=== PATIENT | male | born 1935 | race Caucasian/White ===

== ENCOUNTER → 2016-12-13 | Outpatient (CLI) | payer OTHER ==
[~2016-12-13] MED LIST: ALLO100T57 PO; ASCO500T3 PO; ASPI-435 PO; CHOL100040 PO; CILO100T PO; CILO100T15 PO; CLON0.1T12 PO; CLOP1TAB15 PO; CLR10 PO; CTP1 PO; CYAN100020 PO; DARB40IN3 INJ; FERR1TAB23 PO; FLV400 PO; FLVHFA44 INH; GARL10007 PO; IMDSR30 PO; IRON 65 MG PO; ISOS60TA25 PO; LEVO100T7 PO; LEVO137T3 PO; METO1TAB69 PO; MTR500 PO; MULT-506 PO; NITR0.4S UT; OMEG500C2 PO; PYRI100T4 PO; RANI150C4 PO; TIOT1AER INH; TRIATAB3 PO
[2016-12-14 05:47] LABS: ESTIMATED AVERAGE GLUCOSE 137 mg/dl; HA1C FLAG Normal (Normal)
== END | disposition home or self-care (01) ==
LOC: C.LABBFT 13:55
PROVIDERS: ATTEND Internal Medicine
DX: E03.9 Hypothyroidism, unspecified (principal); R89.9 Unspecified abnormal finding in specimens from other organs, systems and tissues; E11.9 Type 2 diabetes mellitus without complications

== ENCOUNTER → 2016-12-29 | Outpatient (CLI) | payer OTHER ==
[2016-12-29 12:29] LABS: MEAN CELL VOLUME 103.1 fL (80-100); MEAN CORPUSCULAR HEMOGLOBIN 34.4 pg (25-34); MEAN CORPUSCULAR HGB CONC 33.3 g/dl (32-36); MEAN PLATELET VOLUME 10.9 fL (7.4-10.4); PLATELET COUNT 174 K/uL (130-400); WHITE BLOOD COUNT 5.16 K/uL (4.8-10.8)
[2016-12-29 12:34] LABS: URINE APPEARANCE CLEAR (CLEAR); URINE BILIRUBIN NEG (NEG); URINE COLOR YELLOW; URINE NITRITE NEG (NEG); URINE PH 6.5 (4.5-7.5); URINE SPECIFIC GRAVITY 1.015 (1.000-1.030); UROBILINOGEN NEG (NEG)
[2016-12-29 12:39] LABS: MANUAL MICROSCOPIC REQUIRED? NO; REVIEW REQ? NO
[2016-12-29 12:46] LABS: BLOOD UREA NITROGEN 33 mg/dl (7-18); BUN/CREATININE RATIO 19.4 (10-20); CALCIUM 9.2 mg/dl (8.5-10.1); CARBON DIOXIDE 26 mmol/L (21-32); CHLORIDE 102 mmol/L (98-107); GLUCOSE 157 mg/dl (70-99); POTASSIUM 3.9 mmol/L (3.5-5.1); SODIUM 136 mmol/L (136-145)
[2016-12-29 12:47] LABS: PHOSPHORUS 2.4 mg/dl (2.5-4.9)
[2016-12-29 13:08] LABS: URINE PROTIEN/CREAT RATIO 0.1 (0-0.2); URINE TOTAL PROTEIN 10.4 mg/dl (0-11.9)
== END | disposition home or self-care (01) ==
LOC: C.LABBFT 08:53
PROVIDERS: ATTEND Internal Medicine Nephrology
DX: I12.9 Hypertensive chronic kidney disease with stage 1 through stage 4 chronic kidney disease, or unspecified chronic kidney disease (principal); D64.9 Anemia, unspecified; N18.3 Chronic kidney disease, stage 3 (moderate); N25.81 Secondary hyperparathyroidism of renal origin

== ENCOUNTER → 2017-01-30 | Outpatient (CLI) | payer OTHER | END | disposition home or self-care (01) | LOC: C.LABBFT 08:26 | PROVIDERS: ATTEND Internal Medicine | DX: E03.9 Hypothyroidism, unspecified (principal) ==

== ENCOUNTER → 2017-02-05 | Outpatient (CLI) | payer OTHER ==
[~2017-02-05] MED LIST changes: +METO100T44 PO; -METO1TAB69 PO
[2017-02-06 06:12] LABS: ESTIMATED AVERAGE GLUCOSE 137 mg/dl; HA1C FLAG Normal (Normal)
== END | disposition home or self-care (01) ==
LOC: C.LABBFT 13:31
PROVIDERS: ATTEND Internal Medicine
DX: E11.9 Type 2 diabetes mellitus without complications (principal)

== ENCOUNTER → 2017-05-04 | Outpatient (CLI) | payer OTHER ==
[~2017-05-04] MED LIST changes: -METO100T44 PO; +METO1TAB69 PO
[2017-05-04 12:34] LABS: HEMATOCRIT 34.7 % (42-52); MEAN CELL VOLUME 105.8 fL (80-100); MEAN CORPUSCULAR HEMOGLOBIN 34.5 pg (25-34); MEAN CORPUSCULAR HGB CONC 32.6 g/dl (32-36); MEAN PLATELET VOLUME 10.9 fL (7.4-10.4); PLATELET COUNT 167 K/uL (130-400); RED BLOOD COUNT 3.28 M/uL (4.7-6.1)
[2017-05-04 12:43] LABS: URINE APPEARANCE CLEAR (CLEAR); URINE BILIRUBIN NEG (NEG); URINE COLOR YELLOW; URINE EPITHELIAL CELL AUTO 0-5 /lpf (0-5); URINE NITRITE NEG (NEG); URINE PH 6.5 (4.5-7.5); URINE SPECIFIC GRAVITY 1.019 (1.000-1.030); UROBILINOGEN NEG (NEG)
[2017-05-04 12:47] LABS: MANUAL MICROSCOPIC REQUIRED? NO; REVIEW REQ? NO
[2017-05-04 12:54] LABS: ALT/SGPT 26 U/L (12-78); AST/SGOT 23 U/L (15-37); BLOOD UREA NITROGEN 32 mg/dl (7-18); BUN/CREATININE RATIO 17.9 (10-20); CALCIUM 9.2 mg/dl (8.5-10.1); CARBON DIOXIDE 27 mmol/L (21-32); CHLORIDE 105 mmol/L (98-107); GLUCOSE 178 mg/dl (70-99); POTASSIUM 4.1 mmol/L (3.5-5.1); SODIUM 140 mmol/L (136-145)
[2017-05-04 12:57] LABS: ALB/GLOB RATIO 0.9 (0.9-2); ALKALINE PHOSPHATASE 73 U/L (45-117); FERRITIN 284.3 ng/ml (8.0-388.0); TOTAL IRON BINDING CAPACITY 234 mcg/dl (250-450)
[2017-05-04 13:10] LABS: URINE PROTIEN/CREAT RATIO 0.1 (0-0.2); URINE TOTAL PROTEIN 12.7 mg/dl (0-11.9)
--- NOTE | 2017-05-11 08:09 | CODING QUERY MEDICAL NECESSITY ---
CQSUPPORTING DIAGNOSIS NEEDED A supporting diagnosis is required for the test/procedure performed on this patient in order for us to be reimbursed by the patient's insurance. Please provide a supporting diagnosis for the following test/procedure listed below next to the test name along with your signature. *If there is no additional diagnosis for this patient that would support the following test/procedure please document that below next to the test/procedure. Test(s)/Procedure(s) that require a supporting diagnosis: DOS 05/04/17 VITAMIN D TEST FOLIC ACID TEST Provider Signature: Date: Thank you Carol Betts Health Information Management Once completed, please kindly fax back to [phone] For questions please call [phone]
== END | disposition home or self-care (01) ==
LOC: C.LABBFT 08:31
PROVIDERS: ATTEND Internal Medicine Nephrology
DX: I12.9 Hypertensive chronic kidney disease with stage 1 through stage 4 chronic kidney disease, or unspecified chronic kidney disease (principal); D64.9 Anemia, unspecified; N18.3 Chronic kidney disease, stage 3 (moderate); N25.81 Secondary hyperparathyroidism of renal origin; E55.9 Vitamin D deficiency, unspecified; D52.9 Folate deficiency anemia, unspecified

== ENCOUNTER 2017-05-30 15:33 | Inpatient (IN) | payer OTHER ==
[~2017-05-30] VITALS: Ht 177.8 cm; Wt 78.2 kg
[~2017-05-30 15:33] MED LIST changes: -CILO100T PO; -CLON0.1T12 PO; -FERR1TAB23 PO; -ISOS60TA25 PO; -LEVO100T7 PO; -MTR500 PO
[2017-05-30] MEDS ORDERED: SODIUM CHLORIDE 0.9% 1000ML 1,000 ML IV STA (15:51)
[2017-05-30] MEDS ORDERED: SODIUM CHLORIDE 0.9% 250ML 250 ML IV STA (15:51)
[2017-05-30] MEDS ORDERED: OPTIRAY 320 IV PRN (16:00)
--- NOTE | 2017-05-30 16:01 | EMERGENCY ROOM VISIT NOTE ---
History Report prepared by Citlalli: Mayra Laird Under the Supervision of: Dr. Ирина Estrada M.D. First contact with patient: 15:48 Chief Complaint: ABDOMINAL PAIN Stated Complaint: STOMACH PROBLEMS FOR 5 DAYS History of Present Illness The patient is a 81 year old male who presents to the Emergency Room with complaints of intermittent, lower abdominal pain occurring today. About a week ago, the patient started having diffuse abdominal pain. Since then, the area of pain has been regressing and the location has been receding towards the lower abdomen. He is now only having pain in lower abdomen which occurs with certain positions such as sitting up. He describes it as a mild, stabbing pain. The pain lasts for about 20-30 seconds. He also had diarrhea about a week ago which has now resolved. He reports a loss of appetite. He has intermittent nausea but denies vomiting. He currently denies any pain. As per daughter, the patient looks pale. He denies fevers, urinary symptoms, or any other complaints. The patient has a history of colitis but is unsure if his symptoms are similar today. He denies any history of abdominal surgeries. The patient is also unsure about any blood in stool because he is on iron pills. As per daughter, the patient has a history of triple bypass, multiple stent placement, and angioplasty. Source of History: patient Onset: today Position: abdomen (lower) Symptom Intensity: mild Quality: stabbing Timing: intermittent Associated Symptoms: + nausea, + diarrhea (resolved), No fevers, No vomiting , No urinary symptoms Review of Systems See HPI for pertinent positives & negatives. A total of 10 systems reviewed and were otherwise negative. Past Medical & Surgical Medical Problems: (1) Aortocoronary Bypass (2) Chronic Kidney Disease, Stage Iii (Moderate) (3) Colitis (4) Diab Vanessa Wo Compl, Type Ii Or Unspec Type, Not Uncntrld (5) Diverticulosis Colon (W/O Ment Of Hemorrhage) (6) Hypertension Nos Surgical Problems: (1) Stented coronary artery Family History Cancer Heart disease Hypertension Lung disease Stroke Social History Smoking Status: Former Smoker Drug Use: none Marital Status: Housing Status: lives with family Occupation Status: retired Current/Historical Medications Scheduled Allopurinol (Zyloprim), 200 MG PO QAM Ascorbic Acid (Vitamin C), 500 MG PO QPM Aspirin (Aspirin 81), 81 MG PO QAM Cholecalciferol (Vitamin D-1000), 1,000 UNIT PO QAM Cilostazol (Pletal), 100 MG PO BID Clonidine Hcl (Catapres), 2 TAB PO HS Clopidogrel (Plavix), 75 MG PO QAM Cyanocobalamin (Vitamin B12), 1,000 MCG PO QAM Darbepoetin Keenan-Polysorbate 8 (Aranesp Albumin Free), 1 DOSE INJ UD Ferrous Sulfate (Iron), 1 TAB PO QAM Fluticasone Propionate (Flovent Hfa), 2 PUFFS INH BID Folic Acid (Folic Acid), 400 MCG PO QAM Garlic (Garlic), 1,000 MG PO QAM Isosorbide Mononitrate Ext Rel (Imdur Ext Rel), 60 MG PO BID Levothyroxine Sodium (Levothyroxine Sodium), 1 TAB PO DAILYBB Loratadine (Claritin), 10 MG PO QAM Metoprolol Succ (Toprol Xl) (Toprol-Xl ), 100 MG PO QPM Metronidazole (Metronidazole), 500 MG PO TID Multivitamin (Multivitamin), 1 TAB PO QAM Nitroglycerin (Nitrostat), 0.4 MG UT PRN [place]urel-3 Fatty Acids (Fish Oil), 1,000 MG PO BID Pyridoxine (Vitamin B6), 100 MG PO QAM Ranitidine Hcl (Ranitidine Hcl), 150 MG PO BID Tiotropium [place]-Olodaterol (Stiolto Respimat 2.5-2.5 Mcg/Act), 2 PUFFS INH QAM Triamterene/Hctz (Triamterene/Hctz 37.5-25MG), 1 TAB PO QPM Allergies Coded Allergies: No Known Allergies (Unverified , 05/30/17) Physical Exam Vital Signs Date Time Temp Pulse Resp B/P (MAP) Pulse Ox O2 Delivery O2 Flow Rate FiO2 05/30/17 18:25 87 16 122/70 96 Room Air 05/30/17 17:02 87 16 126/70 96 Room Air 05/30/17 16:11 86 05/30/17 15:39 36.8 60 20 122/74 98 Room Air Physical Exam Vital signs reviewed. General: Well-appearing, in no significant distress. HEENT: No scleral icterus, PERRLA, neck supple. Atraumatic. Cardiovascular: Regular rate and rhythm, no extra sounds. Pulmonary: Coarse breath sounds at the bases bilaterally, normal work of breathing. Abdomen: Soft, no reproducible abdominal tenderness, nondistended, positive bowel sounds. Rectal: Guaiac negative, dark stool. Musculoskeletal: Atraumatic, no peripheral edema. No CVA tenderness. Neurologic: Patient awake alert and oriented x 3, full strength in all 4 extremities. Cranial nerves 2 through 12 grossly intact. Skin: Warm, dry, no rash. Appears to be pale. Medical Decision & Procedures ER Provider Diagnostic Interpretation: CT results as stated below per my review and radiologist interpretation: ABD/PELVIS NO IV OR ORAL CONT CLINICAL HISTORY: 81 years-old Male presenting with lower abd pain, diarrhea, dec appetite. TECHNIQUE: Multidetector CT of the abdomen and pelvis was performed without the use of intravenous contrast. IV contrast: None. A dose lowering technique was used consistent with the principles of ALARA (as low as reasonably achievable). COMPARISON: 06/20/2016. CT DOSE (mGy.cm): The estimated cumulative dose is 397.58 mGy.cm. 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 Lung bases: Dependent reticulation likely atelectasis. Normal heart size. Coronary artery, mitral annular, and aortic valve calcification. No pericardial or pleural effusion. Liver: Normal liver morphology. Borderline hepatic steatosis. Well-defined 8 mm lesion at the hepatic dome, indeterminate but unchanged from prior and likely hepatic cyst or hamartoma. Biliary: No gross biliary ductal dilatation allowing for noncontrast technique. Mildly distended gallbladder without gallbladder wall thickening. Pancreas: Mild parenchymal atrophy. Spleen: Normal. Adrenal glands: Normal. Kidneys and ureters: Cortical thinning posteriorly likely indicates prior infarct, infection, or trauma. Multiple hypodensities indeterminate but possibly cysts. No hydronephrosis. Vascular calcification noted. Ureters grossly normal. Gastrointestinal tract: Interval development of diffuse colonic wall thickening with pericolonic inflammatory change. This extends from the cecum to the proximal sigmoid colon. Sigmoid diverticulosis. Peritoneal cavity: Small amount of pelvic ascites. No free gas. Bladder: Normal. Pelvic organs: The prostate is likely diminutive. Vasculature: Severe atherosclerosis of the abdominal aorta evidence of left femoral bypass graft. A density of vessels cannot be assessed. Lymph nodes: No enlarged lymph nodes in the abdomen or pelvis. Abdominal wall: Normal. Musculoskeletal: Degenerative changes of the spine. IMPRESSION: 1. Interval development of diffuse colonic wall thickening with pericolonic inflammatory change. This is consistent with colitis most likely infectious etiology. No abnormal colonic distention or evidence of perforation. 2. Sigmoid diverticulosis. 3. Small amount of ascites. 4. Severe atherosclerosis. Left femoral bypass graft. Patency of vessels cannot be assessed. Given noncontrast technique. The report will be called/faxed according to standard departmental protocol. Electronically signed by: Cuong Cota M.D. 05/30/2017 5:45 PM Dictated Date/Time: 05/30/2017 5:36 PM Laboratory Results 05/30/17 15:50 Red Blood Count 3.51, Mean Corpuscular Volume 99.7, Mean Corpuscular Hemoglobin 34.5, Mean Corpuscular Hemoglobin Concent 34.6, Mean Platelet Volume 10.0, Neutrophils (%) (Auto) 81.8, Lymphocytes (%) (Auto) 3.8, Monocytes (%) (Auto) 13.4, Eosinophils (%) (Auto) 0.5, Basophils (%) (Auto) 0.1, Neutrophils # (Auto ) 14.25, Lymphocytes # (Auto) 0.66, Monocytes # (Auto) 2.33, Eosinophils # (Auto ) 0.08, Basophils # (Auto) 0.01 05/30/17 15:50 Test 05/30/17 15:50 White Blood Count 17.40 K/uL (4.8-10.8) Red Blood Count 3.51 M/uL (4.7-6.1) Hemoglobin 12.1 g/dL (14.0-18.0) Hematocrit 35.0 % (42-52) Mean Corpuscular Volume 99.7 fL (80-100) Mean Corpuscular Hemoglobin 34.5 pg (25-34) Mean Corpuscular Hemoglobin Concent 34.6 g/dl (32-36) Platelet Count 247 K/uL (130-400) Mean Platelet Volume 10.0 fL (7.4-10.4) Neutrophils (%) (Auto) 81.8 % Lymphocytes (%) (Auto) 3.8 % Monocytes (%) (Auto) 13.4 % Eosinophils (%) (Auto) 0.5 % Basophils (%) (Auto) 0.1 % Neutrophils # (Auto) 14.25 K/uL (1.4-6.5) Lymphocytes # (Auto) 0.66 K/uL (1.2-3.4) Monocytes # (Auto) 2.33 K/uL (0.11-0.59) Eosinophils # (Auto) 0.08 K/uL (0-0.5) Basophils # (Auto) 0.01 K/uL (0-0.2) RDW Standard Deviation 45.4 fL (36.4-46.3) RDW Coefficient of Variation 12.5 % (11.5-14.5) Immature Granulocyte % (Auto) 0.4 % Immature Granulocyte # (Auto) 0.07 K/uL (0.00-0.02) Anion Gap 11.0 mmol/L (3-11) Estimated GFR () 23.6 Estimated GFR (Non- 20.4 BUN/Creatinine Ratio 20.4 (10-20) Calcium Level 9.3 mg/dl (8.5-10.1) Total Bilirubin 0.6 mg/dl (0.2-1) Direct Bilirubin 0.3 mg/dl (0-0.2) Aspartate Amino Transf (AST/SGOT) 25 U/L (15-37) Alanine Aminotransferase (ALT/SGPT) 34 U/L (12-78) Alkaline Phosphatase 83 U/L (45-117) Total Protein 6.8 gm/dl (6.4-8.2) Albumin 2.6 gm/dl (3.4-5.0) Lipase 70 U/L (73-393) Laboratory results per my review. Medications Administered Medications (Trade) Dose Ordered Sig/Dain Route Start Time Stop Time Status Last Admin Dose Admin Sodium Chloride 250 ml @ 999 mls/hr Q16M STAT IV 05/30/17 15:51 05/30/17 16:06 DC 05/30/17 15:51 999 MLS/HR Sodium Chloride 1,000 ml @ 125 mls/hr Q8H STAT IV 05/30/17 15:51 05/30/17 23:50 05/30/17 15:51 125 MLS/HR Piperacillin Sod/ Tazobactam Sod (Zosyn Iv) 4.5 gm NOW STAT IV 05/30/17 18:01 05/30/17 18:02 DC 05/30/17 18:25 4.5 GM ECG Indication: abdominal pain Rate (beats per minute): 86 Rhythm: sinus rhythm Findings: 1st degree AV block, other (Premature supraventricular complex; 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 The patient was evaluated in room C08. A complete history and physical examination was performed. 1551: Sodium Chloride 1000 ml @ 125 mls/hr IV, Sodium Chloride 250 ml @ 999 mls/ hr IV 180: Zosyn IV 4.5 gm IV 181: Upon reevaluation, the patient is resting comfortably. I discussed laboratory and radiographic results with the patient and his family. They verbalized agreement of the treatment plan. I [facility] The patient will be evaluated for further management and care. Medical Decision Differential diagnosis: Etiologies such as diverticulitis, urinary tract infection, intraabdominal mass , kidney stone, AVM, coagulopathy, colitis, inflammatory bowel disease, malignancy, Farrah-Hooker tear, esophagitis, peptic ulcer disease, variceal bleed, gastritis, epistaxis, fissure, hemorrhoids, as well as others were entertained. This patient was evaluated and appeared to be in no significant distress. IV access was obtained and laboratory work was drawn. Patient does have some tenderness to abdominal exam. IV access was obtained and laboratory work was drawn. The patient was placed on the manager reimbursement. Laboratory work reveals a leukocytosis. He is afebrile. Patient does have a worsened renal function. Creatinine is 2.8 from baseline of 1.7. Patient was given IV Zosyn 4.5 g. Case was discussed with the hospitalist service will evaluate the patient for further management. Medication Reconcilliation Current Medication List: was personally reviewed by me Blood Pressure Screening Patient's blood pressure: Normal blood pressure Consults Time Called: 1809 Consulting Physician: Dr. Salty [facility] Returned Call: [address] [facility] Impression Primary Impression: Acute colitis Scribe Attestation The scribe's documentation has been prepared under my direction and personally reviewed by me in its entirety. I confirm that the note above accurately reflects all work, treatment, procedures, and medical decision making performed by me. Departure Information Dispostion Being Evaluated By Hospitalist Prescriptions Metronidazole (Metronidazole) 500 Mg Tab 500 MG PO TID for 8 Days, #24 TAB Prov: Taran Ross D.Ernesto. 06/02/17 Referrals Sanjeev Coronado M.D. (PCP) Patient Instructions My [facility]
[2017-05-30 16:07] LABS: BASO % 0.1 %; BASO ABS # 0.01 K/uL (0-0.2); COMPLETE YES; EOS % 0.5 %; IG% 0.4 %; LYMPH % 3.8 %; LYMPH ABS # 0.66 K/uL (1.2-3.4); MEAN CELL VOLUME 99.7 fL (80-100); MEAN CORPUSCULAR HEMOGLOBIN 34.5 pg (25-34); MEAN CORPUSCULAR HGB CONC 34.6 g/dl (32-36); MONO % 13.4 %; NEUT % 81.8 %; PLATELET COUNT 247 K/uL (130-400); RED BLOOD COUNT 3.51 M/uL (4.7-6.1)
[2017-05-30 16:22] LABS: ALT/SGPT 34 U/L (12-78); AST/SGOT 25 U/L (15-37); BLOOD UREA NITROGEN 57 mg/dl (7-18); BUN/CREATININE RATIO 20.4 (10-20); CALCIUM 9.3 mg/dl (8.5-10.1); CARBON DIOXIDE 25 mmol/L (21-32); CHLORIDE 96 mmol/L (98-107); GLUCOSE 118 mg/dl (70-99); POTASSIUM 3.7 mmol/L (3.5-5.1); SODIUM 132 mmol/L (136-145)
[2017-05-30 16:25] LABS: ALKALINE PHOSPHATASE 83 U/L (45-117)
[2017-05-30] MEDS ORDERED: CILO100T PO (16:31)
[2017-05-30] MEDS ORDERED: CLON0.1T12 PO (16:37)
[2017-05-30] MEDS ORDERED: ISOS60TA25 PO (16:37)
[2017-05-30] MEDS ORDERED: LEVO100T7 PO (16:37)
[2017-05-30] MEDS ORDERED: FERR1TAB23 PO (16:37)
--- NOTE | 2017-05-30 17:46 | DIAGNOSTIC IMAGING REPORT ---
ABD/PELVIS NO IV OR ORAL CONT CLINICAL HISTORY: 81 years-old Male presenting with lower abd pain, diarrhea, dec appetite. TECHNIQUE: Multidetector CT of the abdomen and pelvis was performed without the use of intravenous contrast. IV contrast: None. A dose lowering technique was used consistent with the principles of ALARA (as low as reasonably achievable). COMPARISON: 06/20/2016. CT DOSE (mGy.cm): The estimated cumulative dose is 397.58 mGy.cm. 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 Lung bases: Dependent reticulation likely atelectasis. Normal heart size. Coronary artery, mitral annular, and aortic valve calcification. No pericardial or pleural effusion. Liver: Normal liver morphology. Borderline hepatic steatosis. Well-defined 8 mm lesion at the hepatic dome, indeterminate but unchanged from prior and likely hepatic cyst or hamartoma. Biliary: No gross biliary ductal dilatation allowing for noncontrast technique. Mildly distended gallbladder without gallbladder wall thickening. Pancreas: Mild parenchymal atrophy. Spleen: Normal. Adrenal glands: Normal. Kidneys and ureters: Cortical thinning posteriorly likely indicates prior infarct, infection, or trauma. Multiple hypodensities indeterminate but possibly cysts. No hydronephrosis. Vascular calcification noted. Ureters grossly normal. Gastrointestinal tract: Interval development of diffuse colonic wall thickening with pericolonic inflammatory change. This extends from the cecum to the proximal sigmoid colon. Sigmoid diverticulosis. Peritoneal cavity: Small amount of pelvic ascites. No free gas. Bladder: Normal. Pelvic organs: The prostate is likely diminutive. Vasculature: Severe atherosclerosis of the abdominal aorta evidence of left femoral bypass graft. A density of vessels cannot be assessed. Lymph nodes: No enlarged lymph nodes in the abdomen or pelvis. Abdominal wall: Normal. Musculoskeletal: Degenerative changes of the spine. IMPRESSION: 1. Interval development of diffuse colonic wall thickening with pericolonic inflammatory change. This is consistent with colitis most likely infectious etiology. No abnormal colonic distention or evidence of perforation. 2. Sigmoid diverticulosis. 3. Small amount of ascites. 4. Severe atherosclerosis. Left femoral bypass graft. Patency of vessels cannot be assessed. Given noncontrast technique. The report will be called/faxed according to standard departmental protocol. Electronically signed by: Cuong Cota M.D. 05/30/2017 5:45 PM Dictated Date/Time: 05/30/2017 5:36 PM
[2017-05-30] MEDS ORDERED: PIPERACILLIN/TAZOBACTAM 4.5 GM/100ML D5W IV STA (18:01)
[2017-05-30] MEDS ORDERED: ONDANSETRON INJ 2 MG/ML 2 ML VIAL IV PRN (18:45)
[2017-05-30] MEDS ORDERED: MAGNESIUM HYDROXIDE SUSP 30 ML UDC PO PRN (18:45)
[2017-05-30] MEDS ORDERED: ALUMINUM/MAGNESIUM/SIMETH (MAALOX MAX) 30 ML UDC PO PRN (18:45)
[2017-05-30] MEDS ORDERED: POLYETHYLENE (MIRALAX) 17 GM PACK PO PRN (18:45)
[2017-05-30] MEDS ORDERED: ACETAMINOPHEN 325 MG TAB PO PRN (18:45)
[2017-05-30] MEDS ORDERED: NITROGLYCERIN 0.4 MG SL PER TAB CHARGE UT PRN (18:45)
--- NOTE | 2017-05-30 19:04 | History and Physical ---
History & Physical Date & Time of Service: May 30, 2017 at 18:43 Chief Complaint: Stomach Problems For 5 Days Primary Care Physician: Sanjeev Coronado M.D. History of Present Illness Source: patient, family, clinic records, hospital records Patient is a pleasant 81 y/o male, with PMHx of CAD s/p 3-vessel CABG and multiple stent placements, CKD stage III, HTN, diet-controlled DM, diverticulosis, lymphocytic colitis, hypothyroidism, chronic anemia, COPD, BPH, and GERD, who presented to the ED because of abdominal discomfort and diarrhea x5 days. Abdominal discomfort started as a generalized pain, but progressively localized to LLQ. Now pain only occurs with movement. Diarrhea has subsided 1 day ago. He had decreased appetite and fluid intake due to nausea. Patient had a colonoscopy in 06/2016 due to persistent diarrhea. Colonoscopy reported internal hemorrhoids and diverticulosis. Pathology was consistent with lymphocytic colitis. He follows with Dr. Sher/Criselda Ayers. Patient denies any fever, chills, sweats, lightheadedness, dizziness, vision changes, CP, palpitations, edema, SOB, wheezing, cough, vomiting, urinary symptoms, melena, numbness/tingling, weakness, muscle/joint pain, anxiety/depression, active bleeding, or new skin discoloration/changes. Past Medical/Surgical History Medical Problems: CAD s/p 3-vessel CABG and multiple stent placements CKD stage III HTN diet-controlled DM diverticulosis lymphocytic colitis hypothyroidism chronic anemia COPD BPH GERD Surgical Problems: (1) Stented coronary artery Status: Resolved Family History Cancer Heart disease Hypertension Lung disease Stroke Social History Smoking Status: Former Smoker Drug Use: none Marital Status: Housing status: lives with significant other Occupational Status: retired Immunizations History of Tetanus Vaccine?: Unknown History of Pneumococcal: Yes History of Hepatitis B Vaccine: Unknown Multi-Drug Resistant Organisms History of MDRO: No Allergies Coded Allergies: No Known Allergies (Unverified , 05/30/17) Home Medications Scheduled Allopurinol (Zyloprim), 200 MG PO QAM Ascorbic Acid (Vitamin C), 500 MG PO QPM Aspirin (Aspirin 81), 81 MG PO QAM Cholecalciferol (Vitamin D-1000), 1,000 UNIT PO QAM Cilostazol (Pletal), 100 MG PO BID Clonidine Hcl (Catapres), 2 TAB PO HS Clopidogrel (Plavix), 75 MG PO QAM Cyanocobalamin (Vitamin B12), 1,000 MCG PO QAM Darbepoetin Keenan-Polysorbate 8 (Aranesp Albumin Free), 1 DOSE INJ UD Ferrous Sulfate (Iron), 1 TAB PO QAM Fluticasone Propionate (Flovent Hfa), 2 PUFFS INH BID Folic Acid (Folic Acid), 400 MCG PO QAM Garlic (Garlic), 1,000 MG PO QAM Isosorbide Mononitrate Ext Rel (Imdur Ext Rel), 60 MG PO BID Levothyroxine Sodium (Levothyroxine Sodium), 1 TAB PO DAILYBB Loratadine (Claritin), 10 MG PO QAM Metoprolol Succ (Toprol Xl) (Toprol-Xl ), 100 MG PO QPM Multivitamin (Multivitamin), 1 TAB PO QAM Nitroglycerin (Nitrostat), 0.4 MG UT PRN [place]-3 Fatty Acids (Fish Oil), 1,000 MG PO BID Pyridoxine (Vitamin B6), 100 MG PO QAM Ranitidine Hcl (Ranitidine Hcl), 150 MG PO BID Tiotropium [place]-Olodaterol (Stiolto Respimat 2.5-2.5 Mcg/Act), 2 PUFFS INH QAM Triamterene/Hctz (Triamterene/Hctz 37.5-25MG), 1 TAB PO QPM Physical Exam Vital Signs Date Time Temp Pulse Resp B/P (MAP) Pulse Ox O2 Delivery O2 Flow Rate FiO2 05/30/17 18:25 87 16 122/70 96 Room Air 05/30/17 17:02 87 16 126/70 96 Room Air 05/30/17 16:11 86 05/30/17 15:39 36.8 60 20 122/74 98 Room Air General Appearance: no apparent distress Head: normocephalic, atraumatic Eyes: normal inspection, PERRL ENT: hearing grossly normal Neck: supple Respiratory/Chest: lungs clear, no respiratory distress, no accessory muscle use Cardiovascular: regular rate, rhythm Abdomen/GI: normal bowel sounds, soft, + tenderness (mild ttp LLQ ), + guarding Back: normal inspection Extremities/Musculoskelatal: no calf tenderness, no pedal edema Neurologic/Psych: alert, normal mood/affect, oriented x 3 Skin: normal color, warm/dry, no rash Diagnostics Laboratory Results Results Past 24 Hours Test 05/30/17 15:50 Range/Units White Blood Count 17.40 4.8-10.8 K/uL Red Blood Count 3.51 4.7-6.1 M/uL Hemoglobin 12.1 14.0-18.0 g/dL Hematocrit 35.0 42-52 % Mean Corpuscular Volume 99.7 80-100 fL Mean Corpuscular Hemoglobin 34.5 25-34 pg Mean Corpuscular Hemoglobin Concent 34.6 32-36 g/dl Platelet Count 247 130-400 K/uL Mean Platelet Volume 10.0 7.4-10.4 fL Neutrophils (%) (Auto) 81.8 % Lymphocytes (%) (Auto) 3.8 % Monocytes (%) (Auto) 13.4 % Eosinophils (%) (Auto) 0.5 % Basophils (%) (Auto) 0.1 % Neutrophils # (Auto) 14.25 1.4-6.5 K/uL Lymphocytes # (Auto) 0.66 1.2-3.4 K/uL Monocytes # (Auto) 2.33 0.11-0.59 K/uL Eosinophils # (Auto) 0.08 0-0.5 K/uL Basophils # (Auto) 0.01 0-0.2 K/uL RDW Standard Deviation 45.4 36.4-46.3 fL RDW Coefficient of Variation 12.5 11.5-14.5 % Immature Granulocyte % (Auto) 0.4 % Immature Granulocyte # (Auto) 0.07 0.00-0.02 K/uL Sodium Level 132 136-145 mmol/L Potassium Level 3.7 3.5-5.1 mmol/L Chloride Level 96 98-107 mmol/L Carbon Dioxide Level 25 21-32 mmol/L Anion Gap 11.0 3-11 mmol/L Blood Urea Nitrogen 57 7-18 mg/dl Creatinine 2.80 0.60-1.40 mg/dl Estimated GFR () 23.6 Estimated GFR (Non- 20.4 BUN/Creatinine Ratio 20.4 10-20 Random Glucose 118 70-99 mg/dl Calcium Level 9.3 8.5-10.1 mg/dl Total Bilirubin 0.6 0.2-1 mg/dl Direct Bilirubin 0.3 0-0.2 mg/dl Aspartate Amino Transf (AST/SGOT) 25 15-37 U/L Alanine Aminotransferase (ALT/SGPT) 34 12-78 U/L Alkaline Phosphatase 83 45-117 U/L Total Protein 6.8 6.4-8.2 gm/dl Albumin 2.6 3.4-5.0 gm/dl Lipase 70 73-393 U/L Diagnostic Radiology ABD/PELVIS NO IV OR ORAL CONT CLINICAL HISTORY: 81 years-old Male presenting with lower abd pain, diarrhea, dec appetite. TECHNIQUE: Multidetector CT of the abdomen and pelvis was performed without the use of intravenous contrast. IV contrast: None. A dose lowering technique was used consistent with the principles of ALARA (as low as reasonably achievable). COMPARISON: 06/20/2016. CT DOSE (mGy.cm): The estimated cumulative dose is 397.58 mGy.cm. FINDINGS: Arborist topogram: Median sternotomy wires and mediastinal surgical clips noted. Lung bases: Dependent reticulation likely atelectasis. Normal heart size. Coronary artery, mitral annular, and aortic valve calcification. No pericardial or pleural effusion. Liver: Normal liver morphology. Borderline hepatic steatosis. Well-defined 8 mm lesion at the hepatic dome, indeterminate but unchanged from prior and likely hepatic cyst or hamartoma. Biliary: No gross biliary ductal dilatation allowing for noncontrast technique. Mildly distended gallbladder without gallbladder wall thickening. Pancreas: Mild parenchymal atrophy. Spleen: Normal. Adrenal glands: Normal. Kidneys and ureters: Cortical thinning posteriorly likely indicates prior infarct, infection, or trauma. Multiple hypodensities indeterminate but possibly cysts. No hydronephrosis. Vascular calcification noted. Ureters grossly normal. Gastrointestinal tract: Interval development of diffuse colonic wall thickening with pericolonic inflammatory change. This extends from the cecum to the proximal sigmoid colon. Sigmoid diverticulosis. Peritoneal cavity: Small amount of pelvic ascites. No free gas. Bladder: Normal. Pelvic organs: The prostate is likely diminutive. Vasculature: Severe atherosclerosis of the abdominal aorta evidence of left femoral bypass graft. A density of vessels cannot be assessed. Lymph nodes: No enlarged lymph nodes in the abdomen or pelvis. Abdominal wall: Normal. Musculoskeletal: Degenerative changes of the spine. IMPRESSION: 1. Interval development of diffuse colonic wall thickening with pericolonic inflammatory change. This is consistent with colitis most likely infectious etiology. No abnormal colonic distention or evidence of perforation. 2. Sigmoid diverticulosis. 3. Small amount of ascites. 4. Severe atherosclerosis. Left femoral bypass graft. Patency of vessels cannot be assessed. Given noncontrast technique. The report will be called/faxed according to standard departmental protocol. Electronically signed by: Cuong Cota M.D. 05/30/2017 5:45 PM Dictated Date/Time: 05/30/2017 5:36 PM The status of this report is Signed. Draft = Not yet reviewed or approved by Radiologist. Signed = Reviewed and approved by Radiologist. EKG BRNET RUSSELL ID:[id number] 30-MAY-2017 16:12:29 [facility] Sinus rhythm with 1st degree A-V block with Premature supraventricular complexes Cannot rule out Anterior infarct , age undetermined Abnormal ECG When compared with ECG of 12-OCT-2016 06:15, ST now depressed in Anterior leads 25mm/s 10mm/mV 150Hz 8.0 SP2 12SL 241 HD SCOT: 12 Referred by: ED Unconfirmed Vent. rate 86 BPM IA interval 254 ms QRS duration 96 ms QT/QTc 420/502 ms P-R-T axes 62 1935 (81 yr) Male 84in 0lb Room: Loc:15 Filament Cutter:Melany Sommer ind: Impression Assessment and Plan Patient is a pleasant 81 y/o male, with PMHx of CAD s/p 3-vessel CABG and multiple stent placements, CKD stage III, HTN, diet-controlled DM, diverticulosis, lymphocytic colitis, hypothyroidism, chronic anemia, COPD, BPH, and GERD, who presented to the ED because of abdominal discomfort and diarrhea x5 days. Abdominal discomfort and diarrhea, secondary to infectious colitis w/ leukocytosis: - Admit to med/surg - IV Zosyn x1 dose in ED; admit on IV Flagyl + Cipro - NPO for bowel rest/ongoing nausea- advance as tolerated - IV NSS @ 100 ml/hr - Diarrhea- check c.diff and stool cultures, check mag level tomorrow AM - Follow CBC IDANIA on CKD stage III, baseline Cr. 1.70: IVF and follow PRP Mild hyponatremia, likely secondary to hypovolemia: IVF CAD s/p 3-vessel CABG and multiple stent placements, HTN- follows w/ Dr. Mp : - Continue ASA 81 mg daily, Pletal 100 mg BID, Clonidine 2 tab HS, Plavix 75 mg daily, Imdur 60 mg BID, Toprol XL 100 mg HS, Dyazide 1 tab HS Chronic anemia, baseline hgb 10- STABLE: Continue iron supplement 325 mg daily Hypothyroidism: Continue Synthroid 100 mcg daily Diet-controlled DM- ha1c=6.4% in 02/19 COPD- STABLE: Continue home inhalers Gout: Continue Allopurinol 200 mg daily GERD: Continue Zantac 150 mg BID DVT Prophylaxis: Heparin Code Status: LEVEL I, FULL Dispo: From home- social work msw consulted I personally interviewed and examined the patient I discussed the above plan with Miss Nancy Paul I agree with her Hx and PE 81 y/o/m, with PMHx of CAD s/p 3-vessel CABG and multiple stent placements, PVD S/P graft, CKD stage III, lymphocytic colitis, hypothyroidism, COPD, and GERD, P/W abdominal discomfort and diarrhea x5 days. CT abdomen was suggestive of colitis. . ROS/PMHx: as HPI FHx/SHx/labs/meds reviewed as needed PE: average built, not in acute distress LUNGs: normal exam, no wheezing/R Heart: s1/s2 normal, no G/R/ , positive soft systolic M ABD: soft, tender in RLQ Ext: B/L LE no edema or swelling Neuro: pleasant,AAOX3, EOMI, moves all ext, CN 2-12 intact Assessment: Acute Diverticulitis diarrhea secondary to above Hx of lymphocytic colitis , which should be considered if no improvement on Abx IDANIA on CKD CAD s/p CABG PVD S/P graft CKD stage III, Plan: admit to telemetry IVF hydration consult GI CIpro / flagyl stool studies , including C diff Level of Care Med/Surg Resuscitation Status FULL RESUSCITATION VTE Prophylaxis VTE Risk Assessment Done? Y/N: Yes Risk Level: Moderate Given or contraindicated: Unfractionated heparin SQ, T.E.D. Stockings, SCD's
[2017-05-30 19:45] VITALS: BP 123/62; PULSE 87; TEMP 37; O2SAT 96
[2017-05-30] MEDS: SODIUM CHLORIDE 0.9% 1000ML 1,000 ML IV SCH ×2 (20:10→23:36)
[2017-05-30 20:48] LABS: INR 1.1 (0.9-1.1); PROTHROMBIN TIME (PATIENT) 11.3 SECONDS (9.0-12.0)
[2017-05-30] MEDS: CLONIDINE HCL 0.1 MG TAB PO SCH (20:53)
[2017-05-30] MEDS: FLUTICASONE PROP HFA INH 44 MCG INHALER INH SCH (20:53)
[2017-05-30] MEDS: CILOSTAZOL 100 MG TAB PO SCH (20:54)
[2017-05-30] MEDS: ASCORBIC ACID 500 MG TAB PO SCH (20:54)
[2017-05-30] MEDS: METOPROLOL SUCC 50MG EXT REL TAB PO SCH (20:54)
[2017-05-30] MEDS: RANITIDINE HCL 150 MG TAB PO SCH (20:55)
[2017-05-30] MEDS: TRIAMTERENE/HCTZ 37.5/25MG TAB PO SCH (20:55)
[2017-05-30] MEDS: ISOSORBIDE MONONITRATE 60 MG TABCR PO SCH (21:00)
[2017-05-30] MEDS ORDERED: CIPROFLOXACIN / D5W 400 MG in PREMIXED IN D5W 200 ML IV SCH (21:00)
[2017-05-30 21:10] VITALS: BP 123/62; PULSE 87; TEMP 37; O2SAT 96; Ht 177.8 cm; Wt 78.2 kg
[2017-05-30] MEDS ORDERED: SODIUM CHLORIDE 0.9% 1000ML 1,000 ML IV ONE (21:15)
[2017-05-30 22:14] LABS: URINE APPEARANCE CLEAR (CLEAR); URINE BILIRUBIN NEG (NEG); URINE COLOR YELLOW; URINE NITRITE NEG (NEG); URINE SPECIFIC GRAVITY 1.024 (1.000-1.030); UROBILINOGEN NEG (NEG); ZZUR CULT IF INDIC CLEAN CATCH NO
[2017-05-30 22:15] LABS: MANUAL MICROSCOPIC REQUIRED? NO; REVIEW REQ? NO
[2017-05-30] MEDS: HEPARIN SOD 5000 UNIT/0.5 ML CARP SQ SCH (22:24)
[2017-05-30 23:20] VITALS: BP 123/71; PULSE 88; TEMP 36.3; O2SAT 97
[2017-05-30] MEDS: METRONIDAZOLE / NSS 500 MG in PREMIXED NSS 100 ML IV SCH (23:35)
[2017-05-31] MEDS ORDERED: VANCOMYCIN HCL 125 MG/2.5ML SOLN PO ONE (04:00)
[2017-05-31] MEDS ORDERED: RASPBERRY SYRUP 5 ML UDP PO ONE (04:00)
[2017-05-31 04:21] VITALS: BP 113/69; PULSE 85; TEMP 36.7; O2SAT 95
[2017-05-31] MEDS: LEVOTHYROXINE 100 MCG TAB PO SCH (06:15)
[2017-05-31 06:48] LABS: HEMATOCRIT 30.5 % (42-52); MEAN CORPUSCULAR HEMOGLOBIN 33.4 pg (25-34); MEAN CORPUSCULAR HGB CONC 33.4 g/dl (32-36); MEAN PLATELET VOLUME 9.4 fL (7.4-10.4); PLATELET COUNT 210 K/uL (130-400); RED BLOOD COUNT 3.05 M/uL (4.7-6.1); WHITE BLOOD COUNT 14.75 K/uL (4.8-10.8)
[2017-05-31 07:21] LABS: BUN/CREATININE RATIO 23.1 (10-20); CALCIUM 7.8 mg/dl (8.5-10.1); CREATININE 2.2 mg/dl (0.60-1.40); MAGNESIUM 1.9 mg/dl (1.8-2.4); POTASSIUM 3.2 mmol/L (3.5-5.1)
[2017-05-31 07:29] VITALS: BP 100/65; PULSE 86; TEMP 37.1; O2SAT 94
[2017-05-31] MEDS: FLUTICASONE PROP HFA INH 44 MCG INHALER INH SCH ×2 (07:51→20:01)
[2017-05-31] MEDS: ISOSORBIDE MONONITRATE 60 MG TABCR PO SCH ×2 (07:52→20:02)
[2017-05-31] MEDS: CHOLECALCIFEROL 1000 INTER.UNIT TAB PO SCH (07:52)
[2017-05-31] MEDS: RANITIDINE HCL 150 MG TAB PO SCH (07:52)
[2017-05-31] MEDS: ALLOPURINOL 100 MG TAB PO SCH (07:52)
[2017-05-31] MEDS: MULTIVITAMIN TAB PO SCH (07:53)
[2017-05-31] MEDS: PYRIDOXINE HCL 50 MG TAB PO SCH (07:53)
[2017-05-31] MEDS: CLOPIDOGREL BISULFATE 75 MG TAB PO SCH (07:54)
[2017-05-31] MEDS: FERROUS SULFATE 325 MG TAB PO SCH (07:54)
[2017-05-31] MEDS: ASPIRIN 81 MG ECTAB PO SCH (07:55)
[2017-05-31] MEDS: CILOSTAZOL 100 MG TAB PO SCH ×2 (07:55→20:02)
[2017-05-31] MEDS: FoLIC ACID TAB 400 MCG TAB PO SCH (07:55)
[2017-05-31] MEDS: LORATADINE 10 MG TAB PO SCH (07:55)
[2017-05-31] MEDS: HEPARIN SOD 5000 UNIT/0.5 ML CARP SQ SCH ×2 (08:00→20:04)
[2017-05-31] MEDS: METRONIDAZOLE / NSS 500 MG in PREMIXED NSS 100 ML IV SCH ×2 (08:06→13:49)
[2017-05-31] MEDS ORDERED: RASPBERRY SYRUP 5 ML UDP PO SCH (09:00)
[2017-05-31] MEDS ORDERED: VANCOMYCIN HCL 125 MG/2.5ML SOLN PO SCH (09:00)
[2017-05-31] MEDS ORDERED: POTASSIUM CHLORIDE 20 MEQ TABCR PO ONE (10:00)
--- NOTE | 2017-05-31 10:11 | Clinical Documentation Query ---
BEBA Tellez : CLINICAL DOCUMENTATION QUERIES QUERY 1 OF 2 Patient is an 81 year old male admitted for infectious colitis. Microbiological stool culture demonstrated presence of Clostridium difficile toxin B. He is being treated with oral Vancomycin. As clinically appropriate, consider documentation as suggested below as this directly impacts DRG assignment. Thank you. In your clinical opinion is this patient being managed for: ( ) Enterocolitis due to Clostridium difficile ( ) Other explanation of clinical findings (Please Explain) ( ) Unable to determine (Please Define) ( ) Need to Discuss ( ) Not Agree The medical record reflects the following clinical findings, treatment, and risk factors. Clinical Indicators: As above Treatment: Vancomycin Risk Factors: Age, idiopathic QUERY 2 OF 2 On admission, admitting provider documented in an addendum, that "sepsis (was) present on admission. For accuracy of record and to possibly defend monetary denial incurred through chart audit by external agency, consider documentation of clinical indicators suggestive of this diagnosis. If you do not agree with this diagnosis, simply discontinue documentation thereof or state that it has been ruled out. Thank you. Please clarify and document your clinical opinion in the progress notes and discharge summary. Terms such as "probable", "suspected", "likely", "questionable", "possible", or "still to be ruled out" are acceptable. IF IN AGREEMENT, YOU MUST DOCUMENT ABOVE DIAGNOSTIC STATEMENT IN DAILY PROGRESS NOTES AND DISCHARGE SUMMARY. This document is not part of the patient's record. Thank You, Maikel Balderas, RN [phone]
[2017-05-31 11:05] VITALS: BP 111/67; PULSE 88; TEMP 36.6; O2SAT 96
--- NOTE | 2017-05-31 11:45 | Hospitalist Progress Note ---
Hospitalist Progress Note Date of Service May 31, 2017. (Shilpi Kline ., MYKELC) Subjective Pt evaluation today including: conversation w/ patient, physical exam, chart review, lab review, review of inpatient medication list Pain: None PO Intake: NPO Voiding: no voiding problems Patient reports feeling better. He reports some general weakness and fatigue. He denies any abdominal pain currently. He states that he did have two episodes of diarrhea this morning. He denies seeing any blood, although he states it is hard to tell as his stools are always dark due to the iron he takes. He states he does not feel hungry but is willing to try a clear liquid diet. The patient denies fevers, chills, sweats, chest pain, palpitations, claudication, cough, wheezing, shortness of breath, nausea, vomiting, abdominal pain, dysuria, hematuria, urinary retention, paralysis, motor weakness, numbness and tingling. Additional Comments: See HPI for pertinent positives and negatives. All other systems reviewed and negative. (Shilpi Kline ., MYKELC) Objective Vital Signs Date Time Temp Pulse Resp B/P (MAP) Pulse Ox O2 Delivery O2 Flow Rate FiO2 05/31/17 08:00 Room Air 05/31/17 07:29 37.1 86 20 100/65 (77) 94 Room Air 05/31/17 04:21 36.7 85 20 113/69 (84) 95 Room Air 05/31/17 04:00 Room Air 05/30/17 23:59 Room Air 05/30/17 23:20 36.3 88 16 123/71 (88) 97 Room Air 05/30/17 21:10 Room Air 05/30/17 19:45 37.0 87 18 123/62 (82) 96 Room Air 05/30/17 19:21 88 16 95/58 95 05/30/17 18:25 87 16 122/70 96 Room Air 05/30/17 17:02 87 16 126/70 96 Room Air 05/30/17 16:11 86 05/30/17 15:39 36.8 60 20 122/74 98 Room Air (Shilpi Kline PA-C) Physical Exam Notes: General appearance: Well-developed, well-nourished, no apparent distress Head: Normocephalic, atraumatic Eyes: Normal inspection, PERRL, EOMI ENT: Normal ENT inspection, hearing grossly normal, pharynx normal Neck: Supple, no JVD, trachea midline Respiratory/Chest: Lungs clear to auscultation, normal breath sounds, no respiratory distress Cardiovascular: +Systolic murmur. Regular rate & rhythm, no gallop Abdomen/GI: +RUQ and RLQ mildly TTP. Normal bowel sounds, soft Extremities/Musculoskeletal: Normal inspection, no calf tenderness, no pedal edema Neurological/Psych: Alert, normal mood/affect, oriented x 3 Skin: Normal color, warm/dry, no rash (Shilpi Kline, RACHEL) Laboratory Results Last 24 Hours Test 05/30/17 15:50 05/30/17 21:45 05/31/17 06:30 White Blood Count 17.40 K/uL 14.75 K/uL Red Blood Count 3.51 M/uL 3.05 M/uL Hemoglobin 12.1 g/dL 10.2 g/dL Hematocrit 35.0 % 30.5 % Mean Corpuscular Volume 99.7 fL 100.0 fL Mean Corpuscular Hemoglobin 34.5 pg 33.4 pg Mean Corpuscular Hemoglobin Concent 34.6 g/dl 33.4 g/dl Platelet Count 247 K/uL 210 K/uL Mean Platelet Volume 10.0 fL 9.4 fL Neutrophils (%) (Auto) 81.8 % Lymphocytes (%) (Auto) 3.8 % Monocytes (%) (Auto) 13.4 % Eosinophils (%) (Auto) 0.5 % Basophils (%) (Auto) 0.1 % Neutrophils # (Auto) 14.25 K/uL Lymphocytes # (Auto) 0.66 K/uL Monocytes # (Auto) 2.33 K/uL Eosinophils # (Auto) 0.08 K/uL Basophils # (Auto) 0.01 K/uL RDW Standard Deviation 45.4 fL 45.5 fL RDW Coefficient of Variation 12.5 % 12.5 % Immature Granulocyte % (Auto) 0.4 % Immature Granulocyte # (Auto) 0.07 K/uL Prothrombin Time 11.3 SECONDS Prothromb Time International Ratio 1.1 Sodium Level 132 mmol/L 135 mmol/L Potassium Level 3.7 mmol/L 3.2 mmol/L Chloride Level 96 mmol/L 102 mmol/L Carbon Dioxide Level 25 mmol/L 24 mmol/L Anion Gap 11.0 mmol/L 9.0 mmol/L Blood Urea Nitrogen 57 mg/dl 51 mg/dl Creatinine 2.80 mg/dl 2.20 mg/dl Estimated GFR () 23.6 31.6 Estimated GFR (Non- 20.4 27.3 BUN/Creatinine Ratio 20.4 23.1 Random Glucose 118 mg/dl 111 mg/dl Calcium Level 9.3 mg/dl 7.8 mg/dl Total Bilirubin 0.6 mg/dl Direct Bilirubin 0.3 mg/dl Aspartate Amino Transf (AST/SGOT) 25 U/L Alanine Aminotransferase (ALT/SGPT) 34 U/L Alkaline Phosphatase 83 U/L Total Protein 6.8 gm/dl Albumin 2.6 gm/dl Lipase 70 U/L Urine Color YELLOW Urine Appearance CLEAR Urine pH 5.0 Urine Specific [place] 1.024 Urine Protein 1+ Urine Glucose (UA) NEG Urine Ketones NEG Urine Occult Blood NEG Urine Nitrite NEG Urine Bilirubin NEG Urine Urobilinogen NEG Urine Leukocyte Esterase NEG Urine WBC (Auto) 1-5 /hpf Urine RBC (Auto) 0-4 /hpf Urine Hyaline Casts (Auto) 1-5 /lpf Urine Epithelial Cells (Auto) 5-10 /lpf Urine Bacteria (Auto) NEG Est Creatinine Clear Calc Drug Dose 27.7 ml/min Magnesium Level 1.9 mg/dl (Shilpi Kline, MYKELC) Assessment and Plan 81 y/o male with a history of CAD s/p 3-vessel CABG and multiple stent placements, CKD stage III, HTN, diet-controlled DM, diverticulosis, lymphocytic colitis, hypothyroidism, chronic anemia, COPD, BPH, and GERD who presented to the ED because of abdominal discomfort and diarrhea x 5 days. C. diff colitis--improving -Admit to med/surg. Pt was transferred to [facility] overnight due to 1 hypotensive reading, but is now stable. No acute events overnight. Pt in sinus rhythm with 1st degree AV block, HR in 80s. Transfer back to med/surg 05/31 -CT abdomen and pelvis shows colitis, likely infectious -C. diff positive, this is his first episode -Continue Flagyl 500 mg IV q8h -Discontinue vancomycin and cipro as this is first occurrence -Advance to clear liquid diet -Continue NSS @ 100 ml/hr -Stool cultures pending Hypokalemia--likely secondary to diarrhea x 5 days -Potassium 3.2 on 05/31 -KCl 40 mEq PO x 1 -Magnesium WNL -Continue to monitor IDANIA on CKD stage III--improving -Baseline Cr. 1.70 -Creatinine 2.8 on admission -Continue IVF as above -Creatinine 2.2 on 05/31 Mild hyponatremia--resolved -Continue IVF CAD s/p 3-vessel CABG and multiple stent placements, HTN--stable -1 episode of hypotension last night but has been normotensive since - Continue ASA 81 mg daily, Pletal 100 mg BID, Clonidine 2 tab HS, Plavix 75 mg daily, Imdur 60 mg BID, Toprol XL 100 mg HS, Dyazide 1 tab HS Chronic anemia, baseline hgb 10--stable -Continue iron supplement 325 mg daily -Hgb at baseline Hypothyroidism -Continue Synthroid 100 mcg daily Diet-controlled DM--last HgbA1c on 02/05/17 was 6.4 -Due to recheck HgbA1c as an outpatient COPD--stable -Continue Flovent 2 puffs inh BID and Stiolto 2 puffs inh qam Gout -Continue Allopurinol 200 mg daily GERD -Continue Zantac 150 mg BID DVT Prophylaxis -Heparin 5000 units SC q12h Code Status -Level I, FULL RESUSCITATION STATUS Dispo -From home, renal social worker consulted (Shilpi Kline ., PA-C) I agree with PA assessment and plan and have seen and examined pt myself Resting comfortably in bed VSS Labs reviewed Admitted with abd pain, diarrhea and noted to be cdiff pos FIrst episode Ok to continue just flagyl 500 mg PO TID at this time Cont PT and IVF Advance diet as tolerated (Taran Ross D.O.)
[2017-05-31] MEDS: SODIUM CHLORIDE 0.9% 1000ML 1,000 ML IV SCH (13:25)
[2017-05-31 13:29] VITALS: BP 111/67; PULSE 88; TEMP 36.6; O2SAT 96
[2017-05-31 15:58] VITALS: BP 127/73; PULSE 87; TEMP 37.2; O2SAT 94
[2017-05-31 19:54] VITALS: BP 120/66; PULSE 93
[2017-05-31] MEDS: ASCORBIC ACID 500 MG TAB PO SCH (20:00)
[2017-05-31] MEDS: METOPROLOL SUCC 50MG EXT REL TAB PO SCH (20:00)
[2017-05-31] MEDS: CLONIDINE HCL 0.1 MG TAB PO SCH (20:01)
[2017-05-31] MEDS: METRONIDAZOLE 500 MG TAB PO SCH (20:02)
[2017-05-31] MEDS: TRIAMTERENE/HCTZ 37.5/25MG TAB PO SCH (20:03)
[2017-06-01 00:13] VITALS: BP 125/72; PULSE 85; TEMP 36.5; O2SAT 93
[2017-06-01] MEDS: SODIUM CHLORIDE 0.9% 1000ML 1,000 ML IV SCH ×3 (00:25→20:41)
[2017-06-01] MEDS: LEVOTHYROXINE 100 MCG TAB PO SCH (06:12)
[2017-06-01 07:41] VITALS: BP 153/74; PULSE 69; TEMP 36.9; O2SAT 94
[2017-06-01 07:43] VITALS: BP 106/70; PULSE 73; TEMP 36.9; O2SAT 94
[2017-06-01 08:08] LABS: HEMATOCRIT 30.5 % (42-52); MEAN CELL VOLUME 101.3 fL (80-100); MEAN CORPUSCULAR HEMOGLOBIN 34.6 pg (25-34); MEAN CORPUSCULAR HGB CONC 34.1 g/dl (32-36); MEAN PLATELET VOLUME 9.6 fL (7.4-10.4); PLATELET COUNT 245 K/uL (130-400); RED BLOOD COUNT 3.01 M/uL (4.7-6.1); WHITE BLOOD COUNT 18.53 K/uL (4.8-10.8)
[2017-06-01] MEDS: FLUTICASONE PROP HFA INH 44 MCG INHALER INH SCH ×2 (08:32→20:41)
[2017-06-01] MEDS: ISOSORBIDE MONONITRATE 60 MG TABCR PO SCH ×2 (08:33→20:38)
[2017-06-01] MEDS: CLOPIDOGREL BISULFATE 75 MG TAB PO SCH (08:33)
[2017-06-01] MEDS: LORATADINE 10 MG TAB PO SCH (08:33)
[2017-06-01] MEDS: ALLOPURINOL 100 MG TAB PO SCH (08:33)
[2017-06-01] MEDS: FERROUS SULFATE 325 MG TAB PO SCH (08:34)
[2017-06-01] MEDS: PYRIDOXINE HCL 50 MG TAB PO SCH (08:35)
[2017-06-01] MEDS: CHOLECALCIFEROL 1000 INTER.UNIT TAB PO SCH (08:36)
[2017-06-01] MEDS: RANITIDINE HCL 150 MG TAB PO SCH (08:36)
[2017-06-01] MEDS: ASPIRIN 81 MG ECTAB PO SCH (08:36)
[2017-06-01] MEDS: METRONIDAZOLE 500 MG TAB PO SCH ×3 (08:37→20:40)
[2017-06-01] MEDS: CILOSTAZOL 100 MG TAB PO SCH ×2 (08:37→20:41)
[2017-06-01 08:38] LABS: BUN/CREATININE RATIO 22.1 (10-20); CREATININE 1.9 mg/dl (0.60-1.40); POTASSIUM 3.5 mmol/L (3.5-5.1)
[2017-06-01] MEDS: MULTIVITAMIN TAB PO SCH (08:38)
[2017-06-01] MEDS: FoLIC ACID TAB 400 MCG TAB PO SCH (08:39)
[2017-06-01] MEDS: HEPARIN SOD 5000 UNIT/0.5 ML CARP SQ SCH ×2 (08:53→21:00)
--- NOTE | 2017-06-01 14:31 | Hospitalist Progress Note ---
Hospitalist Progress Note Date of Service Jun 01, 2017. (Shilpi Kline ., MYKELC) Subjective Pt evaluation today including: conversation w/ patient, physical exam, chart review, lab review, review of inpatient medication list Pain: None PO Intake: Tolerating clear liquid diet Voiding: no voiding problems Patient reports feeling nauseous. He states that he had been feeling well this morning and tolerated breakfast well, but afterwards he developed nausea. He received a dose of Zofran which did help, although the nausea persists. He declines further anti-emetics at this time. He denies any vomiting or abdominal pain. He was able to eat lunch as well, but had a decreased appetite. He still complains of general weakness and fatigue. He states he has had 2 episodes of diarrhea today. The patient denies fevers, chills, sweats , chest pain, palpitations, claudication, cough, wheezing, shortness of breath, vomiting, abdominal pain, dysuria, hematuria, urinary retention, paralysis, weakness, numbness and tingling. Additional Comments: See HPI for pertinent positives and negatives. All other systems reviewed and negative. (Shilpi Kline ., MOHSEN-C) Objective Vital Signs Date Time Temp Pulse Resp B/P (MAP) Pulse Ox O2 Delivery O2 Flow Rate FiO2 06/01/17 08:50 Room Air 06/01/17 07:43 36.9 73 20 106/70 (82) 94 Room Air 06/01/17 00:13 36.5 85 20 125/72 (89) 93 Room Air 06/01/17 00:10 Room Air 05/31/17 19:54 93 120/66 (84) 05/31/17 16:00 Room Air 05/31/17 15:58 37.2 87 20 127/73 (91) 94 Room Air (Shilpi Kline ., MOHSEN-C) Physical Exam Notes: General appearance: Well-developed, well-nourished, no apparent distress Head: Normocephalic, atraumatic Eyes: Normal inspection, PERRL, EOMI ENT: Normal ENT inspection, hearing grossly normal, pharynx normal Neck: Supple, no JVD, trachea midline Respiratory/Chest: Lungs clear to auscultation, normal breath sounds, no respiratory distress Cardiovascular: +Systolic murmur. Regular rate & rhythm, no gallop Abdomen/GI: Normal bowel sounds, non-tender, soft Extremities/Musculoskeletal: Normal inspection, no calf tenderness, no pedal edema Neurological/Psych: Alert, normal mood/affect, oriented x 3 Skin: Normal color, warm/dry, no rash (Shilpi Kline ., MOHSEN-C) Laboratory Results Last 24 Hours Test 06/01/17 07:47 White Blood Count 18.53 K/uL Red Blood Count 3.01 M/uL Hemoglobin 10.4 g/dL Hematocrit 30.5 % Mean Corpuscular Volume 101.3 fL Mean Corpuscular Hemoglobin 34.6 pg Mean Corpuscular Hemoglobin Concent 34.1 g/dl RDW Standard Deviation 46.7 fL RDW Coefficient of Variation 12.7 % Platelet Count 245 K/uL Mean Platelet Volume 9.6 fL Sodium Level 138 mmol/L Potassium Level 3.5 mmol/L Chloride Level 106 mmol/L Carbon Dioxide Level 24 mmol/L Anion Gap 8.0 mmol/L Blood Urea Nitrogen 42 mg/dl Creatinine 1.90 mg/dl Est Creatinine Clear Calc Drug Dose 32.0 ml/min Estimated GFR () 37.7 Estimated GFR (Non- 32.6 BUN/Creatinine Ratio 22.1 Random Glucose 118 mg/dl Calcium Level 8.0 mg/dl Magnesium Level 2.0 mg/dl (Shilpi Kline ., PA-C) Assessment and Plan 81 y/o male with a history of CAD s/p 3-vessel CABG and multiple stent placements, CKD stage III, HTN, diet-controlled DM, diverticulosis, lymphocytic colitis, hypothyroidism, chronic anemia, COPD, BPH, and GERD who presented to the ED because of abdominal discomfort and diarrhea x 5 days. C. diff colitis--ongoing -Admit to med/surg. Pt was transferred to [facility] overnight due to 1 hypotensive reading, but is now stable. No acute events overnight. Pt in sinus rhythm with 1st degree AV block, HR in 80s. Transfer back to med/surg 05/31 -CT abdomen and pelvis shows colitis, likely infectious -C. diff positive, this is his first episode -Convert IV to PO Flagyl 500 mg q8h -Discontinue vancomycin and cipro as this is first occurrence -Clear liquid diet. Will hold off on advancing diet due to worsening nausea -Continue NSS @ 100 ml/hr for now due to poor oral intake and IDANIA -Stool cultures negative -Leukocytosis worsening. WBC 18.53 on 06/01, up from 14.75. Will continue to monitor. If does not improve, consider switching to vancomycin tomorrow -PT/OT evaluate and treat due to weakness Hypokalemia, likely secondary to diarrhea--resolved -Potassium 3.5 on 06/01 -Magnesium WNL -Continue to monitor IDANIA on CKD stage III--improving -Baseline Cr. 1.70 -Creatinine 2.8 on admission -Continue IVF as above -Creatinine 1.9 on 06/01 Mild hyponatremia--resolved -Continue IVF CAD s/p 3-vessel CABG and multiple stent placements, HTN--stable - Continue ASA 81 mg daily, Pletal 100 mg BID, Clonidine 2 tab HS, Plavix 75 mg daily, Imdur 60 mg BID, Toprol XL 100 mg HS, Dyazide 1 tab HS Chronic anemia, baseline hgb 10--stable -Continue iron supplement 325 mg daily -Hgb at baseline Hypothyroidism -Continue Synthroid 100 mcg daily Diet-controlled DM--last HgbA1c on 02/05/17 was 6.4 -Due to recheck HgbA1c as an outpatient COPD--stable -Continue Flovent 2 puffs inh BID and Stiolto 2 puffs inh qam Gout -Continue Allopurinol 200 mg daily GERD -Continue Zantac 150 mg BID DVT Prophylaxis -Heparin 5000 units SC q12h Code Status -Level I, FULL RESUSCITATION STATUS Dispo -From home, social media manager consulted (Shilpi Kline ., PA-C) I agree with PA assessment and plan and have seen and examined the pt myself Resting comfortably in bed Labs and vitals reviewed Inc in leukocytosis noted Cont flagyl at this time for c diff infxn Pt reports some nausea and persistent weakness PT consulted Cont to monitor (Taran Ross D.O.)
[2017-06-01 15:11] VITALS: BP 121/67; PULSE 96; TEMP 36.7; O2SAT 96
[2017-06-01] MEDS: METOPROLOL SUCC 50MG EXT REL TAB PO SCH (20:39)
[2017-06-01] MEDS: CLONIDINE HCL 0.1 MG TAB PO SCH (20:39)
[2017-06-01] MEDS: TRIAMTERENE/HCTZ 37.5/25MG TAB PO SCH (20:40)
[2017-06-01] MEDS: ASCORBIC ACID 500 MG TAB PO SCH (20:42)
[2017-06-01 20:53] VITALS: BP 120/73
[2017-06-01 23:47] VITALS: BP 129/84; PULSE 89; TEMP 37; O2SAT 96
[2017-06-02 06:09] LABS: HEMATOCRIT 28.7 % (42-52); MEAN CELL VOLUME 101.1 fL (80-100); MEAN CORPUSCULAR HEMOGLOBIN 35.2 pg (25-34); MEAN CORPUSCULAR HGB CONC 34.8 g/dl (32-36); MEAN PLATELET VOLUME 9.2 fL (7.4-10.4); PLATELET COUNT 237 K/uL (130-400); RED BLOOD COUNT 2.84 M/uL (4.7-6.1)
[2017-06-02] MEDS: LEVOTHYROXINE 100 MCG TAB PO SCH (06:17)
[2017-06-02] MEDS: SODIUM CHLORIDE 0.9% 1000ML 1,000 ML IV SCH (06:17)
[2017-06-02 06:37] LABS: BUN/CREATININE RATIO 20.3 (10-20); CALCIUM 7.7 mg/dl (8.5-10.1); CREATININE 1.9 mg/dl (0.60-1.40); POTASSIUM 3.3 mmol/L (3.5-5.1)
[2017-06-02 07:15] VITALS: BP 108/70; PULSE 77; TEMP 36.8; O2SAT 97
[2017-06-02] MEDS: ASPIRIN 81 MG ECTAB PO SCH (08:10)
[2017-06-02] MEDS: LORATADINE 10 MG TAB PO SCH (08:10)
[2017-06-02] MEDS: RANITIDINE HCL 150 MG TAB PO SCH (08:10)
[2017-06-02] MEDS: CHOLECALCIFEROL 1000 INTER.UNIT TAB PO SCH (08:10)
[2017-06-02] MEDS: FERROUS SULFATE 325 MG TAB PO SCH (08:10)
[2017-06-02] MEDS: ALLOPURINOL 100 MG TAB PO SCH (08:10)
[2017-06-02] MEDS: CLOPIDOGREL BISULFATE 75 MG TAB PO SCH (08:10)
[2017-06-02] MEDS: MULTIVITAMIN TAB PO SCH (08:11)
[2017-06-02] MEDS: ISOSORBIDE MONONITRATE 60 MG TABCR PO SCH (08:11)
[2017-06-02] MEDS: METRONIDAZOLE 500 MG TAB PO SCH ×2 (08:11→14:08)
[2017-06-02] MEDS: FoLIC ACID TAB 400 MCG TAB PO SCH (08:12)
[2017-06-02] MEDS: PYRIDOXINE HCL 50 MG TAB PO SCH (08:12)
[2017-06-02] MEDS: CILOSTAZOL 100 MG TAB PO SCH (08:12)
[2017-06-02] MEDS: HEPARIN SOD 5000 UNIT/0.5 ML CARP SQ SCH (08:16)
[2017-06-02] MEDS: FLUTICASONE PROP HFA INH 44 MCG INHALER INH SCH (08:17)
[2017-06-02 08:30] VITALS: O2SAT 97
[2017-06-02] MEDS ORDERED: MTR500 PO (12:59)
--- NOTE | 2017-06-02 13:03 | Discharge Instructions ---
Discharge Instructions Date of Service Jun 02, 2017. Admission Reason for Admission: Colitis Discharge Discharge Diagnosis / Problem: C diff infection Discharge Goals Goal(s): Decrease discomfort, Improve function, Increase independence, Improve disease control, Learn about illness, Diagnostic testing Activity Recommendations Activity Limitations: resume your previous activity Exercise/Sports Limitations: none . Instructions / Follow-Up Instructions / Follow-Up Patient to be discharged home Patient admitted with C diff infection Likely to still have diarrhea and abdominal cramps for next few days Please note addition of antibiotic flagyl 500 mg three times a day for 8 more days, prescription sent to pharmacy Please take precautions at home to help eliminate risk of spreading of c diff ( nurse to provide handout) Follow up with Dr Coronado in 1-2 weeks Current Hospital Diet Patient's current hospital diet: AHA Diet (Heart Healthy) Discharge Diet Recommended Diet: AHA Diet (Heart Healthy) Pending Studies Studies pending at discharge: no Medical Emergencies . Who to Call and When: Medical Emergencies: If at any time you feel your situation is an emergency, please call 911 immediately. . Non-Emergent Contact Non-Emergency issues call your: Primary Care Provider Call Non-Emergent contact if: you have a fever, you have any medication questions . . "Provider Documentation" section prepared by Taran Ross. . VTE Core Measure Inpt VTE Proph given/why not?: Unfractionated heparin BETTY, TKuldip Orozco, SCD 's
[2017-06-02 13:49] VITALS: BP 108/70; PULSE 77; TEMP 36.8; O2SAT 97
--- NOTE | 2017-06-02 14:22 | Discharge Summary ---
Discharge Summary Date of Service Jun 02, 2017. Discharge Summary Admission Date: May 30, 2017 at 18:42 Discharge Date: Jun 02, 2017 Discharge Disposition: Home Principal Diagnosis: C diff infection Immunizations: History of Tetanus Vaccine?: Unknown History of Pneumococcal: Yes History of Hepatitis B Vaccine: Unknown Medication Reconciliation New Medications: Metronidazole (Metronidazole) 500 Mg Tab 500 MG PO TID for 8 Days, #24 TAB Continued Medications: Allopurinol (Zyloprim) 100 Mg Tab 200 MG PO QAM Ascorbic Acid (Vitamin C) 500 Mg Tab 500 MG PO QPM Aspirin (Aspirin 81) 81 Mg Tab 81 MG PO QAM Cholecalciferol (Vitamin D-1000) 1,000 Unit Tab 1000 UNIT PO QAM Cilostazol (Pletal) 100 Mg Tab 100 MG PO BID Clonidine Hcl (Catapres) 0.1 Mg Tab 2 TAB PO HS Clopidogrel (Plavix) 75 Mg Tab 75 MG PO QAM Cyanocobalamin (Vitamin B12) 1,000 Mcg Tab 1000 MCG PO QAM Darbepoetin [place]-Polysorbate 8 (Aranesp Albumin Free) 40 Mcg/0.4 Ml Inj 1 DOSE INJ UD Ferrous Sulfate (Iron) 325 Mg Tab 1 TAB PO QAM Fluticasone Propionate (Flovent Hfa) 120 Puffs/5280 Mcg Aero 2 PUFFS INH BID, GM Folic Acid (Folic Acid) 400 Mcg Tab 400 MCG PO QAM Garlic (Garlic) 1,000 Mg Cap 1000 MG PO QAM Isosorbide Mononitrate Ext Rel (Imdur Ext Rel) 60 Mg Ertab 60 MG PO BID, TAB Levothyroxine Sodium (Levothyroxine Sodium) 100 Mcg Tab 1 TAB PO DAILYBB Loratadine (Claritin) 10 Mg Tab 10 MG PO QAM Metoprolol Succ (Toprol Xl) (Toprol-Xl ) 100 Mg Tabcr 100 MG PO QPM Multivitamin (Multivitamin) Tab 1 TAB PO QAM, TAB Nitroglycerin (Nitrostat) 0.4 Mg Sub 0.4 MG UT PRN, BTL Anna-3 Fatty Acids (Fish Oil) 500 Mg Cap 1000 MG PO BID Pyridoxine (Vitamin B6) 100 Mg Tab 100 MG PO QAM, TAB Ranitidine Hcl (Ranitidine Hcl) 150 Mg Cap 150 MG PO BID, CAP Tiotropium [place]-Olodaterol (Stiolto Respimat 2.5-2.5 Mcg/Act) 1 Aer Aer 2 PUFFS INH QAM Triamterene/Hctz (Triamterene/Hctz 37.5-25MG) 1 Tab Tab 1 TAB PO QPM Discharge Exam Review of Systems: Constitutional: + weakness, + fatigue, No fever, No chills, No sweats ENT: No hearing loss, No unusual epistaxis, No nasal symptoms, No sore throat Respiratory: No cough, No sputum, No wheezing Cardiovascular: No chest pain, No orthopnea, No PND, No edema Abdomen: No pain, No nausea, No vomiting, No diarrhea, No constipation, No GI bleeding Musculoskeletal: No joint pain, No muscle pain, No swelling, No calf pain Genitourinary - Male: No hematuria, No dysuria, No urinary frequency, No urinary urgency Neurologic: No memory loss, No paralysis, No weakness, No numbness/tingling Psychiatric: No depression symptoms, No anhedonism, No anxiety, No insomnia Endocrine: No excessive thirst, No excessive urination Integumentary: No rash, No itch Physical Exam: General Appearance: WD/WN, no apparent distress Eyes: normal inspection, PERRL, EOMI, sclerae normal Neck: supple, no adenopathy, thyroid normal, no JVD Respiratory/Chest: chest non-tender, lungs clear, normal breath sounds, no respiratory distress Cardiovascular: regular rate, rhythm, no edema, no gallop, no JVD Abdomen / GI: normal bowel sounds, non tender, soft, no organomegaly Extremities: normal inspection, no calf tenderness, normal capillary refill , no pedal edema Neurologic/Psychiatric: alert, normal mood/affect, normal reflexes, oriented x 3 Skin: normal color, warm/dry, no rash Lymphatic: no adenopathy Hospital Course 81 y/o male with a history of CAD s/p 3-vessel CABG and multiple stent placements, CKD stage III, HTN, diet-controlled DM, diverticulosis, lymphocytic colitis, hypothyroidism, chronic anemia, COPD, BPH, and GERD who presented to the ED because of abdominal discomfort and diarrhea x 5 days. C. diff colitis--resolving -Admitted to med/surg. -CT abdomen and pelvis shows colitis, likely infectious -C. diff positive, this is his first episode -Convert IV to PO Flagyl 500 mg q8h, discharge with 8 days worth to fulfill 10 day course -Pt able to tolerate AHA diet and states diarrhea resolved on discharge -Stool cultures negative -Leukocytosis WBC 14.75-->18.53-->15.70, no fevers noted Hypokalemia, likely secondary to diarrhea--resolved -Continue to monitor IDANIA on CKD stage III--improving, Cr 1.9 on DC -Baseline Cr. 1.70 -Creatinine 2.8 on admission Mild hyponatremia--resolved -Continue IVF CAD s/p 3-vessel CABG and multiple stent placements, HTN--stable - Continue ASA 81 mg daily, Pletal 100 mg BID, Clonidine 2 tab HS, Plavix 75 mg daily, Imdur 60 mg BID, Toprol XL 100 mg HS, Dyazide 1 tab HS Chronic anemia, baseline hgb 10--stable -Continue iron supplement 325 mg daily -Hgb at baseline Hypothyroidism -Continue Synthroid 100 mcg daily Diet-controlled DM--last HgbA1c on 02/05/17 was 6.4 -Due to recheck HgbA1c as an outpatient COPD--stable -Continue Flovent 2 puffs inh BID and Stiolto 2 puffs inh qam Gout -Continue Allopurinol 200 mg daily GERD -Continue Zantac 150 mg BID DVT Prophylaxis -Heparin 5000 units SC q12h Code Status -Level I, FULL RESUSCITATION STATUS Dispo -From home, social and human services assistant consulted Total Time Spent: Greater than 30 minutes This includes examination of the patient, discharge planning, medication reconciliation, and communication with other providers. Discharge Instructions Please refer to the electronic Patient Visit Report (Discharge Instructions) for additional information. Additional Copies To Sanjeev Coronado M.D.
== END 2017-06-02 15:07 | disposition home or self-care (01) | DRG 372 ==
LOC: C.EDB 15:34 → C.4E 18:42 → UNDOADMIN 18:42 → ENRESERV 18:48 → C.2T 23:11 → C.4E 23:11 → C.2T 23:25 → ENRESERV 05-31 12:41 → C.2T 05-31 13:14 → C.4E 05-31 13:14
PROVIDERS: ADMIT Internal Medicine; ATTEND Hospitalist
DX: A04.7 Enterocolitis due to Clostridium difficile (principal); K57.92 Diverticulitis of intestine, part unspecified, without perforation or abscess without bleeding; N17.9 Acute kidney failure, unspecified; E87.1 Hypo-osmolality and hyponatremia; N18.3 Chronic kidney disease, stage 3 (moderate); E11.22 Type 2 diabetes mellitus with diabetic chronic kidney disease; I12.9 Hypertensive chronic kidney disease with stage 1 through stage 4 chronic kidney disease, or unspecified chronic kidney disease; I25.10 Atherosclerotic heart disease of native coronary artery without angina pectoris; E03.9 Hypothyroidism, unspecified; D64.9 Anemia, unspecified; J44.9 Chronic obstructive pulmonary disease, unspecified; N40.0 Benign prostatic hyperplasia without lower urinary tract symptoms; K21.9 Gastro-esophageal reflux disease without esophagitis; M10.9 Gout, unspecified; E87.6 Hypokalemia; D72.829 Elevated white blood cell count, unspecified; Z79.02 Long term (current) use of antithrombotics/antiplatelets; Z79.82 Long term (current) use of aspirin; Z79.899 Other long term (current) drug therapy; Z95.1 Presence of aortocoronary bypass graft; Z95.5 Presence of coronary angioplasty implant and graft; Z87.891 Personal history of nicotine dependence

== ENCOUNTER → 2017-09-14 | Outpatient (CLI) | payer OTHER ==
[~2017-09-14] MED LIST changes: +CILO100T PO; -CILO100T15 PO; +CLON0.1T12 PO; -CTP1 PO; +FERR1TAB23 PO; -IMDSR30 PO; -IRON 65 MG PO; +ISOS60TA25 PO; +LEVO100T7 PO; -LEVO137T3 PO; +METO100T44 PO; -METO1TAB69 PO; +MTR500 PO
[2017-09-14 12:40] LABS: URINE APPEARANCE CLEAR (CLEAR); URINE BILIRUBIN NEG (NEG); URINE COLOR YELLOW; URINE EPITHELIAL CELL AUTO 0-5 /lpf (0-5); URINE NITRITE NEG (NEG); URINE SPECIFIC GRAVITY 1.016 (1.000-1.030); UROBILINOGEN NEG (NEG)
[2017-09-14 12:42] LABS: MANUAL MICROSCOPIC REQUIRED? NO; REVIEW REQ? NO
[2017-09-14 12:44] LABS: BLOOD UREA NITROGEN 35 mg/dl (7-18); BUN/CREATININE RATIO 20.7 (10-20); CALCIUM 9.5 mg/dl (8.5-10.1); CARBON DIOXIDE 28 mmol/L (21-32); CHLORIDE 104 mmol/L (98-107); CREATININE 1.68 mg/dl (0.60-1.40); GLUCOSE 113 mg/dl (70-99); POTASSIUM 4.2 mmol/L (3.5-5.1); SODIUM 137 mmol/L (136-145)
[2017-09-14 12:46] LABS: HEMATOCRIT 33.7 % (42-52); MEAN CELL VOLUME 105.3 fL (80-100); MEAN CORPUSCULAR HEMOGLOBIN 35.3 pg (25-34); MEAN CORPUSCULAR HGB CONC 33.5 g/dl (32-36); MEAN PLATELET VOLUME 10.5 fL (7.4-10.4); PLATELET COUNT 198 K/uL (130-400); WHITE BLOOD COUNT 6.19 K/uL (4.8-10.8)
[2017-09-14 12:58] LABS: CREATININE, URINE 64.5 mg/dl; URINE PROTIEN/CREAT RATIO 0.1 (0-0.2); URINE TOTAL PROTEIN 7.8 mg/dl (0-11.9)
[2017-09-14 12:59] LABS: CHOLESTEROL 107 mg/dl (0-200); CHOLESTEROL/HDL RATIO 2.6; FERRITIN 346.9 ng/ml (8.0-388.0); HDL CHOLESTEROL 41 mg/dl; LDL CHOLESTEROL CALCULATED 41 mg/dl; PHOSPHORUS 3.1 mg/dl (2.5-4.9); TOTAL IRON BINDING CAPACITY 201 mcg/dl (250-450); TRIGLYCERIDES 126 mg/dl (0-150); VERY LOW DENSITY LIPOPROT CALC 25 mg/dl
[2017-09-14 13:19] LABS: ESTIMATED AVERAGE GLUCOSE 140 mg/dl; HA1C FLAG Normal (Normal)
== END | disposition home or self-care (01) ==
LOC: C.LABBFT 07:57
PROVIDERS: ATTEND Internal Medicine
DX: I12.9 Hypertensive chronic kidney disease with stage 1 through stage 4 chronic kidney disease, or unspecified chronic kidney disease (principal); D64.9 Anemia, unspecified; N18.3 Chronic kidney disease, stage 3 (moderate); N25.81 Secondary hyperparathyroidism of renal origin; E11.22 Type 2 diabetes mellitus with diabetic chronic kidney disease; E03.9 Hypothyroidism, unspecified; E78.00 Pure hypercholesterolemia, unspecified

== ENCOUNTER → 2017-10-16 | Outpatient (CLI) | payer OTHER | END | disposition home or self-care (01) | LOC: C.LABBFT 11:25 | PROVIDERS: ATTEND Internal Medicine | DX: E03.9 Hypothyroidism, unspecified (principal) ==

== ENCOUNTER → 2017-11-07 | Outpatient (CLI) | payer OTHER ==
[~2017-11-07] MED LIST changes: +ATOR-26 PO; +DIPH-437 PO; +LEVO125T72 PO; +MISCCAP80 PEG; +TAMS0.4C38 PO; +UMEC1AER INH; +[UNRECOGNIZED DRUG - OTHER] PO
[2017-11-07 17:36] LABS: BASO % 0.3 %; BASO ABS # 0.02 K/uL (0-0.2); EOS % 4.8 %; HEMATOCRIT 24.9 % (42-52); IG# 0.02 K/uL (0.00-0.02); LYMPH % 11.9 %; LYMPH ABS # 0.75 K/uL (1.2-3.4); MEAN CELL VOLUME 109.2 fL (80-100); MEAN CORPUSCULAR HEMOGLOBIN 35.1 pg (25-34); MEAN CORPUSCULAR HGB CONC 32.1 g/dl (32-36); MEAN PLATELET VOLUME 9.8 fL (7.4-10.4); MONO % 12.1 %; MONO ABS # 0.76 K/uL (0.11-0.59); NEUT % 70.6 %; NEUT ABS # 4.43 K/uL (1.4-6.5); PLATELET COUNT 218 K/uL (130-400); RED CELL DISTRIBUTION WIDTH CV 14.7 % (11.5-14.5); RED CELL DISTRIBUTION WIDTH SD 57.3 fL (36.4-46.3); RETIC COUNT % 5.3 % (0.5-2.0); WHITE BLOOD COUNT 6.28 K/uL (4.8-10.8)
[2017-11-07 18:41] LABS: ALBUMIN 2.9 gm/dl (3.4-5.0); BLOOD UREA NITROGEN 24 mg/dl (7-18); CALCIUM 8.9 mg/dl (8.5-10.1); CARBON DIOXIDE 26 mmol/L (21-32); CREATININE 1.59 mg/dl (0.60-1.40); GLUCOSE 116 mg/dl (70-99); PHOSPHORUS 2.9 mg/dl (2.5-4.9); POTASSIUM 4.1 mmol/L (3.5-5.1); SODIUM 139 mmol/L (136-145); TRANSFERRIN 156 mg/dl (200-360)
--- NOTE | 2017-11-12 14:27 | CODING QUERY MEDICAL NECESSITY ---
CQSUPPORTING DIAGNOSIS NEEDED A supporting diagnosis is required for the test/procedure performed on this patient in order for us to be reimbursed by the patient's insurance. Please provide a supporting diagnosis for the following test/procedure listed below next to the test name along with your signature. *If there is no additional diagnosis for this patient that would support the following test/procedure please document that below next to the test/procedure. Test(s)/Procedure(s) that require a supporting diagnosis: DOS 11/07/17 VITAMIN B12 TEST FOLIC ACID TEST Provider Signature: Date: Thank you Carol Betts Health Information Management Once completed, please kindly fax back to [phone] For questions please call [phone]
== END | disposition home or self-care (01) ==
LOC: C.LABBFT 14:06
PROVIDERS: ATTEND Internal Medicine
DX: D64.9 Anemia, unspecified (principal); N18.9 Chronic kidney disease, unspecified

== ENCOUNTER → 2017-11-12 | Outpatient (CLI) | payer OTHER ==
[~2017-11-12] MED LIST changes: -DARB40IN3 INJ; -LEVO100T7 PO; -MTR500 PO; -TIOT1AER INH; -TRIATAB3 PO
[2017-11-12 12:33] LABS: HEMATOCRIT 28.6 % (42-52); HEMOGLOBIN 8.9 g/dL (14.0-18.0); MEAN CELL VOLUME 107.9 fL (80-100); MEAN CORPUSCULAR HEMOGLOBIN 33.6 pg (25-34); MEAN CORPUSCULAR HGB CONC 31.1 g/dl (32-36); MEAN PLATELET VOLUME 9.8 fL (7.4-10.4); PLATELET COUNT 200 K/uL (130-400); RED CELL DISTRIBUTION WIDTH CV 15.4 % (11.5-14.5); RED CELL DISTRIBUTION WIDTH SD 60.9 fL (36.4-46.3); WHITE BLOOD COUNT 5.07 K/uL (4.8-10.8)
== END | disposition home or self-care (01) ==
LOC: C.LABBFT 10:21
PROVIDERS: ATTEND Physician Assistant Medical
DX: D64.9 Anemia, unspecified (principal)

== ENCOUNTER → 2017-11-19 | Outpatient (CLI) | payer OTHER ==
[2017-11-19 12:43] LABS: HEMATOCRIT 31.9 % (42-52); HEMOGLOBIN 10.4 g/dL (14.0-18.0); MEAN CORPUSCULAR HEMOGLOBIN 34.6 pg (25-34); MEAN CORPUSCULAR HGB CONC 32.6 g/dl (32-36); PLATELET COUNT 188 K/uL (130-400); RED CELL DISTRIBUTION WIDTH CV 16.1 % (11.5-14.5); RED CELL DISTRIBUTION WIDTH SD 62.4 fL (36.4-46.3); WHITE BLOOD COUNT 5.55 K/uL (4.8-10.8)
[2017-11-19 13:13] LABS: TRANSFERRIN 160 mg/dl (200-360)
== END | disposition home or self-care (01) ==
LOC: C.LABBFT 10:36
PROVIDERS: ATTEND Physician Assistant Medical
DX: D64.9 Anemia, unspecified (principal)

== ENCOUNTER → 2017-11-30 | Outpatient (CLI) | payer OTHER ==
[2017-11-30 16:26] LABS: HEMATOCRIT 32.5 % (42-52); HEMOGLOBIN 10.4 g/dL (14.0-18.0); MEAN CELL VOLUME 105.5 fL (80-100); MEAN CORPUSCULAR HEMOGLOBIN 33.8 pg (25-34); MEAN PLATELET VOLUME 10.7 fL (7.4-10.4); PLATELET COUNT 179 K/uL (130-400); RED CELL DISTRIBUTION WIDTH CV 15.5 % (11.5-14.5); RED CELL DISTRIBUTION WIDTH SD 59.9 fL (36.4-46.3)
== END | disposition home or self-care (01) ==
LOC: C.LABBFT 13:58
PROVIDERS: ATTEND Internal Medicine
DX: D64.9 Anemia, unspecified (principal); E03.9 Hypothyroidism, unspecified

== ENCOUNTER → 2018-01-15 | Outpatient (CLI) | payer OTHER | END | disposition home or self-care (01) | LOC: C.LABBFT 10:37 | PROVIDERS: ATTEND Internal Medicine | DX: E03.9 Hypothyroidism, unspecified (principal) ==

== ENCOUNTER → 2018-03-06 | Outpatient (CLI) | payer OTHER ==
[2018-03-06 12:22] LABS: HEMATOCRIT 32.5 % (42-52); HEMOGLOBIN 10.5 g/dL (14.0-18.0); MEAN CELL VOLUME 101.9 fL (80-100); MEAN CORPUSCULAR HEMOGLOBIN 32.9 pg (25-34); MEAN CORPUSCULAR HGB CONC 32.3 g/dl (32-36); MEAN PLATELET VOLUME 10.5 fL (7.4-10.4); PLATELET COUNT 175 K/uL (130-400); RED CELL DISTRIBUTION WIDTH CV 14.5 % (11.5-14.5); RED CELL DISTRIBUTION WIDTH SD 54.2 fL (36.4-46.3); WHITE BLOOD COUNT 5.51 K/uL (4.8-10.8)
[2018-03-06 12:28] LABS: ALBUMIN 3.3 gm/dl (3.4-5.0); BLOOD UREA NITROGEN 27 mg/dl (7-18); CALCIUM 9.3 mg/dl (8.5-10.1); CARBON DIOXIDE 29 mmol/L (21-32); CREATININE 1.43 mg/dl (0.60-1.40); GLUCOSE 122 mg/dl (70-99); PHOSPHORUS 3.2 mg/dl (2.5-4.9); POTASSIUM 4.6 mmol/L (3.5-5.1); SODIUM 140 mmol/L (136-145)
== END | disposition home or self-care (01) ==
LOC: C.LABBFT 08:03
PROVIDERS: ATTEND Physician Assistant Medical
DX: I12.9 Hypertensive chronic kidney disease with stage 1 through stage 4 chronic kidney disease, or unspecified chronic kidney disease (principal); D64.9 Anemia, unspecified; N18.3 Chronic kidney disease, stage 3 (moderate); N25.81 Secondary hyperparathyroidism of renal origin

== ENCOUNTER → 2018-03-11 | Outpatient (CLI) | payer OTHER ==
[2018-03-11 16:42] LABS: HEMATOCRIT 30.6 % (42-52); HEMOGLOBIN 10.1 g/dL (14.0-18.0); MEAN CELL VOLUME 101.3 fL (80-100); MEAN CORPUSCULAR HEMOGLOBIN 33.4 pg (25-34); MEAN PLATELET VOLUME 10.3 fL (7.4-10.4); PLATELET COUNT 176 K/uL (130-400); RED CELL DISTRIBUTION WIDTH CV 14.4 % (11.5-14.5); RED CELL DISTRIBUTION WIDTH SD 52.9 fL (36.4-46.3); WHITE BLOOD COUNT 7.37 K/uL (4.8-10.8)
[2018-03-12 06:15] LABS: HEMOGLOBIN A1C 6.4 % (4.5-5.6)
== END | disposition home or self-care (01) ==
LOC: C.LABBFT 15:05
PROVIDERS: ATTEND Internal Medicine
DX: I10 Essential (primary) hypertension (principal); D64.9 Anemia, unspecified; N18.3 Chronic kidney disease, stage 3 (moderate); N25.81 Secondary hyperparathyroidism of renal origin; E11.9 Type 2 diabetes mellitus without complications

== ENCOUNTER 2018-05-31 11:32 | Emergency (ER) | payer OTHER ==
[~2018-05-31] VITALS: Ht 177.8 cm; Wt 75.7 kg
[2018-05-31 11:35] VITALS: TEMP 36.5; O2SAT 98; Ht 177.8 cm; Wt 75.7 kg
[2018-05-31 12:53] LABS: HEMATOCRIT 37.6 % (42-52); HEMOGLOBIN 12.2 g/dL (14.0-18.0); MEAN CELL VOLUME 100.8 fL (80-100); MEAN CORPUSCULAR HEMOGLOBIN 32.7 pg (25-34); MEAN CORPUSCULAR HGB CONC 32.4 g/dl (32-36); MEAN PLATELET VOLUME 10.5 fL (7.4-10.4); PLATELET COUNT 188 K/uL (130-400); RED CELL DISTRIBUTION WIDTH CV 13.7 % (11.5-14.5); RED CELL DISTRIBUTION WIDTH SD 49.9 fL (36.4-46.3); WHITE BLOOD COUNT 7.12 K/uL (4.8-10.8)
[2018-05-31 13:02] LABS: PTT PATIENT 25.5 SECONDS (21.0-31.0)
--- NOTE | 2018-05-31 13:07 | DIAGNOSTIC IMAGING REPORT ---
CHEST ONE VIEW PORTABLE HISTORY: Hypertension. COMPARISON: Chest 10/11/2016. FINDINGS: The heart is top normal in size. There are postoperative changes. No pleural effusions. No pneumothorax. Questionable hazy opacity within the right upper lobe. However, this could be due to the overlapping bony structures. IMPRESSION: Questionable small hazy opacity within the right upper lobe. This could be due to a developing pneumonia or overlapping bony structures. Consider follow-up PA and lateral chest for further evaluation. Electronically signed by: Tylor Irby M.D. 05/31/2018 1:05 PM Dictated Date/Time: 05/31/2018 1:02 PM
[2018-05-31 13:40] VITALS: BP 197/93; PULSE 65; O2SAT 98
[2018-05-31 13:48] LABS: ALBUMIN 4.1 gm/dl (3.4-5.0); CALCIUM 10.1 mg/dl (8.5-10.1); CKMB 2.5 ng/ml (0.5-3.6); CREATININE 1.46 mg/dl (0.60-1.40); POTASSIUM 4.6 mmol/L (3.5-5.1); TOTAL PROTEIN 8.3 gm/dl (6.4-8.2)
--- NOTE | 2018-05-31 14:02 | EMERGENCY ROOM VISIT NOTE ---
History Report prepared by Citlalli: Chidi Victor Under the Supervision of: Dr. Eugene Her M.D. First contact with patient: 12:31 Chief Complaint: HYPERTENSION Stated Complaint: HYPERTENSION History of Present Illness The patient is an 82 year old white male with a past medical history of CABGx3, CKD stage III, colitis, diabetes, and diverticulosis, who presents to the Emergency Room after referral from the outpatient radiology department. The patient states that he had an outpatient ultra sound of his carotic arteries shortly prior to arrival. The ultra sound was not concerning, but the patient's post procedure blood pressure was 208 systolically. The patient does have a history of CABGx3 25 years ago. He denies any chest pain, shortness of breath, or dizziness. Source of History: patient Onset: Shortly MOLD PRESSER Position: other (HTN) Symptom Intensity: 208 systolic Quality: other (HTN) Associated Symptoms: No chest pain, No SOB Review of Systems See HPI for pertinent positives and negatives. A total of ten systems were reviewed and were otherwise negative. Past Medical & Surgical Medical Problems: (1) Aortocoronary Bypass (2) Chronic Kidney Disease, Stage Iii (Moderate) (3) Colitis (4) Diab Vanessa Wo Compl, Type Ii Or Unspec Type, Not Uncntrld (5) Diverticulosis Colon (W/O Ment Of Hemorrhage) (6) Hypertension Nos Surgical Problems: (1) Stented coronary artery Family History Cancer Heart disease Hypertension Lung disease Stroke Social History Smoking Status: Former Smoker Drug Use: none Marital Status: Housing Status: lives with family Occupation Status: retired Current/Historical Medications Scheduled Acetaminophen/Diphenhydramine (Tylenol Pm), 1 TAB PO HS Allopurinol (Zyloprim), 200 MG PO QAM Ascorbic Acid (Vitamin C), 500 MG PO QPM Aspirin (Aspirin 81), 81 MG PO QAM Atorvastatin (Lipitor), 1 TAB PO DAILY Cholecalciferol (Vitamin D-1000), 1,000 UNIT PO QAM Cilostazol (Pletal), 100 MG PO BID Clonidine Hcl (Catapres), 2 TAB PO HS Clopidogrel (Plavix), 75 MG PO QAM Cyanocobalamin (Vitamin B12), 1,000 MCG PO QAM Ferrous Sulfate (Iron), 1 TAB PO QAM Fluticasone Propionate (Flovent Hfa), 2 PUFFS INH BID Folic Acid (Folic Acid), 400 MCG PO QAM Garlic (Garlic), 1,000 MG PO QAM Isosorbide Mononitrate Ext Rel (Imdur Ext Rel), 60 MG PO BID Levothyroxine Sodium (Synthroid), 1 TAB PO DAILY Loratadine (Claritin), 10 MG PO QAM Metoprolol Succ (Toprol Xl) (Toprol-Xl ), 100 MG PO QPM Multivitamin (Multivitamin), 1 TAB PO QAM Nitroglycerin (Nitrostat), 0.4 MG UT PRN [place]-3 Fatty Acids (Fish Oil), 1,000 MG PO BID Probiotic Product (Probiotic), 1 CAP PEG DAILY Pyridoxine (Vitamin B6), 100 MG PO QAM Ranitidine Hcl (Ranitidine Hcl), 150 MG PO BID Tamsulosin Hcl (Flomax), 0.4 MG PO DAILY Umeclidinium-Vilanterol (Anoro Ellipta 62.5-25 Mcg/INH), 1 PUFF INH DAILY [Fibrolaxative], 1 TAB PO TID Allergies Coded Allergies: No Known Allergies (Unverified , 11/16/17) Physical Exam Vital Signs Date Time Temp Pulse Resp B/P (MAP) Pulse Ox O2 Delivery O2 Flow Rate FiO2 05/31/18 13:40 65 16 197/93 98 Room Air 05/31/18 12:56 63 18 182/96 98 Room Air 05/31/18 12:14 63 05/31/18 12:05 60 16 208/96 97 Room Air 05/31/18 11:35 98 Room Air 05/31/18 11:35 36.5 64 14 197/106 98 Room Air Physical Exam GENERAL: Awake, alert, well-appearing, NAD HENT: Normocephalic, atraumatic. EYES: Normal conjunctiva. Sclera non-icteric. PERRL. No anisocoria. NECK: Supple. No nuchal rigidity. FROM. RESPIRATORY: CTAB, no rhonchi, wheezing, crackles CARDIAC: RRR, no MRG ABDOMEN: Soft, NTND, BS+ MSK: No chest wall TTP, no LE edema NEURO: GCS 15, CN 2-12 intact, moves all 4s on command SKIN: No rash or jaundice noted. Medical Decision & Procedures ER Provider Diagnostic Interpretation: Radiology results as stated below per my review and radiologist interpretation: CHEST ONE VIEW PORTABLE HISTORY: Hypertension. COMPARISON: Chest 10/11/2016. FINDINGS: The heart is top normal in size. There are postoperative changes. No pleural effusions. No pneumothorax. Questionable hazy opacity within the right upper lobe. However, this could be due to the overlapping bony structures. IMPRESSION: Questionable small hazy opacity within the right upper lobe. This could be due to a developing pneumonia or overlapping bony structures. Consider follow-up PA and lateral chest for further evaluation. Electronically signed by: Tylor Irby M.D. 05/31/2018 1:05 PM Dictated Date/Time: 05/31/2018 1:02 PM Laboratory Results 05/31/18 11:40 05/31/18 11:40 Test 05/31/18 11:40 05/31/18 12:33 Red Blood Count 3.73 M/uL (4.7-6.1) Mean Corpuscular Volume 100.8 fL (80-100) Mean Corpuscular Hemoglobin 32.7 pg (25-34) Mean Corpuscular Hemoglobin Concent 32.4 g/dl (32-36) RDW Standard Deviation 49.9 fL (36.4-46.3) RDW Coefficient of Variation 13.7 % (11.5-14.5) Mean Platelet Volume 10.5 fL (7.4-10.4) Prothrombin Time 10.1 SECONDS (9.0-12.0) Prothromb Time International Ratio 1.0 (0.9-1.1) Activated Partial Thromboplast Time 25.5 SECONDS (21.0-31.0) Partial Thromboplastin Ratio 1.0 Anion Gap 6.0 mmol/L (3-11) Est Creatinine Clear Calc Drug Dose 41.0 ml/min Estimated GFR () 51.5 Estimated GFR (Non- 44.5 BUN/Creatinine Ratio 19.7 (10-20) Calcium Level 10.1 mg/dl (8.5-10.1) Total Bilirubin 0.6 mg/dl (0.2-1) Aspartate Amino Transf (AST/SGOT) 25 U/L (15-37) Alanine Aminotransferase (ALT/SGPT) 32 U/L (12-78) Alkaline Phosphatase 97 U/L (45-117) Total Creatine Kinase 85 U/L (39-308) Creatine Kinase MB 2.5 ng/ml (0.5-3.6) Creatine Kinase MB Ratio 2.9 (0-3.0) Total Protein 8.3 gm/dl (6.4-8.2) Albumin 4.1 gm/dl (3.4-5.0) Globulin 4.2 gm/dl (2.5-4.0) Albumin/Globulin Ratio 1.0 (0.9-2) Bedside Troponin I < 0.030 ng/ml (0-0.045) Laboratory results reviewed by me ECG Per My Interpretation Indication: other (HTN) Rate (beats per minute): 67 Rhythm: sinus rhythm Findings: 1st degree AV block, other (Normal axis ,no STS changes or TWI) ED Course 1311: The patient was evaluated in room C8. A complete history and physical exam was performed. 1414: I reevaluated the patient. Discussed results and discharge instructions: he verbalized understanding and agreement. The patient is ready for discharge. Medical Decision The patient is an 82 year old white male with a past medical history of CABGx3, CKD stage III, colitis, diabetes, and diverticulosis, who presents to the Emergency Room after referral from the outpatient radiology department. Nursing notes reviewed. Ancillary studies and prior records reviewed. Differential diagnosis: Etiologies such as benign hypertension, hypertensive emergency, cardiovascular pathology, pheochromocytoma, electrolyte abnormality, renal disease, endorgan damage, as well as others were entertained. Patient was seen and evaluated the bedside. Patient had been referred here for evaluation of hypertension. The patient has been asymptomatic. Patient denies any headache, chest pain, dysarthria, numbness, tingling, or weakness. The patient is well-appearing and the patient has been taking his medications. Given that the patient is asymptomatic we did do some blood work and other testing. The patient's testing was unremarkable. Patient does have some baseline CKD and anemia which are chronic. I did discuss how to take blood pressure with the patient. He was told to continue to this once daily until he had a follow-up appointment with his primary care physician. At this point he was still running high the could discuss whether or not you need to be uptitrated on a medication or to add a new medication to his regimen. Patient was given warning signs for which to return. Patient was given strict follow-up , discharge, and return precautions. All questions were answered. Patient was deemed suitable for outpatient follow-up at this time. Patient agreed with the plan of care and was safely discharged home. Medication Reconcilliation Current Medication List: was personally reviewed by me Blood Pressure Screening Patient's blood pressure: Elevated blood pressure Blood pressure disposition: Referred to PCP Impression Primary Impression: Hypertension Additional Impressions: Anemia Chronic Kidney Disease, Stage Iii (Moderate) Scribe Attestation The scribe's documentation has been prepared under my direction and personally reviewed by me in its entirety. I confirm that the note above accurately reflects all work, treatment, procedures, and medical decision making performed by me. Departure Information Dispostion Home / Self-Care Referrals Sanjeev Coronado M.D. (PCP) Patient Instructions Hypertension Ia, [facility] Additional Instructions Please return to the emergency department if you have worsening or recurrent symptoms not amenable to at-home treatment. Please call for a follow-up appointment with her primary care physician. Please take your medications as prescribed. If you have other concerns and/or complaints please feel free to also call your primary care physician's office or return the ED for further evaluation, management, and treatment. Take your medications as prescribed. You have been examined and treated today on an emergency basis only. This is not a substitute for, or an effort to provide, complete comprehensive medical care. It is impossible to recognize and treat all injuries or illnesses in a single emergency department visit. It is therefore important that you follow up closely with [facility], your PCP, and/or your specialist(s). Call as soon as possible for an appointment. Thank you for your time and consideration. I look forward to speaking with you again soon. Please don't hesitate to call us if you have any questions. Problem Qualifiers Primary Impression: Hypertension Hypertension type: unspecified Qualified Codes: I10 - Essential (primary) hypertension Additional Impressions: Anemia Anemia type: unspecified type Qualified Codes: D64.9 - Anemia, unspecified
== END 2018-05-31 14:04 | disposition home or self-care (01) ==
LOC: EDBD 11:32 → C.EDC 11:34
DX: I12.9 Hypertensive chronic kidney disease with stage 1 through stage 4 chronic kidney disease, or unspecified chronic kidney disease (principal); D64.9 Anemia, unspecified; N18.3 Chronic kidney disease, stage 3 (moderate); I44.0 Atrioventricular block, first degree; E11.9 Type 2 diabetes mellitus without complications; Z95.1 Presence of aortocoronary bypass graft; Z79.02 Long term (current) use of antithrombotics/antiplatelets; Z79.82 Long term (current) use of aspirin; Z79.899 Other long term (current) drug therapy

== ENCOUNTER 2024-07-01 10:26 | Inpatient (IN) ==
--- NOTE | 2024-07-01 10:30 | Emergency Department Note ---
Impression & Plan Syncope, PAD (peripheral artery disease), Anemia, Weakness, Left leg swelling, Pneumonia, Chronic ulcer of left heel ED Provider Note NAME: BRENT RUSSELL AGE: 88 SEX: M : 1935 ARRIVES VIA: Ambulance INFORMANT: Patient ED PROVIDER(S): Roman Hunt MD CHIEF COMPLAINT: Syncope PLAN: Disposition: Admit MEDICAL DECISION MAKING: The patient is a pleasant 88-year-old gentleman with a past medical history of PAD, on Plavix, CKD, secondary hyperparathyroidism, history of CABG, vascular dementia, hypertension who presents to emergency department via EMS and then accompanied by his daughter for evaluation of episode of syncope that occurred today the patient reports he was in the bathroom about to exit in his motorized chair when he was trying to maneuver through the doorway but then woke up outside in his living room in the motorized chair bumping into the wall. Patient reports he is not entirely sure what had happened. He reports feeling weak. Patient did have a fall last . Where he reports he was transferring in the bathroom and fell backwards hitting the back of his head. He denies loss of consciousness and is able to get up on his own and felt okay subsequently. His daughter had seen him in the interval and recommended he go be evaluated but the patient felt he had no symptoms and had declined her recommendation. She has seen him or spoken to him regularly since then and he has been at his baseline. He denies any chest pain, shortness of breath, cough, congestion, GI or symptoms. The patient and daughter describes that he has a history of a left lower extremity bypass graft which has failed and understands there is no surgical options available. Further he has severe PAD to his right lower extremity and it was recently determined that the patient is not a surgical candidate. Patient follows with [facility]. On evaluation the patient is in no acute distress, afebrile stable vital signs. He appears clinically dry. He exhibits generalized weakness of all extremities with 4/5 strength without focal weakness. He has mild swelling of the left ankle and mild chronic left heel and plantar foot ulcer. EKG demonstrates suspected atrial ectopic rhythm, incomplete left bundle branch block without overt acute ischemia, no sgarbossa criteria. Chest x-ray with left basilar opacity suspicious for pneumonia. WBC and platelets within normal limits. H/H similar to prior with macrocytic MCV of 106. Chemistry without metabolic acidosis. BUN is elevated at 36, with BUN/creatinine 29 consistent patient's clinical dry appearance. Electrolytes unremarkable. LFTs unremarkable. Initial #2 troponin is 29, nonspecific with delta 2-hour hide to troponin 31, nonspecific and essentially unchanged. Lipase is not elevated. Free T4 within normal limits. UA without evidence of infection. X-ray of the left ankle demonstrates lucency to the lateral malleolus where nondisplaced fracture is not excluded. CT of the head CT of the head and neck were performed negative for ICH or ischemia. 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 The patient and his daughter at bedside agree with plan for admission for further evaluation and management. Case was discussed with Bernabe Lui, admitting resident with [facility] hospitalist who will evaluate the patient for admission. Further management per admitting team. Triage Nursing notes reviewed and agree them. Prior/external medical records reviewed Vital Signs: reviewed Differential diagnosis: Vasovagal event, dehydration, infection, hypoglycemia, electrolyte abnormalities, cardiac sources, intracerebral event, pulmonary embolism, seizure, toxicologic, neurologic, as well as other pathologies. ER treatment provided: See below. Diagnostics interpreted by me: ECG: Suspect atrial ectopic rhythm, 89 bpm, incomplete left bundle branch block, LVH, no overt ST elevation or depression, no sgarbossa criteria. QTc 49, QRS 108. Cardiac Monitoring: An order for continuous cardiac monitoring was placed and demonstrated Suspect atrial ectopic rhythm, 89 bpm Laboratory studies: See below Imaging studies: See below Consultation(s): Case was discussed with Bernabe Lui, admitting resident with [facility] hospitalist who will evaluate the patient for admission. HPI: The patient is a pleasant 88-year-old gentleman with a past medical history of PAD, on Plavix, CKD, secondary hyperparathyroidism, history of CABG, vascular dementia, hypertension who presents to emergency department via EMS and then accompanied by his daughter for evaluation of episode of syncope that occurred today the patient reports he was in the bathroom about to exit in his motorized chair when he was trying to maneuver through the doorway but then woke up outside in his living room in the motorized chair bumping into the wall. Patient reports he is not entirely sure what had happened. He reports feeling weak. Patient did have a fall last . Where he reports he was transferring in the bathroom and fell backwards hitting the back of his head. He denies loss of consciousness and is able to get up on his own and felt okay subsequently. His daughter had seen him in the interval and recommended he go be evaluated but the patient felt he had no symptoms and had declined her recommendation. She has seen him or spoken to him regularly since then and he has been at his baseline. He denies any chest pain, shortness of breath, cough, congestion, GI or symptoms. The patient and daughter describes that he has a history of a left lower extremity bypass graft which has failed and understands there is no surgical options available. Further he has severe PAD to his right lower extremity and it was recently determined that the patient is not a surgical candidate. Patient follows with [facility]. ROS: See above HPI for pertinent positives & negatives. A total of 10 systems reviewed and were otherwise negative. VITALS:See Below PHYSICAL EXAMINATION: GENERAL: Awake, alert, fatigued-appearing, in no distress HENT: Normocephalic, 3cm contusion with right posterior parietal scalp. Oropharynx with dry mucous membranes and otherwise unremarkable. EYES: Normal conjunctiva. Sclera non-icteric. EOMI. No nystamgus. PEARRL NECK: Supple. No nuchal rigidity. FROM. No JVD. RESPIRATORY: Clear to auscultation. CARDIAC: Regular rate, normal rhythm. Extremities warm and well perfused. Pulses equal. ABDOMEN: Soft, non-distended. No tenderness to palpation. No rebound or guarding. No masses. MUSCULOSKELETAL: Chest examination reveals no tenderness. The back is symmetrical on inspection without obvious abnormality. There is no CVA tenderness to palpation. No joint edema. LOWER EXTREMITIES: Calves are equal size bilaterally and non-tender. Mild swelling and light erythema of the left ankle and chronic left heel and plantar foot ulcer. NEURO: No focal sensory or motor deficits noted. Exhibits generalized weakness of all extremities with 4/5 strength. SKIN: No rash or jaundice noted. Roman Hunt MD Past Med/Surg History Problem List (Updated 07/01/24 @ 21:09 by Roman Hunt MD) Chronic ulcer of left heel (Acute) Pneumonia (Acute) Left leg swelling (Acute) Weakness (Acute) Syncope (Acute) Vitamin D deficiency Raynauds phenomenon Chronic low back pain Claudication in peripheral vascular disease Irregular heart beat Cough Abnormal PFT Diabetes Squamous cell carcinoma of skin Secondary hyperparathyroidism Inhibited sexual excitement Gout, joint Benign prostate hyperplasia Anemia (Acute) CAD in [place] artery COPD with emphysema (Chronic) GERD (gastroesophageal reflux disease) Hypercholesterolemia Hypothyroidism PAD (peripheral artery disease) (Acute) S/P CABG (coronary artery bypass graft) (1991) Vascular dementia Stented coronary artery (2013) HTN (hypertension) Medical History Cardiomyopathy Orthostatic hypotension 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 History of orthostatic hypotension Unstable angina Family History Brother Myocardial infarction Coronary heart disease Mother Pancreatic cancer Father Coronary heart disease Denies family history of Ovarian cancer Prostate cancer Breast cancer Colorectal cancer Social History Smoking Status: Former smoker Tobacco Type: Cigarettes Age Started Using Tobacco: 14; Age Quit Using Tobacco: 57; packs per day: 4; Cigarettes Per Day: 80; Second Hand Exposure: No; Do You Dip or Chew Tobacco: No; Hx Alcohol Use: No Hx Substance Use: No Communication Ability: Effective Visual Impairment: No Limitations Hearing Ability: Hard of Hearing Beliefs That Will Affect Care: None marital status: Current Living Situation: Spouse current occupational status: retired 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 Feels Safe at Home: Yes Childhood Exposure to Second-Hand Smoke: Yes Diet: regular caffeine: Yes during the past year weight has: remained stable Dental Care, Regularly: Yes Physical Activity Frequency: Does not Exercise Seatbelt Use: always Sunscreen Use: No Assistive Devices: Glasses and Walker Allergies Allergies Allergy/AdvReac Type Severity Reaction Status Date / Time No Known Allergies Allergy Verified 05/30/24 12:12 Home Meds Home Medications Medication Instructions Recorded Confirmed ascorbic acid (vitamin C) 500 mg 500 mg PO DAILY 07/25/19 07/01/24 tablet calcium polycarbophil 625 mg tablet 1,875 mg PO DAILY 07/25/19 07/01/24 cholecalciferol (vitamin D3) 25 1,000 units PO DAILY 07/25/19 07/01/24 mcg (1,000 unit) capsule cyanocobalamin (vitamin B-12) 1,000 mcg PO DAILY 07/25/19 07/01/24 1,000 mcg tablet,extended release garlic 1,000 mg capsule 1,000 mg PO DAILY 07/25/19 07/01/24 pyridoxine (vitamin B6) 100 mg 100 mg PO DAILY 07/25/19 07/01/24 tablet acetaminophen 500 mg tablet 500 mg PO Q6H PRN Pain 06/14/21 07/01/24 (Tylenol Extra Strength) omega-3 acid ethyl esters 1 gram 1 cap PO DAILY 06/14/21 07/01/24 capsule multivitamin with minerals 1 cap PO DAILY 10/31/21 07/01/24 no.7-folic acid 1 mg capsule ferrous sulfate 325 mg (65 mg 325 mg PO Q OTHER DAY 10/04/22 07/01/24 iron) tablet memantine 5 mg tablet 5 mg PO BID 07/01/24 07/01/24 metoprolol succinate 50 mg 25 mg PO DAILY 07/01/24 07/01/24 tablet,extended release 24 hr Previous Rx's Medication Instructions Recorded aspirin 81 mg tablet,delayed 81 mg PO DAILY #30 tabs 06/23/19 release folic acid 400 mcg tablet 400 mcg PO DAILY #30 tabs 06/23/19 famotidine 20 mg tablet 20 mg PO BID 3 months #180 tabs 11/20/19 cilostazol 100 mg tablet 100 mg PO BID #180 tabs 08/27/23 donepezil 10 mg tablet 10 mg PO DAILY #90 tabs 08/27/23 tamsulosin 0.4 mg capsule 0.4 mg PO DAILY #90 caps 08/27/23 isosorbide mononitrate 30 mg 30 mg PO DAILY #180 tabs 10/23/23 tablet,extended release 24 hr allopurinol 100 mg tablet 200 mg (2 x 100 mg) PO DAILY #180 12/24/23 tabs nitroglycerin 0.4 mg sublingual See Rx Instructions .Route 01/07/24 tablet .COMPLEX #25 tabs atorvastatin 80 mg tablet 80 mg PO DAILY #100 tabs 02/01/24 clopidogrel 75 mg tablet 75 mg PO DAILY #90 tabs 04/28/24 levothyroxine 150 mcg tablet 150 mcg PO DAILY #90 tabs 05/05/24 tramadol 50 mg tablet 100 mg (2 x 50 mg) PO TID PRN pain 06/23/24 #180 tabs Results & Data (ED) Vital Signs Vital Signs - 24 hr 07/01/24 10:33 07/01/24 10:33 07/01/24 10:33 Temperature 36.6 C Temperature Source Oral Pulse Rate 96 H Pulse Rate from SpO2 Sensor Respiratory Rate 20 19 Respiratory Effort / Characteristics Non-Labored Spontaneous Non-Labored Spontaneous Respiratory Depth Normal Normal Respiratory Pattern Regular Blood Pressure 123/79 Blood Pressure Mean 93 Blood Pressure Position Lying Pulse Oximetry 95 96 Oxygen Delivery Method Room Air Room Air Room Air Sepsis Recent Fever Within 48 Hours No Sepsis New/Unexplained Change in Mental Status N/A Sepsis Action Taken by Nursing No Action Required 07/01/24 10:51 07/01/24 12:24 07/01/24 12:32 Temperature Temperature Source Pulse Rate 87 Pulse Rate from SpO2 Sensor Respiratory Rate Respiratory Effort / Characteristics Respiratory Depth Respiratory Pattern Blood Pressure 124/80 Blood Pressure Mean 81 Blood Pressure Position Pulse Oximetry 96 Oxygen Delivery Method Room Air Sepsis Recent Fever Within 48 Hours Sepsis New/Unexplained Change in Mental Status Sepsis Action Taken by Nursing 07/01/24 12:33 07/01/24 13:00 07/01/24 13:00 Temperature Temperature Source Pulse Rate 87 92 H Pulse Rate from SpO2 Sensor 88 91 H Respiratory Rate 19 21 Respiratory Effort / Characteristics Respiratory Depth Respiratory Pattern Blood Pressure 132/74 Blood Pressure Mean 83 Blood Pressure Position Pulse Oximetry 94 95 Oxygen Delivery Method Sepsis Recent Fever Within 48 Hours Sepsis New/Unexplained Change in Mental Status Sepsis Action Taken by Nursing 07/01/24 13:12 07/01/24 13:30 07/01/24 13:36 Temperature Temperature Source Pulse Rate 90 88 Pulse Rate from SpO2 Sensor Respiratory Rate 24 22 Respiratory Effort / Characteristics Respiratory Depth Respiratory Pattern Blood Pressure 131/73 Blood Pressure Mean 88 Blood Pressure Position Pulse Oximetry Oxygen Delivery Method Sepsis Recent Fever Within 48 Hours Sepsis New/Unexplained Change in Mental Status Sepsis Action Taken by Nursing 07/01/24 13:42 07/01/24 14:00 07/01/24 14:00 Temperature Temperature Source Pulse Rate 89 91 H Pulse Rate from SpO2 Sensor 89 Respiratory Rate 23 18 Respiratory Effort / Characteristics Respiratory Depth Respiratory Pattern Blood Pressure 132/73 Blood Pressure Mean 95 Blood Pressure Position Pulse Oximetry 96 98 Oxygen Delivery Method Sepsis Recent Fever Within 48 Hours Sepsis New/Unexplained Change in Mental Status Sepsis Action Taken by Nursing 07/01/24 14:12 Temperature Temperature Source Pulse Rate 90 Pulse Rate from SpO2 Sensor 90 Respiratory Rate 18 Respiratory Effort / Characteristics Respiratory Depth Respiratory Pattern Blood Pressure Blood Pressure Mean Blood Pressure Position Pulse Oximetry 95 Oxygen Delivery Method Sepsis Recent Fever Within 48 Hours Sepsis New/Unexplained Change in Mental Status Sepsis Action Taken by Nursing Laboratory Data Attestation: I reviewed the patient's lab results. 07/01/24 10:39 07/01/24 10:39 Lab Results 07/01/24 07/01/24 07/01/24 Range/Units 10:39 12:35 13:15 WBC 9.10 (4.8-10.8) K/ul RBC 2.38 L (4.70-6.10) M/uL Hgb 8.0 L (14.0-18.0) g/dl Hct 25.3 L (42.0-52.0) % MCV 106.3 H (80.0-100.0) fL MCH 33.6 (25.0-34.0) pg MCHC 31.6 L (32.0-36.0) g/dL RDW Std Deviation 60.6 H (36.4-46.3) fL RDW Coeff of Brianda 15.8 H (11.5-14.5) % Plt Count 219 (130-400) K/uL MPV 10.1 (9.4-12.4) fL Immature Gran % (Auto) 0.8 % Neut % (Auto) 80.6 % Lymph % (Auto) 6.5 % Tift % (Auto) 10.7 % Eos % (Auto) 1.2 % Baso % (Auto) 0.2 % Neut # (Auto) 7.34 H (1.40-6.50) K/uL Lymph # (Auto) 0.59 L (1.20-3.40) K/uL Tift # (Auto) 0.97 H (0.11-0.59) K/uL Eos # (Auto) 0.11 (0.00-0.50) K/uL Baso # (Auto) 0.02 (0.00-0.20) K/uL Immature Gran # (Auto) 0.07 (0.01-0.20) K/uL Absolute Nucleated RBC 0.02 (0.00-0.12) K/uL Nucleated RBC % (auto) 0.2 % PT 11.9 (9.0-12.0) Seconds INR 1.1 (0.9-1.1) Sodium 139 (136-145) mmol/L Potassium 4.4 (3.5-5.1) mmol/L Chloride 108 H (98-107) mmol/L Carbon Dioxide 23 (21-32) mmol/L Anion Gap 8 (3-11) BUN 36 H (6-23) mg/dl Creatinine 1.21 (0.6-1.4) mg/dl Est Cr Clr Drug Dosing 37.8 ml/min Est GFR ( Amer) 62.0 ml/min Est GFR (Non-Af Amer) 53.5 ml/min BUN/Creatinine Ratio 29.8 H (10-20) Glucose 102 H (70-99(Fasting)) mg/dl Calcium 8.8 (8.6-10.3) mg/dl Phosphorus 3.0 (2.5-4.9) mg/dl Magnesium 2.0 (1.7-2.4) mg/dl Total Bilirubin 0.4 (0.2-1.0) mg/dl AST 18 (13-39) U/L ALT 10 (7-52) U/L Alkaline Phosphatase 105 H (34-104) U/L Troponin I High Sens 26.4 H 31.3 H (0-20) pg/ml Total Protein 7.6 (6.0-8.3) gm/dl Albumin 3.4 (3.4-5.0) gm/dl Globulin 4.2 H (2.5-4.0) gm/dl Albumin/Globulin Ratio 0.8 L (0.9-2) Lipase 10 L (11-82) U/L TSH 6.581 H (0.300-4.500) uIu/ml Free T4 1.01 (0.61-1.60) ng/dl Urine Color Yellow Urine Appearance Clear (Clear) Urine pH 5.0 (4.5-7.5) Ur Specific Clifford 1.031 H (1.000-1.030) Urine Protein Trace H (Negative) Urine Glucose (UA) Negative (Negative) Urine Ketones Negative (Negative) Urine Blood Negative (Negative) Urine Nitrite Negative (Negative) Urine Bilirubin Negative (Negative) Urine Urobilinogen Negative (Negative) Ur Leukocyte Esterase Trace H (Negative) Urine WBC (Auto) 0-5 (0-5) /hpf Urine RBC (Auto) 0-2 (0-2) /hpf U Hyaline Cast (Auto) 3-5 H (0-2) /lpf U Epithel Cells (Auto) 0-2 (0-2) /hpf Urine Bacteria (Auto) None Seen (None Seen) Administered Medications Acetaminophen (Acetaminophen 500 Mg Tab) 1,000 mg PO TID JIM Stop: 07/31/24 20:59 Last Admin: 07/01/24 20:16 Dose: 1,000 mg Documented By: MYLES Lactated Ringer's (Lr) 1,000 mls @ 80 mls/hr IV .[id number] JIM Stop: 07/02/24 18:31 Last Admin: 07/01/24 20:19 Dose: 80 mls/hr Documented By: MLYES Insulin Aspart (Insulin Aspart Per Unit Charge) 0 units SC ACHS JIM Stop: 07/31/24 17:31 Last Admin: 07/01/24 20:23 Dose: Not Given Documented By: Admin: 07/01/24 19:45 Dose: Not Given Documented By: DM Discontinued Medications Acetaminophen (Acetaminophen 500 Mg Tab) 1,000 mg PO NOW STA Stop: 07/01/24 17:16 Last Admin: 07/01/24 19:27 Dose: Not Given Documented By: MYLES Sodium Chloride (Nss) 1,000 mls @ 125 mls/hr IV .Q8H JIM Stop: 07/31/24 10:44 Last Infusion: 07/01/24 19:27 Dose: Infused Documented By: Admin: 07/01/24 11:07 Dose: 125 mls/hr Documented By: YAQUELIN Azithromycin 500 mg/ Dextrose 255 mls @ 125 mls/hr IV NOW ONE; Protocol Stop: 07/01/24 19:32 Last Admin: 07/01/24 20:22 Dose: 125 mls/hr Documented By: MYLES Ceftriaxone Sodium 2,000 mg/ (Dextrose) 70 mls @ 100 mls/hr IV ONE ONE; Protocol Stop: 07/01/24 18:26 Last Infusion: 07/01/24 20:16 Dose: Infused Documented By: Admin: 07/01/24 19:45 Dose: 100 mls/hr Documented By: MYLES Ioversol (Optiray 320 125ml) 119 ml IV ONCE ONE Stop: 07/01/24 12:12 Last Admin: 07/01/24 12:12 Dose: 119 ml Documented By: RICHARD Tramadol HCl (Tramadol Hcl 50 Mg Tablet) 100 mg PO NOW STA Stop: 07/01/24 17:16 Last Admin: 07/01/24 19:34 Dose: 100 mg Documented By: MYLES Tramadol HCl (Tramadol Hcl 50 Mg Tablet) Confirm Administered Dose 100 mg .ROUTE .STK-MED ONE Stop: 07/01/24 19:34 Last Admin: 07/01/24 19:35 Dose: Not Given Documented By: MYLES Imaging Data Radiologist's Impression: Ankle X-Ray 07/01/24 10:45 LEFT ANKLE 3 VIEWS CLINICAL HISTORY: Fall with left ankle injury. FINDINGS: 3 views of the left ankle are obtained. No prior studies are available for comparison at the time of dictation. The skeletal structures are osteopenic. There is a band of lucency through the lateral malleolus without clear cortical disruption. A nondisplaced fracture is not excluded. No additional findings are suspicious for acute fracture. The ankle mortise is intact. Soft tissue swelling is seen throughout the left leg. There is advanced atherosclerotic calcification of the regional arteries. IMPRESSION: 1. There is an indeterminate band of lucency through the lateral malleolus without clear cortical disruption. A nondisplaced fracture is not excluded. 2. No additional findings are suspicious for acute fracture. 3. Diffuse soft tissue edema. Electronically signed by: Bernabe Willis M.D. 07/01/2024 1:13 PM Chest X-Ray 07/01/24 10:45 XR chest 1V portable CLINICAL HISTORY: Chest pain, nonspecific COMPARISON STUDY: Chest radiograph September 20, 2020. FINDINGS: Median sternotomy wires and mediastinal surgical clips are present. There is no pneumothorax or pleural effusion. Moderate left basilar opacity is present. Right lung is clear. Subtle interstitial thickening is unchanged. This is likely chronic. Cardiomediastinal silhouette is stable. IMPRESSION: Moderate left basilar airspace opacity. This favors pneumonia. Radiographic follow-up to ensure resolution is recommended. ACT 112: Negative or not required by law. Electronically signed by: Jordan Davidson M.D. 07/01/2024 11:[address] 07/01/24 10:[address] OF THE BRAIN; CT ANGIOGRAM OF THE BRAIN; CT ANGIOGRAM OF THE NECK CLINICAL HISTORY: Syncope. Change in mental status. COMPARISON STUDY: No priors. TECHNIQUE: Unenhanced axial CT scan of the brain is performed. Subsequently, following the IV administration of 119 of Optiray 320, CT angiogram of the head and neck was performed from the aortic arch to the vertex. Images are reviewed in the axial, sagittal, and coronal planes. 3-D MIPS images are created and assessed. IV contrast was administered without complication. All measurements were calculated based on NASCET criteria. A dose lowering technique was utilized adhering to the principles of ALARA. CT DOSE: 1070.67 mGy.cm FINDINGS: Brain parenchyma: There is age-related involutional change noting moderate subcortical and periventricular microangiopathic disease. There is no hemorrhage, mass effect, or evidence of acute territorial ischemia by CT criteria. There is no evidence of enhancing mass lesion on the angiogram phase images. The ventricles, sulci, and cisterns are prominent secondary to involutional change. Godinez-white matter differentiation is preserved. No extra- axial fluid collection is seen. Thoracic aorta: There is atherosclerotic calcification of the thoracic aorta. Visualized portions of the thoracic aorta are normal in caliber. The aortic arch demonstrates standard 3-vessel anatomy. Right carotid arterial system: The right common carotid artery is widely patent, as are the right internal and external carotid arteries. Atherosclerotic plaque and irregularity is seen throughout. Left carotid arterial system: The left common carotid artery is widely patent, as are the left internal and external carotid arteries. Atherosclerotic plaque and irregularity is seen throughout. Vertebral arteries: The vertebral arteries are patent bilaterally noting right- sided dominance. The left vertebral artery is diminutive. Subclavian arteries: Widely patent bilaterally. Intracranial vasculature: There is atherosclerotic calcification of the cavernous carotid and vertebral arteries. The internal carotid arteries are patent at the skull base, as are the anterior and middle cerebral arteries bilaterally. The vertebrobasilar system and posterior cerebral arteries are widely patent. The right vertebral artery is dominant. 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 No additional aneurysm is seen. No foci of high-grade stenosis or focal vessel occlusion are seen throughout the intracranial circulation. Jugular veins: Patent bilaterally. Dural sinuses: Patent. Lung apices: Partially visualized upper lobe lung parenchyma appears clear. Soft tissues: The visualized pharyngeal soft tissues are normal in appearance noting angiographic phase technique. The oropharyngeal airway appears widely patent. The thyroid gland is atrophic versus surgically absent. The salivary glands are normal in appearance. No cervical lymphadenopathy is seen. There is a right posterior scalp contusion Skeletal structures: The skeletal structures are osteopenic. The calvarium appears intact. The cervical spine is maintained noting multilevel spondylosis. The patient is status post midline sternotomy. Orbits: The bony orbits are intact. Orbital contents are normal as visualized noting bilateral ocular lens implants. Sinuses and mastoids: There is moderately marked mucosal thickening within the ethmoid sinuses. Trace mucosal thickening is seen within the maxillary antra, the sphenoid sinuses, and the left frontal sinus. The mastoid air cells are well pneumatized. IMPRESSION: 1. There is no hemorrhage, mass effect, or evidence of acute territorial ischemia by CT criteria. 2. 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 3. Otherwise unremarkable CT angiogram examinations of the head and neck noting advanced atherosclerotic plaque. 4. Right posterior scalp contusion. ACT 112: Negative or not required by law. Electronically signed by: Bernabe Willis M.D. 07/01/2024 12:44 PM Head CTA 07/01/24 10:[address] OF THE BRAIN; CT ANGIOGRAM OF THE BRAIN; CT ANGIOGRAM OF THE NECK CLINICAL HISTORY: Syncope. Change in mental status. COMPARISON STUDY: No priors. TECHNIQUE: Unenhanced axial CT scan of the brain is performed. Subsequently, following the IV administration of 119 of Optiray 320, CT angiogram of the head and neck was performed from the aortic arch to the vertex. Images are reviewed in the axial, sagittal, and coronal planes. 3-D MIPS images are created and assessed. IV contrast was administered without complication. All measurements were calculated based on NASCET criteria. A dose lowering technique was utilized adhering to the principles of ALARA. CT DOSE: 1070.67 mGy.cm FINDINGS: Brain parenchyma: There is age-related involutional change noting moderate subcortical and periventricular microangiopathic disease. There is no hemorrhage, mass effect, or evidence of acute territorial ischemia by CT criteria. There is no evidence of enhancing mass lesion on the angiogram phase images. The ventricles, sulci, and cisterns are prominent secondary to involutional change. Godinez-white matter differentiation is preserved. No extra- axial fluid collection is seen. Thoracic aorta: There is atherosclerotic calcification of the thoracic aorta. Visualized portions of the thoracic aorta are normal in caliber. The aortic arch demonstrates standard 3-vessel anatomy. Right carotid arterial system: The right common carotid artery is widely patent, as are the right internal and external carotid arteries. Atherosclerotic plaque and irregularity is seen throughout. Left carotid arterial system: The left common carotid artery is widely patent, as are the left internal and external carotid arteries. Atherosclerotic plaque and irregularity is seen throughout. Vertebral arteries: The vertebral arteries are patent bilaterally noting right- sided dominance. The left vertebral artery is diminutive. Subclavian arteries: Widely patent bilaterally. Intracranial vasculature: There is atherosclerotic calcification of the cavernous carotid and vertebral arteries. The internal carotid arteries are patent at the skull base, as are the anterior and middle cerebral arteries bilaterally. The vertebrobasilar system and posterior cerebral arteries are widely patent. The right vertebral artery is dominant. 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 No additional aneurysm is seen. No foci of high-grade stenosis or focal vessel occlusion are seen throughout the intracranial circulation. Jugular veins: Patent bilaterally. Dural sinuses: Patent. Lung apices: Partially visualized upper lobe lung parenchyma appears clear. Soft tissues: The visualized pharyngeal soft tissues are normal in appearance noting angiographic phase technique. The oropharyngeal airway appears widely patent. The thyroid gland is atrophic versus surgically absent. The salivary glands are normal in appearance. No cervical lymphadenopathy is seen. There is a right posterior scalp contusion Skeletal structures: The skeletal structures are osteopenic. The calvarium appears intact. The cervical spine is maintained noting multilevel spondylosis. The patient is status post midline sternotomy. Orbits: The bony orbits are intact. Orbital contents are normal as visualized noting bilateral ocular lens implants. Sinuses and mastoids: There is moderately marked mucosal thickening within the ethmoid sinuses. Trace mucosal thickening is seen within the maxillary antra, the sphenoid sinuses, and the left frontal sinus. The mastoid air cells are well pneumatized. IMPRESSION: 1. There is no hemorrhage, mass effect, or evidence of acute territorial ischemia by CT criteria. 2. 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 3. Otherwise unremarkable CT angiogram examinations of the head and neck noting advanced atherosclerotic plaque. 4. Right posterior scalp contusion. ACT 112: Negative or not required by law. Electronically signed by: Bernabe Willis M.D. 07/01/2024 12:44 PM Neck CTA 07/01/24 10:[address] OF THE BRAIN; CT ANGIOGRAM OF THE BRAIN; CT ANGIOGRAM OF THE NECK CLINICAL HISTORY: Syncope. Change in mental status. COMPARISON STUDY: No priors. TECHNIQUE: Unenhanced axial CT scan of the brain is performed. Subsequently, following the IV administration of 119 of Optiray 320, CT angiogram of the head and neck was performed from the aortic arch to the vertex. Images are reviewed in the axial, sagittal, and coronal planes. 3-D MIPS images are created and assessed. IV contrast was administered without complication. All measurements were calculated based on NASCET criteria. A dose lowering technique was utilized adhering to the principles of ALARA. CT DOSE: 1070.67 mGy.cm FINDINGS: Brain parenchyma: There is age-related involutional change noting moderate subcortical and periventricular microangiopathic disease. There is no hemorrhage, mass effect, or evidence of acute territorial ischemia by CT criteria. There is no evidence of enhancing mass lesion on the angiogram phase images. The ventricles, sulci, and cisterns are prominent secondary to involutional change. Godinez-white matter differentiation is preserved. No extra- axial fluid collection is seen. Thoracic aorta: There is atherosclerotic calcification of the thoracic aorta. Visualized portions of the thoracic aorta are normal in caliber. The aortic arch demonstrates standard 3-vessel anatomy. Right carotid arterial system: The right common carotid artery is widely patent, as are the right internal and external carotid arteries. Atherosclerotic plaque and irregularity is seen throughout. Left carotid arterial system: The left common carotid artery is widely patent, as are the left internal and external carotid arteries. Atherosclerotic plaque and irregularity is seen throughout. Vertebral arteries: The vertebral arteries are patent bilaterally noting right- sided dominance. The left vertebral artery is diminutive. Subclavian arteries: Widely patent bilaterally. Intracranial vasculature: There is atherosclerotic calcification of the cavernous carotid and vertebral arteries. The internal carotid arteries are patent at the skull base, as are the anterior and middle cerebral arteries bilaterally. The vertebrobasilar system and posterior cerebral arteries are widely patent. The right vertebral artery is dominant. 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 No additional aneurysm is seen. No foci of high-grade stenosis or focal vessel occlusion are seen throughout the intracranial circulation. Jugular veins: Patent bilaterally. Dural sinuses: Patent. Lung apices: Partially visualized upper lobe lung parenchyma appears clear. Soft tissues: The visualized pharyngeal soft tissues are normal in appearance noting angiographic phase technique. The oropharyngeal airway appears widely patent. The thyroid gland is atrophic versus surgically absent. The salivary glands are normal in appearance. No cervical lymphadenopathy is seen. There is a right posterior scalp contusion Skeletal structures: The skeletal structures are osteopenic. The calvarium appears intact. The cervical spine is maintained noting multilevel spondylosis. The patient is status post midline sternotomy. Orbits: The bony orbits are intact. Orbital contents are normal as visualized noting bilateral ocular lens implants. Sinuses and mastoids: There is moderately marked mucosal thickening within the ethmoid sinuses. Trace mucosal thickening is seen within the maxillary antra, the sphenoid sinuses, and the left frontal sinus. The mastoid air cells are well pneumatized. IMPRESSION: 1. There is no hemorrhage, mass effect, or evidence of acute territorial ischemia by CT criteria. 2. 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 3. Otherwise unremarkable CT angiogram examinations of the head and neck noting advanced atherosclerotic plaque. 4. Right posterior scalp contusion. ACT 112: Negative or not required by law. Electronically signed by: Bernabe Willis M.D. 07/01/2024 12:44 PM Discharge Plan Visit Data Chief Complaint: Weakness Stated Complaint: CHEST PRESSURE, ED Provider: Roman Hunt Discharge Problem: Syncope, PAD (peripheral artery disease), Anemia, Weakness, Left leg swelling, Pneumonia, Chronic ulcer of left heel Patient Disposition: Admitted As Inpatient Discharge Instructions Interventions: ED Discharge Assessment Last Done: 07/01/24 18:12 Discharge Problem: Syncope Qualifiers: Syncope type: unspecified Qualified Code(s): R55 - Syncope and collapse Anemia Qualifiers: Anemia type: unspecified type Qualified Code(s): D64.9 - Anemia, unspecified Pneumonia Qualifiers: Pneumonia type: due to unspecified organism Laterality: left Lung location: u nspecified part of lung Qualified Code(s): J18.9 - Pneumonia, unspecified organism Chronic ulcer of left heel Qualifiers: Non-pressure ulcer stage: unspecified non-pressure ulcer stage Qualified Code(s): L97.429 - Non-pressure chronic ulcer of left heel and midfoot with unspecified severity
[2024-07-01] MEDS: SODIUM CHLORIDE 0.9% 1,000 ML IV SCH (11:07)
[2024-07-01 11:14] LABS: Basophils # (auto) 0.02 K/uL (0.00-0.20); Basophils % (auto) 0.2 %; Eosinophils # (auto) 0.11 K/uL (0.00-0.50); Eosinophils % (auto) 1.2 %; Hematocrit (blood only) 25.3 % (42.0-52.0); Immature Granulocytes # (auto) 0.07 K/uL (0.01-0.20); Immature Granulocytes % (auto) 0.8 %; Lymphocytes # (auto) 0.59 K/uL (1.20-3.40); Lymphocytes % (auto) 6.5 %; Mean Corpuscular Hemoglobin 33.6 pg (25.0-34.0); Mean Corpuscular Hgb Conc 31.6 g/dL (32.0-36.0); Mean Corpuscular Volume 106.3 fL (80.0-100.0); Mean Platelet Volume 10.1 fL (9.4-12.4); Monocytes # (auto) 0.97 K/uL (0.11-0.59); Monocytes % (auto) 10.7 %; Neutrophils # (auto) 7.34 K/uL (1.40-6.50); Neutrophils % (auto) 80.6 %; Nucleated RBC # (auto) 0.02 K/uL (0.00-0.12); Nucleated RBC % (auto) 0.2 %; Platelet Count 219 K/uL (130-400); RDW Coefficient of Variation 15.8 % (11.5-14.5); RDW Standard Deviation 60.6 fL (36.4-46.3); Red Blood Count 2.38 M/uL (4.70-6.10)
[2024-07-01 11:17] LABS: INR 1.1 (0.9-1.1); Prothrombin Time 11.9 Seconds (9.0-12.0)
--- NOTE | 2024-07-01 11:32 | XRay Report ---
XR chest 1V portable CLINICAL HISTORY: Chest pain, nonspecific COMPARISON STUDY: Chest radiograph September 20, 2020. FINDINGS: Median sternotomy wires and mediastinal surgical clips are present. There is no pneumothora x or pleural effusion. Moderate left basilar opacity is present. Right lung is clear. Subtle intersti tial thickening is unchanged. This is likely chronic. Cardiomediastinal silhouette is stable. IMPRESSION: Moderate left basilar airspace opacity. This favors pneumonia. Radiographic follow-up to ensure resolution is recommended. ACT 112: Negative or not required by law. Electronically signed by: Jordan Davidson M.D. 07/01/2024 11:30 AM
[2024-07-01 11:40] LABS: Albumin Globulin Ratio 0.8 (0.9-2); Albumin Level 3.4 gm/dl (3.4-5.0); BUN Creatinine Ratio 29.8 (10-20); Bilirubin,Total 0.4 mg/dl (0.2-1.0); Calcium 8.8 mg/dl (8.6-10.3); Creatinine Clr Calc Pharmacy 37.8 ml/min; Est GFR (Non-African American) 53.5 ml/min; Globulin 4.2 gm/dl (2.5-4.0); Potassium 4.4 mmol/L (3.5-5.1); Total Protein 7.6 gm/dl (6.0-8.3)
[2024-07-01 11:46] LABS: Troponin I High Sensitivity 26.4 pg/ml (0-20)
[2024-07-01 11:55] LABS: Thyroid Stimulating Hormone 6.581 uIu/ml (0.300-4.500)
[2024-07-01] MEDS: OPTIRAY 320 125ml IV ONE (12:12)
--- NOTE | 2024-07-01 12:47 | CT Scan Report ---
UNENHANCED CT OF THE BRAIN; CT ANGIOGRAM OF THE BRAIN; CT ANGIOGRAM OF THE NECK CLINICAL HISTORY: Syncope. Change in mental status. COMPARISON STUDY: No priors. TECHNIQUE: Unenhanced axial CT scan of the brain is performed. Subsequently, following the IV adminis tration of 119 of Optiray 320, CT angiogram of the head and neck was performed from the aortic arch t o the vertex. Images are reviewed in the axial, sagittal, and coronal planes. 3-D MIPS images are cre ated and assessed. IV contrast was administered without complication. All measurements were calculate d based on NASCET criteria. A dose lowering technique was utilized adhering to the principles of ALA RA. CT DOSE: 1070.67 mGy.cm FINDINGS: Brain parenchyma: There is age-related involutional change noting moderate subcortical and periventri cular microangiopathic disease. There is no hemorrhage, mass effect, or evidence of acute territorial ischemia by CT criteria. There is no evidence of enhancing mass lesion on the angiogram phase images . The ventricles, sulci, and cisterns are prominent secondary to involutional change. Godinez-white denny er differentiation is preserved. No extra-axial fluid collection is seen. Thoracic aorta: There is atherosclerotic calcification of the thoracic aorta. Visualized portions of the thoracic aorta are normal in caliber. The aortic arch demonstrates standard 3-vessel anatomy. Right carotid arterial system: The right common carotid artery is widely patent, as are the right int ernal and external carotid arteries. Atherosclerotic plaque and irregularity is seen throughout. Left carotid arterial system: The left common carotid artery is widely patent, as are the left administration internship al and external carotid arteries. Atherosclerotic plaque and irregularity is seen throughout. Vertebral arteries: The vertebral arteries are patent bilaterally noting right-sided dominance. The l eft vertebral artery is diminutive. Subclavian arteries: Widely patent bilaterally. Intracranial vasculature: There is atherosclerotic calcification of the cavernous carotid and vertebr al arteries. The internal carotid arteries are patent at the skull base, as are the anterior and midd le cerebral arteries bilaterally. The vertebrobasilar system and posterior cerebral arteries are wide ly patent. The right vertebral artery is dominant. There is a 9 mm aneurysm of the left vertebral art breana seen on axial image #52. No additional aneurysm is seen. No foci of high-grade stenosis or focal vessel occlusion are seen throughout the intracranial circulation. Jugular veins: Patent bilaterally. Dural sinuses: Patent. Lung apices: Partially visualized upper lobe lung parenchyma appears clear. Soft tissues: The visualized pharyngeal soft tissues are normal in appearance noting angiographic pha se technique. The oropharyngeal airway appears widely patent. The thyroid gland is atrophic versus rioz rgically absent. The salivary glands are normal in appearance. No cervical lymphadenopathy is seen. T here is a right posterior scalp contusion Skeletal structures: The skeletal structures are osteopenic. The calvarium appears intact. The cervic al spine is maintained noting multilevel spondylosis. The patient is status post midline sternotomy. Orbits: The bony orbits are intact. Orbital contents are normal as visualized noting bilateral ocular lens implants. Sinuses and mastoids: There is moderately marked mucosal thickening within the ethmoid sinuses. Trace mucosal thickening is seen within the maxillary antra, the sphenoid sinuses, and the left frontal si nus. The mastoid air cells are well pneumatized. IMPRESSION: 1. There is no hemorrhage, mass effect, or evidence of acute territorial ischemia by CT criteria. 2. 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 3. Otherwise unremarkable CT angiogram examinations of the head and neck noting advanced atherosclero tic plaque. 4. Right posterior scalp contusion. ACT 112: Negative or not required by law. Electronically signed by: Bernabe Willis M.D. 07/01/2024 12:44 PM
[2024-07-01 12:51] LABS: T4 Free Thyroxine 1.01 ng/dl (0.61-1.60)
--- NOTE | 2024-07-01 13:15 | XRay Report ---
LEFT ANKLE 3 VIEWS CLINICAL HISTORY: Fall with left ankle injury. FINDINGS: 3 views of the left ankle are obtained. No prior studies are available for comparison at th e time of dictation. The skeletal structures are osteopenic. There is a band of lucency through the l ateral malleolus without clear cortical disruption. A nondisplaced fracture is not excluded. No addit ional findings are suspicious for acute fracture. The ankle mortise is intact. Soft tissue swelling i s seen throughout the left leg. There is advanced atherosclerotic calcification of the regional arter ies. IMPRESSION: 1. There is an indeterminate band of lucency through the lateral malleolus without clear cortical dis ruption. A nondisplaced fracture is not excluded. 2. No additional findings are suspicious for acute fracture. 3. Diffuse soft tissue edema. Electronically signed by: Bernabe Willis M.D. 07/01/2024 1:13 PM
[2024-07-01 13:42] LABS: Appearance Urine Clear (Clear); Bacteria Urine Automated None Seen (None Seen); Bilirubin Urine Negative (Negative); Blood Urine Negative (Negative); Color Urine Yellow; Epithelial Cell Urine Auto 0-2 /hpf (0-2); Glucose Urine UA Negative (Negative); Ketones Urine Negative (Negative); Leukocyte Esterase Urine Trace (Negative); Nitrite Urine Negative (Negative); Protein Urine Trace (Negative); RBC Urine Automated 0-2 /hpf (0-2); Specific Gravity Urine 1.031 (1.000-1.030); Urobilinogen Urine Negative (Negative); WBC Urine Automated 0-5 /hpf (0-5)
--- NOTE | 2024-07-01 14:40 | History & Physical Report ---
Date of Service July 01, 2024 Assessment & Plan (1) Syncope: Plan: -EKG demonstrates incomplete left bundle branch block without overt acute ischemia. Suspect atrial ectopic rhythm. -Head CT without any acute changes. 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 Otherwise unremarkable. -Chest x-ray suggestive of pneumonia. -CBC showed a hemoglobin of 9.0 which is below his normal baseline. Elevated MCV. -UA showed trace protein and leukocyte esterase. -Blood cultures pending. -Will admit to PCU/telemetry. -Recently had an echo done at [facility] which showed an EF of 43% severe aortic stenosis, severe mitral regurgitation, mild tricuspid regurgitation. -Alert and secondary to dehydration, patient received 1 L NSS in the ED. Will continue on gentle IV fluids. Stop after 2 L (2) Weakness: Plan: - as above. - PT/OT ordered. (3) Pneumonia: Plan: - Moderate left basilar airspace opacity - Currently on room air. - blood cultures pending. - Patient with history of COPD. Will start on ceftriaxone and azithromycin (4) Claudication in peripheral vascular disease: Plan: -Patient has significant peripheral vascular disease and follows with [facility]. -suppose to have vascular surgery done, however cardiology recommended conservative medical management due to previous stress echo. (5) Left leg swelling: Plan: -Duplex ultrasound the left lower extremity. -If negative, started on antibiotics for cellulitic infection. (6) Anemia: Plan: -Hemoglobin of 8.0 this time in the ED -Chronically in the 9-10 range. Elevated MCV. -Will monitor, CBC in a.m. (7) Irregular heart beat: Plan: -Patient with an elevated troponin of 26.4 in the ED. A repeat of 31.3. Will trend every 6 hours to peak. -Most likely secondary to demand ischemia. Patient not endorsing chest pain at this time (8) Diabetes: Plan: - Patient's home regimen held on admission - Continue BSG checks, sliding-scale insulin, hypoglycemic protocol (9) Chronic kidney disease, stage III (moderate): Plan: -CKD stage G3 B/A2 with a baseline creatinine of 1.41.6. Follows with neph rology. -Stable at this time (10) Benign prostate hyperplasia: Plan: -Continue home medication (11) GERD (gastroesophageal reflux disease): Plan: -Continue home medication (12) Hypothyroidism: Plan: -TSH of 6.5 in ED. Not significantly elevated though will need follow-up outpatient. -Continue on levothyroxine 150mcg. (13) S/P CABG (coronary artery bypass graft): Plan: -noted. (14) HTN (hypertension): Plan: -Continue home medications History of Present Illness Chief Complaint: Syncope, weakness Primary Care Provider: Sanjeev Coronado MD Patient is a 88-year-old male with past medical history of PAD on Plavix, CKD, secondary hypothyroidism, history of CABG, vascular dementia, hypertension who presents to the hospital via EMS for episode of syncope. Syncope occurred earlier this morning at approximately 5:30 AM. Patient was getting out of his bathroom and using his electric chair to ambulate. He was sitting down trying to move the chair when he had loss of consciousness. He did have some chest pressure at that time which resolved. Denies any chest pains at this time. Patient does state though that he has been feeling weak for some time. He also had a fall last where he was trying to get back into his chair from the bathroom and fell and hit the back of his head. Denies any loss of consciousness at that time. Patient's daughter was bedside who states that he is currently at baseline. He denies any chest pain at this time, shortness of breath, cough, congestion, or abdominal pain. Does have left lower extremity, vascular issues. He follows with [facility]. Though recently his left lower extremity has become erythematous and edematous. He has been having a chronic ulcer on the heel for about 2 to 3 months. Approximately 10 days ago he started to have swelling and erythema in the left lower extremity that has been getting worse and causing pain. Allergies Allergy/AdvReac Type Severity Reaction Status Date / Time No Known Allergies Allergy Verified 05/30/24 12:12 Home Medications Medication Instructions Recorded Confirmed Type aspirin 81 mg tablet,delayed 81 mg PO DAILY #30 tabs 06/23/19 07/01/24 Rx release folic acid 400 mcg tablet 400 mcg PO DAILY #30 tabs 06/23/19 07/01/24 Rx ascorbic acid (vitamin C) 500 mg 500 mg PO DAILY 07/25/19 07/01/24 History tablet calcium polycarbophil 625 mg tablet 1,875 mg PO DAILY 07/25/19 07/01/24 History cholecalciferol (vitamin D3) 25 1,000 units PO DAILY 07/25/19 07/01/24 History mcg (1,000 unit) capsule cyanocobalamin (vitamin B-12) 1,000 mcg PO DAILY 07/25/19 07/01/24 History 1,000 mcg tablet,extended release garlic 1,000 mg capsule 1,000 mg PO DAILY 07/25/19 07/01/24 History pyridoxine (vitamin B6) 100 mg 100 mg PO DAILY 07/25/19 07/01/24 History tablet famotidine 20 mg tablet 20 mg PO BID 3 months #180 tabs 11/20/19 07/01/24 Rx acetaminophen 500 mg tablet 500 mg PO Q6H PRN Pain 06/14/21 07/01/24 History (Tylenol Extra Strength) omega-3 acid ethyl esters 1 gram 1 cap PO DAILY 06/14/21 07/01/24 History capsule multivitamin with minerals 1 cap PO DAILY 10/31/21 07/01/24 History no.7-folic acid 1 mg capsule ferrous sulfate 325 mg (65 mg 325 mg PO Q OTHER DAY 10/04/22 07/01/24 History iron) tablet cilostazol 100 mg tablet 100 mg PO BID #180 tabs 08/27/23 07/01/24 Rx donepezil 10 mg tablet 10 mg PO DAILY #90 tabs 08/27/23 07/01/24 Rx tamsulosin 0.4 mg capsule 0.4 mg PO DAILY #90 caps 08/27/23 07/01/24 Rx isosorbide mononitrate 30 mg 30 mg PO DAILY #180 tabs 10/23/23 07/01/24 Rx tablet,extended release 24 hr allopurinol 100 mg tablet 200 mg (2 x 100 mg) PO DAILY #180 12/24/23 07/01/24 Rx tabs nitroglycerin 0.4 mg sublingual See Rx Instructions .Route 01/07/24 07/01/24 Rx tablet .COMPLEX #25 tabs atorvastatin 80 mg tablet 80 mg PO DAILY #100 tabs 02/01/24 07/01/24 Rx clopidogrel 75 mg tablet 75 mg PO DAILY #90 tabs 04/28/24 07/01/24 Rx levothyroxine 150 mcg tablet 150 mcg PO DAILY #90 tabs 05/05/24 07/01/24 Rx tramadol 50 mg tablet 100 mg (2 x 50 mg) PO TID PRN pain 06/23/24 07/01/24 Rx #180 tabs memantine 5 mg tablet 5 mg PO BID 07/01/24 07/01/24 History metoprolol succinate 50 mg 25 mg PO DAILY 07/01/24 07/01/24 History tablet,extended release 24 hr Past Med/Surg History Problem List (Updated 07/01/24 @ 21:09 by Roman Hunt MD) Chronic ulcer of left heel (Acute) Pneumonia (Acute) Left leg swelling (Acute) Weakness (Acute) Syncope (Acute) Vitamin D deficiency Raynauds phenomenon Chronic low back pain Claudication in peripheral vascular disease Irregular heart beat Cough Abnormal PFT Diabetes Squamous cell carcinoma of skin Secondary hyperparathyroidism Inhibited sexual excitement Gout, joint Benign prostate hyperplasia Anemia (Acute) CAD in [place] artery COPD with emphysema (Chronic) GERD (gastroesophageal reflux disease) Hypercholesterolemia Hypothyroidism PAD (peripheral artery disease) (Acute) S/P CABG (coronary artery bypass graft) (1991) Vascular dementia Stented coronary artery (2013) HTN (hypertension) Medical History Cardiomyopathy Orthostatic hypotension 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 History of orthostatic hypotension Unstable angina Family History Brother Myocardial infarction Coronary heart disease Mother Pancreatic cancer Father Coronary heart disease Denies family history of Ovarian cancer Prostate cancer Breast cancer Colorectal cancer Social History Smoking Status: Former smoker Tobacco Type: Cigarettes Age Started Using Tobacco: 14; Age Quit Using Tobacco: 57; packs per day: 4; Cigarettes Per Day: Formerly 4 packs/day; Second Hand Exposure: No; Do You Dip or Chew Tobacco: No; Hx Alcohol Use: No Hx Substance Use: No Preferred Language: Nigerien Communication Ability: Effective Visual Impairment: No Limitations Hearing Ability: Hard of Hearing 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 Feels Safe at Home: Yes Safety Concerns: Feels Safe At This Time Childhood Exposure to Second-Hand Smoke: Yes Diet: regular caffeine: Yes during the past year weight has: remained stable Dental Care, Regularly: Yes Physical Activity Frequency: Does not Exercise Seatbelt Use: always Sunscreen Use: No Assistive Devices: Scooter/Electric Scooter Review of Systems Review of Systems: All systems reviewed & are unremarkable except as noted in Subjective Physical Exam Physical Exam: Constitutional: well-appearing, no acute distress HEENT: NCAT, no conjunctival injection, dry mucous membranes CV: regular rhythm, systolic murmur heard at the second left intercostal space, murmur heard at the apex, extremities well-perfused Resp: CTABL, no wheezes/rales/rhonchi appreciated, no increased work of breathing GI: soft, nondistended, nontender, BS normoactive MSK: no gross deformities appreciated Skin: Left lower extremity swelling and erythema that from the left ankle up the anterior kow[place]ki Neuro: alert, oriented, no focal neurologic deficit appreciated Results & Data Results & Data Vital Signs (Past 12 Hours) Vital Signs Temp Pulse Resp BP Pulse Ox O2 Del Method 07/01/24 13:42 89 23 96 07/01/24 13:36 88 22 07/01/24 13:30 131/73 07/01/24 13:12 90 24 07/01/24 13:00 92 H 21 95 07/01/24 13:00 132/74 07/01/24 12:33 87 19 94 07/01/24 12:32 87 07/01/24 12:24 124/80 07/01/24 10:51 96 Room Air 07/01/24 10:33 19 96 Room Air 07/01/24 10:33 Room Air 07/01/24 10:33 36.6 C 96 H 20 123/79 95 Room Air Supervising Physician Co-Signing Physician Notes I personally saw and examined the patient. I independently reviewed the labs, EKG, imaging, problem list, medication list, past medical history and family history. I verified all valverde points and agree with resident physician Dr Bernabe Lui, with the following exceptions and/or additions: 88 year old male presents to the ER with episode of syncope (woke up in wheelchair). No symptoms prior to this. No fever, chills, chest pain, shortness of breath or cough. Chronic intermittent left sided chest pains ongoing for years (none currently). O/E HS increased rate, irregular rhythm, no murmurs, Chest CTAB, Abdo SNT, left leg swelling and erythema with pain to palpation (patient reports chronic and no different to usual) A/P Syncope - monitor on telemetry, TTE Pneumonia - no specific symptoms but in setting of new onset a. fib and syncopal episode would elect to treat although may have just aspirated during the syncopal event. Ceftriaxone + azithromycin. New onset atrial fibrillation - noted an episode due to iatrogenic stress test previously terminated by metoprolol but otherwise no prior episode. 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 Will increase metoprolol succinate to BID to help with rate control. Suspect mild troponin increase due to this in the absence of ongoing chest pain. Peripheral artery disease with occlusions - appears chronic and noted previously by vascular surgery, he notes erythema of leg is chronic and not new and does not appear cellulitic. Continue ASA, clopidogrel, cilostazol. (6) Anemia Anemia type: unspecified type Qualified Code(s): D64.9 - Anemia, unspecified (9) Chronic kidney disease, stage III (moderate) Chronic kidney disease stage 3 subtype: stage 3b (GFR 30-44) Qualified Code(s): N18.32 - Chronic kidney disease, stage 3b (11) GERD (gastroesophageal reflux disease) Esophagitis presence: without esophagitis Qualified Code(s): K21.9 - Gastro-esophageal reflux disease without esophagitis (12) Hypothyroidism Hypothyroidism type: acquired Qualified Code(s): E03.9 - Hypothyroidism, unspecified (14) HTN (hypertension) Hypertension type: renovascular hypertension Qualified Code(s): I15.0 - Renovascular hypertension
--- NOTE | 2024-07-01 15:55 | Ultrasound Report ---
LEFT LOWER EXTREMITY VENOUS DOPPLER CLINICAL HISTORY: Erythematous and edematous COMPARISON STUDY: No previous studies for comparison. TECHNIQUE: Sonography of the deep venous system of the left lower extremity was performed. Compressi on and augmentation were evaluated. FINDINGS: The left common femoral, superficial femoral and popliteal veins were compressible. Augmen tation was normal. Flow was shown within the deep calf vessels. Incidental note is made of occlusion of left common femoral and superficial femoral arteries as well as an occluded left thigh bypass jalen t. IMPRESSION: 1. No evidence of deep venous thrombus within the left lower extremity. 2. 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 ACT 112: Negative or not required by law. Electronically signed by: Jordan Davidson M.D. 07/01/2024 3:53 PM
[2024-07-01] MEDS ORDERED: DEXTROSE 50% 50 ML SYRINGE IV PRN (17:32)
[2024-07-01] MEDS ORDERED: ACETAMINOPHEN 325 MG TAB PO PRN (17:32)
[2024-07-01] MEDS ORDERED: CARBOHYDRATES FOR HYPOGLYCEMIA PO PRN (17:32)
[2024-07-01] MEDS ORDERED: GLUCOSE 10 TAB/TUBE PO PRN (17:32)
[2024-07-01] MEDS ORDERED: GLUCOSE 40% GEL 15 GM TUBE PO PRN (17:32)
[2024-07-01] MEDS ORDERED: GLUCAGON FOR INJ 1 MG VIAL SQ PRN (17:32)
[2024-07-01] MEDS ORDERED: ONDANSETRON INJ 2 MG/ML 2 ML VIAL IV PRN (17:32)
[2024-07-01] MEDS: ACETAMINOPHEN 500 MG TAB PO STA (19:27)
[2024-07-01] MEDS: traMADol HCL 50 MG TABLET PO STA (19:34)
[2024-07-01] MEDS: traMADol HCL 50 MG TABLET ONE (19:35)
[2024-07-01] MEDS: cefTRIAXone SODIUM 2,000 MG in DEXTROSE 5% 50 ML IV ONE (19:45)
[2024-07-01] MEDS: INSULIN ASPART PER UNIT CHARGE SC SCH (19:45)
[2024-07-01] MEDS ORDERED: Nursing to Pharmacy Communication SCH ×2 (20:15→23:45)
[2024-07-01] MEDS: ACETAMINOPHEN 500 MG TAB PO SCH (20:16)
[2024-07-01] MEDS: LACTATED RINGER'S 1,000 ML IV SCH (20:19)
[2024-07-01] MEDS: AZITHROMYCIN 500 MG in DEXTROSE 5% 250 ML IV ONE (20:22)
[2024-07-01] MEDS: cilostazoL 100 MG TAB PO SCH (21:16)
[2024-07-01] MEDS: MEMANTINE HCL 5 MG TAB PO SCH (21:16)
[2024-07-01] MEDS: FAMOTIDINE 20 MG TAB PO SCH (21:17)
[2024-07-01] MEDS: traMADol HCL 50 MG TABLET PO SCH (21:18)
[2024-07-01] MEDS: METOPROLOL SUCC 25MG EXT REL TAB PO SCH (22:43)
[2024-07-02] MEDS: MoRPHine SULFATE 2 MG/ML CARP IV STA (02:36)
[2024-07-02] MEDS: MoRPHine SULFATE 2 MG/ML CARP ONE (02:40)
[2024-07-02] MEDS: HEPARIN SODIUM/DEXTROSE 25,000 UNITS/500 ML BAG IV SCH (03:12)
[2024-07-02] MEDS: Heparin IV Adult Wt-Based Standard *NO* INITIAL Bolus Protocol IV STA (03:15)
[2024-07-02] MEDS: HEPARIN 25000 UNIT/500 ML D5W IV ONE (03:15)
[2024-07-02 03:30] LABS: Basophils # (auto) 0.01 K/uL (0.00-0.20); Basophils % (auto) 0.1 %; Eosinophils # (auto) 0.16 K/uL (0.00-0.50); Eosinophils % (auto) 1.9 %; Hematocrit (blood only) 24.2 % (42.0-52.0); Hemoglobin 7.6 g/dl (14.0-18.0); Immature Granulocytes # (auto) 0.04 K/uL (0.01-0.20); Immature Granulocytes % (auto) 0.5 %; Lymphocytes # (auto) 0.47 K/uL (1.20-3.40); Lymphocytes % (auto) 5.6 %; Mean Corpuscular Hemoglobin 33.2 pg (25.0-34.0); Mean Corpuscular Hgb Conc 31.4 g/dL (32.0-36.0); Mean Corpuscular Volume 105.7 fL (80.0-100.0); Mean Platelet Volume 10.1 fL (9.4-12.4); Monocytes # (auto) 0.98 K/uL (0.11-0.59); Monocytes % (auto) 11.6 %; Neutrophils % (auto) 80.3 %; Platelet Count 197 K/uL (130-400); RDW Coefficient of Variation 15.7 % (11.5-14.5); RDW Standard Deviation 59.7 fL (36.4-46.3); Red Blood Count 2.29 M/uL (4.70-6.10); White Blood Count 8.46 K/ul (4.8-10.8)
[2024-07-02 03:49] LABS: Polychromasia 1+
[2024-07-02 04:16] LABS: INR 1.1 (0.9-1.1); Partial Thromboplastin Ratio 1.1; Partial Thromboplastin Time 29 Seconds (21-31); Prothrombin Time 11.9 Seconds (9.0-12.0)
[2024-07-02] MEDS: traMADol HCL 50 MG TABLET PO PRN (04:35)
[2024-07-02] MEDS: INSULIN ASPART PER UNIT CHARGE SC SCH ×2 (05:15→17:37)
[2024-07-02] MEDS: LEVOTHYROXINE SODIUM 150 MCG TABLET PO SCH (06:02)
[2024-07-02 06:45] LABS: ANTI-Xa, UFH(UnfractionatedHep 0.16 IU/ml (0.3-0.7)
[2024-07-02 06:47] LABS: Basophils # (auto) 0.02 K/uL (0.00-0.20); Basophils % (auto) 0.2 %; Eosinophils # (auto) 0.12 K/uL (0.00-0.50); Eosinophils % (auto) 1.4 %; Hematocrit (blood only) 22.8 % (42.0-52.0); Hemoglobin 7.4 g/dl (14.0-18.0); Immature Granulocytes # (auto) 0.05 K/uL (0.01-0.20); Immature Granulocytes % (auto) 0.6 %; Lymphocytes # (auto) 0.47 K/uL (1.20-3.40); Lymphocytes % (auto) 5.4 %; Mean Corpuscular Hemoglobin 33.5 pg (25.0-34.0); Mean Corpuscular Hgb Conc 32.5 g/dL (32.0-36.0); Mean Corpuscular Volume 103.2 fL (80.0-100.0); Mean Platelet Volume 10.5 fL (9.4-12.4); Monocytes # (auto) 1.01 K/uL (0.11-0.59); Monocytes % (auto) 11.7 %; Neutrophils # (auto) 6.99 K/uL (1.40-6.50); Neutrophils % (auto) 80.7 %; Platelet Count 214 K/uL (130-400); RDW Coefficient of Variation 15.8 % (11.5-14.5); RDW Standard Deviation 59.3 fL (36.4-46.3); Red Blood Count 2.21 M/uL (4.70-6.10); White Blood Count 8.66 K/ul (4.8-10.8)
[2024-07-02 07:07] LABS: Estimated Average Glucose 126 mg/dl
[2024-07-02] MEDS: HEPARIN SOD (PORCINE) 1000 UNIT/ML IV ONE (07:18)
[2024-07-02 07:23] LABS: Albumin Globulin Ratio 0.8 (0.9-2); BUN Creatinine Ratio 25.6 (10-20); Bilirubin,Total 0.4 mg/dl (0.2-1.0); Calcium 8.8 mg/dl (8.6-10.3); Creatinine Clr Calc Pharmacy 35.3 ml/min; Est GFR (African American) 57.4 ml/min; Est GFR (Non-African American) 49.5 ml/min; Globulin 3.7 gm/dl (2.5-4.0); Magnesium 1.9 mg/dl (1.7-2.4); Potassium 4.6 mmol/L (3.5-5.1); Total Protein 6.7 gm/dl (6.0-8.3)
[2024-07-02 07:24] LABS: Polychromasia 1+
[2024-07-02] MEDS: allopurinoL 100 MG TAB PO SCH (08:01)
[2024-07-02] MEDS: ASPIRIN 81 MG ECTAB PO SCH (08:01)
[2024-07-02] MEDS: ATORVASTATIN 40 MG TAB PO SCH (08:02)
[2024-07-02] MEDS: CLOPIDOGREL BISULFATE 75 MG TAB PO SCH (08:03)
[2024-07-02] MEDS: DONEPEZIL HCL 10 MG TAB PO SCH (08:03)
[2024-07-02] MEDS: ISOSORBIDE MONO EXTENDED REL 30 MG TABCR PO SCH (08:03)
[2024-07-02] MEDS: TAMSULOSIN HCL 0.4 MG CAP PO SCH (08:04)
[2024-07-02] MEDS ORDERED: METOPROLOL SUCC 25MG EXT REL TAB PO SCH (09:00)
[2024-07-02 09:29] LABS: ANTI-Xa, UFH(UnfractionatedHep 0.22 IU/ml (0.3-0.7)
--- NOTE | 2024-07-02 10:18 | Electrocardiogram Report ---
Test Reason : Blood Pressure : */* mmHG Vent. Rate : 89 BPM Atrial Rate : 89 BPM P-R Int : 296 ms QRS Dur : 108 ms QT Int : 402 ms P-R-T Axes : * -10 253 degrees QTcB Int : 489 ms Sinus rhythm with 1st degree A-V block Incomplete left bundle block Left ventricular hypertrophy with repolarization abnormality ( Vignesh product ) Prolonged QT Abnormal ECG When compared with ECG of 31-May-2018 11:30, Incomplete left bundle block is now Present Confirmed by Stuart Alvarez ([id number]) on 07/02/2024 10:18:15 AM Referred By: Confirmed By: Stuart Alvarez
--- NOTE | 2024-07-02 10:19 | Electrocardiogram Report ---
Test Reason : Blood Pressure : */* mmHG Vent. Rate : 95 BPM Atrial Rate : 86 BPM P-R Int : 304 ms QRS Dur : 146 ms QT Int : 416 ms P-R-T Axes : * -49 100 degrees QTcB Int : 522 ms Sinus rhythm with 1st degree A-V block Premature atrial complexes Left axis deviation Left bundle branch block Abnormal ECG When compared with ECG of 01-Jul-2024 10:33, Left bundle branch block has replaced Incomplete left bundle block Confirmed by Stuart Alvarez ([id number]) on 07/02/2024 10:19:38 AM Referred By: REFERRED SELF Confirmed By: Stuart Alvarez
--- NOTE | 2024-07-02 10:21 | Electrocardiogram Report ---
Test Reason : Blood Pressure : */* mmHG Vent. Rate : 96 BPM Atrial Rate : 90 BPM P-R Int : 272 ms QRS Dur : 146 ms QT Int : 404 ms P-R-T Axes : * -54 104 degrees QTcB Int : 510 ms Sinus rhythm with 1st degree A-V block Premature atrial complexes Left axis deviation Left bundle branch block Abnormal ECG When compared with ECG of 02-Jul-2024 00:56, No significant change Confirmed by Stuart Alvarez ([id number]) on 07/02/2024 10:21:01 AM Referred By: REFERRED SELF Confirmed By: Stuart Alvarez
--- NOTE | 2024-07-02 11:00 | Billing Data ---
Date of Service July 01, 2024 Coding Level of Care Code 45001 INT INP/OBS CARE
[2024-07-02] MEDS ORDERED: Nursing to Pharmacy Communication SCH (12:15)
[2024-07-02] MEDS ORDERED: SODIUM CHLORIDE 0.9% 250 ML IV PRN (15:10)
[2024-07-02] MEDS: AZITHROMYCIN 500 MG in DEXTROSE 5% 250 ML IV SCH (15:46)
[2024-07-02] MEDS: cefTRIAXone SODIUM 2,000 MG in DEXTROSE 5% 50 ML IV SCH (16:21)
[2024-07-02 16:52] LABS: ANTI-Xa, UFH(UnfractionatedHep 0.26 IU/ml (0.3-0.7)
--- NOTE | 2024-07-02 18:06 | CT Scan Report ---
LEFT ANKLE CT CT DOSE: 563.14 mGy.cm HISTORY: Abnormal ankle radiograph. ?lat malleolar Fx?; ulcer over achilles TECHNIQUE: Multiaxial CT images of the left ankle were performed and reformatted in the sagittal and coronal plane without the use of contrast. A dose lowering technique was utilized adhering to the pr inciples of HARSHAL. COMPARISON: Left ankle radiograph 07/01/2024. FINDINGS: The bones are osteopenic. No acute fracture or dislocation within the left ankle. Specifica lly, the distal fibula appears intact. Mild degenerative changes and chondrocalcinosis within the tib iotalar joint. Thickening of the distal Achilles tendon suggestive of a tendinosis. There is peripher al calcification within the peroneus tendons. Vascular calcifications are also noted. There is skin t hickening and mild subcutaneous edema within the ankle most pronounced posteriorly. No loculated flui d collections on this noncontrast study to suggest an abscess. No bony destructive changes to suggest an osteomyelitis. There appears to be a skin ulceration within the posterior ankle overlying the Ach illes tendon measuring 2.7 cm in length. IMPRESSION: 1. No fracture or dislocation within the left ankle. 2. Skin thickening and diffuse subcutaneous edema. This could be chronic or represent a cellulitis. 3. No loculated fluid collections to suggest an abscess. 4. Skin ulceration overlying the Achilles tendon measuring 2.7 cm. 5. Thickening of the distal Achilles tendon consistent with a tendinosis. 6. No bony destructive changes to suggest an osteomyelitis. ACT 112: Negative or not required by law. Electronically signed by: Tylor Irby M.D. 07/02/2024 6:04 PM
--- NOTE | 2024-07-02 18:17 | Cardiology Consultation ---
Date of Consultation July 02, 2024 Assessment & Plan (1) Non-ST elevation (NSTEMI) myocardial infarction: (2) CAD in [place] artery: (3) S/P CABG (coronary artery bypass graft): (4) Stented coronary artery: (5) PAD (peripheral artery disease): (6) Hypercholesterolemia: (7) HTN (hypertension): (8) Orthostatic hypotension: (9) Cardiomyopathy: (10) Syncope: (11) Aortic stenosis: (12) Mitral regurgitation: Plan ASSESSMENT/PLAN: 1. NSTEMI: Seems to have atypical chest pain which is chronic and stable. This could be related to underlying ischemic heart disease given his complicated CAD history. He is not interested in undergoing any further invasive measures in this regard and states that he was deemed too high risk without revascularization options when last undergoing coronary angiography in 2013. He wishes for conservative management. If confirmed no bleeding, would recommend heparin drip. Continue Plavix if no contraindication. Continue beta-mary. Continue nitrate therapy. Was chest pain free during our visit when visited late this morning. 2. Severe aortic stenosis: Discussed evaluation for possible TAVR but he is not interested in aggressive measures and rather prefers conservative plan of care. Could be contributing to syncope. Recommend palliative care consultation, for which he was agreeable. 3. Syncope: Etiology not certain but could be due to arrhythmia given severely reduced LV systolic function, CAD, and severe aortic stenosis. Also has orthostatic hypotension although he was not changing positions at that time. Continue telemetry. Cannot exclude heart block in the setting of severe aortic stenosis. 4. CAD s/p CABG and subsequent PCI: Chronic chest discomfort without significant worsening, may or may not represent angina. Elevated troponins which could be due to demand ischemia in the setting of profound anemia, severe aortic stenosis, and multivessel CAD. Did not present with acute coronary syndrome. Continue antiplatelet therapy if no contraindication. Monitor for bleeding. Continue beta-mary. Continue statin therapy. Conservative management. 5. Rhythm: ECGs personally reviewed and suggestive of sinus rhythm with first- degree AV block. P waves are difficult to discern when heart rate faster than baseline or with PACs. No definite atrial fibrillation noted. 6. PAD: Failed left femoropopliteal bypass in the past. Bilateral lower extremity stents. Deemed too high risk for further procedures. Bilateral lower extremity claudication on exertion and sometimes at rest in regards to the left lower extremity. Continue conservative management. 7. Orthostatic hypotension: Change positions slowly. Remain well-hydrated but cautious with too much fluid given cardiomyopathy. 8. Cardiomyopathy: Ordered echo which has since been completed. Likely ischemic but also could be multifactorial with severe aortic stenosis. He is not interested in invasive measures at this time. He otherwise would qualify for ICD for primary prevention. Continue metoprolol succinate. Consider Entresto but monitor blood pressures closely as he has been intermittently hypotensive and with his cerebrovascular disease, would not want to precipitate hypoperfusion of the brain. Will consider mineralocorticoid antagonist and SGLT2 inhibitor but initiated at this time for concern of precipitating hypotension while intermittently hypotensive today. 9. Mitral regurgitation: Nonsevere. Conservative measures. 10. Dyslipidemia: LDL well-controlled. Continue high intensity statin therapy. 11. Anemia: Given NSTEMI and other cardiac comorbidities as above, consider PRBC transfusion. Discussed with primary hospitalist, Dr. Oliver, earlier today. Monitor for bleeding. 12. Disposition: Significant comorbidities for which he wants conservative measures as he has been told in the past that he is not a candidate for further revascularization. He was very clear with this wish. Poor prognosis. Offered palliative care consultation as he lives alone and does not have much help. He was agreeable. Palliative care consultation placed. Offered to call family/children but he asked that I do not call them. Patient care communicated with primary hospitalist, Dr. Oliver. Follow-up with Dr. Gresham upon discharge. If not hospice, would also recommend heart failure program follow-up to help adjust medications to improve quality of life as able. Highly complex medical issues. Thank you for allowing me to participate in the care of your patient. Please call for any other questions or concerns. Sincerely, Vini Alvarez M.D. History of Present Illness Reason for Consultation: "Syncope, cardiomyopathy, question new onset A-fib" Requesting Physician: Dr. Mclean Attending Physician: Juan Luis Oliver MD History of Present Illness Mr. Baldwin is a very pleasant 88-year-old gentleman with a history significant for multivessel CAD s/p CABG (1991), PCI 2010 and 2013), left renal artery angioplasty, extensive lower extremity peripheral arterial disease with multiple bilateral stents and left femoropopliteal bypass which has since failed, CKD, COPD/emphysema, dyslipidemia, and hypertension. His primary car barn laborer is Dr. Gresham. His cardiac history is notable for CABG in 1991. He underwent PCI in 2010 and again in 2013. In 2014 PCI was performed to an SVG to D2 at [facility]. He also has a PCI to his SVG to OM. Bypass graft also includes MEDRANO to LAD. It has been documented that he is not a candidate for further revascularization. He also reported such. He was recently evaluated at [facility] for possible right lower extremity revascularization. He states that the left leg is not a candidate for revascularization and that he is awaiting for gangrene and amputation in regards to the left leg. The right leg did not undergo revascularization as it was also noted that he had reduced LV systolic function and severe aortic stenosis. He was felt to be too high risk. He was admitted on 07/01/2024 with syncope. He was in his motorized wheelchair, going through a doorway and then apparently lost consciousness. When he awakened, he found himself running into things in the next room. He then had a recurrent near syncope x 3 while trying to take his medications later that day. He called his daughter and was told that he was being incoherent and then had EMS bring him to the hospital. He has not had any further syncope or near syncope but states that he is very weak. He has been experiencing dark liquid stool but attributes the dark stool to iron supplementation. He underwent intravenous iron 2 or 3 weeks ago and has had PRBC transfusion years ago. He had substernal chest discomfort described as a burning and jabbing sensation which he attributes to hiatal hernia. It was 4 out of 10 overnight and states that he has been experiencing this for many years. He believes the chest pain to be chronic and stable without recent frequency change or severity. Chest discomfort typically resolves within 5 to 10 minutes spontaneously. There is no accompanying shortness of breath, radiation of the pain, or diaphoresis. He has bilateral lower extremity claudication, worse in the left, sometimes even at rest in the left lower extremity. He denies palpitations, worsening shortness of breath, hematuria, hematochezia. Nursing staff reports that while physical therapy was working with him, he had normal supine blood pressure that quickly dropped to a systolic in the 70s while sitting upright but he was reportedly asymptomatic. Review of systems: As above. Review of systems otherwise negative/unremarkable. Family history: Noncontributory. Social history: Quit smoking approximately 25 years ago. Denies alcohol or drug abuse. 3 children (a daughter in [place], daughter in [place], son in [place]). He was unaccompanied. Allergies Allergy/AdvReac Type Severity Reaction Status Date / Time No Known Allergies Allergy Verified 05/30/24 12:12 Home Medications Medication Instructions Recorded Confirmed Type aspirin 81 mg tablet,delayed 81 mg PO DAILY #30 tabs 06/23/19 07/01/24 Rx release folic acid 400 mcg tablet 400 mcg PO DAILY #30 tabs 06/23/19 07/01/24 Rx ascorbic acid (vitamin C) 500 mg 500 mg PO DAILY 07/25/19 07/01/24 History tablet calcium polycarbophil 625 mg tablet 1,875 mg PO DAILY 07/25/19 07/01/24 History cholecalciferol (vitamin D3) 25 1,000 units PO DAILY 07/25/19 07/01/24 History mcg (1,000 unit) capsule cyanocobalamin (vitamin B-12) 1,000 mcg PO DAILY 07/25/19 07/01/24 History 1,000 mcg tablet,extended release garlic 1,000 mg capsule 1,000 mg PO DAILY 07/25/19 07/01/24 History pyridoxine (vitamin B6) 100 mg 100 mg PO DAILY 07/25/19 07/01/24 History tablet famotidine 20 mg tablet 20 mg PO BID 3 months #180 tabs 11/20/19 07/01/24 Rx acetaminophen 500 mg tablet 500 mg PO Q6H PRN Pain 06/14/21 07/01/24 History (Tylenol Extra Strength) omega-3 acid ethyl esters 1 gram 1 cap PO DAILY 06/14/21 07/01/24 History capsule multivitamin with minerals 1 cap PO DAILY 10/31/21 07/01/24 History no.7-folic acid 1 mg capsule ferrous sulfate 325 mg (65 mg 325 mg PO Q OTHER DAY 10/04/22 07/01/24 History iron) tablet cilostazol 100 mg tablet 100 mg PO BID #180 tabs 08/27/23 07/01/24 Rx donepezil 10 mg tablet 10 mg PO DAILY #90 tabs 08/27/23 07/01/24 Rx tamsulosin 0.4 mg capsule 0.4 mg PO DAILY #90 caps 08/27/23 07/01/24 Rx isosorbide mononitrate 30 mg 30 mg PO DAILY #180 tabs 10/23/23 07/01/24 Rx tablet,extended release 24 hr allopurinol 100 mg tablet 200 mg (2 x 100 mg) PO DAILY #180 12/24/23 07/01/24 Rx tabs nitroglycerin 0.4 mg sublingual See Rx Instructions .Route 01/07/24 07/01/24 Rx tablet .COMPLEX #25 tabs atorvastatin 80 mg tablet 80 mg PO DAILY #100 tabs 02/01/24 07/01/24 Rx clopidogrel 75 mg tablet 75 mg PO DAILY #90 tabs 04/28/24 07/01/24 Rx levothyroxine 150 mcg tablet 150 mcg PO DAILY #90 tabs 05/05/24 07/01/24 Rx tramadol 50 mg tablet 100 mg (2 x 50 mg) PO TID PRN pain 06/23/24 07/01/24 Rx #180 tabs memantine 5 mg tablet 5 mg PO BID 07/01/24 07/01/24 History metoprolol succinate 50 mg 25 mg PO DAILY 07/01/24 07/01/24 History tablet,extended release 24 hr Problem List (Updated 07/02/24 @ 22:55 by Stuart Alvarez MD) Mitral regurgitation Aortic stenosis Non-ST elevation (NSTEMI) myocardial infarction Chronic ulcer of left heel (Acute) Pneumonia (Acute) Left leg swelling (Acute) Weakness (Acute) Syncope (Acute) Vitamin D deficiency Raynauds phenomenon Chronic low back pain Claudication in peripheral vascular disease Irregular heart beat Cough Abnormal PFT Diabetes Squamous cell carcinoma of skin Secondary hyperparathyroidism Inhibited sexual excitement Gout, joint Benign prostate hyperplasia Anemia (Acute) 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) GERD (gastroesophageal reflux disease) Hypercholesterolemia Hypothyroidism PAD (peripheral artery disease) (Acute) S/P CABG (coronary artery bypass graft) (1991) Vascular dementia Stented coronary artery (2013) HTN (hypertension) Patient History Medical History Cardiomyopathy Orthostatic hypotension 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 History of orthostatic hypotension Unstable angina Family History Brother Myocardial infarction Coronary heart disease Mother Pancreatic cancer Father Coronary heart disease Denies family history of Ovarian cancer Prostate cancer Breast cancer Colorectal cancer Social History Smoking Status: Former smoker Tobacco Type: Cigarettes Age Started Using Tobacco: 14; Age Quit Using Tobacco: 57; packs per day: 4; Cigarettes Per Day: Formerly 4 packs/day; Second Hand Exposure: No; Do You Dip or Chew Tobacco: No; Hx Alcohol Use: No Hx Substance Use: No Preferred Language: Nepali Communication Ability: Effective Visual Impairment: No Limitations Hearing Ability: Hard of Hearing Ice Guard Tester Required: No Beliefs That Will Affect Care: None marital status: Current Living Situation: Alone Current Living Situation Comment: Pt. 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 Alert. HEENT: Anicteric sclera. Neck: No JVD. Bilateral bruits vs radiation of cardiac murmur. Normal carotid upstrokes bilaterally. Cardiac: Regular with normal heart rate. Normal S1-S2. 2/6 late peaking systolic ejection murmur heard best at right upper sternal border. No rubs or gallops. Pulmonary: Clear to auscultation bilaterally without wheezes, rales, or rhonchi. Abdomen: Soft, nontender, nondistended, with normoactive bowel sounds. No bruits noted. Extremities: 2+ radial pulses bilaterally. 1+ right posterior tibialis pulse. Distal left lower extremity pulses were nonpalpable. Foot was warm. No significant pitting edema. Psychiatric: Affect appears appropriate. Results & Data Vital Signs (Past 12 Hours) Vital Signs Temp Pulse Resp BP Pulse Ox O2 Del Method 07/02/24 15:51 36.7 C 80 17 90/41 L 90 Room Air 07/02/24 10:33 36.5 C 64 16 103/60 93 Room Air 07/02/24 08:00 Nasal Cannula 07/02/24 07:57 36.7 C 99 H 17 110/68 91 Room Air Laboratory Results Laboratory Results - last 24 hr 07/01/24 07/01/24 07/02/24 18:03 20:22 00:48 WBC RBC Hgb Hct MCV MCH MCHC RDW Std Deviation RDW Coeff of Brianda Plt Count MPV Immature Gran % (Auto) Neut % (Auto) Lymph % (Auto) [place] % (Auto) Eos % (Auto) Baso % (Auto) Neut # (Auto) Lymph # (Auto) [place] # (Auto) Eos # (Auto) Baso # (Auto) Immature Gran # (Auto) Polychromasia PT INR APTT PTT Ratio Heparin Anti-Xa, Unfract Sodium Potassium Chloride Carbon Dioxide Anion Gap BUN Creatinine Est Cr Clr Drug Dosing Est GFR ( Amer) Est GFR (Non-Af Amer) BUN/Creatinine Ratio Glucose POC Glucose 152 H Estimat Average Glucose Hemoglobin A1c Calcium Magnesium Total Bilirubin AST ALT Alkaline Phosphatase Troponin I High Sens 51.8 H* D 628.7 H* D Total Protein Albumin Globulin Albumin/Globulin Ratio Procalcitonin 0.07 Blood Type Blood Type Recheck Antibody Screen Crossmatch 07/02/24 07/02/24 07/02/24 03:02 03:03 05:07 WBC 8.46 RBC 2.29 L Hgb 7.6 L Hct 24.2 L MCV 105.7 H MCH 33.2 MCHC 31.4 L RDW Std Deviation 59.7 H RDW Coeff of Brianda 15.7 H Plt Count 197 MPV 10.1 Immature Gran % (Auto) 0.5 Neut % (Auto) 80.3 Lymph % (Auto) 5.6 [place] % (Auto) 11.6 Eos % (Auto) 1.9 Baso % (Auto) 0.1 Neut # (Auto) 6.80 H Lymph # (Auto) 0.47 L [place] # (Auto) 0.98 H Eos # (Auto) 0.16 Baso # (Auto) 0.01 Immature Gran # (Auto) 0.04 Polychromasia 1+ PT 11.9 INR 1.1 APTT 29 PTT Ratio 1.1 Heparin Anti-Xa, Unfract Sodium Potassium Chloride Carbon Dioxide Anion Gap BUN Creatinine Est Cr Clr Drug Dosing Est GFR ( Amer) Est GFR (Non-Af Amer) BUN/Creatinine Ratio Glucose POC Glucose 122 H Estimat Average Glucose Hemoglobin A1c Calcium Magnesium Total Bilirubin AST ALT Alkaline Phosphatase Troponin I High Sens Total Protein Albumin Globulin Albumin/Globulin Ratio Procalcitonin Blood Type Blood Type Recheck Antibody Screen Crossmatch 07/02/24 07/02/24 07/02/24 05:59 09:08 11:58 WBC 8.66 RBC 2.21 L Hgb 7.4 L Hct 22.8 L MCV 103.2 H MCH 33.5 MCHC 32.5 RDW Std Deviation 59.3 H RDW Coeff of Brianda 15.8 H Plt Count 214 MPV 10.5 Immature Gran % (Auto) 0.6 Neut % (Auto) 80.7 Lymph % (Auto) 5.4 [place] % (Auto) 11.7 Eos % (Auto) 1.4 Baso % (Auto) 0.2 Neut # (Auto) 6.99 H Lymph # (Auto) 0.47 L [place] # (Auto) 1.01 H Eos # (Auto) 0.12 Baso # (Auto) 0.02 Immature Gran # (Auto) 0.05 Polychromasia 1+ PT INR APTT PTT Ratio Heparin Anti-Xa, Unfract 0.16 L 0.22 L Sodium 138 Potassium 4.6 Chloride 107 Carbon Dioxide 25 Anion Gap 6 BUN 33 H Creatinine 1.29 Est Cr Clr Drug Dosing 35.3 Est GFR ( Amer) 57.4 Est GFR (Non-Af Amer) 49.5 BUN/Creatinine Ratio 25.6 H Glucose 124 H POC Glucose 148 H Estimat Average Glucose 126 Hemoglobin A1c 6.0 H Calcium 8.8 Magnesium 1.9 Total Bilirubin 0.4 AST 25 ALT 12 Alkaline Phosphatase 106 H Troponin I High Sens 941.4 H* D Total Protein 6.7 Albumin 3.0 L Globulin 3.7 Albumin/Globulin Ratio 0.8 L Procalcitonin Blood Type Blood Type Recheck O Positive Antibody Screen Crossmatch 07/02/24 07/02/24 16:20 16:28 WBC RBC Hgb Hct MCV MCH MCHC RDW Std Deviation RDW Coeff of Brianda Plt Count MPV Immature Gran % (Auto) Neut % (Auto) Lymph % (Auto) [place] % (Auto) Eos % (Auto) Baso % (Auto) Neut # (Auto) Lymph # (Auto) [place] # (Auto) Eos # (Auto) Baso # (Auto) Immature Gran # (Auto) Polychromasia PT INR APTT PTT Ratio Heparin Anti-Xa, Unfract 0.26 L Sodium Potassium Chloride Carbon Dioxide Anion Gap BUN Creatinine Est Cr Clr Drug Dosing Est GFR ( Amer) Est GFR (Non-Af Amer) BUN/Creatinine Ratio Glucose POC Glucose 152 H Estimat Average Glucose Hemoglobin A1c Calcium Magnesium Total Bilirubin AST ALT Alkaline Phosphatase Troponin I High Sens 1470.0 H* D Total Protein Albumin Globulin Albumin/Globulin Ratio Procalcitonin Blood Type O Positive Blood Type Recheck Antibody Screen NEGATIVE Crossmatch See Detail Diagnostic Findings ECHO 07/02/24: 1. Mildly dilated left ventricle with severely reduced systolic function. EF 20-25%. Akinesis of the inferolateral and basal to mid inferior wall segments. Dyskinesis of the basal to mid inferoseptum and basal anteroseptum. Otherwise, global hypokinesis. No left ventricular hypertrophy. 2. Normal right ventricular size with mildly reduced systolic function. 3. Severe left and mild right atrial dilation. 4. Severe aortic stenosis with trace regurgitation. 5. Moderate mitral regurgitation. 6. Normal estimated right ventricular systolic pressure; RVSP 30 mmHg. Labs reviewed and notable for elevated high-sensitivity troponin, initially 26 and still climbing with most recent 1470. Mildly abnormal renal function, normal magnesium, normal transaminase levels, mildly elevated TSH, excellent LDL, significant anemia with a hemoglobin as low as 7.4 (baseline more recently mostly 8.6-10). History and physical report reviewed. Outpatient cardiology notes reviewed. Telemetry personally reviewed: Likely sinus rhythm with first-degree AV block and PACs. Lower extremity CT 07/02/2024: Skin thickening and diffuse subcutaneous edema per radiology. No evidence of abscess. No fracture or dislocation within the left ankle. Venous Doppler study 07/01/2024: No left lower extremity DVT. Occlusion of the left common femoral and superficial femoral arteries as well as occluded left thigh bypass graft. Neck CTA 07/01/2024: No hemorrhage or acute stroke findings. 9 mm aneurysm right vertebral artery. Chest x-ray 07/01/2024: Moderate left basilar airspace opacity, favoring pneumonia per radiology. ECGs personally reviewed: ECG 07/02/2024 at 5:02 AM: Sinus rhythm with first-degree AV block. PACs. LBBB. Medications Administered Current Inpatient Medications Hydrocodone Bitart/Acetaminophen (Hydrocodone/Acetaminophen 7.5/325mg Tab) 1 tab PO Q6H PRN PRN Reason: Pain Stop: 07/16/24 17:49 Allopurinol (Allopurinol 100 Mg Tab) 200 mg PO DAILY JIM Stop: 08/01/24 08:59 Last Admin: 07/02/24 08:01 Dose: 200 mg Aspirin (Aspirin 81 Mg Ectab) 81 mg PO DAILY JIM Stop: 08/01/24 08:59 Last Admin: 07/02/24 08:01 Dose: 81 mg Atorvastatin Calcium (Atorvastatin 40 Mg Tab) 80 mg PO DAILY JIM Stop: 08/01/24 08:59 Last Admin: 07/02/24 08:02 Dose: 80 mg Cilostazol (Cilostazol 100 Mg Tab) 100 mg PO BID JIM Stop: 07/31/24 20:59 Last Admin: 07/02/24 08:02 Dose: 100 mg Clopidogrel Bisulfate (Clopidogrel Bisulfate 75 Mg Tab) 75 mg PO DAILY JIM Stop: 08/01/24 08:59 Last Admin: 07/02/24 08:03 Dose: 75 mg Dextrose (Dextrose 50% 50 Ml Syringe) 25 - 50 ml IV UD PRN; Protocol PRN Reason: Hypoglycemia Protocol Stop: 07/31/24 17:31 Donepezil HCl (Donepezil Hcl 10 Mg Tab) 10 mg PO DAILY JIM Stop: 08/01/24 08:59 Last Admin: 07/02/24 08:03 Dose: 10 mg Famotidine (Famotidine 20 Mg Tab) 20 mg PO BID JIM Stop: 07/31/24 20:59 Last Admin: 07/02/24 08:03 Dose: 20 mg Fentanyl (Fentanyl 12 Mcg/Hr Tdsy) 1 patch TD Q3D JIM Stop: 07/16/24 17:59 Glucagon (Glucagon For Inj 1 Mg Vial) 1 mg SQ UD PRN; Protocol PRN Reason: Hypoglycemia Protocol Stop: 07/31/24 17:31 Glucose (Glucose 40% Gel 15 Gm Tube) 15 - 30 gm PO UD PRN; Protocol PRN Reason: Hypoglycemia Protocol Stop: 07/31/24 17:31 Glucose (Glucose 10 Tab/Tube) 4 - 8 tab PO UD PRN; Protocol PRN Reason: Hypoglycemia Treatment Stop: 07/31/24 17:31 Ceftriaxone Sodium 2,000 mg/ (Dextrose) 70 mls @ 100 mls/hr IV Q24H [facility]; Protocol Stop: 07/08/24 16:11 Last Infusion: 07/02/24 17:10 Dose: Infused Azithromycin 500 mg/ Dextrose 255 mls @ 125 mls/hr IV Q24H [facility]; Protocol Stop: 07/09/24 15:29 Last Infusion: 07/02/24 17:52 Dose: Infused Lactated Ringer's (Lr) 1,000 mls @ 80 mls/hr IV .[id number] [facility] Stop: 07/02/24 20:59 Last Admin: 07/02/24 08:12 Dose: 80 mls/hr Heparin Sodium/Dextrose (Heparin Sodium/Dextrose) 25,000 units in 500 mls @ 24 mls/hr IV .[id number] [facility]; Protocol Stop: 08/01/24 02:44 Last Titration: 07/02/24 17:08 Dose: 1,200 units/hr, 24 mls/hr Sodium Chloride (Nss) 250 mls @ 15 mls/hr IV .[id number] PRN PRN Reason: For Transfusion Duration Stop: 07/03/24 01:10 Insulin Aspart (Insulin Aspart Per Unit Charge) 0 units SC ACHS [facility] Stop: 08/01/24 05:59 Last Admin: 07/02/24 17:37 Dose: Not Given Isosorbide Mononitrate (Isosorbide [place] Extended Rel 30 Mg Tabcr) 30 mg PO DAILY [facility] Stop: 08/01/24 08:59 Last Admin: 07/02/24 08:03 Dose: 30 mg Levothyroxine Sodium (Levothyroxine Sodium 150 Mcg Tablet) 150 mcg PO DAILYBB [facility] Stop: 08/01/24 06:29 Last Admin: 07/02/24 06:02 Dose: 150 mcg Memantine (Memantine Hcl 5 Mg Tab) 5 mg PO BID [facility] Stop: 07/31/24 20:59 Last Admin: 07/02/24 08:03 Dose: 5 mg Metoprolol Succinate (Metoprolol Succ 25mg Ext Rel Tab) 25 mg PO BID [facility] Stop: 07/31/24 21:59 Last Admin: 07/02/24 08:03 Dose: 25 mg Miscellaneous (Carbohydrates For Hypoglycemia ) 15 - 30 gm PO UD PRN PRN Reason: Hypoglycemia Protocol Stop: 07/31/24 17:31 Miscellaneous (Fentanyl Patch Remove & Waste) 1 each N/A Q3D [facility] Stop: 08/01/24 17:59 Miscellaneous (Check Fentanyl Patch Placement) 1 each N/A QS [facility] Stop: 08/02/24 00:00 Ondansetron HCl (Ondansetron Inj 2 Mg/Ml 2 Ml Vial) 4 mg IV Q6H PRN PRN Reason: Nausea Stop: 07/31/24 17:31 Tamsulosin HCl (Tamsulosin Hcl 0.4 Mg Cap) 0.4 mg PO DAILY JIM Stop: 08/01/24 08:59 Last Admin: 07/02/24 08:04 Dose: 0.4 mg PG Care Time/CCT Total # of Minutes Spent Total Time Spent with Patient: Total time spent is greater than 50% in coordination of care (as documented) at patient's floor/unit and/or counseling patient: Coding Level of Care Code 13108 INT INP/OBS CARE 3/75MIN Diagnoses Non-ST elevation (NSTEMI) myocardial infarction I21.4 CAD in [place] artery I25.10 S/P CABG (coronary artery bypass graft) Z95.1 Stented coronary artery Z95.5 PAD (peripheral artery disease) I73.9 Hypercholesterolemia E78.00 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
[2024-07-02] MEDS: fentaNYL 12 MCG/HR TDSY TD SCH (18:23)
[2024-07-02] MEDS: HYDROCODONE/ACETAMINOPHEN 7.5/325MG TAB PO PRN (18:37)
--- NOTE | 2024-07-02 19:44 | XCELERA ---
[id number] \\[id number]
--- NOTE | 2024-07-02 20:42 | Hospitalist Progress Note ---
Date of Service July 02, 2024 Assessment & Plan (1) Syncope: Plan: Suspect multifactorial -- severe in the setting of infection, anemia, and ?NSTEMI Recent echo this summer via [facility] system showed EF 43% with severe aortic stenosis, severe mitral regurgitation, mild tricuspid regurgitation Echo today with even worse EF - now 20-25% STOP IV fluids Transfuse 1 unit PRBCs followed by lasix - consent obtained (2) Weakness: Plan: multifactorial causes - infection (LLL pneumonia, L achilles region/ankle), severe anemia, NSTEMI, intractable pain/narcotic use chronically, other factors likely he is quite ill with NUMEROUS medical issues at play check ammonia level and VBG in am to be complete (3) Pneumonia: Plan: LLL fortunately stable in room air Cont rocephin Change zithromax to doxy - latter will provide better skin coverage (L ankle/achilles region) (4) Claudication in peripheral vascular disease: Plan: severe PAD of LLE much of his pain is likely rest pain from his PAD he is on chronic tramadol 100mg TID clearly this is not working for his pain he is in pain [id number] start fentanyl patch 12mcg q3d change tramadol to norco 7.5's prn for refractory pain - dilaudid 0.25mg IV q6h prn cont pletal, etc (5) Left leg swelling: Plan: suspect 2nd to cellulitis/ulcer IV abx pain meds (6) Anemia: Plan: macrocytic, baseline Hb 9-10 previous B12/folate wnl TSH mildly high - could be contributing cause of macrocytosis uncertain either way - following blood draws - Hb now 7.3 will Tx 1 unit PRBCs lasix following CBC am (7) Diabetes: Plan: Patient's home regimen held on admission Continue BSG checks, sliding-scale novolog a1c 6% (8) Chronic kidney disease, stage III (moderate): Plan: -CKD stage G3 B/A2 with a baseline creatinine of 1.41.6. Follows with nephrology. -Stable Cr today at 1.3 (9) Benign prostate hyperplasia: Plan: cont flomax if BP allows (10) GERD (gastroesophageal reflux disease): Plan: cont pepcid (11) Hypothyroidism: Plan: -TSH of 6.5 -Continue levothyroxine 150mcg compliance with meds at home?? (12) S/P CABG (coronary artery bypass graft): Plan: noted now with NSTEMI (13) HTN (hypertension): Plan: cont BB, imdur, flomax (14) Non-ST elevation (NSTEMI) myocardial infarction: Plan: rising troponin with known CAD certainly could have had NSTEMI leading to syncope heparin drip x [address] Alvarez's assistance doubt he is candidate for cath echo findings noted with depressed EF cont BB, imdur, asa, statin, etc (15) Chronic ulcer of left heel: Plan: exposed achilles with purulent drainage appreciate wound care assistance will get CT ankle to look at this in detail surgical consult likely to be needed IV abx (16) Aortic stenosis: Plan: severe likely contributed to #1 (17) Chronic systolic CHF (congestive heart failure): Plan: EF previously 40s now 20-25% SEVERE stop IVF give lasix post-transfusion ischemic CM is cause based on multiple WMAs Plan sent Wann correspondence to pt's daughter who is employee at [employer] care d/w nursing & cardiology & wound care very complex care coordination - extensive chart review, speaking with multiple care team providers, multiple med additions/adjustments, etc. total time on activities ~85 minutes Admission and Anticipated Discharge Date Admission Date: July 02, 2024 Subjective patient lying in bed he was sleepy, often times falling asleep while we are talking he complains of distal left leg and foot/ankle pain it is constant, every day, and all night this is despite being on tramadol 100mg TID for several years he has cough but denies dyspnea at rest denies chest pain he says "I'm tired all the time" appetite is poor he admits to feeling very weak he is agreeable to speaking to palliative care about his situation has been dealing with left ankle wound "for a while" with vascular surgery at [place] Review of Systems Review of Systems: gen - fatigue, weak, poor appetite cv - no orthopnea pulm - cough but no dyspnea GI - no abd pain Physical Exam Physical Exam: gen - severely weak, generalized pallor, very sleepy neck - JVD present mouth - MMM heart - RRR, s1 s2, 2-3/6 holosystolic murmur RUSB/apex lungs - decreased BS bases L>R, slight crackle L base, no respiratory distress abd - soft NT ND BS+ vascular - L popliteal and L foot pulses all poor, <1+; L foot is cool to touch with delayed cap refill; RLE is better perfused with pulses 1+ right foot ext - left foot with 1+ edema, <1+ edema right foot musculo - L foot & ankle is tender in multiple locations with palpation; ulcer present over the L achilles with underlying tendon exposed and purulent drainage present skin - ulceration L achilles/ankle region with exposed tendon; generalized pallor psych - sleepy Results & Data Results & Data Vital Signs (Past 12 Hours) Vital Signs Temp Pulse Pulse Resp BP BP Pulse Ox 07/02/24 20:25 37.3 C 82 105/68 97 07/02/24 20:10 37.1 C 81 16 114/54 L 97 07/02/24 19:47 36.6 C 81 16 88/55 L 97 07/02/24 15:51 36.7 C 80 17 90/41 L 90 07/02/24 10:33 36.5 C 64 16 103/60 93 O2 Del Method O2 Flow Rate 07/02/24 20:25 2 07/02/24 20:10 3 07/02/24 19:47 07/02/24 15:51 Room Air 07/02/24 10:33 Room Air Laboratory Results Laboratory Results - last 24 hr 07/02/24 07/02/24 07/02/24 05:59 09:08 11:58 WBC 8.66 RBC 2.21 L Hgb 7.4 L Hct 22.8 L MCV 103.2 H MCH 33.5 MCHC 32.5 RDW Std Deviation 59.3 H RDW Coeff of Brianda 15.8 H Plt Count 214 MPV 10.5 Immature Gran % (Auto) 0.6 Neut % (Auto) 80.7 Lymph % (Auto) 5.4 Larue % (Auto) 11.7 Eos % (Auto) 1.4 Baso % (Auto) 0.2 Neut # (Auto) 6.99 H Lymph # (Auto) 0.47 L Larue # (Auto) 1.01 H Eos # (Auto) 0.12 Baso # (Auto) 0.02 Immature Gran # (Auto) 0.05 Polychromasia 1+ Heparin Anti-Xa, Unfract 0.16 L 0.22 L Sodium 138 Potassium 4.6 Chloride 107 Carbon Dioxide 25 Anion Gap 6 BUN 33 H Creatinine 1.29 Est Cr Clr Drug Dosing 35.3 Est GFR ( Amer) 57.4 Est GFR (Non-Af Amer) 49.5 BUN/Creatinine Ratio 25.6 H Glucose 124 H POC Glucose 148 H Estimat Average Glucose 126 Hemoglobin A1c 6.0 H Calcium 8.8 Magnesium 1.9 Total Bilirubin 0.4 AST 25 ALT 12 Alkaline Phosphatase 106 H Troponin I High Sens 941.4 H* D Total Protein 6.7 Albumin 3.0 L Globulin 3.7 Albumin/Globulin Ratio 0.8 L Blood Type Blood Type Recheck O Positive Antibody Screen Crossmatch 07/02/24 07/02/24 07/02/24 16:20 16:28 21:15 WBC RBC Hgb Hct MCV MCH MCHC RDW Std Deviation RDW Coeff of Brianda Plt Count MPV Immature Gran % (Auto) Neut % (Auto) Lymph % (Auto) Larue % (Auto) Eos % (Auto) Baso % (Auto) Neut # (Auto) Lymph # (Auto) Larue # (Auto) Eos # (Auto) Baso # (Auto) Immature Gran # (Auto) Polychromasia Heparin Anti-Xa, Unfract 0.26 L Sodium Potassium Chloride Carbon Dioxide Anion Gap BUN Creatinine Est Cr Clr Drug Dosing Est GFR ( Amer) Est GFR (Non-Af Amer) BUN/Creatinine Ratio Glucose POC Glucose 152 H 129 H Estimat Average Glucose Hemoglobin A1c Calcium Magnesium Total Bilirubin AST ALT Alkaline Phosphatase Troponin I High Sens 1470.0 H* D Total Protein Albumin Globulin Albumin/Globulin Ratio Blood Type O Positive Blood Type Recheck Antibody Screen NEGATIVE Crossmatch See Detail 07/02/24 23:17 WBC RBC Hgb Hct MCV MCH MCHC RDW Std Deviation RDW Coeff of Brianda Plt Count MPV Immature Gran % (Auto) Neut % (Auto) Lymph % (Auto) Larue % (Auto) Eos % (Auto) Baso % (Auto) Neut # (Auto) Lymph # (Auto) Larue # (Auto) Eos # (Auto) Baso # (Auto) Immature Gran # (Auto) Polychromasia Heparin Anti-Xa, Unfract 0.32 Sodium Potassium Chloride Carbon Dioxide Anion Gap BUN Creatinine Est Cr Clr Drug Dosing Est GFR ( Amer) Est GFR (Non-Af Amer) BUN/Creatinine Ratio Glucose POC Glucose Estimat Average Glucose Hemoglobin A1c Calcium Magnesium Total Bilirubin AST ALT Alkaline Phosphatase Troponin I High Sens Total Protein Albumin Globulin Albumin/Globulin Ratio Blood Type Blood Type Recheck Antibody Screen Crossmatch PG Care Time/CCT Total # of Minutes Spent Total Time Spent with Patient: Total time spent is greater than 50% in coordination of care (as documented) at patient's floor/unit and/or counseling patient: Prolonged Care Time Prolonged Care Time: Yes Total Prolonged Care Time: 85 Coding Level of Care Code 75476 SUB INP/OBS CARE 3/50MIN (25 - SIGNIFICANT, SEPARATELY IDENTIFIABLE ) Diagnoses Syncope R55 Syncope type: unspecified Weakness R53.1 Pneumonia J18.9 Laterality: left Lung location: unspecified part of lung Pneumonia type: due to unspecified organism Claudication in peripheral vascular disease I73.9 Left leg swelling M79.89 Anemia, unspecified type D64.9 Anemia type: unspecified type Diabetes E11.9 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 Chronic kidney disease stage 3 subtype: stage 3b (GFR 30-44) Benign prostate hyperplasia N40.0 Gastroesophageal reflux disease without esophagitis K21.9 Esophagitis presence: without esophagitis Acquired hypothyroidism E03.9 Hypothyroidism type: acquired S/P CABG (coronary artery bypass graft) Z95.1 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 Non-ST elevation (NSTEMI) myocardial infarction I21.4 Chronic ulcer of left heel L97.429 Non-pressure ulcer stage: unspecified non-pressure ulcer stage Aortic stenosis I35.0 Chronic systolic CHF (congestive heart failure) I50.22 Additional Codes Prolonged Care Time - Prolonged Care Time: Yes ([id number]) (1) Syncope Syncope type: unspecified Qualified Code(s): R55 - Syncope and collapse (3) Pneumonia Laterality: left Lung location: unspecified part of lung Pneumonia type: due to unspecified organism Qualified Code(s): J18.9 - Pneumonia, unspecified organism (6) Anemia Anemia type: unspecified type Qualified Code(s): D64.9 - Anemia, unspecified (8) Chronic kidney disease, stage III (moderate) Chronic kidney disease stage 3 subtype: stage 3b (GFR 30-44) Qualified Code(s): N18.32 - Chronic kidney disease, stage 3b (10) GERD (gastroesophageal reflux disease) Esophagitis presence: without esophagitis Qualified Code(s): K21.9 - Gastro- esophageal reflux disease without esophagitis (11) Hypothyroidism Hypothyroidism type: acquired Qualified Code(s): E03.9 - Hypothyroidism, unspecified (13) HTN (hypertension) Hypertension type: renovascular hypertension Qualified Code(s): I15.0 - Renovascular hypertension (15) Chronic ulcer of left heel Non-pressure ulcer stage: unspecified non-pressure ulcer stage Qualified Code(s): L97.429 - Non-pressure chronic ulcer of left heel and midfoot with unspecified severity
[2024-07-02] MEDS ORDERED: HYDROmorphone INJ 0.5 MG/0.5 ML SYR IV PRN (20:48)
[2024-07-02] MEDS: FUROSEMIDE INJ 20 MG/2 ML VIAL IV ONE (22:10)
[2024-07-02] MEDS: DOXYCYCLINE HYCLATE 100 MG in DEXTROSE 5% MINI-B 100 ML IV SCH (22:23)
[2024-07-03 00:01] LABS: ANTI-Xa, UFH(UnfractionatedHep 0.32 IU/ml (0.3-0.7)
[2024-07-03] MEDS: CHECK fentaNYL PATCH PLACEMENT SCH (00:25)
[2024-07-03 07:43] LABS: Base Excess VBG -1.4 mEq/L; HCO3 VBG 23 mmol/L; Oxygen Saturation VBG 66.1 %; PCO2 VBG 36 mmHg (38-50); PO2 VBG 37 mmHg; pH VBG 7.41 (7.36-7.41)
[2024-07-03 07:48] LABS: Hematocrit (blood only) 25.5 % (42.0-52.0); Hemoglobin 8.2 g/dl (14.0-18.0); Mean Corpuscular Hemoglobin 32.3 pg (25.0-34.0); Mean Corpuscular Hgb Conc 32.2 g/dL (32.0-36.0); Mean Corpuscular Volume 100.4 fL (80.0-100.0); Mean Platelet Volume 10.2 fL (9.4-12.4); Platelet Count 195 K/uL (130-400); RDW Coefficient of Variation 17.8 % (11.5-14.5); RDW Standard Deviation 66.4 fL (36.4-46.3); Red Blood Count 2.54 M/uL (4.70-6.10)
[2024-07-03 07:51] LABS: ANTI-Xa, UFH(UnfractionatedHep 0.31 IU/ml (0.3-0.7)
[2024-07-03 08:15] LABS: BUN Creatinine Ratio 23.3 (10-20); Calcium 8.5 mg/dl (8.6-10.3); Creatinine Clr Calc Pharmacy 29.9 ml/min; Est GFR (African American) 47.8 ml/min; Est GFR (Non-African American) 41.3 ml/min; Potassium 4.3 mmol/L (3.5-5.1)
[2024-07-03 08:28] LABS: Troponin I High Sensitivity 1016.3 pg/ml (0-20)
[2024-07-03] MEDS ORDERED: HYDROmorphone INJ 0.5 MG/0.5 ML SYR IV PRN (13:41)
--- NOTE | 2024-07-03 13:55 | Hospitalist Progress Note ---
Date of Service July 03, 2024 Assessment & Plan (1) Syncope: Plan: Suspect multifactorial -- severe in the setting of infection, anemia, NSTEMI, ?acute stroke, etc. Recent echo this summer via [facility] [employer] system showed EF 43% with severe aortic stenosis, severe mitral regurgitation, mild tricuspid regurgitation Echo this admission with even worse EF - now 20-25% (2) Weakness: Plan: multifactorial causes - infection (LLL pneumonia, L achilles region/ankle), severe anemia, NSTEMI, intractable pain/narcotic use chronically, acute/chronic CHF, ?acute stroke, etc. he is quite ill with NUMEROUS medical issues at play ammonia level wnl VBG w/o hypercapnia (3) Pneumonia: Plan: LLL fortunately stable in room air Cont rocephin Cont doxy - latter will provide better skin coverage (L ankle/achilles region) (4) Claudication in peripheral vascular disease: Plan: severe PAD of LLE much of his pain is likely rest pain from his PAD he is on chronic tramadol 100mg TID this has been stopped in [place] of fentanyl patch 12mcg q3d norco 7.5's prn breakthru pain for refractory pain - dilaudid 0.25mg IV q6h prn cont pletal, etc (5) Left leg swelling: Plan: suspect 2nd to cellulitis/ulcer IV abx pain meds (6) Anemia: Plan: macrocytic, baseline Hb 9-10 previous B12/folate wnl TSH mildly high - could be contributing cause of macrocytosis uncertain lowest Hb 7.3 --> s/p Tx of 1 unit PRBCs (7) Diabetes: Plan: Patient's home regimen held on admission Continue BSG checks, sliding-scale novolog a1c 6% (8) Chronic kidney disease, stage III (moderate): Plan: -CKD stage G3 B/A2 with a baseline creatinine of 1.41.6. Follows with nephrology. -Stable Cr today at 1.5 (9) Benign prostate hyperplasia: Plan: cont flomax if BP allows (10) GERD (gastroesophageal reflux disease): Plan: cont pepcid (11) Hypothyroidism: Plan: -TSH of 6.5 -Continue levothyroxine 150mcg compliance with meds at home?? (12) S/P CABG (coronary artery bypass graft): Plan: noted now with NSTEMI he had his CABG in [place] several decades ago followed by several stents very poor cath candidate (13) HTN (hypertension): Plan: cont BB, imdur, flomax (14) Non-ST elevation (NSTEMI) myocardial infarction: Plan: rising troponin with known CAD certainly could have had NSTEMI leading to syncope heparin drip x 48 hours (which is 07/04 about 0300) appreciate Dr Alvarez's assistance poor cath candidate echo findings noted with depressed EF (much worse than earlier this summer) cont BB, imdur, asa, statin, etc (15) Chronic ulcer of left heel: Plan: exposed achilles with purulent drainage appreciate wound care assistance achilles tendon inflamed on CT -- easily could be infected would need surgical debridement for this, but if patient leaning towards comfort care will defer on such simply cont IV abx for now (16) Aortic stenosis: Plan: severe likely contributed to #1 (17) Chronic systolic CHF (congestive heart failure): Plan: EF previously 40s now 20-25% SEVERE ischemic CM is the cause (multiple WMAs on echo) (18) Diplopia: Plan: along with coordination issues / ataxia of hands as well as ?visual field cut all worrisome for acute stroke in the setting of his NSTEMI & syncope needs MRI, but if patient elects for comfort care/palliative care, will defer on such patient to think about whether to pursue MRI Plan pt and his daughter /other children to meet with Dr Gilliland tomorrow to discuss goals of care we had lengthy discussion today about all of his health issues palliative care/hospice would be best option appreciate Dr Gilliland's assistance appreciate Dr Alvarez's assistance Admission and Anticipated Discharge Date Admission Date: July 02, 2024 Subjective patient resting in bed during the visit daughter Denise present at bedside we discussed all of the active issues going on - severe CHF, severe , NSTEMI in setting of distant CABG, wound on achilles region, LLE PAD, etc. discussed options for care - aggressive vs conservative leaning towards conservative (he did meet with Dr Gilliland this am) slept a little better overnight pain in LLE a little better having double vision started about the time of this admission having issues with coordination of his hands, worse on right this is new as well he remains very tired Review of Systems Review of Systems: gen - no fevers; poor appetite; fatigue cv - had chest discomfort overnight; now resolved pulm - no dyspnea GI - no nausea/emesis Physical Exam Physical Exam: gen - severely weak, generalized pallor, less sleepy today; about to stay awake the entire visit eyes - R eye ptosis - new per daughter neck - no JVD mouth - MMM heart - RRR, s1 s2, 2-3/6 holosystolic murmur RUSB/apex lungs - decreased BS bases L>R, no respiratory distress abd - soft NT ND BS+ vascular - L popliteal and L foot pulses all poor, <1+; L foot is cool to touch with delayed cap refill; RLE is better perfused with pulses 1+ right foot ext - left foot with <1+ edema, trace edema right foot musculo - L foot & ankle in dressing - I did not remove them today psych - more awake, more alert today neuro - finger/nose/finger maneuver with ataxia b/l skin - mild erythema of the majority of left lower leg Results & Data Results & Data Vital Signs (Past 12 Hours) Vital Signs Temp Pulse Resp BP Pulse Ox O2 Del Method 07/03/24 12:00 36.8 C 75 18 99/56 L 94 Room Air 07/03/24 07:47 36.4 C L 94 H 16 94/65 L 90 Room Air 07/03/24 03:17 36.2 C L 86 18 112/61 94 Room Air Laboratory Results Laboratory Results - last 24 hr 07/02/24 07/02/24 07/02/24 05:59 16:20 16:28 WBC RBC Hgb Hct MCV MCH MCHC RDW Std Deviation RDW Coeff of Brianda Plt Count MPV Heparin Anti-Xa, Unfract 0.26 L VBG pH VBG pCO2 VBG pO2 VBG HCO3 VBG O2 Saturation VBG Base Excess Sodium Potassium Chloride Carbon Dioxide Anion Gap BUN Creatinine Est Cr Clr Drug Dosing Est GFR ( Amer) Est GFR (Non-Af Amer) BUN/Creatinine Ratio Glucose POC Glucose 152 H Calcium Ammonia Troponin I High Sens 1470.0 H* D Blood Type O Positive Blood Type Recheck O Positive Antibody Screen NEGATIVE Crossmatch See Detail 07/02/24 07/02/24 07/03/24 21:15 23:17 07:16 WBC RBC Hgb Hct MCV MCH MCHC RDW Std Deviation RDW Coeff of Brianda Plt Count MPV Heparin Anti-Xa, Unfract 0.32 VBG pH VBG pCO2 VBG pO2 VBG HCO3 VBG O2 Saturation VBG Base Excess Sodium Potassium Chloride Carbon Dioxide Anion Gap BUN Creatinine Est Cr Clr Drug Dosing Est GFR ( Amer) Est GFR (Non-Af Amer) BUN/Creatinine Ratio Glucose POC Glucose 129 H 152 H Calcium Ammonia Troponin I High Sens Blood Type Blood Type Recheck Antibody Screen Crossmatch 07/03/24 07/03/24 07/03/24 07:25 07:34 11:17 WBC 9.10 RBC 2.54 L Hgb 8.2 L Hct 25.5 L MCV 100.4 H MCH 32.3 MCHC 32.2 RDW Std Deviation 66.4 H RDW Coeff of Brianda 17.8 H Plt Count 195 MPV 10.2 Heparin Anti-Xa, Unfract 0.31 VBG pH 7.41 VBG pCO2 36 L VBG pO2 37 VBG HCO3 23 VBG O2 Saturation 66.1 VBG Base Excess -1.4 Sodium 135 L Potassium 4.3 Chloride 104 Carbon Dioxide 22 Anion Gap 9 BUN 35 H Creatinine 1.50 H Est Cr Clr Drug Dosing 29.9 Est GFR ( Amer) 47.8 Est GFR (Non-Af Amer) 41.3 BUN/Creatinine Ratio 23.3 H Glucose 119 H POC Glucose 159 H Calcium 8.5 L Ammonia 22.0 Troponin I High Sens 1016.3 H* D Blood Type Blood Type Recheck Antibody Screen Crossmatch PG Care Time/CCT Total # of Minutes Spent Total Time Spent with Patient: Total time spent is greater than 50% in coordination of care (as documented) at patient's floor/unit and/or counseling patient: Coding Level of Care Code 88130 SUB INP/OBS CARE 3/50MIN Diagnoses Syncope R55 Syncope type: unspecified Weakness R53.1 Pneumonia J18.9 Laterality: left Lung location: unspecified part of lung Pneumonia type: due to unspecified organism Claudication in peripheral vascular disease I73.9 Left leg swelling M79.89 Anemia, unspecified type D64.9 Anemia type: unspecified type Diabetes E11.9 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 Chronic kidney disease stage 3 subtype: stage 3b (GFR 30-44) Benign prostate hyperplasia N40.0 Gastroesophageal reflux disease without esophagitis K21.9 Esophagitis presence: without esophagitis Acquired hypothyroidism E03.9 Hypothyroidism type: acquired S/P CABG (coronary artery bypass graft) Z95.1 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 Non-ST elevation (NSTEMI) myocardial infarction I21.4 Chronic ulcer of left heel L97.429 Non-pressure ulcer stage: unspecified non-pressure ulcer stage Aortic stenosis I35.0 Chronic systolic CHF (congestive heart failure) I50.22 Diplopia H53.2 (1) Syncope Syncope type: unspecified Qualified Code(s): R55 - Syncope and collapse (3) Pneumonia Laterality: left Lung location: unspecified part of lung Pneumonia type: due to unspecified organism Qualified Code(s): J18.9 - Pneumonia, unspecified organism (6) Anemia Anemia type: unspecified type Qualified Code(s): D64.9 - Anemia, unspecified (8) Chronic kidney disease, stage III (moderate) Chronic kidney disease stage 3 subtype: stage 3b (GFR 30-44) Qualified Code(s): N18.32 - Chronic kidney disease, stage 3b (10) GERD (gastroesophageal reflux disease) Esophagitis presence: without esophagitis Qualified Code(s): K21.9 - Gastro- esophageal reflux disease without esophagitis (11) Hypothyroidism Hypothyroidism type: acquired Qualified Code(s): E03.9 - Hypothyroidism, unspecified (13) HTN (hypertension) Hypertension type: renovascular hypertension Qualified Code(s): I15.0 - Renovascular hypertension (15) Chronic ulcer of left heel Non-pressure ulcer stage: unspecified non-pressure ulcer stage Qualified Code(s): L97.429 - Non-pressure chronic ulcer of left heel and midfoot with unspecified severity
--- NOTE | 2024-07-03 14:52 | Communication Note ---
Date of Service: July 03, 2024 Brief Palliative Medicine Note Consult received/appreciated/case d/w primary team Full consult note will follow I met with Mr Denny face to face x 30 min for an ACP discussion. His controlled area checker stayed for our visit. His pain is improved with TDF. I will leave dose at 12mcg for now and see how it is tomorrow. He feels foggier at times and is having some trouble with knowing how to do things like pick up man his cell or utilize his tray table etc., suspect this is multifactorial weakness and PAD related vascular failure +/- ?neuro degenerative issues too. Trevor is leaning towards a focus on comfort, no aggressive care. he tells me he does not believe rehab is really going to make a difference, he can barely move in bed now due to weakness and needs help with everything he does. He wants to wait to speak with primary team and his dtr and a follow up meeting with me tomorrow. I have updated Dr Oliver and nursing. Thank you for allowing us to participate in the ongoing care of this patient. Please page with any additional concerns. Brittney Gilliland DNP Director, Palliative Medicine
[2024-07-03] MEDS: HYDROCODONE/ACETAMINOPHEN 7.5/325MG TAB PO PRN (16:54)
--- NOTE | 2024-07-03 17:26 | Cardiology Progress Note ---
Date of Service July 03, 2024 Assessment & Plan (1) Non-ST elevation (NSTEMI) myocardial infarction: (2) CAD in [place] artery: (3) S/P CABG (coronary artery bypass graft): (4) Stented coronary artery: (5) PAD (peripheral artery disease): (6) Hypercholesterolemia: (7) HTN (hypertension): (8) Orthostatic hypotension: (9) Cardiomyopathy: (10) Syncope: (11) Aortic stenosis: (12) Mitral regurgitation: Plan ASSESSMENT/PLAN: 1. NSTEMI: Seems to have atypical chest pain which is chronic and stable. This could be related to underlying ischemic heart disease given his complicated CAD history or severe aortic stenosis. He is not interested in undergoing any further invasive measures in this regard and states that he was deemed too high risk without revascularization options when last undergoing coronary angiography in 2013. He wishes for conservative management. On heparin drip. Continue Plavix if no contraindication. Continue beta-mary. Continue nitrate therapy. Chest pain-free. 2. Severe aortic stenosis: He is not interested in aggressive measures and rather prefers conservative plan of care. Could be contributing to syncope. Recommended palliative care consultation. 3. Syncope: Etiology not certain but could be due to arrhythmia given severely reduced LV systolic function, CAD, and severe aortic stenosis. Also has orthostatic hypotension although he was not changing positions at that time. Continue telemetry. Cannot exclude heart block in the setting of severe aortic stenosis. 4. CAD s/p CABG and subsequent PCI: Chronic chest discomfort without significant worsening, may or may not represent angina. Elevated troponins whi ch could be due to demand ischemia in the setting of profound anemia, severe aortic stenosis, and multivessel CAD. Continue antiplatelet therapy if no contraindication. Monitor for bleeding. Continue beta-mary. Continue statin therapy. Conservative management. 5. Rhythm: ECGs personally reviewed and suggestive of sinus rhythm with first- degree AV block. P waves are difficult to discern when heart rate faster than baseline or with PACs. No definite atrial fibrillation noted. 6. PAD: Failed left femoropopliteal bypass in the past. Bilateral lower extremity stents. Deemed too high risk for further procedures. Bilateral lower extremity claudication on exertion and sometimes at rest in regards to the left lower extremity. Conservative management. 7. Orthostatic hypotension: Change positions slowly. Remain well-hydrated but cautious with too much fluid given cardiomyopathy. 8. Cardiomyopathy: Severely reduced LV systolic function, declined from what was previously reported. Likely ischemic but also could be multifactorial with severe aortic stenosis. He is not interested in invasive measures at this time. Continue metoprolol succinate. He is considering palliative measures and therefore more aggressive medical therapy is not being initiated at this time, which would likely exacerbate his orthostatic symptoms. No ICD for primary prevention given DNR/DNI status and possibility of palliative approach. 9. Mitral regurgitation: Nonsevere. Conservative measures. 10. Dyslipidemia: LDL well-controlled. Continue high intensity statin therapy. 11. Anemia: Hemoglobin mildly improved. Monitor for bleeding. 12. Disposition: Significant comorbidities for which he wants conservative measures as he has been told in the past that he is not a candidate for further revascularization. Poor prognosis. He has been seen by palliative care with plan to revisit options tomorrow while thinking things over. Once again offered to call family members but he declined. Please call with any further questions or concerns. Admission and Anticipated Discharge Date Admission Date: July 02, 2024 Subjective Patient seen this afternoon. Denies chest pain, shortness of breath, syncope, near syncope. He feels fuzzy in his mind at times. Has had foot pain but better controlled during our meeting this afternoon. He was unaccompanied. Physical Exam Physical Exam: Gen.: No acute distress. Alert. HEENT: Anicteric sclera. Neck: No JVD. Cardiac: Regular. Normal heart rate. Normal S1-S2. 2/6 late peaking systolic ejection murmur heard best at right upper sternal border. No rubs or gallops. Pulmonary: Clear to auscultation bilaterally without wheezes, rales, or rhonchi. Abdomen: Soft, nontender, nondistended, with normoactive bowel sounds. No bruits noted. Extremities: 2+ radial pulses bilaterally. 1+ right posterior tibialis pulse. Distal left lower extremity pulses were nonpalpable. Foot was warm. Trace left lower extremity pitting edema. Psychiatric: Affect appears appropriate. Results & Data Vital Signs (Past 12 Hours) Vital Signs Temp Pulse Resp BP Pulse Ox O2 Del Method 07/03/24 15:21 37.1 C 87 18 98/62 L 92 Room Air 07/03/24 12:00 36.8 C 75 18 99/56 L 94 Room Air 07/03/24 07:47 36.4 C L 94 H 16 94/65 L 90 Room Air Laboratory Results Laboratory Results - last 24 hr 07/02/24 07/02/24 07/02/24 16:28 21:15 23:17 WBC RBC Hgb Hct MCV MCH MCHC RDW Std Deviation RDW Coeff of Brianda Plt Count MPV Heparin Anti-Xa, Unfract 0.32 VBG pH VBG pCO2 VBG pO2 VBG HCO3 VBG O2 Saturation VBG Base Excess Sodium Potassium Chloride Carbon Dioxide Anion Gap BUN Creatinine Est Cr Clr Drug Dosing Est GFR ( Amer) Est GFR (Non-Af Amer) BUN/Creatinine Ratio Glucose POC Glucose 129 H Calcium Ammonia Troponin I High Sens Blood Type O Positive Antibody Screen NEGATIVE Crossmatch See Detail 07/03/24 07/03/24 07/03/24 07:16 07:25 07:34 WBC 9.10 RBC 2.54 L Hgb 8.2 L Hct 25.5 L MCV 100.4 H MCH 32.3 MCHC 32.2 RDW Std Deviation 66.4 H RDW Coeff of Brianda 17.8 H Plt Count 195 MPV 10.2 Heparin Anti-Xa, Unfract 0.31 VBG pH 7.41 VBG pCO2 36 L VBG pO2 37 VBG HCO3 23 VBG O2 Saturation 66.1 VBG Base Excess -1.4 Sodium 135 L Potassium 4.3 Chloride 104 Carbon Dioxide 22 Anion Gap 9 BUN 35 H Creatinine 1.50 H Est Cr Clr Drug Dosing 29.9 Est GFR ( Amer) 47.8 Est GFR (Non-Af Amer) 41.3 BUN/Creatinine Ratio 23.3 H Glucose 119 H POC Glucose 152 H Calcium 8.5 L Ammonia 22.0 Troponin I High Sens 1016.3 H* D Blood Type Antibody Screen Crossmatch 07/03/24 11:17 WBC RBC Hgb Hct MCV MCH MCHC RDW Std Deviation RDW Coeff of Brianda Plt Count MPV Heparin Anti-Xa, Unfract VBG pH VBG pCO2 VBG pO2 VBG HCO3 VBG O2 Saturation VBG Base Excess Sodium Potassium Chloride Carbon Dioxide Anion Gap BUN Creatinine Est Cr Clr Drug Dosing Est GFR ( Amer) Est GFR (Non-Af Amer) BUN/Creatinine Ratio Glucose POC Glucose 159 H Calcium Ammonia Troponin I High Sens Blood Type Antibody Screen Crossmatch Diagnostic Findings Communication note reviewed. Telemetry personally reviewed: Sinus rhythm with first-degree AV block and frequent PACs. Labs reviewed from 07/03/2024 and demonstrated mildly abnormal renal function, normal potassium, mildly improved anemia. ECG personally reviewed 07/03/2024 at 5:26 AM: Likely sinus rhythm with first- degree AV block and frequent PACs. LBBB. Medications Administered Current Inpatient Medications Hydrocodone Bitart/Acetaminophen (Hydrocodone/Acetaminophen 7.5/325mg Tab) 1 tab PO Q3H PRN PRN Reason: Pain, SOB Stop: 07/16/24 17:49 Last Admin: 07/03/24 16:54 Dose: 1 tab Allopurinol (Allopurinol 100 Mg Tab) 200 mg PO DAILY JIM Stop: 08/01/24 08:59 Last Admin: 07/03/24 08:07 Dose: 200 mg Aspirin (Aspirin 81 Mg Ectab) 81 mg PO DAILY JIM Stop: 08/01/24 08:59 Last Admin: 07/03/24 08:08 Dose: 81 mg Atorvastatin Calcium (Atorvastatin 40 Mg Tab) 80 mg PO DAILY JIM Stop: 08/01/24 08:59 Last Admin: 07/03/24 08:08 Dose: 80 mg Cilostazol (Cilostazol 100 Mg Tab) 100 mg PO BID JIM Stop: 07/31/24 20:59 Last Admin: 07/03/24 08:08 Dose: 100 mg Clopidogrel Bisulfate (Clopidogrel Bisulfate 75 Mg Tab) 75 mg PO DAILY JIM Stop: 08/01/24 08:59 Last Admin: 07/03/24 08:08 Dose: 75 mg Dextrose (Dextrose 50% 50 Ml Syringe) 25 - 50 ml IV UD PRN; Protocol PRN Reason: Hypoglycemia Protocol Stop: 07/31/24 17:31 Donepezil HCl (Donepezil Hcl 10 Mg Tab) 10 mg PO DAILY JIM Stop: 08/01/24 08:59 Last Admin: 07/03/24 08:07 Dose: 10 mg Famotidine (Famotidine 20 Mg Tab) 20 mg PO BID JIM Stop: 07/31/24 20:59 Last Admin: 07/03/24 08:07 Dose: 20 mg Fentanyl (Fentanyl 12 Mcg/Hr Tdsy) 1 patch TD Q3D JIM Stop: 07/16/24 17:59 Last Admin: 07/02/24 18:23 Dose: 1 patch Glucagon (Glucagon For Inj 1 Mg Vial) 1 mg SQ UD PRN; Protocol PRN Reason: Hypoglycemia Protocol Stop: 07/31/24 17:31 Glucose (Glucose 40% Gel 15 Gm Tube) 15 - 30 gm PO UD PRN; Protocol PRN Reason: Hypoglycemia Protocol Stop: 07/31/24 17:31 Glucose (Glucose 10 Tab/Tube) 4 - 8 tab PO UD PRN; Protocol PRN Reason: Hypoglycemia Treatment Stop: 07/31/24 17:31 Hydromorphone HCl (Hydromorphone Inj 0.5 Mg/0.5 Ml Syr) 0.25 mg IV Q3H PRN PRN Reason: Pain unrelieved by PO pain med Stop: 07/16/24 20:47 Ceftriaxone Sodium 2,000 mg/ (Dextrose) 70 mls @ 100 mls/hr IV Q24H [facility]; Protocol Stop: 07/08/24 16:11 Last Admin: 07/03/24 15:09 Dose: 100 mls/hr Heparin Sodium/Dextrose (Heparin Sodium/Dextrose) 25,000 units in 500 mls @ 24 mls/hr IV .[id number] [facility]; Protocol Stop: 08/01/24 02:44 Last Titration: 07/03/24 07:11 Dose: 1,200 units/hr, 24 mls/hr Doxycycline Hyclate 100 mg/ (Dextrose) 100 mls @ 50 mls/hr IV Q12H [facility] Stop: 07/09/24 21:59 Last Admin: 07/03/24 08:09 Dose: 50 mls/hr Insulin Aspart (Insulin Aspart Per Unit Charge) 0 units SC ACHS [facility] Stop: 08/01/24 05:59 Last Admin: 07/03/24 15:11 Dose: Not Given Isosorbide Mononitrate (Isosorbide [place] Extended Rel 30 Mg Tabcr) 30 mg PO DAILY [facility] Stop: 08/01/24 08:59 Last Admin: 07/03/24 08:07 Dose: 30 mg Levothyroxine Sodium (Levothyroxine Sodium 150 Mcg Tablet) [facility]: 08/01/24 06:29 Last Admin: 07/03/24 06:22 Dose: 150 mcg Memantine (Memantine Hcl 5 Mg Tab) 5 mg PO BID [facility] Stop: 07/31/24 20:59 Last Admin: 07/03/24 08:07 Dose: 5 mg Metoprolol Succinate (Metoprolol Succ 25mg Ext Rel Tab) 25 mg PO BID JIM Stop: 07/31/24 21:59 Last Admin: 07/03/24 08:08 Dose: 25 mg Miscellaneous (Carbohydrates For Hypoglycemia ) 15 - 30 gm PO UD PRN PRN Reason: Hypoglycemia Protocol Stop: 07/31/24 17:31 Miscellaneous (Fentanyl Patch Remove & Waste) 1 each N/A Q3D JIM Stop: 08/01/24 17:59 Last Admin: 07/02/24 18:23 Dose: Not Given Miscellaneous (Check Fentanyl Patch Placement) 1 each N/A QS JIM Stop: 08/02/24 00:00 Last Admin: 07/03/24 15:10 Dose: 1 each Ondansetron HCl (Ondansetron Inj 2 Mg/Ml 2 Ml Vial) 4 mg IV Q6H PRN PRN Reason: Nausea Stop: 07/31/24 17:31 Tamsulosin HCl (Tamsulosin Hcl 0.4 Mg Cap) 0.4 mg PO DAILY JIM Stop: 08/01/24 08:59 Last Admin: 07/03/24 08:08 Dose: 0.4 mg PG Care Time/CCT Total # of Minutes Spent Total Time Spent with Patient: Total time spent is greater than 50% in coordination of care (as documented) at patient's floor/unit and/or counseling patient: Coding Level of Care Code 21280 SUB INP/OBS CARE 3/50MIN Diagnoses Non-ST elevation (NSTEMI) myocardial infarction I21.4 CAD in [place] artery I25.10 S/P CABG (coronary artery bypass graft) Z95.1 Stented coronary artery Z95.5 PAD (peripheral artery disease) I73.9 Hypercholesterolemia E78.00 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
[2024-07-04 06:57] LABS: ANTI-Xa, UFH(UnfractionatedHep 0.26 IU/ml (0.3-0.7)
--- NOTE | 2024-07-04 13:18 | Palliative Family Discussion ---
Date of Service July 04, 2024 Patient Directed Conference Time of Meetin-1240pm Participants: Jinny Gilliland DNP Patient participation: yes Patient Support System: Dtr Denise Hatfield ([facility] ash worker) Other Healthcare Provider Participation: None Meeting Location: bedside Advanced Directive available: pt reaffirms DNR/DNI A face to face ACP family meeting was held for BRENT RUSSELL. This meeting was necessary for determining the appropriate course of treatment. Topics of Discussion Topics of Discussion: 1. I met with Mr. Ely and his daughter Denise. They informed me that I helped care for his , Lorraine, who on hospice at [facility] this past March. 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 He is aware of his overall prognosis and reaffirms the overarching goal is for QOL and no escalation, no labs, invasive measures or return to hospital. he did not recall the hospice agency that cared for his Lorraine but did note they were excellent with her care and their family, so if he goes on hospice he would like the same agency again. 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 Other Content of Meetin. Opportunity given for participants to speak and ask questions. 2. Participants were assured of attention to patient comfort. 3. Reassurance provided. 4. Support was provided for informed, good-zoya decisions. 5. Emotions expressed by family were acknowledged and addressed. 6. Follow-up Outpatient: he is agreeable to following up with me in clinic for ongoing pain and sx mgt within 3-4 weeks of dc, we will schedule this appt and include the information on dc instructions 7. Plan of Care: as outlined above. primary team, nursing and care mgt notified. TS 30min face to face for ACP Thank you for allowing us to participate in the ongoing care of this patient. Please page with any additional concerns. Brittney Gilliland DNP Director, Palliative Medicine
--- NOTE | 2024-07-04 13:32 | Palliative Care Consultation ---
Date of Consultation July 04, 2024 Assessment & Plan (1) Left leg pain: some improvement with TDF 12mcg and it has been about 16hr since application, will give 3 days to see if it is helping Changed prn intervals for oral hydrocodone and IV dilaudid to q3h prn if pain is about the same on Sunday would increase to TDF 25mcg, pt in agreement (2) Weakness generalized: (3) Advanced care planning/counseling discussion: Met with pt and his lead nuclear medicine technologist face to face at bedside x 30min he states he feels himself growing weaker, knows his issues are not curable. he is not hopeful rehab will dramatically improve things but is willing to try since it gives best chance to try to be able to return home but notes if he worsens he would want comfort focused end of life care at SNF, prefers [facility]. (4) Palliative care by specialist: Discussed Palliative Medicine provides specialized medical care for patients with a serious illness. We offer a focus on quality of life through reduction of symptom burden/more control over their illness, for patients and their family. Palliative Medicine interventions can be given along with curative treatment. I specifically clarified we are not hospice, which is a visiting nurse service that focuses on care delivered at the very end of life. (5) Left leg swelling: (6) Chronic low back pain: Back pain laterality: midline Sciatica presence: with sciatica Sciatica laterality: bilateral sciatica Qualified Code(s): M54.41 - Lumbago with sciatica, right side; M54.42 - Lumbago with sciatica, left side; G89.29 - Other chronic pain (7) Claudication in peripheral vascular disease: Plan As above Family meeting with dtr tomorrow around noon Thank you for allowing us to participate in the ongoing care of this patient. Please page with any additional concerns. Brittney Gilliland DNP Director, Palliative Medicine History of Present Illness Attending Physician: Juan Luis Oliver MD History of Present Illness Trevor Baldwin is an 88-year-old gentleman who presented from home following an episode of syncope. He reports that he was getting out of his bathroom using his electric chair and while trying to sit down into his regular chair, he experienced a loss of consciousness and syncopal collapse. He does recall some chest pressure at the time. He was brought to the emergency department by EMS. 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 His daughter Denise is a agile test lead for [employer] and is involved in his care, is also his surrogate decision maker. Trevor recalls palliative medicine engagement from when his , Lorraine, was a patient here. At that time, she was discharged to [facility] shelter and placed on hospice. She earlier this year in March and he noted that it was overall a very positive experience with good supporting care from both the shelter teams as well as the hospice team. He tells me that he understands he has several advancing and complex medical issues that are not curative. He has followed with vascular surgery at [place] for his ongoing PAD and approximately 15 years ago had extensive surgery. 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 In the last few weeks, it has begun to swell, become more red and have more pain. He is currently receiving wound care for this. He understands that it is possible that this may not heal due to the severity of his PAD. He has also chronic pain in his back and shoulders. Allergies Allergy/AdvReac Type Severity Reaction Status Date / Time No Known Allergies Allergy Verified 05/30/24 12:12 Home Medications Medication Instructions Recorded Confirmed Type aspirin 81 mg tablet,delayed 81 mg PO DAILY #30 tabs 06/23/19 07/01/24 Rx release folic acid 400 mcg tablet 400 mcg PO DAILY #30 tabs 06/23/19 07/01/24 Rx ascorbic acid (vitamin C) 500 mg 500 mg PO DAILY 07/25/19 07/01/24 History tablet calcium polycarbophil 625 mg tablet 1,875 mg PO DAILY 07/25/19 07/01/24 History cholecalciferol (vitamin D3) 25 1,000 units PO DAILY 07/25/19 07/01/24 History mcg (1,000 unit) capsule cyanocobalamin (vitamin B-12) 1,000 mcg PO DAILY 07/25/19 07/01/24 History 1,000 mcg tablet,extended release garlic 1,000 mg capsule 1,000 mg PO DAILY 07/25/19 07/01/24 History pyridoxine (vitamin B6) 100 mg 100 mg PO DAILY 07/25/19 07/01/24 History tablet famotidine 20 mg tablet 20 mg PO BID 3 months #180 tabs 11/20/19 07/01/24 Rx acetaminophen 500 mg tablet 500 mg PO Q6H PRN Pain 06/14/21 07/01/24 History (Tylenol Extra Strength) omega-3 acid ethyl esters 1 gram 1 cap PO DAILY 06/14/21 07/01/24 History capsule multivitamin with minerals 1 cap PO DAILY 10/31/21 07/01/24 History no.7-folic acid 1 mg capsule ferrous sulfate 325 mg (65 mg 325 mg PO Q OTHER DAY 10/04/22 07/01/24 History iron) tablet cilostazol 100 mg tablet 100 mg PO BID #180 tabs 08/27/23 07/01/24 Rx donepezil 10 mg tablet 10 mg PO DAILY #90 tabs 08/27/23 07/01/24 Rx tamsulosin 0.4 mg capsule 0.4 mg PO DAILY #90 caps 08/27/23 07/01/24 Rx isosorbide mononitrate 30 mg 30 mg PO DAILY #180 tabs 10/23/23 07/01/24 Rx tablet,extended release 24 hr allopurinol 100 mg tablet 200 mg (2 x 100 mg) PO DAILY #180 12/24/23 07/01/24 Rx tabs nitroglycerin 0.4 mg sublingual See Rx Instructions .Route 01/07/24 07/01/24 Rx tablet .COMPLEX #25 tabs atorvastatin 80 mg tablet 80 mg PO DAILY #100 tabs 02/01/24 07/01/24 Rx clopidogrel 75 mg tablet 75 mg PO DAILY #90 tabs 04/28/24 07/01/24 Rx levothyroxine 150 mcg tablet 150 mcg PO DAILY #90 tabs 05/05/24 07/01/24 Rx tramadol 50 mg tablet 100 mg (2 x 50 mg) PO TID PRN pain 06/23/24 07/01/24 Rx #180 tabs memantine 5 mg tablet 5 mg PO BID 07/01/24 07/01/24 History metoprolol succinate 50 mg 25 mg PO DAILY 07/01/24 07/01/24 History tablet,extended release 24 hr Patient History Medical History Cardiomyopathy Orthostatic hypotension 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 History of orthostatic hypotension Unstable angina Family History Brother Myocardial infarction Coronary heart disease Mother Pancreatic cancer Father Coronary heart disease Denies family history of Ovarian cancer Prostate cancer Breast cancer Colorectal cancer Social History Smoking Status: Former smoker Tobacco Type: Cigarettes Age Started Using Tobacco: 14; Age Quit Using Tobacco: 57; packs per day: 4; Cigarettes Per Day: Formerly 4 packs/day; Second Hand Exposure: No; Do You Dip or Chew Tobacco: No; Hx Alcohol Use: No Hx Substance Use: No Preferred Language: Telugu Communication Ability: Effective Visual Impairment: No Limitations Hearing Ability: Hard of Hearing Activities Counselor Required: No Beliefs That Will Affect Care: None marital status: Current Living Situation: Alone Current Living Situation Comment: Pt. 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 Feels Safe at Home: Yes Safety Concerns: Feels Safe At This Time Childhood Exposure to Second-Hand Smoke: Yes Diet: regular caffeine: Yes during the past year weight has: remained stable Dental Care, Regularly: Yes Physical Activity Frequency: Does not Exercise Seatbelt Use: always Sunscreen Use: No Assistive Devices: Cane, Scooter/Electric Scooter and Walker Review of Systems Review of Systems: All systems reviewed & are unremarkable except as noted in Subjective Physical Exam Constitutional: + cachectic, + physical limitations, + f rail appearing and cooperative Eyes: PERRL ENMT: dentition fair, MMM Neck: trachea midline, no thyromegaly Respiratory: normal respiratory effort (at rest) and symmetric chest movement Auscultation: + diminished lung sounds; no crackles, no rales and no rhonchi Cardiovascular: Rate/Rhythm: regular rate and regular rhythm Vessels: no JVD LLE pulses not appreciable, skin is warm to touch Gastrointestinal (Abdomen): Inspection/Auscultation: normal bowel sounds and + scaphoid Musculoskeletal: gen weakness Skin: + turgor decreased, + skin tightening an d + wound (LLE) Neurologic: PERRL, EOMI, accommodation nl, no face palsy, no dysarthria Psychiatric: A+Ox3, euthymic affect Results & Data Vital Signs (Past 12 Hours) Vital Signs Temp Pulse Resp BP Pulse Ox O2 Del Method 07/04/24 11:49 37.1 C 80 18 102/58 L 91 Room Air 07/04/24 07:47 37.0 C 84 18 128/56 L 92 Room Air 07/04/24 03:00 36.6 C 80 16 110/64 90 Room Air Laboratory Results 07/04/24 07/04/24 07/04/24 Range/Units 11:37 07:18 05:39 WBC (4.8-10.8) K/ul RBC (4.70-6.10) M/uL Hgb (14.0-18.0) g/dl Hct (42.0-52.0) % MCV (80.0-100.0) fL MCH (25.0-34.0) pg MCHC (32.0-36.0) g/dL RDW Std Deviation (36.4-46.3) fL RDW Coeff of Brianda (11.5-14.5) % Plt Count (130-400) K/uL MPV (9.4-12.4) fL Immature Gran % (Auto) % Neut % (Auto) % Lymph % (Auto) % [place] % (Auto) % Eos % (Auto) % Baso % (Auto) % Neut # (Auto) (1.40-6.50) K/uL Lymph # (Auto) (1.20-3.40) K/uL [place] # (Auto) (0.11-0.59) K/uL Eos # (Auto) (0.00-0.50) K/uL Baso # (Auto) (0.00-0.20) K/uL Immature Gran # (Auto) (0.01-0.20) K/uL Absolute Nucleated RBC (0.00-0.12) K/uL Nucleated RBC % (auto) % Polychromasia PT (9.0-12.0) Seconds INR (0.9-1.1) APTT (21-31) Seconds PTT Ratio Heparin Anti-Xa, Unfract 0.26 L (0.3-0.7) IU/ml VBG pH (7.36-7.41) VBG pCO2 (38-50) mmHg VBG pO2 mmHg VBG HCO3 mmol/L VBG O2 Saturation % VBG Base Excess mEq/L Sodium (136-145) mmol/L Potassium (3.5-5.1) mmol/L Chloride (98-107) mmol/L Carbon Dioxide (21-32) mmol/L Anion Gap (3-11) BUN (6-23) mg/dl Creatinine (0.6-1.4) mg/dl Est Cr Clr Drug Dosing ml/min Est GFR ( Amer) ml/min Est GFR (Non-Af Amer) ml/min BUN/Creatinine Ratio (10-20) Glucose (70-99(Fasting)) mg/dl POC Glucose 156 H 117 H (70-99) mg/dl Estimat Average Glucose mg/dl Hemoglobin A1c (4.5-5.6) % Calcium (8.6-10.3) mg/dl Phosphorus (2.5-4.9) mg/dl Magnesium (1.7-2.4) mg/dl Total Bilirubin (0.2-1.0) mg/dl AST (13-39) U/L ALT (7-52) U/L Alkaline Phosphatase (34-104) U/L Ammonia (18-72) umol/L Troponin I High Sens (0-20) pg/ml Total Protein (6.0-8.3) gm/dl Albumin (3.4-5.0) gm/dl Globulin (2.5-4.0) gm/dl Albumin/Globulin Ratio (0.9-2) Lipase (11-82) U/L Procalcitonin (0-0.5) ng/ml TSH (0.300-4.500) uIu/ml Free T4 (0.61-1.60) ng/dl Urine Color Urine Appearance (Clear) Urine pH (4.5-7.5) Ur Specific [place] (1.000-1.030) Urine Protein (Negative) Urine Glucose (UA) (Negative) Urine Ketones (Negative) Urine Blood (Negative) Urine Nitrite (Negative) Urine Bilirubin (Negative) Urine Urobilinogen (Negative) Ur Leukocyte Esterase (Negative) Urine WBC (Auto) (0-5) /hpf Urine RBC (Auto) (0-2) /hpf U Hyaline Cast (Auto) (0-2) /lpf U Epithel Cells (Auto) (0-2) /hpf Urine Bacteria (Auto) (None Seen) Blood Type Blood Type Recheck Antibody Screen Crossmatch 07/03/24 07/03/24 07/03/24 Range/Units 20:11 11:17 07:34 WBC (4.8-10.8) K/ul RBC (4.70-6.10) M/uL Hgb (14.0-18.0) g/dl Hct (42.0-52.0) % MCV (80.0-100.0) fL MCH (25.0-34.0) pg MCHC (32.0-36.0) g/dL RDW Std Deviation (36.4-46.3) fL RDW Coeff of Brianda (11.5-14.5) % Plt Count (130-400) K/uL MPV (9.4-12.4) fL Immature Gran % (Auto) % Neut % (Auto) % Lymph % (Auto) % [place] % (Auto) % Eos % (Auto) % Baso % (Auto) % Neut # (Auto) (1.40-6.50) K/uL Lymph # (Auto) (1.20-3.40) K/uL [place] # (Auto) (0.11-0.59) K/uL Eos # (Auto) (0.00-0.50) K/uL Baso # (Auto) (0.00-0.20) K/uL Immature Gran # (Auto) (0.01-0.20) K/uL Absolute Nucleated RBC (0.00-0.12) K/uL Nucleated RBC % (auto) % Polychromasia PT (9.0-12.0) Seconds INR (0.9-1.1) APTT (21-31) Seconds PTT Ratio Heparin Anti-Xa, Unfract (0.3-0.7) IU/ml VBG pH (7.36-7.41) VBG pCO2 (38-50) mmHg VBG pO2 mmHg VBG HCO3 mmol/L VBG O2 Saturation % VBG Base Excess mEq/L Sodium (136-145) mmol/L Potassium (3.5-5.1) mmol/L Chloride (98-107) mmol/L Carbon Dioxide (21-32) mmol/L Anion Gap (3-11) BUN (6-23) mg/dl Creatinine (0.6-1.4) mg/dl Est Cr Clr Drug Dosing ml/min Est GFR ( Amer) ml/min Est GFR (Non-Af Amer) ml/min BUN/Creatinine Ratio (10-20) Glucose (70-99(Fasting)) mg/dl POC Glucose 143 H 159 H (70-99) mg/dl Estimat Average Glucose mg/dl Hemoglobin A1c (4.5-5.6) % Calcium (8.6-10.3) mg/dl Phosphorus (2.5-4.9) mg/dl Magnesium (1.7-2.4) mg/dl Total Bilirubin (0.2-1.0) mg/dl AST (13-39) U/L ALT (7-52) U/L Alkaline Phosphatase (34-104) U/L Ammonia 22.0 (18-72) umol/L Troponin I High Sens (0-20) pg/ml Total Protein (6.0-8.3) gm/dl Albumin (3.4-5.0) gm/dl Globulin (2.5-4.0) gm/dl Albumin/Globulin Ratio (0.9-2) Lipase (11-82) U/L Procalcitonin (0-0.5) ng/ml TSH (0.300-4.500) uIu/ml Free T4 (0.61-1.60) ng/dl Urine Color Urine Appearance (Clear) Urine pH (4.5-7.5) Ur Specific [place] (1.000-1.030) Urine Protein (Negative) Urine Glucose (UA) (Negative) Urine Ketones (Negative) Urine Blood (Negative) Urine Nitrite (Negative) Urine Bilirubin (Negative) Urine Urobilinogen (Negative) Ur Leukocyte Esterase (Negative) Urine WBC (Auto) (0-5) /hpf Urine RBC (Auto) (0-2) /hpf U Hyaline Cast (Auto) (0-2) /lpf U Epithel Cells (Auto) (0-2) /hpf Urine Bacteria (Auto) (None Seen) Blood Type Blood Type Recheck Antibody Screen Crossmatch 07/03/24 07/03/24 07/02/24 Range/Units 07:25 07:16 23:17 WBC 9.10 (4.8-10.8) K/ul RBC 2.54 L (4.70-6.10) M/uL Hgb 8.2 L (14.0-18.0) g/dl Hct 25.5 L (42.0-52.0) % MCV 100.4 H (80.0-100.0) fL MCH 32.3 (25.0-34.0) pg MCHC 32.2 (32.0-36.0) g/dL RDW Std Deviation 66.4 H (36.4-46.3) fL RDW Coeff of Brianda 17.8 H (11.5-14.5) % Plt Count 195 (130-400) K/uL MPV 10.2 (9.4-12.4) fL Immature Gran % (Auto) % Neut % (Auto) % Lymph % (Auto) % [place] % (Auto) % Eos % (Auto) % Baso % (Auto) % Neut # (Auto) (1.40-6.50) K/uL Lymph # (Auto) (1.20-3.40) K/uL [place] # (Auto) (0.11-0.59) K/uL Eos # (Auto) (0.00-0.50) K/uL Baso # (Auto) (0.00-0.20) K/uL Immature Gran # (Auto) (0.01-0.20) K/uL Absolute Nucleated RBC (0.00-0.12) K/uL Nucleated RBC % (auto) % Polychromasia PT (9.0-12.0) Seconds INR (0.9-1.1) APTT (21-31) Seconds PTT Ratio Heparin Anti-Xa, Unfract 0.31 0.32 (0.3-0.7) IU/ml VBG pH 7.41 (7.36-7.41) VBG pCO2 36 L (38-50) mmHg VBG pO2 37 mmHg VBG HCO3 23 mmol/L VBG O2 Saturation 66.1 % VBG Base Excess -1.4 mEq/L Sodium 135 L (136-145) mmol/L Potassium 4.3 (3.5-5.1) mmol/L Chloride 104 (98-107) mmol/L Carbon Dioxide 22 (21-32) mmol/L Anion Gap 9 (3-11) BUN 35 H (6-23) mg/dl Creatinine 1.50 H (0.6-1.4) mg/dl Est Cr Clr Drug Dosing 29.9 ml/min Est GFR ( Amer) 47.8 ml/min Est GFR (Non-Af Amer) 41.3 ml/min BUN/Creatinine Ratio 23.3 H (10-20) Glucose 119 H (70-99(Fasting)) mg/dl POC Glucose 152 H (70-99) mg/dl Estimat Average Glucose mg/dl Hemoglobin A1c (4.5-5.6) % Calcium 8.5 L (8.6-10.3) mg/dl Phosphorus (2.5-4.9) mg/dl Magnesium (1.7-2.4) mg/dl Total Bilirubin (0.2-1.0) mg/dl AST (13-39) U/L ALT (7-52) U/L Alkaline Phosphatase (34-104) U/L Ammonia (18-72) umol/L Troponin I High Sens 1016.3 H* D (0-20) pg/ml Total Protein (6.0-8.3) gm/dl Albumin (3.4-5.0) gm/dl Globulin (2.5-4.0) gm/dl Albumin/Globulin Ratio (0.9-2) Lipase (11-82) U/L Procalcitonin (0-0.5) ng/ml TSH (0.300-4.500) uIu/ml Free T4 (0.61-1.60) ng/dl Urine Color Urine Appearance (Clear) Urine pH (4.5-7.5) Ur Specific [place] (1.000-1.030) Urine Protein (Negative) Urine Glucose (UA) (Negative) Urine Ketones (Negative) Urine Blood (Negative) Urine Nitrite (Negative) Urine Bilirubin (Negative) Urine Urobilinogen (Negative) Ur Leukocyte Esterase (Negative) Urine WBC (Auto) (0-5) /hpf Urine RBC (Auto) (0-2) /hpf U Hyaline Cast (Auto) (0-2) /lpf U Epithel Cells (Auto) (0-2) /hpf Urine Bacteria (Auto) (None Seen) Blood Type Blood Type Recheck Antibody Screen Crossmatch 07/02/24 07/02/24 07/02/24 Range/Units 21:15 16:28 16:20 WBC (4.8-10.8) K/ul RBC (4.70-6.10) M/uL Hgb (14.0-18.0) g/dl Hct (42.0-52.0) % MCV (80.0-100.0) fL MCH (25.0-34.0) pg MCHC (32.0-36.0) g/dL RDW Std Deviation (36.4-46.3) fL RDW Coeff of Brianda (11.5-14.5) % Plt Count (130-400) K/uL MPV (9.4-12.4) fL Immature Gran % (Auto) % Neut % (Auto) % Lymph % (Auto) % [place] % (Auto) % Eos % (Auto) % Baso % (Auto) % Neut # (Auto) (1.40-6.50) K/uL Lymph # (Auto) (1.20-3.40) K/uL [place] # (Auto) (0.11-0.59) K/uL Eos # (Auto) (0.00-0.50) K/uL Baso # (Auto) (0.00-0.20) K/uL Immature Gran # (Auto) (0.01-0.20) K/uL Absolute Nucleated RBC (0.00-0.12) K/uL Nucleated RBC % (auto) % Polychromasia PT (9.0-12.0) Seconds INR (0.9-1.1) APTT (21-31) Seconds PTT Ratio Heparin Anti-Xa, Unfract 0.26 L (0.3-0.7) IU/ml VBG pH (7.36-7.41) VBG pCO2 (38-50) mmHg VBG pO2 mmHg VBG HCO3 mmol/L VBG O2 Saturation % VBG Base Excess mEq/L Sodium (136-145) mmol/L Potassium (3.5-5.1) mmol/L Chloride (98-107) mmol/L Carbon Dioxide (21-32) mmol/L Anion Gap (3-11) BUN (6-23) mg/dl Creatinine (0.6-1.4) mg/dl Est Cr Clr Drug Dosing ml/min Est GFR ( Amer) ml/min Est GFR (Non-Af Amer) ml/min BUN/Creatinine Ratio (10-20) Glucose (70-99(Fasting)) mg/dl POC Glucose 129 H 152 H (70-99) mg/dl Estimat Average Glucose mg/dl Hemoglobin A1c (4.5-5.6) % Calcium (8.6-10.3) mg/dl Phosphorus (2.5-4.9) mg/dl Magnesium (1.7-2.4) mg/dl Total Bilirubin (0.2-1.0) mg/dl AST (13-39) U/L ALT (7-52) U/L Alkaline Phosphatase (34-104) U/L Ammonia (18-72) umol/L Troponin I High Sens 1470.0 H* D (0-20) pg/ml Total Protein (6.0-8.3) gm/dl Albumin (3.4-5.0) gm/dl Globulin (2.5-4.0) gm/dl Albumin/Globulin Ratio (0.9-2) Lipase (11-82) U/L Procalcitonin (0-0.5) ng/ml TSH (0.300-4.500) uIu/ml Free T4 (0.61-1.60) ng/dl Urine Color Urine Appearance (Clear) Urine pH (4.5-7.5) Ur Specific [place] (1.000-1.030) Urine Protein (Negative) Urine Glucose (UA) (Negative) Urine Ketones (Negative) Urine Blood (Negative) Urine Nitrite (Negative) Urine Bilirubin (Negative) Urine Urobilinogen (Negative) Ur Leukocyte Esterase (Negative) Urine WBC (Auto) (0-5) /hpf Urine RBC (Auto) (0-2) /hpf U Hyaline Cast (Auto) (0-2) /lpf U Epithel Cells (Auto) (0-2) /hpf Urine Bacteria (Auto) (None Seen) Blood Type O Positive Blood Type Recheck Antibody Screen NEGATIVE Crossmatch See Detail 07/02/24 07/02/24 07/02/24 Range/Units 11:58 09:08 05:59 WBC 8.66 (4.8-10.8) K/ul RBC 2.21 L (4.70-6.10) M/uL Hgb 7.4 L (14.0-18.0) g/dl Hct 22.8 L (42.0-52.0) % MCV 103.2 H (80.0-100.0) fL MCH 33.5 (25.0-34.0) pg MCHC 32.5 (32.0-36.0) g/dL RDW Std Deviation 59.3 H (36.4-46.3) fL RDW Coeff of Brianda 15.8 H (11.5-14.5) % Plt Count 214 (130-400) K/uL MPV 10.5 (9.4-12.4) fL Immature Gran % (Auto) 0.6 % Neut % (Auto) 80.7 % Lymph % (Auto) 5.4 % [place] % (Auto) 11.7 % Eos % (Auto) 1.4 % Baso % (Auto) 0.2 % Neut # (Auto) 6.99 H (1.40-6.50) K/uL Lymph # (Auto) 0.47 L (1.20-3.40) K/uL [place] # (Auto) 1.01 H (0.11-0.59) K/uL Eos # (Auto) 0.12 (0.00-0.50) K/uL Baso # (Auto) 0.02 (0.00-0.20) K/uL Immature Gran # (Auto) 0.05 (0.01-0.20) K/uL Absolute Nucleated RBC (0.00-0.12) K/uL Nucleated RBC % (auto) % Polychromasia 1+ PT (9.0-12.0) Seconds INR (0.9-1.1) APTT (21-31) Seconds PTT Ratio Heparin Anti-Xa, Unfract 0.22 L 0.16 L (0.3-0.7) IU/ml VBG pH (7.36-7.41) VBG pCO2 (38-50) mmHg VBG pO2 mmHg VBG HCO3 mmol/L VBG O2 Saturation % VBG Base Excess mEq/L Sodium 138 (136-145) mmol/L Potassium 4.6 (3.5-5.1) mmol/L Chloride 107 (98-107) mmol/L Carbon Dioxide 25 (21-32) mmol/L Anion Gap 6 (3-11) BUN 33 H (6-23) mg/dl Creatinine 1.29 (0.6-1.4) mg/dl Est Cr Clr Drug Dosing 35.3 ml/min Est GFR ( Amer) 57.4 ml/min Est GFR (Non-Af Amer) 49.5 ml/min BUN/Creatinine Ratio 25.6 H (10-20) Glucose 124 H (70-99(Fasting)) mg/dl POC Glucose 148 H (70-99) mg/dl Estimat Average Glucose 126 mg/dl Hemoglobin A1c 6.0 H (4.5-5.6) % Calcium 8.8 (8.6-10.3) mg/dl Phosphorus (2.5-4.9) mg/dl Magnesium 1.9 (1.7-2.4) mg/dl Total Bilirubin 0.4 (0.2-1.0) mg/dl AST 25 (13-39) U/L ALT 12 (7-52) U/L Alkaline Phosphatase 106 H (34-104) U/L Ammonia (18-72) umol/L Troponin I High Sens 941.4 H* D (0-20) pg/ml Total Protein 6.7 (6.0-8.3) gm/dl Albumin 3.0 L (3.4-5.0) gm/dl Globulin 3.7 (2.5-4.0) gm/dl Albumin/Globulin Ratio 0.8 L (0.9-2) Lipase (11-82) U/L Procalcitonin (0-0.5) ng/ml TSH (0.300-4.500) uIu/ml Free T4 (0.61-1.60) ng/dl Urine Color Urine Appearance (Clear) Urine pH (4.5-7.5) Ur Specific [place] (1.000-1.030) Urine Protein (Negative) Urine Glucose (UA) (Negative) Urine Ketones (Negative) Urine Blood (Negative) Urine Nitrite (Negative) Urine Bilirubin (Negative) Urine Urobilinogen (Negative) Ur Leukocyte Esterase (Negative) Urine WBC (Auto) (0-5) /hpf Urine RBC (Auto) (0-2) /hpf U Hyaline Cast (Auto) (0-2) /lpf U Epithel Cells (Auto) (0-2) /hpf Urine Bacteria (Auto) (None Seen) Blood Type Blood Type Recheck O Positive Antibody Screen Crossmatch 07/02/24 07/02/24 07/02/24 Range/Units 05:07 03:03 03:02 WBC 8.46 (4.8-10.8) K/ul RBC 2.29 L (4.70-6.10) M/uL Hgb 7.6 L (14.0-18.0) g/dl Hct 24.2 L (42.0-52.0) % MCV 105.7 H (80.0-100.0) fL MCH 33.2 (25.0-34.0) pg MCHC 31.4 L (32.0-36.0) g/dL RDW Std Deviation 59.7 H (36.4-46.3) fL RDW Coeff of Brianda 15.7 H (11.5-14.5) % Plt Count 197 (130-400) K/uL MPV 10.1 (9.4-12.4) fL Immature Gran % (Auto) 0.5 % Neut % (Auto) 80.3 % Lymph % (Auto) 5.6 % [place] % (Auto) 11.6 % Eos % (Auto) 1.9 % Baso % (Auto) 0.1 % Neut # (Auto) 6.80 H (1.40-6.50) K/uL Lymph # (Auto) 0.47 L (1.20-3.40) K/uL [place] # (Auto) 0.98 H (0.11-0.59) K/uL Eos # (Auto) 0.16 (0.00-0.50) K/uL Baso # (Auto) 0.01 (0.00-0.20) K/uL Immature Gran # (Auto) 0.04 (0.01-0.20) K/uL Absolute Nucleated RBC (0.00-0.12) K/uL Nucleated RBC % (auto) % Polychromasia 1+ PT 11.9 (9.0-12.0) Seconds INR 1.1 (0.9-1.1) APTT 29 (21-31) Seconds PTT Ratio 1.1 Heparin Anti-Xa, Unfract (0.3-0.7) IU/ml VBG pH (7.36-7.41) VBG pCO2 (38-50) mmHg VBG pO2 mmHg VBG HCO3 mmol/L VBG O2 Saturation % VBG Base Excess mEq/L Sodium (136-145) mmol/L Potassium (3.5-5.1) mmol/L Chloride (98-107) mmol/L Carbon Dioxide (21-32) mmol/L Anion Gap (3-11) BUN (6-23) mg/dl Creatinine (0.6-1.4) mg/dl Est Cr Clr Drug Dosing ml/min Est GFR ( Amer) ml/min Est GFR (Non-Af Amer) ml/min BUN/Creatinine Ratio (10-20) Glucose (70-99(Fasting)) mg/dl POC Glucose 122 H (70-99) mg/dl Estimat Average Glucose mg/dl Hemoglobin A1c (4.5-5.6) % Calcium (8.6-10.3) mg/dl Phosphorus (2.5-4.9) mg/dl Magnesium (1.7-2.4) mg/dl Total Bilirubin (0.2-1.0) mg/dl AST (13-39) U/L ALT (7-52) U/L Alkaline Phosphatase (34-104) U/L Ammonia (18-72) umol/L Troponin I High Sens (0-20) pg/ml Total Protein (6.0-8.3) gm/dl Albumin (3.4-5.0) gm/dl Globulin (2.5-4.0) gm/dl Albumin/Globulin Ratio (0.9-2) Lipase (11-82) U/L Procalcitonin (0-0.5) ng/ml TSH (0.300-4.500) uIu/ml Free T4 (0.61-1.60) ng/dl Urine Color Urine Appearance (Clear) Urine pH (4.5-7.5) Ur Specific [place] (1.000-1.030) Urine Protein (Negative) Urine Glucose (UA) (Negative) Urine Ketones (Negative) Urine Blood (Negative) Urine Nitrite (Negative) Urine Bilirubin (Negative) Urine Urobilinogen (Negative) Ur Leukocyte Esterase (Negative) Urine WBC (Auto) (0-5) /hpf Urine RBC (Auto) (0-2) /hpf U Hyaline Cast (Auto) (0-2) /lpf U Epithel Cells (Auto) (0-2) /hpf Urine Bacteria (Auto) (None Seen) Blood Type Blood Type Recheck Antibody Screen Crossmatch 07/02/24 07/01/24 07/01/24 Range/Units 00:48 20:22 18:03 WBC (4.8-10.8) K/ul RBC (4.70-6.10) M/uL Hgb (14.0-18.0) g/dl Hct (42.0-52.0) % MCV (80.0-100.0) fL MCH (25.0-34.0) pg MCHC (32.0-36.0) g/dL RDW Std Deviation (36.4-46.3) fL RDW Coeff of Brianda (11.5-14.5) % Plt Count (130-400) K/uL MPV (9.4-12.4) fL Immature Gran % (Auto) % Neut % (Auto) % Lymph % (Auto) % [place] % (Auto) % Eos % (Auto) % Baso % (Auto) % Neut # (Auto) (1.40-6.50) K/uL Lymph # (Auto) (1.20-3.40) K/uL [place] # (Auto) (0.11-0.59) K/uL Eos # (Auto) (0.00-0.50) K/uL Baso # (Auto) (0.00-0.20) K/uL Immature Gran # (Auto) (0.01-0.20) K/uL Absolute Nucleated RBC (0.00-0.12) K/uL Nucleated RBC % (auto) % Polychromasia PT (9.0-12.0) Seconds INR (0.9-1.1) APTT (21-31) Seconds PTT Ratio Heparin Anti-Xa, Unfract (0.3-0.7) IU/ml VBG pH (7.36-7.41) VBG pCO2 (38-50) mmHg VBG pO2 mmHg VBG HCO3 mmol/L VBG O2 Saturation % VBG Base Excess mEq/L Sodium (136-145) mmol/L Potassium (3.5-5.1) mmol/L Chloride (98-107) mmol/L Carbon Dioxide (21-32) mmol/L Anion Gap (3-11) BUN (6-23) mg/dl Creatinine (0.6-1.4) mg/dl Est Cr Clr Drug Dosing ml/min Est GFR ( Amer) ml/min Est GFR (Non-Af Amer) ml/min BUN/Creatinine Ratio (10-20) Glucose (70-99(Fasting)) mg/dl POC Glucose 152 H (70-99) mg/dl Estimat Average Glucose mg/dl Hemoglobin A1c (4.5-5.6) % Calcium (8.6-10.3) mg/dl Phosphorus (2.5-4.9) mg/dl Magnesium (1.7-2.4) mg/dl Total Bilirubin (0.2-1.0) mg/dl AST (13-39) U/L ALT (7-52) U/L Alkaline Phosphatase (34-104) U/L Ammonia (18-72) umol/L Troponin I High Sens 628.7 H* D 51.8 H* D (0-20) pg/ml Total Protein (6.0-8.3) gm/dl Albumin (3.4-5.0) gm/dl Globulin (2.5-4.0) gm/dl Albumin/Globulin Ratio (0.9-2) Lipase (11-82) U/L Procalcitonin 0.07 (0-0.5) ng/ml TSH (0.300-4.500) uIu/ml Free T4 (0.61-1.60) ng/dl Urine Color Urine Appearance (Clear) Urine pH (4.5-7.5) Ur Specific [place] (1.000-1.030) Urine Protein (Negative) Urine Glucose (UA) (Negative) Urine Ketones (Negative) Urine Blood (Negative) Urine Nitrite (Negative) Urine Bilirubin (Negative) Urine Urobilinogen (Negative) Ur Leukocyte Esterase (Negative) Urine WBC (Auto) (0-5) /hpf Urine RBC (Auto) (0-2) /hpf U Hyaline Cast (Auto) (0-2) /lpf U Epithel Cells (Auto) (0-2) /hpf Urine Bacteria (Auto) (None Seen) Blood Type Blood Type Recheck Antibody Screen Crossmatch 07/01/24 07/01/24 07/01/24 Range/Units 13:15 12:35 10:39 WBC 9.10 (4.8-10.8) K/ul RBC 2.38 L (4.70-6.10) M/uL Hgb 8.0 L (14.0-18.0) g/dl Hct 25.3 L (42.0-52.0) % MCV 106.3 H (80.0-100.0) fL MCH 33.6 (25.0-34.0) pg MCHC 31.6 L (32.0-36.0) g/dL RDW Std Deviation 60.6 H (36.4-46.3) fL RDW Coeff of Brianda 15.8 H (11.5-14.5) % Plt Count 219 (130-400) K/uL MPV 10.1 (9.4-12.4) fL Immature Gran % (Auto) 0.8 % Neut % (Auto) 80.6 % Lymph % (Auto) 6.5 % [place] % (Auto) 10.7 % Eos % (Auto) 1.2 % Baso % (Auto) 0.2 % Neut # (Auto) 7.34 H (1.40-6.50) K/uL Lymph # (Auto) 0.59 L (1.20-3.40) K/uL [place] # (Auto) 0.97 H (0.11-0.59) K/uL Eos # (Auto) 0.11 (0.00-0.50) K/uL Baso # (Auto) 0.02 (0.00-0.20) K/uL Immature Gran # (Auto) 0.07 (0.01-0.20) K/uL Absolute Nucleated RBC 0.02 (0.00-0.12) K/uL Nucleated RBC % (auto) 0.2 % Polychromasia PT 11.9 (9.0-12.0) Seconds INR 1.1 (0.9-1.1) APTT (21-31) Seconds PTT Ratio Heparin Anti-Xa, Unfract (0.3-0.7) IU/ml VBG pH (7.36-7.41) VBG pCO2 (38-50) mmHg VBG pO2 mmHg VBG HCO3 mmol/L VBG O2 Saturation % VBG Base Excess mEq/L Sodium 139 (136-145) mmol/L Potassium 4.4 (3.5-5.1) mmol/L Chloride 108 H (98-107) mmol/L Carbon Dioxide 23 (21-32) mmol/L Anion Gap 8 (3-11) BUN 36 H (6-23) mg/dl Creatinine 1.21 (0.6-1.4) mg/dl Est Cr Clr Drug Dosing 37.8 ml/min Est GFR ( Amer) 62.0 ml/min Est GFR (Non-Af Amer) 53.5 ml/min BUN/Creatinine Ratio 29.8 H (10-20) Glucose 102 H (70-99(Fasting)) mg/dl POC Glucose (70-99) mg/dl Estimat Average Glucose mg/dl Hemoglobin A1c (4.5-5.6) % Calcium 8.8 (8.6-10.3) mg/dl Phosphorus 3.0 (2.5-4.9) mg/dl Magnesium 2.0 (1.7-2.4) mg/dl Total Bilirubin 0.4 (0.2-1.0) mg/dl AST 18 (13-39) U/L ALT 10 (7-52) U/L Alkaline Phosphatase 105 H (34-104) U/L Ammonia (18-72) umol/L Troponin I High Sens 31.3 H 26.4 H (0-20) pg/ml Total Protein 7.6 (6.0-8.3) gm/dl Albumin 3.4 (3.4-5.0) gm/dl Globulin 4.2 H (2.5-4.0) gm/dl Albumin/Globulin Ratio 0.8 L (0.9-2) Lipase 10 L (11-82) U/L Procalcitonin (0-0.5) ng/ml TSH 6.581 H (0.300-4.500) uIu/ml Free T4 1.01 (0.61-1.60) ng/dl Urine Color Yellow Urine Appearance Clear (Clear) Urine pH 5.0 (4.5-7.5) Ur Specific [place] 1.031 H (1.000-1.030) Urine Protein Trace H (Negative) Urine Glucose (UA) Negative (Negative) Urine Ketones Negative (Negative) Urine Blood Negative (Negative) Urine Nitrite Negative (Negative) Urine Bilirubin Negative (Negative) Urine Urobilinogen Negative (Negative) Ur Leukocyte Esterase Trace H (Negative) Urine WBC (Auto) 0-5 (0-5) /hpf Urine RBC (Auto) 0-2 (0-2) /hpf U Hyaline Cast (Auto) 3-5 H (0-2) /lpf U Epithel Cells (Auto) 0-2 (0-2) /hpf Urine Bacteria (Auto) None Seen (None Seen) Blood Type Blood Type Recheck Antibody Screen Crossmatch Diagnostic Findings Ankle X-Ray 07/01/24 10:45 LEFT ANKLE 3 VIEWS CLINICAL HISTORY: Fall with left ankle injury. FINDINGS: 3 views of the left ankle are obtained. No prior studies are available for comparison at the time of dictation. The skeletal structures are osteopenic. There is a band of lucency through the lateral malleolus without clear cortical disruption. A nondisplaced fracture is not excluded. No additional findings are suspicious for acute fracture. The ankle mortise is intact. Soft tissue swelling is seen throughout the left leg. There is advanced atherosclerotic calcification of the regional arteries. IMPRESSION: 1. There is an indeterminate band of lucency through the lateral malleolus wit hout clear cortical disruption. A nondisplaced fracture is not excluded. 2. No additional findings are suspicious for acute fracture. 3. Diffuse soft tissue edema. Electronically signed by: Bernabe Willis M.D. 07/01/2024 1:13 PM Chest X-Ray 07/01/24 10:45 XR chest 1V portable CLINICAL HISTORY: Chest pain, nonspecific COMPARISON STUDY: Chest radiograph September 20, 2020. FINDINGS: Median sternotomy wires and mediastinal surgical clips are present. There is no pneumothorax or pleural effusion. Moderate left basilar opacity is present. Right lung is clear. Subtle interstitial thickening is unchanged. This is likely chronic. Cardiomediastinal silhouette is stable. IMPRESSION: Moderate left basilar airspace opacity. This favors pneumonia. Radiographic follow-up to ensure resolution is recommended. ACT 112: Negative or not required by law. Electronically signed by: Jordan Davidson M.D. 07/01/2024 11:[address] 07/01/24 10:[address] OF THE BRAIN; CT ANGIOGRAM OF THE BRAIN; CT ANGIOGRAM OF THE NECK CLINICAL HISTORY: Syncope. Change in mental status. COMPARISON STUDY: No priors. TECHNIQUE: Unenhanced axial CT scan of the brain is performed. Subsequently, following the IV administration of 119 of Optiray 320, CT angiogram of the head and neck was performed from the aortic arch to the vertex. Images are reviewed in the axial, sagittal, and coronal planes. 3-D MIPS images are created and assessed. IV contrast was administered without complication. All measurements were calculated based on NASCET criteria. A dose lowering technique was utilized adhering to the principles of ALARA. CT DOSE: 1070.67 mGy.cm FINDINGS: Brain parenchyma: There is age-related involutional change noting moderate subcortical and periventricular microangiopathic disease. There is no hemorrhage, mass effect, or evidence of acute territorial ischemia by CT criteria. There is no evidence of enhancing mass lesion on the angiogram phase images. The ventricles, sulci, and cisterns are prominent secondary to involutional change. Godinez-white matter differentiation is preserved. No extra- axial fluid collection is seen. Thoracic aorta: There is atherosclerotic calcification of the thoracic aorta. Visualized portions of the thoracic aorta are normal in caliber. The aortic arch demonstrates standard 3-vessel anatomy. Right carotid arterial system: The right common carotid artery is widely patent, as are the right internal and external carotid arteries. Atherosclerotic plaque and irregularity is seen throughout. Left carotid arterial system: The left common carotid artery is widely patent, as are the left internal and external carotid arteries. Atherosclerotic plaque and irregularity is seen throughout. Vertebral arteries: The vertebral arteries are patent bilaterally noting right- sided dominance. The left vertebral artery is diminutive. Subclavian arteries: Widely patent bilaterally. Intracranial vasculature: There is atherosclerotic calcification of the cavernous carotid and vertebral arteries. The internal carotid arteries are patent at the skull base, as are the anterior and middle cerebral arteries bilaterally. The vertebrobasilar system and posterior cerebral arteries are widely patent. The right vertebral artery is dominant. 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 No additional aneurysm is seen. No foci of high-grade stenosis or focal vessel occlusion are seen throughout the intracranial circulation. Jugular veins: Patent bilaterally. Dural sinuses: Patent. Lung apices: Partially visualized upper lobe lung parenchyma appears clear. Soft tissues: The visualized pharyngeal soft tissues are normal in appearance noting angiographic phase technique. The oropharyngeal airway appears widely patent. The thyroid gland is atrophic versus surgically absent. The salivary glands are normal in appearance. No cervical lymphadenopathy is seen. There is a right posterior scalp contusion Skeletal structures: The skeletal structures are osteopenic. The calvarium appears intact. The cervical spine is maintained noting multilevel spondylosis. The patient is status post midline sternotomy. Orbits: The bony orbits are intact. Orbital contents are normal as visualized noting bilateral ocular lens implants. Sinuses and mastoids: There is moderately marked mucosal thickening within the ethmoid sinuses. Trace mucosal thickening is seen within the maxillary antra, the sphenoid sinuses, and the left frontal sinus. The mastoid air cells are well pneumatized. IMPRESSION: 1. There is no hemorrhage, mass effect, or evidence of acute territorial ischemia by CT criteria. 2. 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 3. Otherwise unremarkable CT angiogram examinations of the head and neck noting advanced atherosclerotic plaque. 4. Right posterior scalp contusion. ACT 112: Negative or not required by law. Electronically signed by: Bernabe Willis M.D. 07/01/2024 12:44 PM Head CTA 07/01/24 10:[address] OF THE BRAIN; CT ANGIOGRAM OF THE BRAIN; CT ANGIOGRAM OF THE NECK CLINICAL HISTORY: Syncope. Change in mental status. COMPARISON STUDY: No priors. TECHNIQUE: Unenhanced axial CT scan of the brain is performed. Subsequently, following the IV administration of 119 of Optiray 320, CT angiogram of the head and neck was performed from the aortic arch to the vertex. Images are reviewed in the axial, sagittal, and coronal planes. 3-D MIPS images are created and assessed. IV contrast was administered without complication. All measurements were calculated based on NASCET criteria. A dose lowering technique was u tilized adhering to the principles of ALARA. CT DOSE: 1070.67 mGy.cm FINDINGS: Brain parenchyma: There is age-related involutional change noting moderate subcortical and periventricular microangiopathic disease. There is no hemorrhage, mass effect, or evidence of acute territorial ischemia by CT criteria. There is no evidence of enhancing mass lesion on the angiogram phase images. The ventricles, sulci, and cisterns are prominent secondary to involutional change. Godinez-white matter differentiation is preserved. No extra- axial fluid collection is seen. Thoracic aorta: There is atherosclerotic calcification of the thoracic aorta. Visualized portions of the thoracic aorta are normal in caliber. The aortic arch demonstrates standard 3-vessel anatomy. Right carotid arterial system: The right common carotid artery is widely patent, as are the right internal and external carotid arteries. Atherosclerotic plaque and irregularity is seen throughout. Left carotid arterial system: The left common carotid artery is widely patent, as are the left internal and external carotid arteries. Atherosclerotic plaque and irregularity is seen throughout. Vertebral arteries: The vertebral arteries are patent bilaterally noting right- sided dominance. The left vertebral artery is diminutive. Subclavian arteries: Widely patent bilaterally. Intracranial vasculature: There is atherosclerotic calcification of the cavernous carotid and vertebral arteries. The internal carotid arteries are patent at the skull base, as are the anterior and middle cerebral arteries bilaterally. The vertebrobasilar system and posterior cerebral arteries are widely patent. The right vertebral artery is dominant. 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 No additional aneurysm is seen. No foci of high-grade stenosis or focal vessel occlusion are seen throughout the intracranial circulation. Jugular veins: Patent bilaterally. Dural sinuses: Patent. Lung apices: Partially visualized upper lobe lung parenchyma appears clear. Soft tissues: The visualized pharyngeal soft tissues are normal in appearance noting angiographic phase technique. The oropharyngeal airway appears widely patent. The thyroid gland is atrophic versus surgically absent. The salivary glands are normal in appearance. No cervical lymphadenopathy is seen. There is a right posterior scalp contusion Skeletal structures: The skeletal structures are osteopenic. The calvarium appears intact. The cervical spine is maintained noting multilevel spondylosis. The patient is status post midline sternotomy. Orbits: The bony orbits are intact. Orbital contents are normal as visualized noting bilateral ocular lens implants. Sinuses and mastoids: There is moderately marked mucosal thickening within the ethmoid sinuses. Trace mucosal thickening is seen within the maxillary antra, the sphenoid sinuses, and the left frontal sinus. The mastoid air cells are well pneumatized. IMPRESSION: 1. There is no hemorrhage, mass effect, or evidence of acute territorial ischemia by CT criteria. 2. 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 3. Otherwise unremarkable CT angiogram examinations of the head and neck noting advanced atherosclerotic plaque. 4. Right posterior scalp contusion. ACT 112: Negative or not required by law. Electronically signed by: Bernabe Willis M.D. 07/01/2024 12:44 PM Neck CTA 07/01/24 10:[address] OF THE BRAIN; CT ANGIOGRAM OF THE BRAIN; CT ANGIOGRAM OF THE NECK CLINICAL HISTORY: Syncope. Change in mental status. COMPARISON STUDY: No priors. TECHNIQUE: Unenhanced axial CT scan of the brain is performed. Subsequently, following the IV administration of 119 of Optiray 320, CT angiogram of the head and neck was performed from the aortic arch to the vertex. Images are reviewed in the axial, sagittal, and coronal planes. 3-D MIPS images are created and assessed. IV contrast was administered without complication. All measurements were calculated based on NASCET criteria. A dose lowering technique was utilized adhering to the principles of ALARA. CT DOSE: 1070.67 mGy.cm FINDINGS: Brain parenchyma: There is age-related involutional change noting moderate subcortical and periventricular microangiopathic disease. There is no hemorrhage, mass effect, or evidence of acute territorial ischemia by CT criteria. There is no evidence of enhancing mass lesion on the angiogram phase images. The ventricles, sulci, and cisterns are prominent secondary to involu tional change. Godinez-white matter differentiation is preserved. No extra-axial fluid collection is seen. Thoracic aorta: There is atherosclerotic calcification of the thoracic aorta. Visualized portions of the thoracic aorta are normal in caliber. The aortic arch demonstrates standard 3-vessel anatomy. Right carotid arterial system: The right common carotid artery is widely patent, as are the right internal and external carotid arteries. Atherosclerotic plaque and irregularity is seen throughout. Left carotid arterial system: The left common carotid artery is widely patent, as are the left internal and external carotid arteries. Atherosclerotic plaque and irregularity is seen throughout. Vertebral arteries: The vertebral arteries are patent bilaterally noting right- sided dominance. The left vertebral artery is diminutive. Subclavian arteries: Widely patent bilaterally. Intracranial vasculature: There is atherosclerotic calcification of the cavernous carotid and vertebral arteries. The internal carotid arteries are patent at the skull base, as are the anterior and middle cerebral arteries bilaterally. The vertebrobasilar system and posterior cerebral arteries are widely patent. The right vertebral artery is dominant. 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 No additional aneurysm is seen. No foci of high-grade stenosis or focal vessel occlusion are seen throughout the intracranial circulation. Jugular veins: Patent bilaterally. Dural sinuses: Patent. Lung apices: Partially visualized upper lobe lung parenchyma appears clear. Soft tissues: The visualized pharyngeal soft tissues are normal in appearance noting angiographic phase technique. The oropharyngeal airway appears widely patent. The thyroid gland is atrophic versus surgically absent. The salivary glands are normal in appearance. No cervical lymphadenopathy is seen. There is a right posterior scalp contusion Skeletal structures: The skeletal structures are osteopenic. The calvarium appears intact. The cervical spine is maintained noting multilevel spondylosis. The patient is status post midline sternotomy. Orbits: The bony orbits are intact. Orbital contents are normal as visualized noting bilateral ocular lens implants. Sinuses and mastoids: There is moderately marked mucosal thickening within the ethmoid sinuses. Trace mucosal thickening is seen within the maxillary antra, the sphenoid sinuses, and the left frontal sinus. The mastoid air cells are well pneumatized. IMPRESSION: 1. There is no hemorrhage, mass effect, or evidence of acute territorial ischemia by CT criteria. 2. 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 3. Otherwise unremarkable CT angiogram examinations of the head and neck noting advanced atherosclerotic plaque. 4. Right posterior scalp contusion. ACT 112: Negative or not required by law. Electronically signed by: Bernabe Willis M.D. 07/01/2024 12:44 PM Venous Doppler Study 07/01/24 15:06 LEFT LOWER EXTREMITY VENOUS DOPPLER CLINICAL HISTORY: Erythematous and edematous COMPARISON STUDY: No previous studies for comparison. TECHNIQUE: Sonography of the deep venous system of the left lower extremity was performed. Compression and augmentation were evaluated. FINDINGS: The left common femoral, superficial femoral and popliteal veins were compressible. Augmentation was normal. Flow was shown within the deep calf vessels. Incidental note is made of occlusion of left common femoral and superficial femoral arteries as well as an occluded left thigh bypass graft. IMPRESSION: 1. No evidence of deep venous thrombus within the left lower extremity. 2. 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 ACT 112: Negative or not required by law. Electronically signed by: Jordan Davidson M.D. 07/01/2024 3:[address] 07/02/24 15:[address] DOSE: 563.14 mGy.cm HISTORY: Abnormal ankle radiograph. ?lat malleolar Fx?; ulcer over achilles TECHNIQUE: Multiaxial CT images of the left ankle were performed and reformatted in the sagittal and coronal plane without the use of contrast. A dose lowering technique was utilized adhering to the principles of ALARA. COMPARISON: Left ankle radiograph 07/01/2024. FINDINGS: The bones are osteopenic. No acute fracture or dislocation within the left ankle. Specifically, the distal fibula appears intact. Mild degenerative changes and chondrocalcinosis within the tibiotalar joint. Thickening of the distal Achilles tendon suggestive of a tendinosis. There is peripheral calcification within the peroneus tendons. Vascular calcifications are also noted. There is skin thickening and mild subcutaneous edema within the ankle most pronounced posteriorly. No loculated fluid collections on this noncontrast study to suggest an abscess. No bony destructive changes to suggest an osteomyelitis. There appears to be a skin ulceration within the posterior ankle overlying the Achilles tendon measuring 2.7 cm in length. IMPRESSION: 1. No fracture or dislocation within the left ankle. 2. Skin thickening and diffuse subcutaneous edema. This could be chronic or represent a cellulitis. 3. No loculated fluid collections to suggest an abscess. 4. Skin ulceration overlying the Achilles tendon measuring 2.7 cm. 5. Thickening of the distal Achilles tendon consistent with a tendinosis. 6. No bony destructive changes to suggest an osteomyelitis. ACT 112: Negative or not required by law. Electronically signed by: Tylor Irby M.D. 07/02/2024 6:04 PM PG Care Time/CCT Total # of Minutes Spent Total Time Spent with Patient: Total time spent is greater than 50% in coordination of care (as documented) at patient's floor/unit and/or counseling patient: I spent 90 minutes overall addressing this case: 15 min in medical data review/discussion with referring provider(s) and/or preparation for the visit 15 min in direct interaction with the patient/exam 30 min in Advance Care Planning/Goals of Care discussions as detailed above in note (must be >16min) 15 min in subsequent review and synthesis of assessment and plan 15 min communicating with other providers regarding the patient's case: Advanced Care Planning 85282 Advanced Care Planning 30 [place] [address] IN/OBS CONSULT LVL 4,60M (25 - SIGNIFICANT, SEPARATELY IDENTIFIABLE ) Patient Type New Medical Decision Making High Complexity Diagnoses Left leg pain M79.605 Weakness generalized R53.1 Advanced care planning/counseling discussion Z71.89 Palliative care by specialist Z51.5 Left leg swelling M79.89 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
[2024-07-04] MEDS: cefTRIAXone SODIUM 2,000 MG/50 ML BAG IV SCH (17:10)
--- NOTE | 2024-07-04 21:05 | Hospitalist Progress Note ---
Date of Service July 04, 2024 Assessment & Plan (1) Syncope: Plan: Suspect multifactorial -- severe in the setting of infection, anemia, NSTEMI, ?acute stroke, etc. Recent echo this summer via [facility] system showed EF 43% with severe aortic stenosis, severe mitral regurgitation, mild tricuspid regurgitation Echo this admission with even worse EF - now 20-25% (2) Weakness: Plan: multifactorial causes - infection (LLL pneumonia, L achilles region/ankle), severe anemia, NSTEMI, intractable pain/narcotic use chronically, acute/chronic CHF, ?acute stroke, etc. he is quite ill with NUMEROUS medical issues at play ammonia level wnl VBG w/o hypercapnia (3) Pneumonia: Plan: LLL fortunately stable in room air Cont rocephin - day #4 Cont doxy - day #3 Doxy will provide better skin coverage (L ankle/achilles region) (4) Claudication in peripheral vascular disease: Plan: severe PAD of LLE much of his pain is likely rest pain from his PAD he has been on chronic tramadol 100mg TID for several years but it has been ineffective at controlling his pain this has been stopped in [place] of fentanyl patch 12mcg q3d norco not helping - stop such, change to oxycodone 10mg prn for refractory pain - dilaudid 0.25mg IV q6h prn cont pletal, etc (5) Left leg swelling: Plan: suspect 2nd to cellulitis/ulcer IV abx pain meds (6) Anemia: Plan: macrocytic, baseline Hb 9-10 previous B12/folate wnl TSH mildly high - could be contributing cause of macrocytosis uncertain lowest Hb 7.3 --> s/p Tx of 1 unit PRBCs repeat CBC am (7) Diabetes: Plan: Patient's home regimen held on admission Continue BSG checks, sliding-scale novolog a1c 6% (8) Chronic kidney disease, stage III (moderate): Plan: CKD stage G3 B/A2 with a baseline creatinine of 1.41.6. Follows with nephrology. repeat BMP am (9) Benign prostate hyperplasia: Plan: cont flomax if BP allows (10) GERD (gastroesophageal reflux disease): Plan: cont pepcid (11) Hypothyroidism: Plan: -TSH of 6.5 -Continue levothyroxine 150mcg compliance with meds at home?? either way will not change dose today (12) S/P CABG (coronary artery bypass graft): Plan: noted now with NSTEMI he had his CABG in [place] several decades ago followed by several stents very poor cath candidate (13) HTN (hypertension): Plan: cont BB, imdur, flomax (14) Non-ST elevation (NSTEMI) myocardial infarction: Plan: rising troponin with known CAD certainly could have had NSTEMI leading to syncope heparin drip x 48 hours (which is 07/04 about 0300) - thus, stop heparin appreciate Dr Alvarez's assistance poor cath candidate echo findings noted with depressed EF (much worse than earlier this summer) cont BB, imdur, asa, statin, etc (15) Chronic ulcer of left heel: Plan: exposed achilles with purulent drainage appreciate wound care assistance achilles tendon inflamed on CT -- easily could be infected would need surgical debridement for this, but patient does not want aggressive measures thus, defer on such with IV abx there is improvement in the drainage/purulence simply cont IV abx for now control his pain (16) Aortic stenosis: Plan: severe likely contributed to #1 (17) Chronic systolic CHF (congestive heart failure): Plan: EF previously 40s now 20-25% SEVERE ischemic CM is the cause (multiple WMAs on echo) (18) Diplopia: Plan: along with coordination issues / ataxia of hands as well as ?visual field cut all worrisome for acute stroke in the setting of his NSTEMI & syncope offered MRI brain today once again but he deferred on such will patch the right eye to help extinguish the double vision Plan appreciate Dr Gilliland's assistance appreciate Dr Alvarez's assistance Admission and Anticipated Discharge Date Admission Date: July 02, 2024 Subjective continues with double vision continues with issues with coordination in his hands R>L also has chronic tinnitus but his hearing seems off "as if I am talking in a box" he continues with severe LLE pain despite fentanyl patch & norco prn no chest pain he met with his family & Dr Gilliland today no aggressive measures, surgery to his LLE, no cath, etc - no escalation of care he does want to try "rehab" at [facility] but he realizes his potential for improvement is limited denies any chest pain denies dyspnea he feels weak appetite fair Review of Systems Review of Systems: gen - no fevers or chills cv - no chest pain, no orthopnea pulm - no dyspnea, no wheezing GI - no abd pain Physical Exam Physical Exam: gen - severely weak, generalized pallor, awake/alert eyes - R eye ptosis; +diplopia with any eye movement; R eye lateral abduction deficit? neck - no JVD mouth - MMM heart - RRR, s1 s2, 2-3/6 holosystolic murmur RUSB/apex lungs - decreased BS bases L>R, no respiratory distress abd - soft NT ND BS+ vascular - L popliteal and L foot pulses <1+; L foot and L distal kowalski cool to touch with delayed cap refill; pulses 1+ right foot ext - left foot with <1+ edema, trace edema right foot neuro - finger/nose/finger maneuver with ataxia b/l skin - mild erythema of the majority of left lower leg; ulcer overlying the achilles region - tendon still visible; not as much purulence; ulcer otherwise unchanged Results & Data Results & Data Vital Signs (Past 12 Hours) Vital Signs Temp Pulse Resp BP Pulse Ox O2 Del Method 07/04/24 16:14 37.0 C 86 18 103/57 L 91 Room Air 07/04/24 11:49 37.1 C 80 18 102/58 L 91 Room Air Laboratory Results Laboratory Results - last 24 hr 07/04/24 07/04/24 07/04/24 05:39 07:18 11:37 Heparin Anti-Xa, Unfract 0.26 L POC Glucose 117 H 156 H 07/04/24 07/04/24 16:35 20:25 Heparin Anti-Xa, Unfract POC Glucose 130 H 165 H PG Care Time/CCT Total # of Minutes Spent Total Time Spent with Patient: Total time spent is greater than 50% in coordination of care (as documented) at patient's floor/unit and/or counseling patient: Coding Level of Care Code 92877 SUB INP/OBS CARE 2MIN Diagnoses Syncope R55 Syncope type: unspecified Weakness R53.1 Pneumonia J18.9 Laterality: left Lung location: unspecified part of lung Pneumonia type: due to unspecified organism Claudication in peripheral vascular disease I73.9 Left leg swelling M79.89 Anemia, unspecified type D64.9 Anemia type: unspecified type Diabetes E11.9 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 Chronic kidney disease stage 3 subtype: stage 3b (GFR 30-44) Benign prostate hyperplasia N40.0 Gastroesophageal reflux disease without esophagitis K21.9 Esophagitis presence: without esophagitis Acquired hypothyroidism E03.9 Hypothyroidism type: acquired S/P CABG (coronary artery bypass graft) Z95.1 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 Non-ST elevation (NSTEMI) myocardial infarction I21.4 Chronic ulcer of left heel L97.429 Non-pressure ulcer stage: unspecified non-pressure ulcer stage Aortic stenosis I35.0 Chronic systolic CHF (congestive heart failure) I50.22 Diplopia H53.2 (1) Syncope Syncope type: unspecified Qualified Code(s): R55 - Syncope and collapse (3) Pneumonia Laterality: left Lung location: unspecified part of lung Pneumonia type: due to unspecified organism Qualified Code(s): J18.9 - Pneumonia, unspecified organism (6) Anemia Anemia type: unspecified type Qualified Code(s): D64.9 - Anemia, unspecified (8) Chronic kidney disease, stage III (moderate) Chronic kidney disease stage 3 subtype: stage 3b (GFR 30-44) Qualified Code(s): N18.32 - Chronic kidney disease, stage 3b (10) GERD (gastroesophageal reflux disease) Esophagitis presence: without esophagitis Qualified Code(s): K21.9 - Gastro- esophageal reflux disease without esophagitis (11) Hypothyroidism Hypothyroidism type: acquired Qualified Code(s): E03.9 - Hypothyroidism, unspecified (13) HTN (hypertension) Hypertension type: renovascular hypertension Qualified Code(s): I15.0 - Renovascular hypertension (15) Chronic ulcer of left heel Non-pressure ulcer stage: unspecified non-pressure ulcer stage Qualified Code(s): L97.429 - Non-pressure chronic ulcer of left heel and midfoot with un specified severity
--- NOTE | 2024-07-04 23:57 | Electrocardiogram Report ---
Test Reason : Blood Pressure : */* mmHG Vent. Rate : 97 BPM Atrial Rate : 82 BPM P-R Int : 272 ms QRS Dur : 154 ms QT Int : 426 ms P-R-T Axes : * -56 99 degrees QTcB Int : 541 ms Possible Sinus rhythm with 1st degree A-V block with frequent Premature atrial complexes Premature ventricular complexes Left axis deviation Left bundle branch block Abnormal ECG When compared with ECG of 02-Jul-2024 05:02, Premature ventricular complexes are now Present Confirmed by Stuart Alvarez ([id number]) on 07/04/2024 11:56:59 PM Referred By: REFERRED SELF Confirmed By: Stuart Alvarez
--- NOTE | 2024-07-04 23:59 | Electrocardiogram Report ---
Test Reason : Blood Pressure : */* mmHG Vent. Rate : 79 BPM Atrial Rate : 79 BPM P-R Int : 294 ms QRS Dur : 156 ms QT Int : 462 ms P-R-T Axes : 52 -45 106 degrees QTcB Int : 529 ms Sinus rhythm with sinus arrhythmia with 1st degree A-V block Premature atrial complexes Left axis deviation Left bundle branch block Abnormal ECG When compared with ECG of 03-Jul-2024 05:26, Premature ventricular complexes are no longer Present Confirmed by Stuart Alvarez ([id number] on 07/04/2024 11:58:31 PM Referred By: REFERRED SELF Confirmed By: Stuart Alvarez
[2024-07-05] MEDS: oxyCODONE HCL IR 5 MG TAB (IMMEDIATE RELEASE) PO PRN (02:49)
[2024-07-05 07:45] LABS: Hematocrit (blood only) 22.5 % (42.0-52.0); Hemoglobin 7.3 g/dl (14.0-18.0); Mean Corpuscular Hemoglobin 33.2 pg (25.0-34.0); Mean Corpuscular Hgb Conc 32.4 g/dL (32.0-36.0); Mean Corpuscular Volume 102.3 fL (80.0-100.0); Mean Platelet Volume 10.2 fL (9.4-12.4); Platelet Count 194 K/uL (130-400); RDW Coefficient of Variation 16.6 % (11.5-14.5); RDW Standard Deviation 61.4 fL (36.4-46.3)
[2024-07-05 08:07] LABS: BUN Creatinine Ratio 23.3 (10-20); Calcium 8.5 mg/dl (8.6-10.3); Est GFR (African American) 49.4 ml/min; Est GFR (Non-African American) 42.6 ml/min; Potassium 4.2 mmol/L (3.5-5.1)
--- NOTE | 2024-07-05 13:01 | Hospitalist Progress Note ---
Date of Service July 05, 2024 Assessment & Plan (1) Non-ST elevation (NSTEMI) myocardial infarction: Plan: completed 48 hours of heparin drip - now off such very poor cath candidate thus deferring on such echo findings noted with depressed EF and multiple WMAs (much worse than earlier this summer) cont BB, imdur, asa, statin, etc peak troponin - 1470 no ischemic symptoms last few days (2) Chronic ulcer of left heel: Plan: unfortunately he has exposed achilles with purulent drainage appreciate wound care assistance achilles tendon inflamed on CT -- easily could be infected would need surgical debridement for this, but patient does not want aggressive measures thus, deferring on such with IV abx there has been improvement in the drainage/purulence from the ulcer simply cont IV abx for now control his pain increase fentanyl patch to 25mcg q3d cont oxy 10's prn cont dilaudid prn (3) Syncope: Plan: Suspect multifactorial -- severe in the setting of infection, anemia, NSTEMI, ?acute stroke, etc. Recent echo this summer via [facility] system showed EF 43% with severe aortic stenosis, severe mitral regurgitation, mild tricuspid regurgitation Echo this admission with even worse EF - now 20-25% (4) Weakness: Plan: multifactorial causes - infection (LLL pneumonia, L achilles region/ankle), severe anemia, NSTEMI, intractable pain/narcotic use chronically, acute/chronic CHF, ?acute stroke, etc. he is quite ill with NUMEROUS medical issues at play ammonia level wnl VBG w/o hypercapnia (5) Pneumonia: Plan: LLL fortunately stable in room air Cont rocephin - day #5 Cont doxy - day #4 Doxy will provide skin coverage (L ankle/achilles region) as well (6) Claudication in peripheral vascular disease: Plan: severe PAD of LLE much of his pain is likely rest pain from his PAD he has been on chronic tramadol 100mg TID for several years but it has been ineffective at controlling his pain this has been stopped in [place] of fentanyl patch 12mcg q3d however, still having severe pain despite the patch thus, increase from 12mcg to 25mcg q3days cont oxycodone 10mg prn for refractory pain - dilaudid 0.25mg IV q6h prn cont pletal, etc (7) Left leg swelling: Plan: 2nd to cellulitis/ulcer IV abx pain meds (8) Anemia: Plan: macrocytic, baseline Hb 9-10 previous B12/folate wnl TSH mildly high - could be contributing cause of macrocytosis uncertain s/p Tx of 1 unit PRBCs early in the stay now Hb 7.3 today defer on transfusion today consider tomorrow if same or lower indices repeat CBC am (9) Diabetes: Plan: Patient's home regimen held on admission Continue BSG checks, sliding-scale novolog a1c 6% (10) Chronic kidney disease, stage III (moderate): Plan: CKD stage G3 B/A2 with a baseline creatinine of 1.41.6. Follows with nephrology. repeat BMP am (11) Benign prostate hyperplasia: Plan: cont flomax if BP allows (12) GERD (gastroesophageal reflux disease): Plan: cont pepcid (13) Hypothyroidism: Plan: -TSH of 6.5 -Continue levothyroxine 150mcg compliance with meds at home?? either way will not change dose (14) S/P CABG (coronary artery bypass graft): Plan: noted now with NSTEMI he had his CABG in [place] several decades ago followed by several stents very poor cath candidate (15) HTN (hypertension): Plan: cont BB, imdur, flomax (16) Aortic stenosis: Plan: severe likely contributed to #1 (17) Chronic systolic CHF (congestive heart failure): Plan: EF previously 40s now 20-25% SEVERE ischemic CM is the cause (multiple WMAs on echo) does not examine overtly volume overloaded today but low threshold to start lasix 20mg daily (18) Diplopia: Plan: along with coordination issues / ataxia of hands as well as ?visual field cut all worrisome for acute stroke in the setting of his NSTEMI & syncope offered MRI brain today - again he declined will patch the right eye to help extinguish the double vision - did this today while on rounds Plan appreciate Dr Gilliland's assistance appreciate Dr Alvarez's assistance will update his daughter Denise today can d/c tele, move to med/surg Admission and Anticipated Discharge Date Admission Date: July 02, 2024 Subjective tele overnight wnl no chest pain was placed on NC O2 overnight, but denies any dyspnea no cough appetite is very poor main complaint is that of ongoing left leg pain in distal left leg denies pain other locations still with double vision he continues with hearing changes as well he did not try an eye patch yet we discussed MRI brain - declines such, stating "let me talk with my daughter first" Review of Systems Review of Systems: cv - no chest pain, no orthopnea pulm - no dyspnea at rest gen - very weak GI - no BM in over a week? but no nausea or emesis Physical Exam Physical Exam: gen - severely weak, generalized pallor, awake/alert - trying to watch [employer] football game eyes - R eye ptosis neck - no JVD mouth - MMM heart - RRR, s1 s2, 2-3/6 holosystolic murmur RUSB/apex lungs - decreased BS bases L>R abd - soft NT ND BS+ vascular - L popliteal and L foot pulses <1+; L foot and L distal kowalski cool to touch with delayed cap refill; pulses 1+ right foot ext - left foot with <1+ edema, trace edema right foot skin - dressings intact left foot/ankle (not removed today) Results & Data Results & Data Vital Signs (Past 12 Hours) Vital Signs Temp Pulse Resp BP Pulse Ox O2 Del Method O2 Flow Rate 07/05/24 10:44 36.6 C 76 16 95/67 L 96 Nasal Cannula 07/05/24 08:30 37.0 C 85 20 110/67 96 Room Air 07/05/24 03:05 37.0 C 81 20 109/61 95 Nasal Cannula 0.5 Laboratory Results Laboratory Results - last 24 hr 07/04/24 07/04/24 07/05/24 16:35 20:25 07:27 WBC 7.50 RBC 2.20 L Hgb 7.3 L Hct 22.5 L MCV 102.3 H MCH 33.2 MCHC 32.4 RDW Std Deviation 61.4 H RDW Coeff of Brianda 16.6 H Plt Count 194 MPV 10.2 Sodium 134 L Potassium 4.2 Chloride 103 Carbon Dioxide 24 Anion Gap 7 BUN 34 H Creatinine 1.46 H Est Cr Clr Drug Dosing 32.0 Est GFR ( Amer) 49.4 Est GFR (Non-Af Amer) 42.6 BUN/Creatinine Ratio 23.3 H Glucose 110 H POC Glucose 130 H 165 H Calcium 8.5 L 07/05/24 07/05/24 07:32 11:11 WBC RBC Hgb Hct MCV MCH MCHC RDW Std Deviation RDW Coeff of Brianda Plt Count MPV Sodium Potassium Chloride Carbon Dioxide Anion Gap BUN Creatinine Est Cr Clr Drug Dosing Est GFR ( Amer) Est GFR (Non-Af Amer) BUN/Creatinine Ratio Glucose POC Glucose 130 H 172 H Calcium PG Care Time/CCT Total # of Minutes Spent Total Time Spent with Patient: Total time spent is greater than 50% in coordination of care (as documented) at patient's floor/unit and/or counseling patient: Coding Level of Care Code 25779 SUB INP/OBS CARE 2/35MIN Diagnoses Non-ST elevation (NSTEMI) myocardial infarction I21.4 Chronic ulcer of left heel L97.429 Non-pressure ulcer stage: unspecified non-pressure ulcer stage Syncope R55 Syncope type: unspecified Weakness R53.1 Pneumonia J18.9 Laterality: left Lung location: unspecified part of lung Pneumonia type: due to unspecified organism Claudication in peripheral vascular disease I73.9 Left leg swelling M79.89 Anemia, unspecified type D64.9 Anemia type: unspecified type Diabetes E11.9 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 Chronic kidney disease stage 3 subtype: stage 3b (GFR 30-44) Benign prostate hyperplasia N40.0 Gastroesophageal reflux disease without esophagitis K21.9 Esophagitis presence: without esophagitis Acquired hypothyroidism E03.9 Hypothyroidism type: acquired S/P CABG (coronary artery bypass graft) Z95.1 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 (2) Chronic ulcer of left heel Non-pressure ulcer stage: unspecified non-pressure ulcer stage Qualified Code(s): L97.429 - Non-pressure chronic ulcer of left heel and midfoot with unspecified severity (3) Syncope Syncope type: unspecified Qualified Code(s): R55 - Syncope and collapse (5) Pneumonia Laterality: left Lung location: unspecified part of lung Pneumonia type: due to unspecified organism Qualified Code(s): J18.9 - Pneumonia, unspecified organism (8) Anemia Anemia type: unspecified type Qualified Code(s): D64.9 - Anemia, unspecified (10) Chronic kidney disease, stage III (moderate) Chronic kidney disease stage 3 subtype: stage 3b (GFR 30-44) Qualified Code(s): N18.32 - Chronic kidney disease, stage 3b (12) GERD (gastroesophageal reflux disease) Esophagitis presence: without esophagitis Qualified Code(s): K21.9 - Gastro- esophageal reflux disease without esophagitis (13) Hypothyroidism Hypothyroidism type: acquired Qualified Code(s): E03.9 - Hypothyroidism, unspecified (15) HTN (hypertension) Hypertension type: renovascular hypertension Qualified Code(s): I15.0 - Renovascular hypertension
[2024-07-05] MEDS: fentaNYL 25 MCG/HR TDSY TD SCH (15:41)
[2024-07-05] MEDS: bisacodyL 10 MG SUPP PR STA (15:41)
[2024-07-05] MEDS: ACETAMINOPHEN 500 MG TAB PO SCH (15:42)
[2024-07-05] MEDS: CHECK fentaNYL PATCH PLACEMENT SCH (15:43)
[2024-07-05] MEDS: bisacodyL 10 MG SUPP PR ONE (16:55)
[2024-07-06 06:10] LABS: Hematocrit (blood only) 23.6 % (42.0-52.0); Hemoglobin 7.8 g/dl (14.0-18.0); Mean Corpuscular Hemoglobin 33.6 pg (25.0-34.0); Mean Corpuscular Hgb Conc 33.1 g/dL (32.0-36.0); Mean Corpuscular Volume 101.7 fL (80.0-100.0); Mean Platelet Volume 10.5 fL (9.4-12.4); Platelet Count 197 K/uL (130-400); RDW Coefficient of Variation 16.2 % (11.5-14.5); RDW Standard Deviation 60.3 fL (36.4-46.3); Red Blood Count 2.32 M/uL (4.70-6.10); White Blood Count 7.56 K/ul (4.8-10.8)
[2024-07-06 06:24] LABS: BUN Creatinine Ratio 26.7 (10-20); Calcium 8.6 mg/dl (8.6-10.3); Est GFR (African American) 49.4 ml/min; Est GFR (Non-African American) 42.6 ml/min; Potassium 4.1 mmol/L (3.5-5.1)
--- NOTE | 2024-07-06 12:25 | Hospitalist Progress Note ---
Date of Service July 06, 2024 Assessment & Plan (1) Non-ST elevation (NSTEMI) myocardial infarction: Plan: completed 48 hours of heparin drip - now off such very poor cath candidate thus deferring echo findings noted with depressed EF (20-25%) and multiple WMAs (EF much worse than earlier this summer when EF was >40%) cont BB, imdur, asa, statin, etc peak troponin - 1470 no ischemic symptoms last 24 hours (2) Chronic ulcer of left heel: Plan: unfortunately he has exposed achilles with purulent drainage appreciate wound care assistance achilles tendon inflamed on CT -- likely infected would need surgical debridement for this, but patient does not want aggressive measures thus, deferring on such the ulcer is CLEARLY WORSE IN COMPARISON TO ADMISSION THERE IS BLACK ESCHAR ALONG THE COURSE OF THE ULCER IN A VERTICAL, LINEAR FASHION THE ESCHAR EXTENDS DOWN TO THE VISIBLE PORTION OF THE ACHILLES TENDON since we do not have wound care nursing on weekends I informally corresponded with Dr Ashley Mendez, wound care physician from the [facility] I took a photo with the pt's permission and sent it to her plan moving forward - * paint the ulcer with betadine * cover the achilles exposed region with adaptic * try to keep the eschar portion (superior portion) of the ulcer dry * cover with ABD * then kerlix change rocephin to levaquin IV - this will add pseudomonas coverage cont doxy IV - this will provide MRSA coverage (3) Syncope: Plan: Suspect multifactorial -- severe in the setting of infection, anemia, NSTEMI, ?acute stroke, etc. Recent echo this summer via [email or web address] system showed EF 43% with severe aortic stenosis, severe mitral regurgitation, mild tricuspid regurgitation Echo this admission with even worse EF - now 20-25% (4) Weakness: Plan: multifactorial causes - infection (LLL pneumonia, L achilles region/ankle), severe anemia, NSTEMI, intractable pain/narcotic use chronically, acute/chronic CHF, ?acute stroke, etc. he is quite ill with NUMEROUS medical issues at play ammonia level wnl VBG w/o hypercapnia (5) Pneumonia: Plan: LLL fortunately stable in room air s/p rocephin x 5 days changing to IV levaquin today due to #2 Cont doxy - day #5 Doxy will provide skin coverage (L ankle/achilles region) as well (6) Claudication in peripheral vascular disease: Plan: severe PAD of LLE much of his pain is rest pain from his PAD 03/2023 outpatient vascular surgery note showed - * absent flow in the left common femora and SFA c/w occlusion * absent flow in the fem-pop prosthetic bypass graft c/w occlusion * monophasic waveforms in the popliteal, distal peroneal, and distal [place] * absent flow in the distal [employer], c/w occlusion * left CHERI 0.32 (critically reduced) he has been on chronic tramadol 100mg TID for several years but it has been ineffective at controlling his pain this has been stopped in sadia of fentanyl patch 12mcg q3d however, still was having severe pain despite the patch thus, increased from 12mcg to 25mcg q3days on 07/05/24 remains on oxycodone 10mg prn for refractory pain - dilaudid 0.25mg IV q6h prn the above regimen of meds HAS HELPED his pain; no changes today except for the dressing dressings for the LLE ulcer cont pletal, etc (7) Left leg swelling: Plan: 2nd to cellulitis/ulcer IV abx pain meds (8) Anemia: Plan: macrocytic, baseline Hb 9-10 previous B12/folate wnl TSH mildly high - could be contributing cause of macrocytosis uncertain s/p Tx of 1 unit PRBCs early in the stay Hb 7.8 today defer on transfusion today (9) Diabetes: Plan: Patient's home regimen held on admission Continue BSG checks, sliding-scale novolog a1c 6% (10) Chronic kidney disease, stage III (moderate): Plan: CKD stage G3 B/A2 with a baseline creatinine of 1.41.6. Follows with nephrology. repeat BMP stable today (11) Benign prostate hyperplasia: Plan: cont flomax (12) GERD (gastroesophageal reflux disease): Plan: cont pepcid (13) Hypothyroidism: Plan: -TSH of 6.5 -Continue levothyroxine 150mcg compliance with meds at home?? either way will not change dose (14) S/P CABG (coronary artery bypass graft): Plan: noted now with NSTEMI he had his CABG in [place] several decades ago followed by several stents very poor cath candidate last office note from Dr Gresham advised ongoing med management only (15) HTN (hypertension): Plan: cont BB, imdur, flomax (16) Aortic stenosis: Plan: severe likely contributed to #1 (17) Chronic systolic CHF (congestive heart failure): Plan: EF previously 40s now 20-25% SEVERE ischemic CM is the cause (multiple WMAs on echo) does not examine overtly volume overloaded today but start lasix 20mg daily in am tomorrow (18) Diplopia: Plan: along with coordination issues / ataxia of hands as well as ?visual field cut all worrisome for acute stroke in the setting of his NSTEMI & syncope offered MRI brain today - again he declined cont right eye patch to help extinguish the double vision - this is helping Plan appreciate Dr Gilliland's assistance appreciate Dr Alvarez's assistance updated his daughter Denise today by phone Admission and Anticipated Discharge Date Admission Date: July 02, 2024 Subjective patient resting in bed comfortably he was awake, alert, not sleepy, oriented when asked about his pain he said - "Oh, definitely, the pain is better than when I first came in [to the hospital]" he does not feel the fentanyl patch/oxy is causing excess sedation denies any cough/dyspnea no chest pain eating fair we discussed his left achilles ulcer in detail - no good fix for this since his LLE PAD is so severe Review of Systems 2 Review of Systems: gen - fatigue, weak; I offered to get him a nice recliner chair to get OOB to chair - declines such cv - no cp, no orthopnea pulm - no dyspnea at rest GI - no N/V Physical Exam 2 Physical Exam: gen - severely weak, generalized pallor, awake/alert, no disorientation eyes - R eye ptosis; right eye glasses -- eye patch in place neck - no JVD mouth - MMM heart - RRR, s1 s2, 2-3/6 holosystolic murmur RUSB/apex lungs - decreased BS bases, faint scattered rales b/l abd - soft NT ND BS+ vascular - L popliteal and L foot pulses nonpalpable; L foot and L distal kowalski cool to touch with delayed cap refill; pulses 1+ right foot ext - left foot with 1+ edema, trace edema right foot skin - dressings removed from left foot/ankle -- worsening necrotic appearance/eschar of L heel/achilles region ulcer; visible achilles at bottom most portion of the ulcer; no malodor; mild purulent drainage only; plantar aspect of L heel with pressure injury; tiny superficial ulcer posterior calcaneal region psych - a/o x 3 Results & Data Results & Data Vital Signs (Past 12 Hours) Vital Signs Temp Pulse Resp BP Pulse Ox O2 Del Method 07/06/24 07:49 36.4 C L 81 18 133/71 94 Room Air 07/06/24 07:25 Room Air Laboratory Results Laboratory Results 07/05/24 07/05/24 07/05/24 11:11 16:31 20:48 WBC RBC Hgb Hct MCV MCH MCHC RDW Std Deviation RDW Coeff of Brianda Plt Count MPV Sodium Potassium Chloride Carbon Dioxide Anion Gap BUN Creatinine Est Cr Clr Drug Dosing Est GFR ( Amer) Est GFR (Non-Af Amer) BUN/Creatinine Ratio Glucose POC Glucose 172 H 168 H 153 H Calcium 07/06/24 07/06/24 07/06/24 05:13 07:24 11:26 WBC 7.56 RBC 2.32 L Hgb 7.8 L Hct 23.6 L MCV 101.7 H MCH 33.6 MCHC 33.1 RDW Std Deviation 60.3 H RDW Coeff of Brianda 16.2 H Plt Count 197 MPV 10.5 Sodium 134 L Potassium 4.1 Chloride 103 Carbon Dioxide 25 Anion Gap 6 BUN 39 H Creatinine 1.46 H Est Cr Clr Drug Dosing 32.0 Est GFR ( Amer) 49.4 Est GFR (Non-Af Amer) 42.6 BUN/Creatinine Ratio 26.7 H Glucose 109 H POC Glucose 112 H 150 H Calcium 8.6 Diagnostic Findings PG Care Time/CCT Total # of Minutes Spent Total Time Spent with Patient: Total time spent is greater than 50% in coordination of care (as documented) at patient's floor/unit and/or counseling patient: Coding Level of Care Code 66469 SUB INP/OBS CARE 3/50MIN Diagnoses Non-ST elevation (NSTEMI) myocardial infarction I21.4 Chronic ulcer of left heel L97.429 Non-pressure ulcer stage: unspecified non-pressure ulcer stage Syncope R55 Syncope type: unspecified Weakness R53.1 Pneumonia J18.9 Laterality: left Lung location: unspecified part of lung Pneumonia type: due to unspecified organism Claudication in peripheral vascular disease I73.9 Left leg swelling M79.89 Anemia, unspecified type D64.9 Anemia type: unspecified type Diabetes E11.9 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 Chronic kidney disease stage 3 subtype: stage 3b (GFR 30-44) Benign prostate hyperplasia N40.0 Gastroesophageal reflux disease without esophagitis K21.9 Esophagitis presence: without esophagitis Acquired hypothyroidism E03.9 Hypothyroidism type: acquired S/P CABG (coronary artery bypass graft) Z95.1 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 (2) Chronic ulcer of left heel Non-pressure ulcer stage: unspecified non-pressure ulcer stage Qualified Code(s): L97.429 - Non-pressure chronic ulcer of left heel and midfoot with unspecified severity (3) Syncope Syncope type: unspecified Qualified Code(s): R55 - Syncope and collapse (5) Pneumonia Laterality: left Lung location: unspecified part of lung Pneumonia type: due to unspecified organism Qualified Code(s): J18.9 - Pneumonia, unspecified organism (8) Anemia Anemia type: unspecified type Qualified Code(s): D64.9 - Anemia, unspecified (10) Chronic kidney disease, stage III (moderate) Chronic kidney disease stage 3 subtype: stage 3b (GFR 30-44) Qualified Code(s): N18.32 - Chronic kidney disease, stage 3b (12) GERD (gastroesophageal reflux disease) Esophagitis presence: without esophagitis Qualified Code(s): K21.9 - Gastro- esophageal reflux disease without esophagitis (13) Hypothyroidism Hypothyroidism type: acquired Qualified Code(s): E03.9 - Hypothyroidism, unspecified (15) HTN (hypertension) Hypertension type: renovascular hypertension Qualified Code(s): I15.0 - Renovascular hypertension
[2024-07-06] MEDS: levoFLOXacin/D5W 750 MG/150 ML BAG IV SCH (13:40)
[2024-07-07] MEDS: FUROSEMIDE 20 MG TAB PO SCH (11:09)
--- NOTE | 2024-07-07 19:56 | Hospitalist Progress Note ---
Date of Service July 07, 2024 Assessment & Plan (1) Non-ST elevation (NSTEMI) myocardial infarction: Plan: completed 48 hours of heparin drip - now off such very poor cath candidate thus deferred by cardiology medical management only echo findings noted with depressed EF (20-25%) and multiple WMAs (EF much worse than earlier this summer when EF was >40%) cont BB, imdur, asa, statin, etc peak troponin - 1470 no ischemic symptoms since admission (2) Chronic ulcer of left heel: Plan: unfortunately he has exposed achilles with purulent drainage appreciate wound care assistance achilles tendon inflamed on CT -- likely infected would need surgical debridement for this, but patient does not want aggressive measures the ulcer has worsened in comparison to admission THERE IS BLACK ESCHAR ALONG THE COURSE OF THE ULCER IN A VERTICAL, LINEAR FASHION THE ESCHAR EXTENDS DOWN TO THE VISIBLE PORTION OF THE ACHILLES TENDON since we do not have wound care nursing on weekends I informally corresponded with Dr Ashley Mendez, wound care physician from the [facility] I took a photo with the pt's permission and sent it to her plan for now until wound care team returns on 07/08 - * paint the ulcer with betadine * cover the achilles exposed region with adaptic * try to keep the eschar portion (superior portion) of the ulcer dry * cover with ABD * then shila changed rocephin to levaquin IV - this will add pseudomonas coverage cont doxy IV - this will provide MRSA coverage (3) Syncope: Plan: Suspect multifactorial -- severe in the setting of infection, anemia, NSTEMI, ?acute stroke, etc. [facility] EF 43% with severe aortic stenosis, severe mitral regurgitation, mild tricuspid regurgitation Echo this admission with even worse EF - now 20-25% (4) Weakness: Plan: multifactorial causes - infection (LLL pneumonia, L achilles region/ankle), severe anemia, NSTEMI, intractable pain/narcotic use chronically, acute/chronic CHF, ?acute stroke, etc. he is quite ill with NUMEROUS medical issues at play ammonia level wnl VBG w/o hypercapnia (5) Pneumonia: Plan: LLL fortunately stable in room air s/p rocephin x 5 days changed to IV levaquin on 07/06 due to #2 Cont doxy - day #6 Doxy will provide skin coverage (L ankle/achilles region) as well (6) Claudication in peripheral vascular disease: Plan: severe PAD of LLE much of his pain is rest pain from his PAD 03/2023 outpatient vascular surgery note showed - * absent flow in the left common femora and SFA c/w occlusion * absent flow in the fem-pop prosthetic bypass graft c/w occlusion * monophasic waveforms in the popliteal, distal peroneal, and distal [place] * absent flow in the distal [employer]ER, c/w occlusion * left CHERI 0.32 (critically reduced) he has been on chronic tramadol 100mg TID for several years but it has been ineffective at controlling his pain this has been stopped in sadia of fentanyl patch 12mcg q3d however, still was having severe pain despite the patch thus, increased from 12mcg to 25mcg q3days on 07/05/24 remains on oxycodone 10mg prn for refractory pain - dilaudid 0.25mg IV q6h prn the above regimen of meds HAS HELPED his pain cont pletal, etc (7) Left leg swelling: Plan: 2nd to cellulitis/ulcer IV abx pain meds (8) Anemia: Plan: macrocytic, baseline Hb 9-10 previous B12/folate wnl TSH mildly high - could be contributing cause of macrocytosis uncertain s/p Tx of 1 unit PRBCs early in the stay repeat cbc am (9) Diabetes: Plan: Patient's home regimen held on admission Continue BSG checks, sliding-scale novolog a1c 6% (10) Chronic kidney disease, stage III (moderate): Plan: CKD stage G3 B/A2 with a baseline creatinine of 1.41.6. Follows with nephrology. repeat BMP am (11) Benign prostate hyperplasia: Plan: cont flomax (12) GERD (gastroesophageal reflux disease): Plan: cont pepcid (13) Hypothyroidism: Plan: -TSH of 6.5 -Continue levothyroxine 150mcg compliance with meds at home?? either way will not change dose (14) S/P CABG (coronary artery bypass graft): Plan: noted now with NSTEMI he had his CABG in [place] several decades ago followed by several stents very poor cath candidate last office note from Dr Gresham advised ongoing med management only (15) HTN (hypertension): Plan: cont BB, imdur, flomax (16) Aortic stenosis: Plan: severe likely contributed to #1 (17) Chronic systolic CHF (congestive heart failure): Plan: EF previously 40s now 20-25% SEVERE ischemic CM is the cause (multiple WMAs on echo) cont lasix 20mg daily cont beta mary (18) Diplopia: Plan: along with coordination issues / ataxia of hands as well as ?visual field cut all worrisome for acute stroke in the setting of his NSTEMI & syncope offered MRI brain several times this admission - declined by patient had been using a right eye patch to help extinguish the double vision - this had helped now patient stating that the diplopia is no longer present; now having what sounds like depth perception issues/visual disturbance Plan appreciate Dr Gilliland's assistance appreciate Dr Alvarze's assistance appreciate wound care team assistance updated his daughter Denise today by phone dispo - [facility] (for an attempt on rehab) but rehab potential is poor to none he has not been out of bed since admission offered to get him to a chair but he has declined this several times suspect that once he is at a SNF he will transition to hospice ultimately if rehab goes poorly Admission and Anticipated Discharge Date Admission Date: July 02, 2024 Subjective double vision is improved however, he now describes visual disturbance/depth perception type problems he took the eye patch off his right lens (glasses) coordination in hands still a little off c/o b/l leg weakness pain in left foot/ankle/leg is improved appetite is poor he again asks about rehab for his weakness Review of Systems Review of Systems: gen - weak, fatigued, poor appetite cv - no chest pain pulm - no dyspnea at rest GI - no N/V Physical Exam Physical Exam: gen - generalized pallor, awake/alert, lying in bed comfortably eyes - R eye ptosis looks better today neck - no JVD mouth - MMM heart - RRR, s1 s2, 2-3/6 holosystolic murmur RUSB/apex lungs - decreased BS bases, otherwise CTA b/l abd - soft NT ND BS+ vascular - L foot pulses nonpalpable; L foot and L distal kowalski cool to touch with delayed cap refill; pulses 1+ right foot ext - left foot with 1+ edema, trace edema right foot skin - dressings left in place on left foot/ankle today psych - a/o x 3 Results & Data Results & Data Vital Signs (Past 12 Hours) Vital Signs Temp Pulse Resp BP Pulse Ox O2 Del Method 07/07/24 19:50 Room Air 07/07/24 15:27 97/55 L 07/07/24 15:00 36.4 C L 77 17 89/57 L 93 Room Air Laboratory Results Laboratory Results - last 24 hr 07/06/24 07/07/24 07/07/24 20:26 07:47 11:40 POC Glucose 107 H 99 145 H 07/07/24 16:53 POC Glucose 128 H PG Care Time/CCT Total # of Minutes Spent Total Time Spent with Patient: Total time spent is greater than 50% in coordination of care (as documented) at patient's floor/unit and/or counseling patient: Coding Level of Care Code 35243 SUB INP/OBS CARE 2/35MIN Diagnoses Non-ST elevation (NSTEMI) myocardial infarction I21.4 Chronic ulcer of left heel L97.429 Non-pressure ulcer stage: unspecified non-pressure ulcer stage Syncope R55 Syncope type: unspecified Weakness R53.1 Pneumonia J18.9 Laterality: left Lung location: unspecified part of lung Pneumonia type: due to unspecified organism Claudication in peripheral vascular disease I73.9 Left leg swelling M79.89 Anemia, unspecified type D64.9 Anemia type: unspecified type Diabetes E11.9 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 Chronic kidney disease stage 3 subtype: stage 3b (GFR 30-44) Benign prostate hyperplasia N40.0 Gastroesophageal reflux disease without esophagitis K21.9 Esophagitis presence: without esophagitis Acquired hypothyroidism E03.9 Hypothyroidism type: acquired S/P CABG (coronary artery bypass graft) Z95.1 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 (2) Chronic ulcer of left heel Non-pressure ulcer stage: unspecified non-pressure ulcer stage Qualified Code(s): L97.429 - Non-pressure chronic ulcer of left heel and midfoot with unspecified severity (3) Syncope Syncope type: unspecified Qualified Code(s): R55 - Syncope and collapse (5) Pneumonia Laterality: left Lung location: unspecified part of lung Pneumonia type: due to unspecified organism Qualified Code(s): J18.9 - Pneumonia, unspecified organism (8) Anemia Anemia type: unspecified type Qualified Code(s): D64.9 - Anemia, unspecified (10) Chronic kidney disease, stage III (moderate) Chronic kidney disease stage 3 subtype: stage 3b (GFR 30-44) Qualified Code(s): N18.32 - Chronic kidney disease, stage 3b (12) GERD (gastroesophageal reflux disease) Esophagitis presence: without esophagitis Qualified Code(s): K21.9 - Gastro-esophageal reflux disease without esophagitis (13) Hypothyroidism Hypothyroidism type: acquired Qualified Code(s): E03.9 - Hypothyroidism, unspecified (15) HTN (hypertension) Hypertension type: renovascular hypertension Qualified Code(s): I15.0 - Renovascular hypertension
[2024-07-08] MEDS: METOPROLOL SUCC 25MG EXT REL TAB PO SCH (07:41)
[2024-07-08 07:46] LABS: Hematocrit (blood only) 26.5 % (42.0-52.0); Hemoglobin 8.9 g/dl (14.0-18.0); Mean Corpuscular Hgb Conc 33.6 g/dL (32.0-36.0); Mean Corpuscular Volume 101.1 fL (80.0-100.0); Mean Platelet Volume 10.9 fL (9.4-12.4); Platelet Count 224 K/uL (130-400); RDW Coefficient of Variation 16.5 % (11.5-14.5); RDW Standard Deviation 59.5 fL (36.4-46.3); Red Blood Count 2.62 M/uL (4.70-6.10); White Blood Count 9.14 K/ul (4.8-10.8)
[2024-07-08 08:16] LABS: Anion Gap 9 (3-11); BUN Creatinine Ratio 24.2 (10-20); Blood Urea Nitrogen 31 mg/dl (6-23); Calcium 8.7 mg/dl (8.6-10.3); Carbon Dioxide 21 mmol/L (21-32); Chloride 104 mmol/L (98-107); Creatinine Clr Calc Pharmacy 36.5 ml/min; Est GFR (African American) 57.9 ml/min; Glucose 91 mg/dl (70-99(Fasting)); Sodium 134 mmol/L (136-145)
--- NOTE | 2024-07-08 16:52 | Hospitalist Progress Note ---
Date of Service July 08, 2024 Assessment & Plan (1) Non-ST elevation (NSTEMI) myocardial infarction: Plan: 88-year-old man with severe chronic multisystem disease admitted with NSTEMI he has severe underlying multivessel coronary artery disease and severe bilateral lower extremity PAD both not amenable to revascularization, as well as severe aortic stenosis and ischemic cardiomyopathy with EF 20-25%. NSTEMI was treated medically this admission. He plans to continue attempt at rehab to improve his functional status however overall plan of care is palliative, he plans to transition to hospice if/when his clinical status worsens treated with heparin drip for nstemi cardiology consulted, medical management recommended echo findings noted with depressed EF (20-25%) and multiple WMAs (EF much worse than earlier this summer when EF was >40%) cont BB, imdur, asa, statin, etc no ischemic symptoms since admission (2) Chronic ulcer of left heel: Plan: unfortunately he has exposed achilles with purulent drainage appreciate wound care assistance achilles tendon inflamed on CT -- likely infected would need surgical debridement for this, but patient does not want aggressive measures the ulcer has worsened in comparison to admission THERE IS BLACK ESCHAR ALONG THE COURSE OF THE ULCER IN A VERTICAL, LINEAR FASHION THE ESCHAR EXTENDS DOWN TO THE VISIBLE PORTION OF THE ACHILLES TENDON My colleague corresponded with Dr Ashley Mendez, wound care physician from the [facility] plan for now until wound care team returns on 07/08 - * paint the ulcer with betadine * cover the achilles exposed region with adaptic * try to keep the eschar portion (superior portion) of the ulcer dry * cover with ABD * then shila changed rocephin to levaquin IV - this will add pseudomonas coverage cont doxy IV - this will provide MRSA coverage plan for short course of IV/po antibiotics perhaps 2 weeks total (3) Syncope: Plan: Could have been related to hypotension/infection, orthostasis, or arrhythmia at which he is at risk for with severe cardiomyopathy, severe treatment as above (4) Weakness: Plan: multifactorial causes - infection (LLL pneumonia, L achilles region/ankle), severe anemia, NSTEMI, intractable pain/narcotic use chronically, acute/chronic CHF, ?acute stroke, etc. he is quite ill with NUMEROUS medical issues at play ammonia level wnl VBG w/o hypercapnia (5) Pneumonia: Plan: LLL - completed adequate course of treatment with ceftriaxone/levofloxacin and doxycycline as above On room air, resolving (6) Claudication in peripheral vascular disease: Plan: severe PAD of LLE much of his pain is rest pain from his PAD 03/2023 outpatient vascular surgery note showed - * absent flow in the left common femora and SFA c/w occlusion * absent flow in the fem-pop prosthetic bypass graft c/w occlusion * monophasic waveforms in the popliteal, distal peroneal, and distal [place] * absent flow in the distal [employer], c/w occlusion * left CHERI 0.32 (critically reduced) previously used tramadol, no longer effective continue fentanyl patch increased from 12mcg to 25mcg q3days on 07/05/24, prn oxycodone. pain has improved continue pletal and other meds listed above (7) Left leg swelling: Plan: 2nd to cellulitis/ulcer IV abx pain meds (8) Anemia: Plan: macrocytic, baseline Hb 9-10 previous B12/folate wnl TSH mildly high - could be contributing cause of macrocytosis uncertain s/p Tx of 1 unit PRBCs early in the stay Hg improved to 8.9 today (9) Diabetes: Plan: Patient's home regimen held on admission Continue BSG checks, sliding-scale novolog a1c 6% (10) Chronic kidney disease, stage III (moderate): Plan: CKD stage G3 B/A2 with a baseline creatinine of 1.41.6. Follows with nephrology. Cr improved from 1.5 --> 1.28 this admission (11) Benign prostate hyperplasia: Plan: cont flomax (12) GERD (gastroesophageal reflux disease): Plan: cont pepcid (13) Hypothyroidism: Plan: -TSH of 6.5 -Continue levothyroxine 150mcg (14) S/P CABG (coronary artery bypass graft): Plan: noted now with NSTEMI he had his CABG in [place] several decades ago followed by several stents very poor cath candidate last office note from Dr Gresham advised ongoing med management only (15) HTN (hypertension): Plan: cont BB, imdur, flomax (16) Aortic stenosis: Plan: severe see above (17) Chronic systolic CHF (congestive heart failure): Plan: EF previously 40s now 20-25% SEVERE ischemic CM is the cause (multiple WMAs on echo) cont lasix 20mg daily cont beta mary euvolemic (18) Diplopia: Plan: along with coordination issues / ataxia of hands as well as ?visual field cut all worrisome for acute stroke in the setting of his NSTEMI & syncope offered MRI brain several times this admission - declined by patient had been using a right eye patch to help extinguish the double vision - this had helped now patient stating that the diplopia is no longer present; now having what sounds like depth perception issues/visual disturbance Plan appreciate Dr Gilliland's assistance appreciate Dr Alvarez's assistance appreciate wound care team assistance updated his daughter Denise by phone 07/07 dispo - [facility] (for an attempt on rehab) - referral made pending Admission and Anticipated Discharge Date Admission Date: July 02, 2024 Subjective continues with some double vision has intermittent bilateral leg pain no dyspnea Physical Exam 2 Physical Exam: PHYSICAL EXAMINATION Last 24h vital signs reviewed, see documentation in flowsheet General: comfortable appearing, no distress, very frail appearing HEENT: Normocephalic, atraumatic, pupils round and equal, sclerae anicteric, no conjunctival injection, moist mucus membranes Lungs: Normal respiratory effort. Clear to auscultation bilaterally. No RRW Heart: Regular rate and rhythm, systolic murmur. No JVD Abdomen: Soft, nontender, nondistended. Bowel sounds present. Extremities: Warm, dry, well-perfused. No extremity edema. lower extremities are dressed Neuro: Alert and oriented x 4, face symmetric, moves 4 extremities symmetrically Psych: Normal affect and behavior Results & Data Results & Data Vital Signs (Past 12 Hours) Vital Signs Temp Pulse Resp BP BP Pulse Ox O2 Del Method 07/08/24 14:32 36.6 C 65 15 105/59 L 92 Room Air 07/08/24 07:35 36.7 C 85 18 124/69 93 Room Air 07/08/24 07:20 Room Air Laboratory Results 07/08/24 07:01 07/08/24 08:56 PG Care Time/CCT Total # of Minutes Spent Total Time Spent with Patient: Total time spent is greater than 50% in coordination of care (as documented) at patient's floor/unit and/or counseling patient: Coding Level of Care Code 56615 SUB INP/OBS CARE 2/35MIN Diagnoses Non-ST elevation (NSTEMI) myocardial infarction I21.4 Chronic ulcer of left heel L97.429 Non-pressure ulcer stage: unspecified non-pressure ulcer stage Syncope R55 Syncope type: unspecified Weakness R53.1 Pneumonia J18.9 Laterality: left Lung location: unspecified part of lung Pneumonia type: due to unspecified organism Claudication in peripheral vascular disease I73.9 Left leg swelling M79.89 Anemia, unspecified type D64.9 Anemia type: unspecified type Diabetes E11.9 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 Chronic kidney disease stage 3 subtype: stage 3b (GFR 30-44) Benign prostate hyperplasia N40.0 Gastroesophageal reflux disease without esophagitis K21.9 Esophagitis presence: without esophagitis Acquired hypothyroidism E03.9 Hypothyroidism type: acquired S/P CABG (coronary artery bypass graft) Z95.1 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 (2) Chronic ulcer of left heel Non-pressure ulcer stage: unspecified non-pressure ulcer stage Qualified Code(s): L97.429 - Non-pressure chronic ulcer of left heel and midfoot with unspecified severity (3) Syncope Syncope type: unspecified Qualified Code(s): R55 - Syncope and collapse (5) Pneumonia Laterality: left Lung location: unspecified part of lung Pneumonia type: due to unspecified organism Qualified Code(s): J18.9 - Pneumonia, unspecified organism (8) Anemia Anemia type: unspecified type Qualified Code(s): D64.9 - Anemia, unspecified (10) Chronic kidney disease, stage III (moderate) Chronic kidney disease stage 3 subtype: stage 3b (GFR 30-44) Qualified Code(s): N18.32 - Chronic kidney disease, stage 3b (12) GERD (gastroesophageal reflux disease) Esophagitis presence: without esophagitis Qualified Code(s): K21.9 - Gastro- esophageal reflux disease without esophagitis (13) Hypothyroidism Hypothyroidism type: acquired Qualified Code(s): E03.9 - Hypothyroidism, unspecified (15) HTN (hypertension) Hypertension type: renovascular hypertension Qualified Code(s): I15.0 - Renovascular hypertension
--- NOTE | 2024-07-09 17:19 | Hospitalist Progress Note ---
Date of Service July 09, 2024 Assessment & Plan (1) Non-ST elevation (NSTEMI) myocardial infarction: Plan: 88-year-old man with severe chronic multisystem disease admitted with NSTEMI he has severe underlying multivessel coronary artery disease and severe bilateral lower extremity PAD both not amenable to revascularization, as well as severe aortic stenosis and ischemic cardiomyopathy with EF 20-25%. NSTEMI was treated medically this admission. He plans to continue attempt at rehab to improve his functional status however overall plan of care is palliative, he plans to transition to hospice if/when his clinical status worsens treated with heparin drip for nstemi cardiology consulted, medical management recommended echo findings noted with depressed EF (20-25%) and multiple WMAs (EF much worse than earlier this summer when EF was >40%) cont BB, imdur, asa, statin, etc no ischemic symptoms since admission (2) Chronic ulcer of left heel: Plan: unfortunately he has exposed achilles with purulent drainage appreciate wound care assistance achilles tendon inflamed on CT -- likely infected would need surgical debridement for this, but patient does not want aggressive measures the ulcer has worsened in comparison to admission THERE IS BLACK ESCHAR ALONG THE COURSE OF THE ULCER IN A VERTICAL, LINEAR FASHION THE ESCHAR EXTENDS DOWN TO THE VISIBLE PORTION OF THE ACHILLES TENDON My colleague corresponded with Dr Ashley Mendez, wound care physician from the [facility] plan for now until wound care team returns on 07/08 - * paint the ulcer with betadine * cover the achilles exposed region with adaptic * try to keep the eschar portion (superior portion) of the ulcer dry * cover with ABD * then shila changed rocephin to levaquin - this will add pseudomonas coverage cont doxycycline - this will provide MRSA coverage both of these changed to oral formulation 07/09 plan for short course of IV/po antibiotics perhaps 2 weeks total (3) Syncope: Plan: Could have been related to hypotension/infection, orthostasis, or arrhythmia at which he is at risk for with severe cardiomyopathy, severe treatment as above (4) Weakness: Plan: multifactorial causes - infection (LLL pneumonia, L achilles region/ankle), severe anemia, NSTEMI, intractable pain/narcotic use chronically, acute/chronic CHF, ?acute stroke, etc. he is quite ill with NUMEROUS medical issues at play ammonia level wnl VBG w/o hypercapnia (5) Pneumonia: Plan: LLL - completed adequate course of treatment with ceftriaxone/levofloxacin and doxycycline as above On room air, resolving (6) Claudication in peripheral vascular disease: Plan: severe PAD of LLE much of his pain is rest pain from his PAD 03/2023 outpatient vascular surgery note showed - * absent flow in the left common femora and SFA c/w occlusion * absent flow in the fem-pop prosthetic bypass graft c/w occlusion * monophasic waveforms in the popliteal, distal peroneal, and distal [place] * absent flow in the distal [employer]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, c/w occlusion * left CHERI 0.32 (critically reduced) previously used tramadol, no longer effective continue pletal and other meds listed above he appears oversedated 07/08- and is quite lethargic today we will decrease dose of fentanyl patch back to 12 mics decrease oxycodone to 5 mg, which can likely be increased again once fentanyl wears off a bit (7) Left leg swelling: Plan: 2nd to cellulitis/ulcer IV abx pain meds (8) Anemia: Plan: macrocytic, baseline Hb 9-10 previous B12/folate wnl TSH mildly high - could be contributing cause of macrocytosis uncertain s/p Tx of 1 unit PRBCs early in the stay Hg improved to 8.9 on 07/08 (9) Diabetes: Plan: Patient's home regimen held on admission Continue BSG checks, sliding-scale novolog a1c 6% (10) Chronic kidney disease, stage III (moderate): Plan: CKD stage G3 B/A2 with a baseline creatinine of 1.41.6. Follows with nephrology. Cr improved from 1.5 --> 1.28 this admission (11) Benign prostate hyperplasia: Plan: cont flomax (12) GERD (gastroesophageal reflux disease): Plan: cont pepcid (13) Hypothyroidism: Plan: -TSH of 6.5 -Continue levothyroxine 150mcg (14) S/P CABG (coronary artery bypass graft): Plan: noted now with NSTEMI he had his CABG in [place] several decades ago followed by several stents very poor cath candidate last office note from Dr Gresham advised ongoing med management only (15) HTN (hypertension): Plan: cont BB, imdur, flomax (16) Aortic stenosis: Plan: severe see above (17) Chronic systolic CHF (congestive heart failure): Plan: EF previously 40s now 20-25% SEVERE ischemic CM is the cause (multiple WMAs on echo) cont lasix 20mg daily cont beta mary euvolemic (18) Diplopia: Plan: along with coordination issues / ataxia of hands as well as ?visual field cut all worrisome for acute stroke in the setting of his NSTEMI & syncope offered MRI brain several times this admission - declined by patient had been using a right eye patch to help extinguish the double vision - this had helped now patient stating that the diplopia is no longer present; now having what sounds like depth perception issues/visual disturbance Plan appreciate Dr Gilliland's assistance appreciate Dr Alvarez's assistance appreciate wound care team assistance updated his daughter Denise by phone 07/07 dispo - [facility] (for an attempt on rehab) - referral made pending Admission and Anticipated Discharge Date Admission Date: July 02, 2024 Subjective seen in the morning undergoing dressing changes with nursing staff he has foot pain however he is also oversedated quite lethargic, he was also somewhat sedated yesterday when I saw him per nursing staff he was also little sleepy this morning but became more so after oxycodone dose Physical Exam 2 Physical Exam: PHYSICAL EXAMINATION Last 24h vital signs reviewed, see documentation in flowsheet General: elderly pale chronically ill appearing frail man HEENT: Normocephalic, atraumatic, pupils round and equal, sclerae anicteric, no conjunctival injection, dry mucus membranes Lungs: Normal respiratory effort. Clear to auscultation bilaterally. No RRW Heart: Regular rate and rhythm, no murmurs. No JVD Abdomen: Soft, nontender, nondistended. Bowel sounds present. Extremities: Warm, dry, well-perfused. No extremity edema. both feet are dressed and wrapped, no strikethrough Neuro: lethargic, arousable, speaks few words, face symmetric, moves 4 extremities globally extremely weak Psych: Normal affect and behavior Results & Data Results & Data Vital Signs (Past 12 Hours) Vital Signs Temp Pulse Pulse Resp BP Pulse Ox O2 Del Method 07/09/24 11:40 36.0 C L 75 16 110/60 95 Room Air 07/09/24 07:26 36.4 C L 84 16 110/58 L 95 Room Air 07/09/24 07:20 Room Air Laboratory Results 07/08/24 07:01 07/08/24 08:56 PG Care Time/CCT Total # of Minutes Spent Total Time Spent with Patient: Total time spent is greater than 50% in coordination of care (as documented) at patient's floor/unit and/or counseling patient: Coding Level of Care Code 05901 SUB INP/OBS CARE 2/35MIN Diagnoses Non-ST elevation (NSTEMI) myocardial infarction I21.4 Chronic ulcer of left heel L97.429 Non-pressure ulcer stage: unspecified non-pressure ulcer stage Syncope R55 Syncope type: unspecified Weakness R53.1 Pneumonia J18.9 Laterality: left Lung location: unspecified part of lung Pneumonia type: due to unspecified organism Claudication in peripheral vascular disease I73.9 Left leg swelling M79.89 Anemia, unspecified type D64.9 Anemia type: unspecified type Diabetes E11.9 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 Chronic kidney disease stage 3 subtype: stage 3b (GFR 30-44) Benign prostate hyperplasia N40.0 Gastroesophageal reflux disease without esophagitis K21.9 Esophagitis presence: without esophagitis Acquired hypothyroidism E03.9 Hypothyroidism type: acquired S/P CABG (coronary artery bypass graft) Z95.1 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 (2) Chronic ulcer of left heel Non-pressure ulcer stage: unspecified non-pressure ulcer stage Qualified Code(s): L97.429 - Non-pressure chronic ulcer of left heel and midfoot with unspecified severity (3) Syncope Syncope type: unspecified Qualified Code(s): R55 - Syncope and collapse (5) Pneumonia Laterality: left Lung location: unspecified part of lung Pneumonia type: due to unspecified organism Qualified Code(s): J18.9 - Pneumonia, unspecified organism (8) Anemia Anemia type: unspecified type Qualified Code(s): D64.9 - Anemia, unspecified (10) Chronic kidney disease, stage III (moderate) Chronic kidney disease stage 3 subtype: stage 3b (GFR 30-44) Qualified Code(s): N18.32 - Chronic kidney disease, stage 3b (12) GERD (gastroesophageal reflux disease) Esophagitis presence: without esophagitis Qualified Code(s): K21.9 - Gastro- esophageal reflux disease without esophagitis (13) Hypothyroidism Hypothyroidism type: acquired Qualified Code(s): E03.9 - Hypothyroidism, unspecified (15) HTN (hypertension) Hypertension type: renovascular hypertension Qualified Code(s): I15.0 - Renovascular hypertension
[2024-07-09] MEDS: fentaNYL 12 MCG/HR TDSY TD SCH (17:45)
[2024-07-09] MEDS: DOXYCYCLINE HYCLATE 100 MG CAP PO SCH (20:42)
[2024-07-09] MEDS: oxyCODONE HCL IR 5 MG TAB (IMMEDIATE RELEASE) PO PRN (21:51)
[2024-07-10] MEDS: CHECK fentaNYL PATCH PLACEMENT SCH (01:04)
[2024-07-10] MEDS: levoFLOXacin 750 MG TAB PO SCH (08:46)
[2024-07-10] MEDS ORDERED: oxyCODONE HCL IR 5 MG TAB (IMMEDIATE RELEASE) PO PRN (11:40)
[2024-07-10] MEDS: oxyCODONE HCL IR 5 MG TAB (IMMEDIATE RELEASE) PO STA (11:54)
--- NOTE | 2024-07-10 16:26 | Electrocardiogram Report ---
Test Reason : Blood Pressure : */* mmHG Vent. Rate : 80 BPM Atrial Rate : 80 BPM P-R Int : 320 ms QRS Dur : 162 ms QT Int : 426 ms P-R-T Axes : 68 -31 90 degrees QTcB Int : 491 ms Sinus rhythm with sinus arrhythmia with 1st degree A-V block Left axis deviation Left bundle branch block Abnormal ECG When compared with ECG of 04-Jul-2024 05:44, Nonspecific T wave abnormality now evident in Inferior leads T wave amplitude has decreased in Anterior leads T wave inversion less evident in Lateral leads Confirmed by Sanjeev Mendez ([id number]) on 07/10/2024 4:26:27 PM Referred By: REFERRED SELF Confirmed By: Sanjeev Mendez
--- NOTE | 2024-07-10 16:35 | Hospitalist Progress Note ---
Date of Service July 10, 2024 Assessment & Plan (1) Non-ST elevation (NSTEMI) myocardial infarction: Plan: 88-year-old man with severe chronic multisystem disease admitted with NSTEMI he has severe underlying multivessel coronary artery disease and severe bilateral lower extremity PAD both not amenable to revascularization, as well as severe aortic stenosis and ischemic cardiomyopathy with EF 20-25%. NSTEMI was treated medically this admission. He plans to continue attempt at rehab to improve his functional status however overall plan of care is palliative, he plans to transition to hospice if/when his clinical status worsens treated with heparin drip for nstemi cardiology consulted, medical management recommended echo findings noted with depressed EF (20-25%) and multiple WMAs (EF much worse than earlier this summer when EF was >40%) cont BB, imdur, asa, statin, etc no ischemic symptoms since admission - remained stable no change to plan of care (2) Chronic ulcer of left heel: Plan: unfortunately he has exposed achilles with purulent drainage appreciate wound care assistance achilles tendon inflamed on CT -- likely infected would need surgical debridement for this, but patient does not want aggressive measures the ulcer has worsened in comparison to admission THERE IS BLACK ESCHAR ALONG THE COURSE OF THE ULCER IN A VERTICAL, LINEAR FASHION THE ESCHAR EXTENDS DOWN TO THE VISIBLE PORTION OF THE ACHILLES TENDON My colleague corresponded with Dr Ashley Mendez, wound care physician from the [facility] plan for now until wound care team returns on 07/08 - * paint the ulcer with betadine * cover the achilles exposed region with adaptic * try to keep the eschar portion (superior portion) of the ulcer dry * cover with ABD * then shila changed rocephin to levaquin - this will add pseudomonas coverage cont doxycycline - this will provide MRSA coverage both of these changed to oral formulation 07/09 plan for short course of IV/po antibiotics perhaps 2 weeks total - check EKG for updated QTc which was prolonged previously and now on levofloxacin, discussed with clinical pharmacist (3) Syncope: Plan: Could have been related to hypotension/infection, orthostasis, or arrhythmia at which he is at risk for with severe cardiomyopathy, severe treatment as above (4) Weakness: Plan: multifactorial causes - infection (LLL pneumonia, L achilles region/ankle), severe anemia, NSTEMI, intractable pain/narcotic use chronically, acute/chronic CHF, ?acute stroke, etc. ammonia level wnl VBG w/o hypercapnia (5) Pneumonia: Plan: LLL - completed adequate course of treatment with ceftriaxone/levofloxacin and doxycycline as above On room air, resolving (6) Claudication in peripheral vascular disease: Plan: severe PAD of LLE much of his pain is rest pain from his PAD 03/2023 outpatient vascular surgery note showed - * absent flow in the left common femora and SFA c/w occlusion * absent flow in the fem-pop prosthetic bypass graft c/w occlusion * monophasic waveforms in the popliteal, distal peroneal, and distal [place] * absent flow in the distal [employer] HEALTH SPECIALIST, c/w occlusion * left CHERI 0.32 (critically reduced) previously used tramadol, no longer effective continue pletal and other meds listed above was over sedated so fentanyl patch was reduced back to 12.5 mcg he is fully awake and alert today, 5 mg of oxycodone was inadequate so adjusted to 5- 10 mg every 4 hours as needed, assess response will try adding low-dose of gabapentin since pain remains even when oversedated on opioids, some of the pain may be neuropathic (7) Anemia: Plan: macrocytic, baseline Hb 9-10 previous B12/folate wnl TSH mildly high - could be contributing cause of macrocytosis uncertain s/p Tx of 1 unit PRBCs early in the stay Hg improved to 8.9 on 07/08 (8) Diabetes: Plan: Patient's home regimen held on admission Continue BSG checks, sliding-scale novolog a1c 6% at goal 07/10 (9) Chronic kidney disease, stage III (moderate): Plan: CKD stage G3 B/A2 with a baseline creatinine of 1.41.6. Follows with nephrology. Cr improved from 1.5 --> 1.28 this admission (10) Benign prostate hyperplasia: Plan: cont flomax (11) GERD (gastroesophageal reflux disease): Plan: cont pepcid (12) Hypothyroidism: Plan: -TSH of 6.5 -Continue levothyroxine 150mcg (13) S/P CABG (coronary artery bypass graft): Plan: noted now with NSTEMI he had his CABG in [place] several decades ago followed by several stents very poor cath candidate last office note from Dr Gresham advised ongoing med management only (14) HTN (hypertension): Plan: cont BB, imdur, flomax (15) Aortic stenosis: Plan: severe see above (16) Chronic systolic CHF (congestive heart failure): Plan: EF previously 40s now 20-25% SEVERE ischemic CM is the cause (multiple WMAs on echo) cont lasix 20mg daily cont beta mary euvolemic (17) Diplopia: Plan: along with coordination issues / ataxia of hands as well as ?visual field cut all worrisome for acute stroke in the setting of his NSTEMI & syncope offered MRI brain several times this admission - declined by patient diplopia has resolved but continues to have some trouble with depth perception Plan appreciate Dr Gilliland's assistance appreciate Dr Alvarez's assistance appreciate wound care team assistance updated his daughter Denise at bedside 07/10 dispo - [facility] (for an attempt on rehab) - referral made pending Admission and Anticipated Discharge Date Admission Date: July 02, 2024 Lucas Murray is fully awake and alert today and his daughter Debra is at bedside. He really cannot remember the last 2 days when he was pretty lethargic. He continues to have leg and foot pain bilaterally which at times is severe. Oxycodone 5 mg every 4 hours has been inadequate at least some of the time. It is hard for him to clarify whether it is too low of a dose or whether it is wearing off too fast Physical Exam 2 Physical Exam: PHYSICAL EXAMINATION Last 24h vital signs reviewed, see documentation in flowsheet General: awake and alert sitting up in bed very frail appearing HEENT: Normocephalic, atraumatic, pupils round and equal, sclerae anicteric, no conjunctival injection, MMM Lungs: Normal respiratory effort. Clear to auscultation bilaterally. No RRW Heart: Regular rate and rhythm, no murmurs. No JVD Abdomen: Soft, nontender, nondistended. Bowel sounds present. Extremities: Warm, dry, well-perfused. No extremity edema. left ankle and foot is dressed in a Kerlix, dressing clean dry and intact, both feet are warm Neuro: awake and alert O x 4, face symmetric, moves 4 extremities globally extremely weak Psych: Normal affect and behavior Results & Data Results & Data Vital Signs (Past 12 Hours) Vital Signs Temp Pulse Resp BP BP Pulse Ox O2 Del Method 07/10/24 16:04 36.5 C 80 16 95/47 L 92 Room Air 07/10/24 07:27 37.1 C 79 16 102/52 L 93 Room Air 07/10/24 07:25 Room Air Laboratory Results 07/08/24 07:01 07/08/24 08:56 PG Care Time/CCT Total # of Minutes Spent Total Time Spent with Patient: Total time spent is greater than 50% in coordination of care (as documented) at patient's floor/unit and/or counseling patient: Coding Level of Care Code 23193 SUB INP/OBS CARE 2/35MIN Diagnoses Non-ST elevation (NSTEMI) myocardial infarction I21.4 Chronic ulcer of left heel L97.429 Non-pressure ulcer stage: unspecified non-pressure ulcer stage Syncope R55 Syncope type: unspecified Weakness R53.1 Pneumonia J18.9 Laterality: left Lung location: unspecified part of lung Pneumonia type: due to unspecified organism Claudication in peripheral vascular disease I73.9 Anemia, unspecified type D64.9 Anemia type: unspecified type Diabetes E11.9 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 Chronic kidney disease stage 3 subtype: stage 3b (GFR 30-44) Benign prostate hyperplasia N40.0 Gastroesophageal reflux disease without esophagitis K21.9 Esophagitis presence: without esophagitis Acquired hypothyroidism E03.9 Hypothyroidism type: acquired S/P CABG (coronary artery bypass graft) Z95.1 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 (2) Chronic ulcer of left heel Non-pressure ulcer stage: unspecified non-pressure ulcer stage Qualified Code(s): L97.429 - Non-pressure chronic ulcer of left heel and midfoot with unspecified severity (3) Syncope Syncope type: unspecified Qualified Code(s): R55 - Syncope and collapse (5) Pneumonia Laterality: left Lung location: unspecified part of lung Pneumonia type: due to unspecified organism Qualified Code(s): J18.9 - Pneumonia, unspecified organism (7) Anemia Anemia type: unspecified type Qualified Code(s): D64.9 - Anemia, unspecified (9) Chronic kidney disease, stage III (moderate) Chronic kidney disease stage 3 subtype: stage 3b (GFR 30-44) Qualified Code(s): N18.32 - Chronic kidney disease, stage 3b (11) GERD (gastroesophageal reflux disease) Esophagitis presence: without esophagitis Qualified Code(s): K21.9 - Gastro- esophageal reflux disease without esophagitis (12) Hypothyroidism Hypothyroidism type: acquired Qualified Code(s): E03.9 - Hypothyroidism, unspecified (14) HTN (hypertension) Hypertension type: renovascular hypertension Qualified Code(s): I15.0 - Renovascular hypertension
[2024-07-10] MEDS: oxyCODONE HCL IR 5 MG TAB (IMMEDIATE RELEASE) PO PRN (19:40)
[2024-07-10] MEDS: GABAPENTIN 100 MG CAP PO SCH (21:03)
--- NOTE | 2024-07-11 14:29 | Hospitalist Progress Note ---
Date of Service July 11, 2024 Assessment & Plan (1) Non-ST elevation (NSTEMI) myocardial infarction: Plan: 88-year-old man with severe chronic multisystem disease admitted with NSTEMI he has severe underlying multivessel coronary artery disease and severe bilate ral lower extremity PAD both not amenable to revascularization, as well as severe aortic stenosis and ischemic cardiomyopathy with EF 20-25%. NSTEMI was treated medically this admission. He plans to continue attempt at rehab to improve his functional status however overall plan of care is palliative, he plans to transition to hospice if/when his clinical status worsens treated with heparin drip for nstemi cardiology consulted, medical management recommended echo findings noted with depressed EF (20-25%) and multiple WMAs (EF much worse than earlier this summer when EF was >40%) cont BB, imdur, asa, statin, etc no ischemic symptoms since admission - remained stable no change to plan of care - ordered some routine labs for a.m.: CBC, BMP (2) Chronic ulcer of left heel: Plan: unfortunately he has exposed achilles with purulent drainage appreciate wound care assistance achilles tendon inflamed on CT -- likely infected would need surgical debridement for this, but patient does not want aggressive measures the ulcer has worsened in comparison to admission THERE IS BLACK ESCHAR ALONG THE COURSE OF THE ULCER IN A VERTICAL, LINEAR FASHION THE ESCHAR EXTENDS DOWN TO THE VISIBLE PORTION OF THE ACHILLES TENDON My colleague corresponded with Dr Ashley Mendez, wound care physician from the [facility] clinic plan for now until wound care team returns on 07/08 - * paint the ulcer with betadine * cover the achilles exposed region with adaptic * try to keep the eschar portion (superior portion) of the ulcer dry * cover with ABD * then shila changed rocephin to levaquin - this will add pseudomonas coverage cont doxycycline - this will provide MRSA coverage both of these changed to oral formulation 07/09 plan for short course of IV/po antibiotics perhaps 2 weeks total - EKG from 07/10 reviewed QTc remains acceptable at 491 (3) Syncope: Plan: Could have been related to hypotension/infection, orthostasis, or arrhythmia at which he is at risk for with severe cardiomyopathy, severe treatment as above (4) Weakness: Plan: multifactorial causes - infection (LLL pneumonia, L achilles region/ankle), severe anemia, NSTEMI, intractable pain/narcotic use chronically, acute/chronic CHF, ?acute stroke, etc. ammonia level wnl VBG w/o hypercapnia (5) Pneumonia: Plan: LLL - completed adequate course of treatment with ceftriaxone/levofloxacin and doxycycline as above On room air, resolving (6) Claudication in peripheral vascular disease: Plan: severe PAD of LLE much of his pain is rest pain from his PAD 03/2023 outpatient vascular surgery note showed - * absent flow in the left common femora and SFA c/w occlusion * absent flow in the fem-pop prosthetic bypass graft c/w occlusion * monophasic waveforms in the popliteal, distal peroneal, and distal [place] * absent flow in the distal TELE[employer] OFFICE TELEPHONE CLERK, c/w occlusion * left CHERI 0.32 (critically reduced) previously used tramadol, no longer effective continue pletal and other meds listed above continue 12 mg fentanyl patch and oxycodone 10 mg p.o. as needed pain, was over sedated on 25 mcg patch continue gabapentin 100 mg at bedtime, tolerating so far (7) Anemia: Plan: macrocytic, baseline Hb 9-10 previous B12/folate wnl TSH mildly high - could be contributing cause of macrocytosis uncertain s/p Tx of 1 unit PRBCs early in the stay Hg improved to 8.9 on 07/08 a.m. CBC (8) Diabetes: Plan: Patient's home regimen held on admission Continue BSG checks, sliding-scale novolog a1c 6% at goal 07/11 (9) Chronic kidney disease, stage III (moderate): Plan: CKD stage G3 B/A2 with a baseline creatinine of 1.41.6. Follows with nephrology. Cr improved from 1.5 --> 1.28 this admission a.m. BMP (10) Benign prostate hyperplasia: Plan: cont flomax (11) GERD (gastroesophageal reflux disease): Plan: cont pepcid (12) Hypothyroidism: Plan: -TSH of 6.5 -Continue levothyroxine 150mcg (13) S/P CABG (coronary artery bypass graft): Plan: noted now with NSTEMI he had his CABG in [place] several decades ago followed by several stents very poor cath candidate last office note from Dr Gresham advised ongoing med management only (14) HTN (hypertension): Plan: cont BB, imdur, flomax (15) Aortic stenosis: Plan: severe see above (16) Chronic systolic CHF (congestive heart failure): Plan: EF previously 40s now 20-25% SEVERE ischemic CM is the cause (multiple WMAs on echo) cont lasix 20mg daily cont beta mary euvolemic (17) Diplopia: Plan: along with coordination issues / ataxia of hands as well as ?visual field cut all worrisome for acute stroke in the setting of his NSTEMI & syncope offered MRI brain several times this admission - declined by patient diplopia has resolved but continues to have some trouble with depth perception Plan appreciate Dr Gilliland's assistance appreciate Dr Alvarez's assistance appreciate wound care team assistance updated his daughter Denise at bedside 07/10 dispo - [facility] (for an attempt on rehab) - referral made pending Admission and Anticipated Discharge Date Admission Date: July 02, 2024 Subjective Trevor continues to have bilateral leg/foot pain, he did have quite a bit of pain last night but then slept hard for at least 4 hours. He did have a dose of gabapentin last night he has been using the 10 mg doses of oxycodone no evidence of sedation last 48 hours no chest pain and no shortness of breath Physical Exam Physical Exam: PHYSICAL EXAMINATION Last 24h vital signs reviewed, see documentation in flowsheet General: awake and alert currently visiting with his partner manager exam otherwise unchanged 07/11 HEENT: Normocephalic, atraumatic, pupils round and equal, sclerae anicteric, no conjunctival injection, MMM Lungs: Normal respiratory effort. Clear to auscultation bilaterally. No RRW Heart: Regular rate and rhythm, no murmurs. No JVD Abdomen: Soft, nontender, nondistended. Bowel sounds present. Extremities: Warm, dry, well-perfused. No extremity edema. left ankle and foot is dressed in a Kerlix, dressing clean dry and intact, both feet are warm Neuro: awake and alert O x 4, face symmetric, moves 4 extremities globally extremely weak Psych: Normal affect and behavior Results & Data Results & Data Vital Signs (Past 12 Hours) Vital Signs Temp Pulse Resp BP Pulse Ox O2 Del Method 07/11/24 11:15 37.1 C 78 16 95/58 L 99 Room Air 07/11/24 07:25 Room Air 07/11/24 07:23 37.1 C 91 H 16 111/69 95 Room Air PG Care Time/CCT Total # of Minutes Spent Total Time Spent with Patient: Total time spent is greater than 50% in coordination of care (as documented) at patient's floor/unit and/or counseling patient: Coding Level of Care Code 90575 SUB INP/OBS CARE 2/35MIN Diagnoses Non-ST elevation (NSTEMI) myocardial infarction I21.4 Chronic ulcer of left heel L97.429 Non-pressure ulcer stage: unspecified non-pressure ulcer stage Syncope R55 Syncope type: unspecified Weakness R53.1 Pneumonia J18.9 Laterality: left Lung location: unspecified part of lung Pneumonia type: due to unspecified organism Claudication in peripheral vascular disease I73.9 Anemia, unspecified type D64.9 Anemia type: unspecified type Diabetes E11.9 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 Chronic kidney disease stage 3 subtype: stage 3b (GFR 30-44) Benign prostate hyperplasia N40.0 Gastroesophageal reflux disease without esophagitis K21.9 Esophagitis presence: without esophagitis Acquired hypothyroidism E03.9 Hypothyroidism type: acquired S/P CABG (coronary artery bypass graft) Z95.1 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 (2) Chronic ulcer of left heel Non-pressure ulcer stage: unspecified non-pressure ulcer stage Qualified Code(s): L97.429 - Non-pressure chronic ulcer of left heel and midfoot with unspecified severity (3) Syncope Syncope type: unspecified Qualified Code(s): R55 - Syncope and collapse (5) Pneumonia Laterality: left Lung location: unspecified part of lung Pneumonia type: due to unspecified organism Qualified Code(s): J18.9 - Pneumonia, unspecified organism (7) Anemia Anemia type: unspecified type Qualified Code(s): D64.9 - Anemia, unspecified (9) Chronic kidney disease, stage III (moderate) Chronic kidney disease stage 3 subtype: stage 3b (GFR 30-44) Qualified Code(s): N18.32 - Chronic kidney disease, stage 3b (11) GERD (gastroesophageal reflux disease) Esophagitis presence: without esophagitis Qualified Code(s): K21.9 - Gastro- esophageal reflux disease without esophagitis (12) Hypothyroidism Hypothyroidism type: acquired Qualified Code(s): E03.9 - Hypothyroidism, unspecified (14) HTN (hypertension) Hypertension type: renovascular hypertension Qualified Code(s): I15.0 - Renovascular hypertension
[2024-07-12 05:53] LABS: Hematocrit (blood only) 27.2 % (42.0-52.0); Hemoglobin 8.9 g/dl (14.0-18.0); Mean Corpuscular Hemoglobin 33.1 pg (25.0-34.0); Mean Corpuscular Hgb Conc 32.7 g/dL (32.0-36.0); Mean Corpuscular Volume 101.1 fL (80.0-100.0); Mean Platelet Volume 9.6 fL (9.4-12.4); Platelet Count 225 K/uL (130-400); RDW Coefficient of Variation 16.2 % (11.5-14.5); RDW Standard Deviation 58.8 fL (36.4-46.3); Red Blood Count 2.69 M/uL (4.70-6.10); White Blood Count 6.32 K/ul (4.8-10.8)
[2024-07-12 06:06] LABS: BUN Creatinine Ratio 25.5 (10-20); Calcium 9.1 mg/dl (8.6-10.3); Creatinine Clr Calc Pharmacy 32.2 ml/min; Est GFR (African American) 49.8 ml/min
--- NOTE | 2024-07-12 18:00 | Hospitalist Progress Note ---
Date of Service July 12, 2024 Assessment & Plan (1) Non-ST elevation (NSTEMI) myocardial infarction: Plan: 88-year-old man with severe chronic multisystem disease admitted with NSTEMI he has severe underlying multivessel coronary artery disease and severe bilateral lower extremity PAD both not amenable to revascularization, as well as severe aortic stenosis and ischemic cardiomyopathy with EF 20-25%. NSTEMI was treated medically this admission. He plans to continue attempt at rehab to improve his functional status however overall plan of care is palliative, he plans to transition to hospice if/when his clinical status worsens treated with heparin drip for nstemi cardiology consulted, medical management recommended echo findings noted with depressed EF (20-25%) and multiple WMAs (EF much worse than earlier this summer when EF was >40%) cont BB, imdur, asa, statin, etc no ischemic symptoms since admission - remained stable no change to plan of care - reviewed CBC and BMP and unremarkable - anemia unchanged, Cr at baseline 1.45 (2) Chronic ulcer of left heel: Plan: unfortunately he has exposed achilles with purulent drainage appreciate wound care assistance achilles tendon inflamed on CT -- likely infected would need surgical debridement for this, but patient does not want aggressive measures the ulcer has worsened in comparison to admission THERE IS BLACK ESCHAR ALONG THE COURSE OF THE ULCER IN A VERTICAL, LINEAR FASHION THE ESCHAR EXTENDS DOWN TO THE VISIBLE PORTION OF THE ACHILLES TENDON My colleague corresponded with Dr Ashley Mendez, wound care physician from the [facility] clinic plan for now until wound care team returns on 07/08 - * paint the ulcer with betadine * cover the achilles exposed region with adaptic * try to keep the eschar portion (superior portion) of the ulcer dry * cover with ABD * then shila changed rocephin to levaquin - this will add pseudomonas coverage cont doxycycline - this will provide MRSA coverage both of these changed to oral formulation 07/09 plan for short course of IV/po antibiotics perhaps 2 weeks total - EKG from 07/10 reviewed QTc remains acceptable at 491 (3) Syncope: Plan: Could have been related to hypotension/infection, orthostasis, or arrhythmia at which he is at risk for with severe cardiomyopathy, severe treatment as above (4) Weakness: Plan: multifactorial causes - infection (LLL pneumonia, L achilles region/ankle), severe anemia, NSTEMI, intractable pain/narcotic use chronically, acute/chronic CHF, ?acute stroke, etc. ammonia level wnl VBG w/o hypercapnia (5) Pneumonia: Plan: LLL - completed adequate course of treatment with ceftriaxone/levofloxacin and doxycycline as above On room air, resolved (6) Claudication in peripheral vascular disease: Plan: severe PAD of LLE much of his pain is rest pain from his PAD 03/2023 outpatient vascular surgery note showed - * absent flow in the left common femora and SFA c/w occlusion * absent flow in the fem-pop prosthetic bypass graft c/w occlusion * monophasic waveforms in the popliteal, distal peroneal, and distal [place] * absent flow in the distal [employer], c/w occlusion * left CHERI 0.32 (critically reduced) previously used tramadol, no longer effective continue pletal and other meds listed above continue 12 mg fentanyl patch and oxycodone 10 mg p.o. as needed pain, was over sedated on 25 mcg patch continue gabapentin 100 mg at bedtime, tolerating so far - seems to have helped sleep/night pain (7) Anemia: Plan: macrocytic, baseline Hb 9-10 previous B12/folate wnl TSH mildly high - could be contributing cause of macrocytosis uncertain s/p Tx of 1 unit PRBCs early in the stay Hg stable at 8.9 on 07/12 (8) Diabetes: Plan: Patient's home regimen held on admission Continue BSG checks, sliding-scale novolog a1c 6% at goal 07/12 (9) Chronic kidney disease, stage III (moderate): Plan: CKD stage G3 B/A2 with a baseline creatinine of 1.41.6. Follows with nephrology. Cr stable at 1.4 (10) Benign prostate hyperplasia: Plan: cont flomax (11) GERD (gastroesophageal reflux disease): Plan: cont pepcid (12) Hypothyroidism: Plan: -TSH of 6.5 -Continue levothyroxine 150mcg (13) S/P CABG (coronary artery bypass graft): Plan: noted now with NSTEMI he had his CABG in [place] several decades ago followed by several stents very poor cath candidate last office note from Dr Gresham advised ongoing med management only (14) HTN (hypertension): Plan: cont BB, imdur, flomax (15) Aortic stenosis: Plan: severe see above (16) Chronic systolic CHF (congestive heart failure): Plan: EF previously 40s now 20-25% SEVERE ischemic CM is the cause (multiple WMAs on echo) cont lasix 20mg daily cont beta mary euvolemic (17) Diplopia: Plan: along with coordination issues / ataxia of hands as well as ?visual field cut all worrisome for acute stroke in the setting of his NSTEMI & syncope offered MRI brain several times this admission - declined by patient diplopia has resolved but continues to have some trouble with depth perception Plan appreciate Dr Gilliland's assistance appreciate Dr Alvarez's assistance appreciate wound care team assistance updated his daughter Denise at bedside 07/10 did better with PT 07/11 dispo - [facility] (for an attempt on rehab) - referral made pending Admission and Anticipated Discharge Date Admission Date: July 02, 2024 Subjective L ankle pain at wound and bilateral foot pain persists No dyspnea or CP Sat at EOB with PT, improvement Slept well last night Physical Exam 2 Physical Exam: PHYSICAL EXAMINATION Last 24h vital signs reviewed, see documentation in flowsheet General: awake lying in bed exam otherwise unchanged 07/12 HEENT: Normocephalic, atraumatic, pupils round and equal, sclerae anicteric, no conjunctival injection, MMM Lungs: Normal respiratory effort. Clear to auscultation bilaterally. No RRW Heart: Regular rate and rhythm, systolic murmur. No JVD Abdomen: Soft, nontender, nondistended. Bowel sounds present. Extremities: Warm, dry, well-perfused. No extremity edema. left ankle and foot is dressed in a Kerlix, dressing clean dry and intact, both feet are warm Neuro: awake and alert O x 4, face symmetric, moves 4 extremities globally extremely weak Psych: Normal affect and behavior Results & Data Results & Data Vital Signs (Past 12 Hours) Vital Signs Temp Pulse Resp BP BP Pulse Ox O2 Del Method 07/12/24 14:40 36.6 C 78 16 92/53 L 86/50 L 95 Room Air 07/12/24 08:15 Room Air 07/12/24 07:07 37.4 C 97 H 18 106/68 94 Room Air Laboratory Results 07/12/24 05:25 07/12/24 05:25 PG Care Time/CCT Total # of Minutes Spent Total Time Spent with Patient: Total time spent is greater than 50% in coordination of care (as documented) at patient's floor/unit and/or counseling patient: Coding Level of Care Code 91304 SUB INP/OBS CARE 2/35MIN Diagnoses Non-ST elevation (NSTEMI) myocardial infarction I21.4 Chronic ulcer of left heel L97.429 Non-pressure ulcer stage: unspecified non-pressure ulcer stage Syncope R55 Syncope type: unspecified Weakness R53.1 Pneumonia J18.9 Laterality: left Lung location: unspecified part of lung Pneumonia type: due to unspecified organism Claudication in peripheral vascular disease I73.9 Anemia, unspecified type D64.9 Anemia type: unspecified type Diabetes E11.9 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 Chronic kidney disease stage 3 subtype: stage 3b (GFR 30-44) Benign prostate hyperplasia N40.0 Gastroesophageal reflux disease without esophagitis K21.9 Esophagitis presence: without esophagitis Acquired hypothyroidism E03.9 Hypothyroidism type: acquired S/P CABG (coronary artery bypass graft) Z95.1 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 (2) Chronic ulcer of left heel Non-pressure ulcer stage: unspecified non-pressure ulcer stage Qualified Code(s): L97.429 - Non-pressure chronic ulcer of left heel and midfoot with unspecified severity (3) Syncope Syncope type: unspecified Qualified Code(s): R55 - Syncope and collapse (5) Pneumonia Laterality: left Lung location: unspecified part of lung Pneumonia type: due to unspecified organism Qualified Code(s): J18.9 - Pneumonia, unspecified organism (7) Anemia Anemia type: unspecified type Qualified Code(s): D64.9 - Anemia, unspecified (9) Chronic kidney disease, stage III (moderate) Chronic kidney disease stage 3 subtype: stage 3b (GFR 30-44) Qualified Code(s): N18.32 - Chronic kidney disease, stage 3b (11) GERD (gastroesophageal reflux disease) Esophagitis presence: without esophagitis Qualified Code(s): K21.9 - Gastro- esophageal reflux disease without esophagitis (12) Hypothyroidism Hypothyroidism type: acquired Qualified Code(s): E03.9 - Hypothyroidism, unspecified (14) HTN (hypertension) Hypertension type: renovascular hypertension Qualified Code(s): I15.0 - Renovascular hypertension
--- NOTE | 2024-07-13 13:44 | Hospitalist Progress Note ---
Date of Service July 13, 2024 Assessment & Plan (1) Non-ST elevation (NSTEMI) myocardial infarction: Plan: 88-year-old man with severe chronic multisystem disease admitted with NSTEMI he has severe underlying multivessel coronary artery disease and severe bilate ral lower extremity PAD both not amenable to revascularization, as well as severe aortic stenosis and ischemic cardiomyopathy with EF 20-25%. NSTEMI was treated medically this admission. He plans to continue attempt at rehab to improve his functional status however overall plan of care is palliative, he plans to transition to hospice if/when his clinical status worsens treated with heparin drip for nstemi cardiology consulted, medical management recommended echo findings noted with depressed EF (20-25%) and multiple WMAs (EF much worse than earlier this summer when EF was >40%) cont BB, imdur, asa, statin, etc no ischemic symptoms since admission - CBC and BMP 07/12 and unremarkable - anemia unchanged, Cr at baseline 1.45 (2) Chronic ulcer of left heel: Plan: unfortunately he had exposed achilles with purulent drainage appreciate wound care assistance achilles tendon inflamed on CT -- likely infected would need surgical debridement for this, but patient does not want aggressive measures My colleague corresponded with Dr Ashley Mendez, wound care physician from the [facility] Currently infection is resolved or controlled Continue wound care plan for short course of IV/po antibiotics perhaps 2 weeks total end date roughly 07/15 - EKG from 07/10 reviewed QTc remains acceptable at 491 (3) Syncope: Plan: Could have been related to hypotension/infection, orthostasis, or arrhythmia at which he is at risk for with severe cardiomyopathy, severe treatment as above (4) Weakness: Plan: multifactorial causes - infection (LLL pneumonia, L achilles region/ankle), severe anemia, NSTEMI, intractable pain/narcotic use chronically, acute/chronic CHF, ?acute stroke, etc. ammonia level wnl, VBG w/o hypercapnia (5) Pneumonia: Plan: LLL - completed adequate course of treatment with ceftriaxone/levofloxacin and doxycycline as above On room air, resolved (6) Claudication in peripheral vascular disease: Plan: severe PAD of LLE much of his pain is rest pain from his PAD 03/2023 outpatient vascular surgery note showed - * absent flow in the left common femora and SFA c/w occlusion * absent flow in the fem-pop prosthetic bypass graft c/w occlusion * monophasic waveforms in the popliteal, distal peroneal, and distal [place] * absent flow in the distal [employer], c/w occlusion * left CHERI 0.32 (critically reduced) previously used tramadol, no longer effective continue pletal and other meds listed above continue 12 mg fentanyl patch and oxycodone 10 mg p.o. as needed pain, was over sedated on 25 mcg patch started gabapentin 100 mg at bedtime, tolerating so far - seems to have helped sleep/night pain, increase to bid (7) Anemia: Plan: macrocytic, baseline Hb 9-10 previous B12/folate wnl TSH mildly high - could be contributing cause of macrocytosis uncertain s/p Tx of 1 unit PRBCs early in the stay Hg stable at 8.9 on 07/12 (8) S/P CABG (coronary artery bypass graft): Plan: noted now with NSTEMI he had his CABG in [place] several decades ago followed by several stents very poor cath candidate last office note from Dr Gresham advised ongoing med management only (9) Aortic stenosis: Plan: severe see above (10) Chronic systolic CHF (congestive heart failure): Plan: EF previously 40s now 20-25% SEVERE ischemic CM is the cause (multiple WMAs on echo) cont lasix 20mg daily cont beta mary euvolemic (11) Diplopia: Plan: along with coordination issues / ataxia of hands as well as ?visual field cut all worrisome for acute stroke in the setting of his NSTEMI & syncope offered MRI brain several times this admission - declined by patient diplopia has resolved but continues to have some trouble with depth perception Plan GERD - cont pepcid BPH - cont flomax HTN - well controlled, cont BB and imdur hypothyroidism - TSH of 6.5, Continue levothyroxine 150mcg CKD stage G3 B/A2 with a baseline creatinine of 1.41.6. Follows with nephrology. Cr stable at 1.4 DM type 2 - appears diet controlled at home. A1c 6.6% All BG<150 on serial checks with minimal PRN insulin given. Stop frequent BG checks. updated his daughter Denise at bedside 07/10 did better with PT 07/11 dispo - [facility] (for an attempt on rehab) - referral made pending Admission and Anticipated Discharge Date Admission Date: July 02, 2024 Subjective Trevor slept fair last night, He continues to have bilateral foot pain, his left ankle wound continues to be painful no shortness of breath or chest pain, no events overnight Physical Exam Physical Exam: PHYSICAL EXAMINATION Last 24h vital signs reviewed, see documentation in flowsheet General: awake and appears comfortable HEENT: Normocephalic, atraumatic, pupils round and equal, sclerae anicteric, no conjunctival injection, MMM Lungs: Normal respiratory effort. Clear to auscultation bilaterally. No RRW Heart: Regular rate and rhythm, systolic murmur. No JVD Abdomen: Soft, nontender, nondistended. Bowel sounds present. Extremities: No extremity edema. left ankle wound overlying his Achilles is covered with a dark eschar, no undermining at wound margins seen no drainage, appears similar to last photo by wound ostomy nurse. there is some Betadine painting small wounds on his left dorsal toes. both feet are warm Neuro: awake and alert O x 4, face symmetric, moves 4 extremities globally extremely weak Psych: Normal affect and behavior Results & Data Results & Data Vital Signs (Past 12 Hours) Vital Signs Temp Pulse Resp BP Pulse Ox O2 Del Method 07/13/24 07:30 Room Air 07/13/24 07:12 36.6 C 75 18 112/62 94 Room Air PG Care Time/CCT Total # of Minutes Spent Total Time Spent with Patient: Total time spent is greater than 50% in coordination of care (as documented) at patient's floor/unit and/or counseling patient: Coding Level of Care Code 96926 SUB INP/OBS CARE 2/35MIN Diagnoses Non-ST elevation (NSTEMI) myocardial infarction I21.4 Chronic ulcer of left heel L97.429 Non-pressure ulcer stage: unspecified non-pressure ulcer stage Syncope R55 Syncope type: unspecified Weakness R53.1 Pneumonia J18.9 Laterality: left Lung location: unspecified part of lung Pneumonia type: due to unspecified organism Claudication in peripheral vascular disease I73.9 Anemia, unspecified type D64.9 Anemia type: unspecified type S/P CABG (coronary artery bypass graft) Z95.1 Aortic stenosis I35.0 Chronic systolic CHF (congestive heart failure) I50.22 Diplopia H53.2 (2) Chronic ulcer of left heel Non-pressure ulcer stage: unspecified non-pressure ulcer stage Qualified Code(s): L97.429 - Non-pressure chronic ulcer of left heel and midfoot with unspecified severity (3) Syncope Syncope type: unspecified Qualified Code(s): R55 - Syncope and collapse (5) Pneumonia Laterality: left Lung location: unspecified part of lung Pneumonia type: due to unspecified organism Qualified Code(s): J18.9 - Pneumonia, unspecified organism (7) Anemia Anemia type: unspecified type Qualified Code(s): D64.9 - Anemia, unspecified
[2024-07-13] MEDS: GABAPENTIN 100 MG CAP PO SCH (20:14)
--- NOTE | 2024-07-14 15:30 | Hospitalist Progress Note ---
Date of Service July 14, 2024 Assessment & Plan (1) Non-ST elevation (NSTEMI) myocardial infarction: Plan: 88-year-old man with severe chronic multisystem disease admitted with NSTEMI he has severe underlying multivessel coronary artery disease and severe bilate ral lower extremity PAD both not amenable to revascularization, as well as severe aortic stenosis and ischemic cardiomyopathy with EF 20-25%. NSTEMI was treated medically this admission. He plans to continue attempt at rehab to improve his functional status however overall plan of care is palliative, he plans to transition to hospice if/when his clinical status worsens treated with heparin drip for nstemi cardiology consulted, medical management recommended echo findings noted with depressed EF (20-25%) and multiple WMAs (EF much worse than earlier this summer when EF was >40%) cont BB, imdur, asa, statin, etc no ischemic symptoms since admission - CBC and BMP 07/12 and unremarkable - anemia unchanged, Cr at baseline 1.45 (2) Chronic ulcer of left heel: Plan: unfortunately he had exposed achilles with purulent drainage appreciate wound care assistance achilles tendon inflamed on CT -- likely infected would need surgical debridement for this, but patient does not want aggressive measures My colleague corresponded with Dr Ashley Mendez, wound care physician from the [facility] Currently infection is resolved or controlled Continue wound care plan for short course of IV/po antibiotics perhaps 2 weeks total end date roughly 07/15 - EKG from 07/10 reviewed QTc remains acceptable at 491 (3) Syncope: Plan: Could have been related to hypotension/infection, orthostasis, or arrhythmia at which he is at risk for with severe cardiomyopathy, severe treatment as above (4) Weakness: Plan: multifactorial causes - infection (LLL pneumonia, L achilles region/ankle), severe anemia, NSTEMI, intractable pain/narcotic use chronically, acute/chronic CHF, ?acute stroke, etc. ammonia level wnl, VBG w/o hypercapnia (5) Pneumonia: Plan: LLL - completed adequate course of treatment with ceftriaxone/levofloxacin and doxycycline as above On room air, resolved (6) Claudication in peripheral vascular disease: Plan: severe PAD of LLE much of his pain is rest pain from his PAD 03/2023 outpatient vascular surgery note showed - * absent flow in the left common femora and SFA c/w occlusion * absent flow in the fem-pop prosthetic bypass graft c/w occlusion * monophasic waveforms in the popliteal, distal peroneal, and distal [place] * absent flow in the distal [employer], c/w occlusion * left CHERI 0.32 (critically reduced) previously used tramadol, no longer effective continue pletal and other meds listed above continue 12 mg fentanyl patch and oxycodone 10 mg p.o. as needed pain, was over sedated on 25 mcg patch started gabapentin 100 mg at bedtime, tolerating so far - seems to have helped sleep/night pain, increased to bid - monitor for daytime drowsiness or increased confusion (7) Anemia: Plan: macrocytic, baseline Hb 9-10 previous B12/folate wnl TSH mildly high - could be contributing cause of macrocytosis uncertain s/p Tx of 1 unit PRBCs early in the stay Hg stable at 8.9 on 07/12 (8) S/P CABG (coronary artery bypass graft): Plan: noted now with NSTEMI he had his CABG in [place] several decades ago followed by several stents very poor cath candidate last office note from Dr Gresham advised ongoing med management only (9) Aortic stenosis: Plan: severe see above (10) Chronic systolic CHF (congestive heart failure): Plan: EF previously 40s now 20-25% SEVERE ischemic CM is the cause (multiple WMAs on echo) cont lasix 20mg daily cont beta mary euvolemic (11) Diplopia: Plan: along with coordination issues / ataxia of hands as well as ?visual field cut all worrisome for acute stroke in the setting of his NSTEMI & syncope offered MRI brain several times this admission - declined by patient diplopia has resolved but continues to have some trouble with depth perception Plan GERD - cont pepcid BPH - cont flomax HTN - well controlled, cont BB and imdur hypothyroidism - TSH of 6.5, Continue levothyroxine 150mcg CKD stage G3 B/A2 with a baseline creatinine of 1.41.6. Follows with nephrology. Cr stable at 1.4 DM type 2 - appears diet controlled at home. A1c 6.6% All BG<150 on serial checks with minimal PRN insulin given. Stop frequent BG checks. updated his daughter Denise at bedside 07/10 did better with PT 07/11 dispo - accepted at [facility] today, auth pending Admission and Anticipated Discharge Date Admission Date: July 02, 2024 Subjective Trevor continues to have bilateral foot pain at rest, pain over Achilles wound especially with dressing changes he seems to be sleeping much better with the low-dose gabapentin at bedtime, nursing reports he sleeps a lot in general we went over all of his complex medical problems today and prognosis from these, he continues to have limited understanding and recall of previous similar conversations Physical Exam Physical Exam: PHYSICAL EXAMINATION Last 24h vital signs reviewed, see documentation in flowsheet General: awake and appears comfortable, very thin frail and chronically ill- appearing Exam unchanged 07/14 HEENT: Normocephalic, atraumatic, pupils round and equal, sclerae anicteric, no conjunctival injection, MMM Lungs: Normal respiratory effort. Clear to auscultation bilaterally. No RRW Heart: Regular rate and rhythm, systolic murmur. No JVD Abdomen: Soft, nontender, nondistended. Bowel sounds present. Extremities: No extremity edema. left ankle wound overlying his Achilles is covered with a dark eschar somewhat improved, no undermining at wound margins seen no drainage, unchanged since yesterday there is some Betadine painting small wounds on his left dorsal toes. both feet are warm Neuro: awake and alert O x 4, face symmetric, moves 4 extremities globally extremely weak Psych: Normal affect and behavior Results & Data Results & Data Vital Signs (Past 12 Hours) Vital Signs Temp Pulse Resp BP BP Pulse Ox O2 Del Method 07/14/24 14:11 36.4 C L 52 L 18 93/51 L 95 Room Air 07/14/24 07:38 36.4 C L 65 18 111/71 93 Room Air 07/14/24 07:14 Room Air PG Care Time/CCT Total # of Minutes Spent Total Time Spent with Patient: Total time spent is greater than 50% in coordination of care (as documented) at patient's floor/unit and/or counseling patient: Coding Level of Care Code 91990 SUB INP/OBS CARE 11/29MIN Diagnoses Non-ST elevation (NSTEMI) myocardial infarction I21.4 Chronic ulcer of left heel L97.429 Non-pressure ulcer stage: unspecified non-pressure ulcer stage Syncope R55 Syncope type: unspecified Weakness R53.1 Pneumonia J18.9 Laterality: left Lung location: unspecified part of lung Pneumonia type: due to unspecified organism Claudication in peripheral vascular disease I73.9 Anemia, unspecified type D64.9 Anemia type: unspecified type S/P CABG (coronary artery bypass graft) Z95.1 Aortic stenosis I35.0 Chronic systolic CHF (congestive heart failure) I50.22 Diplopia H53.2 (2) Chronic ulcer of left heel Non-pressure ulcer stage: unspecified non-pressure ulcer stage Qualified Code(s): L97.429 - Non-pressure chronic ulcer of left heel and midfoot with unspecified severity (3) Syncope Syncope type: unspecified Qualified Code(s): R55 - Syncope and collapse (5) Pneumonia Laterality: left Lung location: unspecified part of lung Pneumonia type: due to unspecified organism Qualified Code(s): J18.9 - Pneumonia, unspecified organism (7) Anemia Anemia type: unspecified type Qualified Code(s): D64.9 - Anemia, unspecified
[2024-07-15 10:46] LABS: Hematocrit (blood only) 30.5 % (42.0-52.0); Hemoglobin 9.5 g/dl (14.0-18.0); Mean Corpuscular Hemoglobin 32.1 pg (25.0-34.0); Mean Corpuscular Hgb Conc 31.1 g/dL (32.0-36.0); Mean Platelet Volume 9.8 fL (9.4-12.4); Platelet Count 195 K/uL (130-400); RDW Coefficient of Variation 16.8 % (11.5-14.5); RDW Standard Deviation 62.4 fL (36.4-46.3); Red Blood Count 2.96 M/uL (4.70-6.10); White Blood Count 5.46 K/ul (4.8-10.8)
[2024-07-15 10:57] LABS: Calcium 8.8 mg/dl (8.6-10.3); Magnesium 1.6 mg/dl (1.7-2.4); Potassium 4.2 mmol/L (3.5-5.1)
[2024-07-15 11:02] LABS: BUN Creatinine Ratio 29.3 (10-20); Est GFR (African American) 60.8 ml/min; Est GFR (Non-African American) 52.5 ml/min
--- NOTE | 2024-07-15 19:41 | Hospitalist Progress Note ---
Date of Service July 15, 2024 Assessment & Plan (1) Non-ST elevation (NSTEMI) myocardial infarction: Plan: present on admission completed 48 hours of heparin drip early portion of the stay very poor cath candidate thus deferred by cardiology medical management only advised for known, complex/severe CAD echo - EF 20-25% and multiple WMAs (EF much worse than earlier this summer when EF was >40%) cont BB, imdur, asa, statin, etc peak troponin - 1470 no ischemic symptoms since admission (2) Chronic ulcer of left heel: Plan: unfortunately he has exposed achilles with purulent drainage appreciate wound care assistance achilles tendon inflamed on CT -- likely infected would need surgical debridement for this, but patient does not want aggressive measures the ulcer had worsened well over a week ago THERE WAS BLACK ESCHAR ALONG THE COURSE OF THE ULCER IN A VERTICAL, LINEAR FASHION THE ESCHAR EXTENDED DOWN TO THE VISIBLE PORTION OF THE ACHILLES TENDON informally corresponded with Dr Ashley Mendez, wound care physician from the [facility], about a week ago cont to - * paint the ulcer with betadine * cover the achilles exposed region with adaptic * try to keep the eschar portion (superior portion) of the ulcer dry * cover with ABD * then chaunceyx remains on levaquin (for pseudomonas coverage) + doxycycline BID (for MRSA coverage) cont these until discharge then stop (has had 14+ days of Rx) (3) Syncope: Plan: Suspect multifactorial -- severe in the setting of infection, anemia, NSTEMI, ?acute stroke, etc. Recent echo this summer via [facility] [employer] system showed EF 43% with severe aortic stenosis, severe mitral regurgitation, mild tricuspid regurgitation Echo this admission with even worse EF - now 20-25% (4) Weakness: Plan: multifactorial causes - infection (LLL pneumonia, L achilles region/ankle), severe anemia, NSTEMI, intractable pain/narcotic use chronically, acute/chronic CHF, ?acute stroke, etc. weakness has worsened during the hospitalization poor prognosis gabapentin for pain could be making his weakness/lethargy worse - will stop (5) Pneumonia: Plan: LLL has completed 10+ days of Rx resolved clinically (6) Claudication in peripheral vascular disease: Plan: severe PAD of LLE much of his pain is rest pain from his PAD 03/2023 outpatient vascular surgery note showed - * absent flow in the left common femora and SFA c/w occlusion * absent flow in the fem-pop prosthetic bypass graft c/w occlusion * monophasic waveforms in the popliteal, distal peroneal, and distal [place] * absent flow in the distal FLIGHT SIMULATOR TEACHER, c/w occlusion * left CHERI 0.32 (critically reduced) had been on chronic tramadol 100mg TID for several years but it had been ineffective at controlling his pain this has been stopped in sadia of fentanyl patch 12mcg q3d did not tolerate the larger dose of 25mcg remains on oxycodone 10mg prn cont pletal, etc (7) Left leg swelling: Plan: resolved (8) Anemia: Plan: macrocytic, baseline Hb 9-10 previous B12/folate wnl TSH mildly high - could be contributing cause of macrocytosis uncertain s/p Tx of 1 unit PRBCs early in the stay repeat cbc today stable (9) Diabetes: Plan: Patient's home regimen held on admission Continue BSG checks, sliding-scale novolog a1c 6% (10) Chronic kidney disease, stage III (moderate): Plan: CKD stage G3 B/A2 with a baseline creatinine of 1.41.6. Follows with nephrology. repeat BMP today stable (11) Benign prostate hyperplasia: Plan: cont flomax (12) GERD (gastroesophageal reflux disease): Plan: cont pepcid (13) Hypothyroidism: Plan: Continue levothyroxine 150mcg (14) S/P CABG (coronary artery bypass graft): Plan: with NSTEMI at time of admission he had his CABG in [place] several decades ago followed by several stents very poor cath candidate last office note from Dr rGesham advised ongoing med management only (15) HTN (hypertension): Plan: cont BB, imdur, flomax (16) Aortic stenosis: Plan: severe likely contributed to #1 (17) Chronic systolic CHF (congestive heart failure): Plan: EF previously 40s now 20-25% SEVERE ischemic CM is the cause (multiple WMAs on echo) cont lasix 20mg daily cont beta mary (18) Diplopia: Plan: along with coordination issues / ataxia of hands as well as ?visual field cut all worrisome for acute stroke in the setting of his NSTEMI & syncope offered MRI brain several times this admission - declined by patient although diplopia has improved he continues with depth perception issues/visual disturbance Plan updated his daughter Denise today by phone dispo - [facility] (for an attempt on rehab) but rehab potential is poor to none suspect that once he is at a SNF he will transition to hospice ultimately if rehab goes poorly insurance auth obtained for [facility] can likely d/c there tomorrow Admission and Anticipated Discharge Date Admission Date: July 02, 2024 Subjective very sleepy during the visit c/o fatigue, weakness, being tired very little appetite ongoing pain in his left foot/ankle did tell him that his insurance approved [facility] he still wants to try doing rehab Review of Systems Review of Systems: CV - no chest pain pulm - no dyspnea GI - no abd pain; + stools Physical Exam Physical Exam: gen - generalized pallor, lying in bed; looks VERY WEAK, lethargic, could barely keep eyes open neck - no JVD mouth - MM dry heart - RRR, s1 s2, 2-3/6 holosystolic murmur RUSB/apex lungs - CTA b/l abd - soft NT ND BS+ vascular - L foot pulses nonpalpable; L foot and L distal kowalski cool to touch with delayed cap refill; pulses 1+ right foot ext - left foot with trace edema, no edema right foot skin - dressings left in place on left foot/ankle - will remove them tomorrow Results & Data Results & Data Vital Signs (Past 12 Hours) Vital Signs Temp Pulse Resp BP Pulse Ox O2 Del Method 07/15/24 14:15 36.4 C L 65 16 123/58 L 95 Room Air 07/15/24 08:30 Room Air Laboratory Results Laboratory Results - last 24 hr 07/15/24 10:19 WBC 5.46 RBC 2.96 L Hgb 9.5 L Hct 30.5 L MCV 103.0 H MCH 32.1 MCHC 31.1 L RDW Std Deviation 62.4 H RDW Coeff of Brianda 16.8 H Plt Count 195 MPV 9.8 Sodium 137 Potassium 4.2 Chloride 107 Carbon Dioxide 23 Anion Gap 7 BUN 36 H Creatinine 1.23 Est Cr Clr Drug Dosing 38.0 Est GFR ( Amer) 60.8 Est GFR (Non-Af Amer) 52.5 BUN/Creatinine Ratio 29.3 H Glucose 97 Calcium 8.8 Magnesium 1.6 L PG Care Time/CCT Total # of Minutes Spent Total Time Spent with Patient: Total time spent is greater than 50% in coordination of care (as documented) at patient's floor/unit and/or counseling patient: Coding Level of Care Code 54689 SUB INP/OBS CARE 235MIN Diagnoses Non-ST elevation (NSTEMI) myocardial infarction I21.4 Chronic ulcer of left heel L97.429 Non-pressure ulcer stage: unspecified non-pressure ulcer stage Syncope R55 Syncope type: unspecified Weakness R53.1 Pneumonia J18.9 Laterality: left Lung location: unspecified part of lung Pneumonia type: due to unspecified organism Claudication in peripheral vascular disease I73.9 Left leg swelling M79.89 Anemia, unspecified type D64.9 Anemia type: unspecified type Diabetes E11.9 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 Chronic kidney disease stage 3 subtype: stage 3b (GFR 30-44) Benign prostate hyperplasia N40.0 Gastroesophageal reflux disease without esophagitis K21.9 Esophagitis presence: without esophagitis Acquired hypothyroidism E03.9 Hypothyroidism type: acquired S/P CABG (coronary artery bypass graft) Z95.1 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 (2) Chronic ulcer of left heel Non-pressure ulcer stage: unspecified non-pressure ulcer stage Qualified Code(s): L97.429 - Non-pressure chronic ulcer of left heel and midfoot with unspecified severity (3) Syncope Syncope type: unspecified Qualified Code(s): R55 - Syncope and collapse (5) Pneumonia Laterality: left Lung location: unspecified part of lung Pneumonia type: due to unspecified organism Qualified Code(s): J18.9 - Pneumonia, unspecified organism (8) Anemia Anemia type: unspecified type Qualified Code(s): D64.9 - Anemia, unspecified (10) Chronic kidney disease, stage III (moderate) Chronic kidney disease stage 3 subtype: stage 3b (GFR 30-44) Qualified Code(s): N18.32 - Chronic kidney disease, stage 3b (12) GERD (gastroesophageal reflux disease) Esophagitis presence: without esophagitis Qualified Code(s): K21.9 - Gastro- esophageal reflux disease without esophagitis (13) Hypothyroidism Hypothyroidism type: acquired Qualified Code(s): E03.9 - Hypothyroidism, unspecified (15) HTN (hypertension) Hypertension type: renovascular hypertension Qualified Code(s): I15.0 - Renovascular hypertension
[2024-07-15] MEDS: MAGNESIUM OXIDE 400 MG TAB PO SCH (20:59)
[2024-07-16] MEDS: PANTOprazole 40 MG TAB PO SCH (09:06)
[2024-07-16] MEDS: HYDROmorphone INJ 1 MG/ML SYRINGE IV STA (12:45)
--- NOTE | 2024-07-16 13:01 | Hospitalist Progress Note ---
Date of Service July 16, 2024 Assessment & Plan (1) Comfort measures only status: Plan: initially the plan for today was hospital d/c to [facility] for an attempt at rehab which was the pt's initial desire over the last 2 weeks however, he has had considerable global decline over the last week and in particular the last 48 hours he has been very confused, lethargic at times, eating/drinking poorly, and having intractable pain of the LLE despite fentanyl patch/oxycodone after considerable discussion today over 2 visits to the bedside it was felt that the best plan was to NOT transfer him to [facility] and to keep him hospitalized to initiate a comfort care pathway goal will be to improve/resolve his intractable LLE pain which has been present for months but has worsened significantly in the last few weeks thus, all unnecessary medicines have been stopped, routine vital checks canceled, labs stopped, BSGs canceled, etc. focus on pain relief and comfort spoke with Bernadette Quan from case management about having Hospice evaluate him for inpatient hospice status pt's [facility] were involved in his 's care (who was on hospice in 2023 and just a few months ago) support given to the patient and his daughter pastoral support being arranged by his daughter I anticipate his life expectancy is about a week or less (2) Palliative care status: Plan: see above (3) Intractable pain: Plan: cont fentanyl patch cont oxycodone prn added dilaudid IV prn asking [facility] to evaluate him for inpatient hospice status and for additional pain relief recommendations (4) Non-ST elevation (NSTEMI) myocardial infarction: Plan: present on admission completed 48 hours of heparin drip early portion of the stay very poor cath candidate thus deferred by cardiology medical management only advised for known, complex/severe CAD echo - EF 20-25% and multiple WMAs (EF much worse than earlier this summer when EF was >40%) cont BB, imdur, asa, statin, etc peak troponin - 1470 fortunately no ischemic symptoms since admission (5) Chronic ulcer of left heel: Plan: unfortunately he has exposed achilles with purulent drainage and black eschar of this region achilles tendon inflamed on CT -- likely infected typically surgical debridement would have been ideal for this, but patient did not want aggressive measures THE ESCHAR EXTENDS DOWN TO THE VISIBLE PORTION OF THE ACHILLES TENDON cont to - * paint the ulcer with betadine * cover the achilles exposed region with adaptic & then cover with abd/kerlix has been on levaquin (for pseudomonas coverage) + doxycycline BID (for MRSA coverage) for 2+ weeks -- stop both, transitioning to comfort care pathway (6) Syncope: Plan: Suspect multifactorial -- severe in the setting of infection, anemia, NSTEMI, ?acute stroke, etc. Recent echo this summer via [facility] [employer] system showed EF 43% with severe aortic stenosis, severe mitral regurgitation, mild tricuspid regurgitation Echo this admission with even worse EF - now 20-25% (7) Weakness: Plan: multifactorial causes - infection (LLL pneumonia, L achilles region/ankle), severe anemia, NSTEMI, intractable pain/narcotic use chronically, acute/chronic CHF, ?acute stroke, etc. weakness has worsened during the hospitalization to the point he had nearly 100% functional loss (8) Pneumonia: Plan: LLL completed 10+ days of Rx (9) Claudication in peripheral vascular disease: Plan: severe PAD of LLE much of his pain is rest pain from his PAD 03/2023 outpatient vascular surgery note showed - * absent flow in the left common femora and SFA c/w occlusion * absent flow in the fem-pop prosthetic bypass graft c/w occlusion * monophasic waveforms in the popliteal, distal peroneal, and distal [place] * absent flow in the distal FIRER LOCOMOTIVE CRANE, c/w occlusion * left CHERI 0.32 (critically reduced) see above in #1 re: pain control (10) Left leg swelling: Plan: resolved (11) Anemia: Plan: macrocytic, baseline Hb 9-10 s/p Tx of 1 unit PRBCs early in the stay (12) Diabetes: Plan: stop BSG checks (13) Chronic kidney disease, stage III (moderate): Plan: stop BMP checks (14) Benign prostate hyperplasia: Plan: stop flomax (15) GERD (gastroesophageal reflux disease): (16) Hypothyroidism: Plan: stop levothyroxine (17) S/P CABG (coronary artery bypass graft): Plan: with NSTEMI at time of admission he had his CABG in [place] several decades ago followed by several stents not a cath candidate (18) HTN (hypertension): Plan: stop BB, imdur, flomax (19) Aortic stenosis: Plan: severe likely contributed to #1 (20) Chronic systolic CHF (congestive heart failure): Plan: EF previously 40s now 20-25% SEVERE ischemic CM was the likely cause (multiple WMAs on echo) (21) Diplopia: Plan: along with coordination issues / ataxia of hands as well as ?visual field cut all worrisome for acute stroke in the setting of his NSTEMI & syncope offered MRI brain several times this admission - declined by patient Plan updated his daughter Denise multiple times today support given initiating comfort care measures hospice consult for inpt hospice status Admission and Anticipated Discharge Date Admission Date: July 02, 2024 Subjective 2 visits to bedside today first was during AM rounds (late am) 2nd was early afternoon after his daughter had arrived per nursing staff he has required multiple doses of oxycodone overnight and despite such continues with 10/10 pain in the left foot/ankle/leg (and some on the right as well) during my first visit he was confused he kept saying repeatedly "well what can we do about it?" (his pain) I would explain the options for his pain relief and he would ask the same question again he also stated his hearing was off and kept asking if "I could hear him" I discussed with him that I did not think it was prudent for him to discharge to [facility] told him that his desire to "rehab" there was not feasible nor advised in light of his declining status and intractable pain advised transitioning to full comfort care measures and consulting hospice for inpatient hospice care he was confused, not fully grasping/understanding all portions of this conversation during the 2nd visit his daughter was present at bedside I repeated a lot of what we had talked about at the first visit advised NOT going to [facility] advised transitioning to full comfort care advised inpatient hospice evaluation he again was confused, but at one point he did ask myself & his daughter "am I dying?" I did tell him that I thought his days were numbered and that it was extremely important for us to get him comfortable his daughter said "dad, you have been in agony" I concurred with his daughter that I felt he indeed has been suffering because of his intractable pain he is not eating/drinking, taking a bite of food here/there only sleeping large stretches at conclusion of my 2nd bedside visit patient and his daughter agreeable to comfort care measures and asking [facility] to evaluate his candidacy for inpatient hospice status given his intractable pain Review of Systems Review of Systems: CV - denied chest pain pulm - denied dyspnea GI - denied abd pain Physical Exam Physical Exam: gen - looks unwell, very pale, confused, uncomfortable, coughing eyes - right eye ptosis remains vascular - pulses left foot not detectable, cool temperature b/l feet worse on left skin - generalized pallor; dressings intact L foot/ankle psych - confused, agitated, hallucinating (seeing his at bedside) Results & Data Results & Data Vital Signs (Past 12 Hours) Vital Signs Temp Pulse Resp BP Pulse Ox O2 Del Method 07/16/24 09:24 Room Air 07/16/24 07:03 36.6 C 81 16 112/63 94 Room Air Laboratory Results Laboratory Results - last 48 hr 07/15/24 07/16/24 10:19 20:43 WBC 5.46 RBC 2.96 L Hgb 9.5 L Hct 30.5 L MCV 103.0 H MCH 32.1 MCHC 31.1 L RDW Std Deviation 62.4 H RDW Coeff of Brianda 16.8 H Plt Count 195 MPV 9.8 Sodium 137 Potassium 4.2 Chloride 107 Carbon Dioxide 23 Anion Gap 7 BUN 36 H Creatinine 1.23 Est Cr Clr Drug Dosing 38.0 Est GFR ( Amer) 60.8 Est GFR (Non-Af Amer) 52.5 BUN/Creatinine Ratio 29.3 H Glucose 97 POC Glucose 86 Calcium 8.8 Magnesium 1.6 L PG Care Time/CCT Total # of Minutes Spent Total Time Spent with Patient: Total time spent is greater than 50% in coordination of care (as documented) at patient's floor/unit and/or counseling patient: Coding Level of Care Code 79870 SUB INP/OBS CARE 3/50MIN Diagnoses Comfort measures only status Z51.5 Palliative care status Z51.5 Intractable pain R52 Non-ST elevation (NSTEMI) myocardial infarction I21.4 Chronic ulcer of left heel L97.429 Non-pressure ulcer stage: unspecified non-pressure ulcer stage Syncope R55 Syncope type: unspecified Weakness R53.1 Pneumonia J18.9 Laterality: left Lung location: unspecified part of lung Pneumonia type: due to unspecified organism Claudication in peripheral vascular disease I73.9 Left leg swelling M79.89 Anemia, unspecified type D64.9 Anemia type: unspecified type Diabetes E11.9 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 Chronic kidney disease stage 3 subtype: stage 3b (GFR 30-44) Benign prostate hyperplasia N40.0 Gastroesophageal reflux disease without esophagitis K21.9 Esophagitis presence: without esophagitis Acquired hypothyroidism E03.9 Hypothyroidism type: acquired S/P CABG (coronary artery bypass graft) Z95.1 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 (5) Chronic ulcer of left heel Non-pressure ulcer stage: unspecified non-pressure ulcer stage Qualified Code(s): L97.429 - Non-pressure chronic ulcer of left heel and midfoot with unspecified severity (6) Syncope Syncope type: unspecified Qualified Code(s): R55 - Syncope and collapse (8) Pneumonia Laterality: left Lung location: unspecified part of lung Pneumonia type: due to unspecified organism Qualified Code(s): J18.9 - Pneumonia, unspecified organism (11) Anemia Anemia type: unspecified type Qualified Code(s): D64.9 - Anemia, unspecified (13) Chronic kidney disease, stage III (moderate) Chronic kidney disease stage 3 subtype: stage 3b (GFR 30-44) Qualified Code(s): N18.32 - Chronic kidney disease, stage 3b (15) GERD (gastroesophageal reflux disease) Esophagitis presence: without esophagitis Qualified Code(s): K21.9 - Gastro- esophageal reflux disease without esophagitis (16) Hypothyroidism Hypothyroidism type: acquired Qualified Code(s): E03.9 - Hypothyroidism, unspecified (18) HTN (hypertension) Hypertension type: renovascular hypertension Qualified Code(s): I15.0 - Renovascular hypertension
[2024-07-16] MEDS: HYDROmorphone INJ 1 MG/ML SYRINGE IV PRN (17:26)
[2024-07-16] MEDS ORDERED: ATROPINE SULFATE 1% OP SOLN 5 ML BTL SL PRN (19:34)
[2024-07-16] MEDS ORDERED: OLANZapine ZYDIS 5 MG ORALLY DIS. TAB PO PRN (19:34)
[2024-07-16] MEDS ORDERED: GLYCOPYRROLATE 0.2 MG/ML VIAL IV PRN (19:34)
[2024-07-16] MEDS ORDERED: LORazepam 2 MG/1 ML VIAL IV PRN (19:34)
[2024-07-16 19:58] VITALS: RESP 18; O2SAT 96
[2024-07-17 08:00] VITALS: BP 126/65; PULSE 72; TEMP 99
--- NOTE | 2024-07-17 10:03 | Discharge Summary ---
Discharge Summary Date of Service July 17, 2024 Principal Dx & Hospital Course #1 = Principal Diagnosis (1) Comfort measures only status: initially the plan for today was hospital d/c to [facility] for an attempt at rehab which was the pt's initial desire over the last 2 weeks however, he has had considerable global decline over the last week and in particular the last 48 hours he has been very confused, lethargic at times, eating/drinking poorly, and having intractable pain of the LLE despite fentanyl patch/oxycodone after considerable discussion today over 2 visits to the bedside it was felt that the best plan was to NOT transfer him to [facility] and to keep him hospitalized to initiate a comfort care pathway goal will be to improve/resolve his intractable LLE pain which has been present for months but has worsened significantly in the last few weeks thus, all unnecessary medicines have been stopped, routine vital checks canceled, labs stopped, BSGs canceled, etc. focus on pain relief and comfort spoke with Bernadette Quan from case management about having Hospice evaluate him for inpatient hospice status pt's daughter requested [facility] as they were involved in his 's care (who was on hospice in 2023 and just a few months ago) support given to the patient and his daughter pastoral support being arranged by his daughter I anticipate his life expectancy is about a week or less (2) Palliative care status: see above (3) Intractable pain: cont fentanyl patch cont oxycodone prn added dilaudid IV prn asking [facility] to evaluate him for inpatient hospice status and for additional pain relief recommendations (4) Non-ST elevation (NSTEMI) myocardial infarction: present on admission completed 48 hours of heparin drip early portion of the stay very poor cath candidate thus deferred by cardiology medical management only advised for known, complex/severe CAD echo - EF 20-25% and multiple WMAs (EF much worse than earlier this summer when EF was >40%) cont BB, imdur, asa, statin, etc peak troponin - 1470 fortunately no ischemic symptoms since admission (5) Chronic ulcer of left heel: unfortunately he has exposed achilles with purulent drainage and black eschar of this region achilles tendon inflamed on CT -- likely infected typically surgical debridement would have been ideal for this, but patient did not want aggressive measures THE ESCHAR EXTENDS DOWN TO THE VISIBLE PORTION OF THE ACHILLES TENDON cont to - * paint the ulcer with betadine * cover the achilles exposed region with adaptic & then cover with abd/kerlix has been on levaquin (for pseudomonas coverage) + doxycycline BID (for MRSA coverage) for 2+ weeks -- stop both, transitioning to comfort care pathway (6) Syncope: Suspect multifactorial -- severe in the setting of infection, anemia, NSTEMI, ?acute stroke, etc. Recent echo this summer via [facility] [employer] system showed EF 43% with severe aortic stenosis, severe mitral regurgitation, mild tricuspid regurgitation Echo this admission with even worse EF - now 20-25% (7) Weakness: multifactorial causes - infection (LLL pneumonia, L achilles region/ankle), severe anemia, NSTEMI, intractable pain/narcotic use chronically, acute/chronic CHF, ?acute stroke, etc. weakness has worsened during the hospitalization to the point he had nearly 100% functional loss (8) Pneumonia: LLL completed 10+ days of Rx (9) Claudication in peripheral vascular disease: severe PAD of LLE much of his pain is rest pain from his PAD 03/2023 outpatient vascular surgery note showed - * absent flow in the left common femora and SFA c/w occlusion * absent flow in the fem-pop prosthetic bypass graft c/w occlusion * monophasic waveforms in the popliteal, distal peroneal, and distal [place] * absent flow in the distal EXTRACTOR PULLER, c/w occlusion * left CHERI 0.32 (critically reduced) see above in #1 re: pain control (10) Left leg swelling: resolved (11) Anemia: macrocytic, baseline Hb 9-10 s/p Tx of 1 unit PRBCs early in the stay (12) Diabetes: stop BSG checks (13) Chronic kidney disease, stage III (moderate): stop BMP checks (14) Benign prostate hyperplasia: stop flomax (15) GERD (gastroesophageal reflux disease): (16) Hypothyroidism: stop levothyroxine (17) S/P CABG (coronary artery bypass graft): with NSTEMI at time of admission he had his CABG in [place] several decades ago followed by several stents not a cath candidate (18) HTN (hypertension): stop BB, imdur, flomax (19) Aortic stenosis: severe likely contributed to #1 (20) Chronic systolic CHF (congestive heart failure): EF previously 40s now 20-25% SEVERE ischemic CM was the likely cause (multiple WMAs on echo) (21) Diplopia: along with coordination issues / ataxia of hands as well as ?visual field cut all worrisome for acute stroke in the setting of his NSTEMI & syncope offered MRI brain several times this admission - declined by patient Plan updated his daughter Denise multiple times today support given initiating comfort care measures hospice consult for inpt hospice status Admission HPI Per Admitting Provider Patient is a 88-year-old male with past medical history of PAD on Plavix, CKD, secondary hypothyroidism, history of CABG, vascular dementia, hypertension who presents to the hospital via EMS for episode of syncope. Syncope occurred earlier this morning at approximately 5:30 AM. Patient was getting out of his bathroom and using his electric chair to ambulate. He was sitting down trying to move the chair when he had loss of consciousness. He did have some chest pressure at that time which resolved. Denies any chest pains at this time. Patient does state though that he has been feeling weak for some time. He also had a fall last where he was trying to get back into his chair from the bathroom and fell and hit the back of his head. Denies any loss of consciousness at that time. Patient's daughter was bedside who states that he is currently at baseline. He denies any chest pain at this time, shortness of breath, cough, congestion, or abdominal pain. Does have left lower extremity, vascular issues. He follows with [facility]. Though recently his left lower extremity has become erythematous and edematous. He has been having a chronic ulcer on the heel for about 2 to 3 months. Approximately 10 days ago he started to have swelling and erythema in the left lower extremity that has been getting worse and causing pain. Discharge Exam gen - looks unwell, very pale, confused, uncomfortable, coughing eyes - right eye ptosis remains vascular - pulses left foot not detectable, cool temperature b/l feet worse on left skin - generalized pallor; dressings intact L foot/ankle psych - confused, agitated, hallucinating (seeing his at bedside) Discharge Plan Discharge Items Patient Disposition: Hospice - Medical Facility Reason For Visit: SYNCOPE, WEAKNESS Discharge Diagnosis: NSTEMI Severe systolic CHF Non-healing left lower extremity wound Inoperable, severe/critical PAD of LLE Pneumonia Severe, intractable pain of LLE Severe Aortic stenosis Severe CAD Prior h/o CABG Vascular dementia Transition to inpatient hospice status Activity: Per Instructions section Non-emergency contact: Primary Care Provider Call non-emergency contact if: your symptoms worsen Follow-up/Referrals: Sanjeev Coronado MD [Primary Care Provider] - Diet: Regular Addtl Attending Provider Instructions: Patient transitioning to inpatient hospice status care of [facility]. Pending Studies at Discharge: No Stand-Alone Forms: My [employer] Skilled Items Patient informed of condition?: Yes DNR: Yes Discharge Level of Care: Other Communicable Disease: No Discharge Prognosis: Deteriorating Lines: Peripheral IV Urinary Catheter: No Medications and DC Order Prescriptions: New fentanyl 12 mcg/hr Patch 72 Hour 1 patch transdermal Q3D@1730 Qty: 1 0RF Continued nitroglycerin 0.4 mg tablet, sublingual See Rx Instructions .ROUTE .COMPLEX Qty: 25 5RF Dose Instruction: DISSOLVE ONE TABLET UNDER THE TONGUE EVERY 5 MINUTES NEEDED FOR CHEST PAIN. DO NOT EXCEED A TOTAL OF 3 DOSES IN 15 MINUTES Rx Instructions: DISSOLVE ONE TABLET UNDER THE TONGUE EVERY 5 MINUTES NEEDED FOR CHEST PAIN. DO NOT EXCEED A TOTAL OF 3 DOSES IN 15 MINUTES Discontinued folic acid 400 mcg tablet 400 mcg PO DAILY Qty: 30 2RF aspirin 81 mg tablet,delayed release (DR/EC) 81 mg PO DAILY Qty: 30 2RF famotidine 20 mg tablet 20 mg PO BID 90 Days Qty: 180 3RF tamsulosin 0.4 mg capsule 0.4 mg PO DAILY Qty: 90 3RF cilostazol 100 mg tablet 100 mg PO BID Qty: 180 3RF donepezil 10 mg tablet 10 mg PO DAILY Qty: 90 3RF isosorbide mononitrate 30 mg tablet extended release 24 hr 30 mg PO DAILY Qty: 180 3RF allopurinol 100 mg tablet 200 mg PO DAILY Qty: 180 3RF atorvastatin 80 mg tablet 80 mg PO DAILY Qty: 100 3RF clopidogrel 75 mg tablet 75 mg PO DAILY Qty: 90 1RF levothyroxine 150 mcg tablet 150 mcg PO DAILY Qty: 90 3RF tramadol 50 mg tablet 100 mg PO TID PRN (Reason: pain) Qty: 180 0RF omega-3 acid ethyl esters 1 gram capsule 1 cap PO DAILY ascorbic acid (vitamin C) 500 mg tablet 500 mg PO DAILY garlic 1,000 mg capsule 1,000 mg PO DAILY cyanocobalamin (vitamin B-12) 1,000 mcg tablet extended release 1,000 mcg PO DAILY cholecalciferol (vitamin D3) 1,000 unit capsule 1,000 units PO DAILY calcium polycarbophil 625 mg tablet 1,875 mg PO DAILY pyridoxine (vitamin B6) 100 mg tablet 100 mg PO DAILY acetaminophen [Tylenol Extra Strength] 500 mg tablet 500 mg PO Q6H PRN (Reason: Pain) ferrous sulfate 325 mg (65 mg iron) tablet 325 mg PO Q OTHER DAY multivitamin with min no.7-FA 1 mg Capsule 1 cap PO DAILY memantine 5 mg tablet 5 mg PO BID metoprolol succinate 50 mg tablet extended release 24 hr 25 mg PO DAILY Discharge Orders: Discharge Order (Routine); Ordered 07/17/24 Ordered By: Juan Luis Oliver Admission Data Admit Date/Time: 07/02/24 09:58 Attending Provider: Juan Luis Oliver Admit Provider: Bernabe Lui Primary Care Provider: Sanjeev Coronado Other Providers: Stuart Alvarez; [facility]; Juan Luis Mclean; Jinny Gilliland; IRB Approved Study,[facility] Hospital Stay Data Consultations 07/01/24 17:03 ED Decision to Admit Stat 07/01/24 21:58 Consult Cardiology Routine 07/02/24 02:31 Consult Cardiology Routine 07/02/24 18:52 Consult Palliative Care Routine Diagnostic Imagining Performed 07/01/24 10:45 CT angio head w con Stat CT angio neck with con Stat CT head/brain wo con Stat 07/01/24 15:06 US venous duplex leg [US venous doppler LE LT] Stat 07/02/24 15:11 CT ankle LT wo con Routine Pending Results Patient Have Any Pending Studies at Discharge: No Discharge Instructions Given to Patient (Per Discharging Provider) Patient transitioning to inpatient hospice status care of [facility]. Coding Diagnoses Comfort measures only status Z51.5 Palliative care status Z51.5 Intractable pain R52 Non-ST elevation (NSTEMI) myocardial infarction I21.4 Chronic ulcer of left heel L97.429 Non-pressure ulcer stage: unspecified non-pressure ulcer stage Syncope R55 Syncope type: unspecified Weakness R53.1 Pneumonia J18.9 Laterality: left Lung location: unspecified part of lung Pneumonia type: due to unspecified organism Claudication in peripheral vascular disease I73.9 Left leg swelling M79.89 Anemia, unspecified type D64.9 Anemia type: unspecified type Diabetes E11.9 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 Chronic kidney disease stage 3 subtype: stage 3b (GFR 30-44) Benign prostate hyperplasia N40.0 Gastroesophageal reflux disease without esophagitis K21.9 Esophagitis presence: without esophagitis Acquired hypothyroidism E03.9 Hypothyroidism type: acquired S/P CABG (coronary artery bypass graft) Z95.1 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
== END 2024-07-17 10:31 | disposition hospice, inpatient (51) | DRG 280 ==
LOC: EDINP 10:26 → ED 10:26 → SUATTDRO 14:24 → 2S 18:12 → SUATTDRO 07-02 09:58 → 3W 07-05 18:19

== ENCOUNTER 2024-07-17 10:31 | Inpatient (IN) ==
[2024-07-17] MEDS ORDERED: guaiFENesin/CODEINE 100MG/10MG 5ML UDC PO PRN (10:58)
[2024-07-17] MEDS ORDERED: ONDANSETRON INJ 2 MG/ML 2 ML VIAL IV PRN (10:58)
[2024-07-17] MEDS ORDERED: ACETAMINOPHEN 325 MG TAB PO PRN (10:58)
[2024-07-17] MEDS ORDERED: ATROPINE SULFATE 1% OP SOLN 5 ML BTL SL PRN (10:58)
--- NOTE | 2024-07-17 10:58 | History & Physical Report ---
Date of Service July 17, 2024 Assessment & Plan (1) Hospice care patient: Plan: Patient has been accepted for inpatient hospice care by [facility]. I appreciate their evaluation & recommendations. In light of the severity of his pain along with rapid decline earlier this week I suspect he may have days to perhaps a week to live. Re-ordered IV dilaudid - 0.5mg q3h prn; adjust as needed. Re-ordered fentanyl patch 12mcg; low threshold to increase to 25mcg. Ativan prn. Atropine drops prn. Zyprexa ODT prn. Other comfort care pathway meds. Place hanna. He complained of cough this afternoon - ordered tessalon pearles 100mg TID scheduled + robitussin AC prn. Histology Tech/spiritual support for family. (2) Intractable pain: Plan: LLE 2nd to ischemia & arterial ulcer overlying the left achilles region Some RLE pain as well - probably also ischemic in etiology +/- neuropathic (3) Comfort measures only status: Plan: as above (4) Palliative care status: (5) Chronic systolic CHF (congestive heart failure): Plan: EF 20% (6) Aortic stenosis: Plan: severe (7) Non-ST elevation (NSTEMI) myocardial infarction: Plan: 07/02/24 (8) Syncope: Plan: 07/02/24 (9) Diabetes: Plan: stopped all insulin therapy, etc (10) Chronic kidney disease, stage III (moderate): (11) CAD in [place] artery: Plan: with remote h/o CABG 20-30 years ago in [place] (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: (13) GERD (gastroesophageal reflux disease): (14) Hypercholesterolemia: (15) Hypothyroidism: (16) PAD (peripheral artery disease): Plan: inoperable LLE PAD last study of the vasculature showed multiple critical stenoses (17) Vascular dementia: (18) Anemia: (19) Benign prostate hyperplasia: Plan: hanna (20) Cardiomyopathy: Plan: ischemic in nature (21) HTN (hypertension): (22) Acute encephalopathy: Plan: metabolic (possible infected ulcer, LLE), toxic (pain meds, etc) Plan support given to family again appreciate [facility] Hospice support Admission and Anticipated Discharge Date Admission Date: July 17, 2024 History of Present Illness Chief Complaint: inpatient hospice status; intractable left leg pain Primary Care Provider: Sanjeev Coronado MD 88yo male with severe systolic CHF, EF 20%, 2nd to ischemic CM; severe ; severe inoperable PAD of the legs; vascular dementia; CAD with prior CABG; recent NSTEMI; nonhealing wound of the left achilles region; COPD; anemia. Hospitalized from 07/02/24 to 07/17/24 for syncope (likely multifactorial), NSTEMI, worsening systolic CHF, intractable pain of the distal left leg, ?stroke with visual disturbance & diplopia. Was having severe failure to thrive during the prior admission along with intractable left leg pain due to ischemia & his ischemic/arterial ulcer overlying the left achilles region. Despite addition of fentanyl patch and using oxycodone in sadia of chronic tramadol his pain never improved appreciably and in fact worsened over the last several days. His deconditioning worsened as well as his ability to eat/drink, be out of bed, etc. Discussions were held on 07/15 and 07/16 with both he & his daughter Denise about goals of care. In light of his rapidly declining status and intractable pain I recommended that he remain hospitalized and to forego transfer to SNF for rehab trial. Instead, I recommended hospice consultation with transition to a comfort care pathway. [facility] met with the patient & his family this am and he has been approved for inpatient hospice status for pain control and other symptom management. Today he has had ongoing 10/10 pain in his LLE necessitating IV dilaudid. Allergies Allergy/AdvReac Type Severity Reaction Status Date / Time No Known Allergies Allergy Verified 05/30/24 12:12 Home Medications Medication Instructions Recorded Confirmed Type nitroglycerin 0.4 mg sublingual See Rx Instructions .Route 01/07/24 07/01/24 Rx tablet .COMPLEX #25 tabs fentanyl 12 mcg/hr transdermal 1 patch transdermal Q3D@1730 #1 ea 07/17/24 Rx patch Past Med/Surg History Problem List (Updated 07/18/24 @ 07:55 by Juan Luis Oliver MD) Acute encephalopathy HTN (hypertension) Cardiomyopathy Benign prostate hyperplasia Anemia Vascular dementia PAD (peripheral artery disease) Hypothyroidism Hypercholesterolemia GERD (gastroesophageal reflux disease) COPD with emphysema CAD in [place] artery Chronic kidney disease, stage III (moderate) Diabetes Syncope Non-ST elevation (NSTEMI) myocardial infarction Aortic stenosis Chronic systolic CHF (congestive heart failure) Hospice care patient Intractable pain Palliative care status Comfort measures only status Left leg pain Palliative care by specialist Advanced care planning/counseling discussion Weakness generalized Diplopia Mitral regurgitation Chronic ulcer of left heel (Acute) Pneumonia (Acute) Left leg swelling (Acute) Weakness (Acute) Vitamin D deficiency Raynauds phenomenon Chronic low back pain Claudication in peripheral vascular disease Irregular heart beat Cough Abnormal PFT Squamous cell carcinoma of skin Secondary hyperparathyroidism Inhibited sexual excitement Medical History (Updated 07/18/24 @ 07:55 by Juan Luis Oliver MD) Gout, joint Orthostatic hypotension 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 History of orthostatic hypotension Unstable angina Surgical History (Updated 07/18/24 @ 07:50 by Juan Luis Oliver MD) S/P CABG (coronary artery bypass graft) (1991) Stented coronary artery (2013) Family History Brother Myocardial infarction Coronary heart disease Mother Pancreatic cancer Father Coronary heart disease Denies family history of Ovarian cancer Prostate cancer Breast cancer Colorectal cancer Social History Smoking Status: Former smoker Tobacco Type: Cigarettes Age Started Using Tobacco: 14; Age Quit Using Tobacco: 57; packs per day: 4; Cigarettes Per Day: Formerly 4 packs/day; Second Hand Exposure: No; Do You Dip or Chew Tobacco: No; Hx Alcohol Use: No Hx Substance Use: No Preferred Language: Divehi Communication Ability: Impaired Visual Impairment: No Limitations Hearing Ability: Hard of Hearing Information Technology Officer Required: No Beliefs That Will Affect Care: None marital status: Current Living Situation: Alone Current Living Situation Comment: Pt. 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 Feels Safe at Home: Yes Childhood Exposure to Second-Hand Smoke: Yes Diet: regular caffeine: Yes during the past year weight has: remained stable Dental Care, Regularly: Yes Physical Activity Frequency: Does not Exercise Seatbelt Use: always Sunscreen Use: No Assistive Devices: Cane, Scooter/Electric Scooter, Walker and Wheelchair Physical Exam Physical Exam: gen - looks quite ill, ashen/pale color, very uncomfortable - crying at times due to pain mouth - MM dry neck - no obvious JVD heart - RRR, s1 s2, 1-2/6 systolic murmur LSB lungs - decreased BS bases b/l abd - soft NT ND BS+ ext - pulses b/l feet nonpalpable, cool to touch with delayed cap refill; dressings in place L ankle/foot (not removed) psych - confused skin - no rash but generalized pallor Code Status & VTE Plan Code Status DNR/DNI PG Care Time/CCT Total # of Minutes Spent Total Time Spent with Patient: Total time spent is greater than 50% in coordination of care (as documented) at patient's floor/unit and/or counseling patient: Coding Level of Care Code None Diagnoses Hospice care patient Z51.5 Intractable pain R52 Comfort measures only status Z51.5 Palliative care status Z51.5 Chronic systolic CHF (congestive heart failure) I50.22 Aortic stenosis I35.0 Non-ST elevation (NSTEMI) myocardial infarction I21.4 Syncope R55 Syncope type: unspecified Diabetes E11.9 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 Chronic kidney disease stage 3 subtype: stage 3b (GFR 30-44) CAD in [place] artery I25.10 COPD with emphysema J43.9 Gastroesophageal reflux disease without esophagitis K21.9 Esophagitis presence: without esophagitis Hypercholesterolemia E78.00 Acquired hypothyroidism E03.9 Hypothyroidism type: acquired PAD (peripheral artery disease) I73.9 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 (8) Syncope Syncope type: unspecified Qualified Code(s): R55 - Syncope and collapse (10) Chronic kidney disease, stage III (moderate) Chronic kidney disease stage 3 subtype: stage 3b (GFR 30-44) Qualified Code(s): N18.32 - Chronic kidney disease, stage 3b (13) GERD (gastroesophageal reflux disease) Esophagitis presence: without esophagitis Qualified Code(s): K21.9 - Gastro- esophageal reflux disease without esophagitis (15) Hypothyroidism Hypothyroidism type: acquired Qualified Code(s): E03.9 - Hypothyroidism, unspecified (17) Vascular dementia Dementia severity: mild Dementia behavioral or psychological symptom: with other behavioral disturbance Qualified Code(s): F01.A18 - Vascular dementia, mild, with other behavioral disturbance (18) Anemia Anemia type: unspecified type Qualified Code(s): D64.9 - Anemia, unspecified (21) HTN (hypertension) Hypertension type: renovascular hypertension Qualified Code(s): I15.0 - Renovascular hypertension
[2024-07-17] MEDS ORDERED: NITROGLYCERIN SL 0.4 MG/TAB TAB SL PRN (11:03)
[2024-07-17] MEDS: HYDROmorphone INJ 0.5 MG/0.5 ML SYR ONE (11:10)
[2024-07-17] MEDS: LORazepam 2 MG/1 ML VIAL IV PRN (12:28)
[2024-07-17] MEDS: BENZONATATE 100 MG CAPSULE PO SCH (15:03)
[2024-07-17] MEDS: CHECK fentaNYL PATCH PLACEMENT SCH (18:00)
[2024-07-17] MEDS: GLYCOPYRROLATE 0.2 MG/ML VIAL IV PRN (18:04)
[2024-07-17] MEDS ORDERED: Nursing to Pharmacy Communication SCH (18:45)
[2024-07-17] MEDS: fentaNYL 12 MCG/HR TDSY TD SCH (19:37)
[2024-07-17] MEDS: HYDROmorphone INJ 0.5 MG/0.5 ML SYR IV PRN (21:25)
[2024-07-18] MEDS: CHECK fentaNYL PATCH PLACEMENT SCH (09:33)
[2024-07-18] MEDS: fentaNYL 25 MCG/HR TDSY TD SCH (09:33)
--- NOTE | 2024-07-18 12:55 | Hospitalist Progress Note ---
Date of Service July 18, 2024 Assessment & Plan (1) Hospice care patient: Plan: Remains on comfort care pathway/inpatient hospice status. Nurse from [facility] did visit the patient & his family at bedside today. Cont IV dilaudid - change to 0.5mg q1h prn. Cont fentanyl patch - increase to 25mcg q3days. Ativan prn. Atropine drops prn. Zyprexa ODT prn. Other comfort care pathway meds. Pt's oil well driller came to visit him & his family today. Appreciate support from [facility]. 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 support Admission and Anticipated Discharge Date Admission Date: July 17, 2024 Subjective patient sleeping much of the time now much more comfortable with that said he will wake up briefly with pain at times, however, per staff attempts at hanna placement last pm were not successful family at bedside Review of Systems Review of Systems: Unobtainable due to reduced consciousness Physical Exam Physical Exam: gen - sleeping/snoring, ill-appearing/cachectic neck - no obvious JVD heart - RRR, s1 s2, 1-2/6 systolic murmur LSB lungs - decreased BS bases b/l abd - soft NT ND BS+ ext - pulses b/l feet nonpalpable, cool to touch with delayed cap refill; dressings in place L ankle/foot (not removed) Results & Data Results & Data Vital Signs (Past 12 Hours) Vital Signs O2 Del Method 07/18/24 08:05 Room Air PG Care Time/CCT Total # of Minutes Spent Total Time Spent with Patient: Total time spent is greater than 50% in coordination of care (as documented) at patient's floor/unit and/or counseling patient: Coding Level of Care Code 53155 SUB INP/OBS CARE 11/29MIN Diagnoses Hospice care patient Z51.5 Intractable pain R52 Comfort measures only status Z51.5 Palliative care status Z51.5 Chronic systolic CHF (congestive heart failure) I50.22 Aortic stenosis I35.0 Non-ST elevation (NSTEMI) myocardial infarction I21.4 Syncope R55 Syncope type: unspecified Diabetes E11.9 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 Chronic kidney disease stage 3 subtype: stage 3b (GFR 30-44) CAD in [place] artery I25.10 COPD with emphysema J43.9 Gastroesophageal reflux disease without esophagitis K21.9 Esophagitis presence: without esophagitis Hypercholesterolemia E78.00 Acquired hypothyroidism E03.9 Hypothyroidism type: acquired PAD (peripheral artery disease) I73.9 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 F01.A18 Dementia behavioral or psychological symptom: with other behavioral disturbance Dementia severity: mild Anemia, unspecified type D64.9 Anemia type: unspecified type Benign prostate hyperplasia N40.0 Cardiomyopathy I42.9 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 (8) Syncope Syncope type: unspecified Qualified Code(s): R55 - Syncope and collapse (10) Chronic kidney disease, stage III (moderate) Chronic kidney disease stage 3 subtype: stage 3b (GFR 30-44) Qualified Code(s): N18.32 - Chronic kidney disease, stage 3b (13) GERD (gastroesophageal reflux disease) Esophagitis presence: without esophagitis Qualified Code(s): K21.9 - Gastro- esophageal reflux disease without esophagitis (15) Hypothyroidism Hypothyroidism type: acquired Qualified Code(s): E03.9 - Hypothyroidism, unspecified (17) Vascular dementia Dementia behavioral or psychological symptom: with other behavioral disturbance Dementia severity: mild Qualified Code(s): F01.A18 - Vascular dementia, mild, with other behavioral disturbance (18) Anemia Anemia type: unspecified type Qualified Code(s): D64.9 - Anemia, unspecified (21) HTN (hypertension) Hypertension type: renovascular hypertension Qualified Code(s): I15.0 - Renovascular hypertension
[2024-07-18] MEDS: HYDROmorphone INJ 0.5 MG/0.5 ML SYR IV PRN (15:13)
[2024-07-18] MEDS ORDERED: fentaNYL 12 MCG/HR TDSY TD SCH (17:30)
[2024-07-19] MEDS ORDERED: SODIUM CHLORIDE 0.9% 1000 ML BAG IV STA (14:53)
[2024-07-19] MEDS: SODIUM CHLORIDE 0.9% 1000ML IV SCH (15:03)
[2024-07-19] MEDS: HYDROmorphone/NSS 100 MG/100 ML BAG IV SCH (15:17)
--- NOTE | 2024-07-19 19:57 | Hospitalist Progress Note ---
Date of Service July 19, 2024 Assessment & Plan (1) Hospice care patient: Plan: Remains on comfort care pathway/inpatient hospice status. Cont IV dilaudid but change to continuous infusion of such due to frequent need for the bolus doses; start drip at 0.3mg/hour. Will just leave fentanyl patch for now. Ativan prn. Atropine drops prn. Zyprexa ODT prn. Other comfort care pathway meds. Pt's fitness and wellness manager came to visit him & his family yesterday. Appreciate support from [facility]. 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 in [place] (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: (13) GERD (gastroesophageal reflux disease): (14) Hypercholesterolemia: (15) Hypothyroidism: (16) PAD (peripheral artery disease): Plan: inoperable LLE PAD last study of the vasculature showed multiple critical stenoses (17) Vascular dementia: (18) Anemia: (19) Benign prostate hyperplasia: Plan: hanna (20) Cardiomyopathy: Plan: ischemic in nature (21) HTN (hypertension): (22) Acute encephalopathy: Plan: metabolic (possible infected ulcer, LLE), toxic (pain meds, etc) Plan support given to pt's daughter at bedside again appreciate [facility] support Admission and Anticipated Discharge Date Admission Date: July 17, 2024 Subjective daughter at bedside during my visit she reports he is sleeping most of the day but earlier today just suddenly sat up in bed asking "where am I?" was requiring frequent dilaudid boluses for pain thus moved to dilaudid infusion this afternoon comfortable on this per daughter no vomiting Review of Systems Review of Systems: Unobtainable due to reduced consciousness Physical Exam Physical Exam: gen - sleeping/snoring, ill-appearing/cachectic, looks comfortable neck - no obvious JVD heart - RRR, s1 s2, 1-2/6 systolic murmur LSB lungs - decreased BS bases b/l, no distress abd - soft NT ND BS+; bladder not palpable ext - pulses b/l feet nonpalpable, cool to touch with delayed cap refill; dressings in place L ankle/foot (not removed) Results & Data Results & Data Vital Signs (Past 12 Hours) Vital Signs O2 Del Method 07/19/24 09:05 Room Air PG Care Time/CCT Total # of Minutes Spent Total Time Spent with Patient: Total time spent is greater than 50% in coordination of care (as documented) at patient's floor/unit and/or counseling patient: Coding Level of Care Code 09295 SUB INP/OBS CARE /25MIN Diagnoses Hospice care patient Z51.5 Intractable pain R52 Comfort measures only status Z51.5 Palliative care status Z51.5 Chronic systolic CHF (congestive heart failure) I50.22 Aortic stenosis I35.0 Non-ST elevation (NSTEMI) myocardial infarction I21.4 Syncope R55 Syncope type: unspecified Diabetes E11.9 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 Chronic kidney disease stage 3 subtype: stage 3b (GFR 30-44) CAD in [place] artery I25.10 COPD with emphysema J43.9 Gastroesophageal reflux disease without esophagitis K21.9 Esophagitis presence: without esophagitis Hypercholesterolemia E78.00 Acquired hypothyroidism E03.9 Hypothyroidism type: acquired PAD (peripheral artery disease) I73.9 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 F01.A18 Dementia behavioral or psychological symptom: with other behavioral disturbance Dementia severity: mild Anemia, unspecified type D64.9 Anemia type: unspecified type Benign prostate hyperplasia N40.0 Cardiomyopathy I42.9 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 (8) Syncope Syncope type: unspecified Qualified Code(s): R55 - Syncope and collapse (10) Chronic kidney disease, stage III (moderate) Chronic kidney disease stage 3 subtype: stage 3b (GFR 30-44) Qualified Code(s): N18.32 - Chronic kidney disease, stage 3b (13) GERD (gastroesophageal reflux disease) Esophagitis presence: without esophagitis Qualified Code(s): K21.9 - Gastro- esophageal reflux disease without esophagitis (15) Hypothyroidism Hypothyroidism type: acquired Qualified Code(s): E03.9 - Hypothyroidism, unspecified (17) Vascular dementia Dementia behavioral or psychological symptom: with other behavioral disturbance Dementia severity: mild Qualified Code(s): F01.A18 - Vascular dementia, mild, with other behavioral disturbance (18) Anemia Anemia type: unspecified type Qualified Code(s): D64.9 - Anemia, unspecified (21) HTN (hypertension) Hypertension type: renovascular hypertension Qualified Code(s): I15.0 - Renovascular hypertension
--- NOTE | 2024-07-20 19:23 | Hospitalist Progress Note ---
Date of Service July 20, 2024 Assessment & Plan (1) Hospice care patient: Plan: Remains on comfort care pathway/inpatient hospice status. Cont IV dilaudid - continuous infusion. Remains at 0.3mg/hour. Patient very comfortable on such. Remains on fentanyl patch. Ativan prn. Atropine drops prn. Other comfort care pathway meds. Appreciate support from [facility]. Anticipate pt's passing in the next couple of days . 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: (13) GERD (gastroesophageal reflux disease): (14) Hypercholesterolemia: (15) Hypothyroidism: (16) PAD (peripheral artery disease): Plan: inoperable LLE PAD last study of the vasculature showed multiple critical stenoses (17) Vascular dementia: (18) Anemia: (19) Benign prostate hyperplasia: Plan: hanna (20) Cardiomyopathy: Plan: ischemic in nature (21) HTN (hypertension): (22) Acute encephalopathy: Plan: metabolic (possible infected ulcer, LLE), toxic (pain meds, etc) Plan support given to pt's daughters & son at bedside today again appreciate [facility] support anticipate pt's passing in the next 2-3 days Admission and Anticipated Discharge Date Admission Date: July 17, 2024 Subjective having apneas he is unresponsive no pain or discomfort noted by family daughters x 2 along with son present during my visit Review of Systems Review of Systems: Unobtainable due to reduced consciousness Physical Exam Physical Exam: gen - sleeping/snoring, ill-appearing/cachectic, apneas, comfortable neck - mild JVD present today heart - RRR, s1 s2, 1-2/6 systolic murmur LSB lungs - b/l crackles all over anterior chest - new abd - soft NT ND BS+; bladder not palpable ext - pulses b/l feet nonpalpable, cool to touch with delayed cap refill; dressings in place L ankle/foot PG Care Time/CCT Total # of Minutes Spent Total Time Spent with Patient: Total time spent is greater than 50% in coordination of care (as documented) at patient's floor/unit and/or counseling patient: Coding Level of Care Code 82180 SUB INP/OBS CARE 11/29MIN Diagnoses Hospice care patient Z51.5 Intractable pain R52 Comfort measures only status Z51.5 Palliative care status Z51.5 Chronic systolic CHF (congestive heart failure) I50.22 Aortic stenosis I35.0 Non-ST elevation (NSTEMI) myocardial infarction I21.4 Syncope R55 Syncope type: unspecified Diabetes E11.9 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 Chronic kidney disease stage 3 subtype: stage 3b (GFR 30-44) CAD in [place] artery I25.10 COPD with emphysema J43.9 Gastroesophageal reflux disease without esophagitis K21.9 Esophagitis presence: without esophagitis Hypercholesterolemia E78.00 Acquired hypothyroidism E03.9 Hypothyroidism type: acquired PAD (peripheral artery disease) I73.9 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 F01.A18 Dementia behavioral or psychological symptom: with other behavioral disturbance Dementia severity: mild Anemia, unspecified type D64.9 Anemia type: unspecified type Benign prostate hyperplasia N40.0 Cardiomyopathy I42.9 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 (8) Syncope Syncope type: unspecified Qualified Code(s): R55 - Syncope and collapse (10) Chronic kidney disease, stage III (moderate) Chronic kidney disease stage 3 subtype: stage 3b (GFR 30-44) Qualified Code(s): N18.32 - Chronic kidney disease, stage 3b (13) GERD (gastroesophageal reflux disease) Esophagitis presence: without esophagitis Qualified Code(s): K21.9 - Gastro- esophageal reflux disease without esophagitis (15) Hypothyroidism Hypothyroidism type: acquired Qualified Code(s): E03.9 - Hypothyroidism, unspecified (17) Vascular dementia Dementia behavioral or psychological symptom: with other behavioral disturbance Dementia severity: mild Qualified Code(s): F01.A18 - Vascular dementia, mild, with other behavioral disturbance (18) Anemia Anemia type: unspecified type Qualified Code(s): D64.9 - Anemia, unspecified (21) HTN (hypertension) Hypertension type: renovascular hypertension Qualified Code(s): I15.0 - Renovascular hypertension
[2024-07-20] MEDS ORDERED: Nursing to Pharmacy Communication SCH (19:45)
--- NOTE | 2024-07-21 20:54 | Hospitalist Progress Note ---
Date of Service July 21, 2024 Assessment & Plan (1) Hospice care patient: Plan: Remains on comfort care pathway/inpatient hospice status. Cont IV dilaudid - continuous infusion. Remains at 0.3mg/hour. Will titrate to 0.5mg/hour as he has been uncomfortable this afternoon and he reports ongoing pain. Remains on fentanyl patch. Ativan prn. Atropine drops prn. Other comfort care pathway meds. Appreciate support from [facility]. Anticipate pt's passing in the next couple of days. 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: (13) GERD (gastroesophageal reflux disease): (14) Hypercholesterolemia: (15) Hypothyroidism: (16) PAD (peripheral artery disease): Plan: inoperable LLE PAD last study of the vasculature showed multiple critical stenoses (17) Vascular dementia: (18) Anemia: (19) Benign prostate hyperplasia: Plan: hanna (20) Cardiomyopathy: Plan: ischemic in nature (21) HTN (hypertension): (22) Acute encephalopathy: Plan: metabolic (possible infected ulcer, LLE), toxic (pain meds, etc) Plan support given to pt's daughter Denise at bedside today again appreciate [facility] support anticipate pt's passing in the next 2-3 days Admission and Anticipated Discharge Date Admission Date: July 17, 2024 Subjective during the visit pt's daughter Denise was present when she had arrived she had noted her dad seemed uncomfortable & restless surprisingly when I called Mr Baldwin's name he opened his eyes he answered several questions he said his leg was "sore" he quickly closed his eyes when falling asleep he would have periods of apnea Review of Systems Review of Systems: Unobtainable due to cognitive status Physical Exam Physical Exam: gen - sleeping/snoring initially with apneas, then woke up and looked at me & his daughter; then quickly fell back asleep; ill-appearing/cachectic neck - mild JVD present today mouth - MM dry heart - RRR, s1 s2, 1-2/6 systolic murmur LSB lungs - b/l crackles all over anterior chest, periods of tachypnea interspersed with hypopneas & apneas abd - soft ND BS+; bladder not palpable, but he moaned when I palpated his abdomen ext - pulses b/l feet nonpalpable, cool to touch with delayed cap refill; dressings in place L ankle/foot Results & Data Results & Data Vital Signs (Past 12 Hours) Vital Signs O2 Del Method 07/21/24 11:46 Room Air PG Care Time/CCT Total # of Minutes Spent Total Time Spent with Patient: Total time spent is greater than 50% in coordination of care (as documented) at patient's floor/unit and/or counseling patient: Coding Level of Care Code 55566 SUB INP/OBS CARE 11/29MIN Diagnoses Hospice care patient Z51.5 Intractable pain R52 Comfort measures only status Z51.5 Palliative care status Z51.5 Chronic systolic CHF (congestive heart failure) I50.22 Aortic stenosis I35.0 Non-ST elevation (NSTEMI) myocardial infarction I21.4 Syncope R55 Syncope type: unspecified Diabetes E11.9 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 Chronic kidney disease stage 3 subtype: stage 3b (GFR 30-44) CAD in [place] artery I25.10 COPD with emphysema J43.9 Gastroesophageal reflux disease without esophagitis K21.9 Esophagitis presence: without esophagitis Hypercholesterolemia E78.00 Acquired hypothyroidism E03.9 Hypothyroidism type: acquired PAD (peripheral artery disease) I73.9 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 F01.A18 Dementia behavioral or psychological symptom: with other behavioral disturbance Dementia severity: mild Anemia, unspecified type D64.9 Anemia type: unspecified type Benign prostate hyperplasia N40.0 Cardiomyopathy I42.9 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 (8) Syncope Syncope type: unspecified Qualified Code(s): R55 - Syncope and collapse (10) Chronic kidney disease, stage III (moderate) Chronic kidney disease stage 3 subtype: stage 3b (GFR 30-44) Qualified Code(s): N18.32 - Chronic kidney disease, stage 3b (13) GERD (gastroesophageal reflux disease) Esophagitis presence: without esophagitis Qualified Code(s): K21.9 - Gastro- esophageal reflux disease without esophagitis (15) Hypothyroidism Hypothyroidism type: acquired Qualified Code(s): E03.9 - Hypothyroidism, unspecified (17) Vascular dementia Dementia behavioral or psychological symptom: with other behavioral disturbance Dementia severity: mild Qualified Code(s): F01.A18 - Vascular dementia, mild, with other behavioral disturbance (18) Anemia Anemia type: unspecified type Qualified Code(s): D64.9 - Anemia, unspecified (21) HTN (hypertension) Hypertension type: renovascular hypertension Qualified Code(s): I15.0 - Renovascular hypertension
--- NOTE | 2024-07-22 17:53 | Hospitalist Progress Note ---
Date of Service July 22, 2024 Assessment & Plan (1) Hospice care patient: Plan: Remains on comfort care pathway/inpatient hospice status. Cont IV dilaudid - continuous infusion increased from 0.3 to 0.5 mg/h yesterday with improved comfort and pain. continue this dose Remains on fentanyl patch. Ativan prn. Atropine drops prn. Other comfort care pathway meds. extremities remain warm with 300 mL urine output, but poorly responsive and having frequent apneas (2) Intractable pain: Plan: LLE 2nd to ischemia & arterial ulcer overlying the left achilles region Continue fentanyl patch + dilaudid IV (3) Comfort measures only status: Plan: as above (4) Palliative care status: Plan: as above (5) Chronic systolic CHF (congestive heart failure): Plan: EF 20% (6) Aortic stenosis: Plan: severe (7) Non-ST elevation (NSTEMI) myocardial infarction: Plan: 07/02/24 (8) Syncope: Plan: 07/02/24 (9) Diabetes: (10) Chronic kidney disease, stage III (moderate): (11) CAD in [place] artery: Plan: with remote h/o CABG 20-30 years ago in [place] (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: (13) GERD (gastroesophageal reflux disease): (14) Hypercholesterolemia: (15) Hypothyroidism: (16) PAD (peripheral artery disease): Plan: inoperable LLE PAD last study of the vasculature showed multiple critical stenoses (17) Vascular dementia: (18) Anemia: (19) Benign prostate hyperplasia: Plan: hanna (20) Cardiomyopathy: Plan: ischemic in nature (21) HTN (hypertension): (22) Acute encephalopathy: Plan: metabolic (possible infected ulcer, LLE), toxic (pain meds, etc) Plan discussed with his son and daughter at bedside today and later in the day with his other daughter Jewels anticipate pt's passing in the next 2-3 days Admission and Anticipated Discharge Date Admission Date: July 17, 2024 Lucas Murray is not alert when I round this AM, having frequent apneas, son and daughter at bedside Had some lorazepam for agitation/anxiety this AM remains on hydromorphone continuous IV Physical Exam Physical Exam: PHYSICAL EXAMINATION Last 24h vital signs reviewed, see documentation in flowsheet General: comfortable appearing, no distress HEENT: eyes closed, dry mucous membranes Lungs: having frequent apneas, nonlabored, clear to auscultation anteriorly Heart: Regular rate and rhythm, systolic murmur Abdomen: Soft, nontender, nondistended. Bowel sounds present. Extremities: Warm, dry, well-perfused. No extremity edema. left lower extremity wound is dressed Neuro: not alert, eyes closed, did not arouse to physical examination or voice Psych: no agitation or distress Results & Data Results & Data Vital Signs (Past 12 Hours) Vital Signs O2 Del Method 07/22/24 08:30 Room Air PG Care Time/CCT Total # of Minutes Spent Total Time Spent with Patient: Total time spent is greater than 50% in coordination of care (as documented) at patient's floor/unit and/or counseling patient: Coding Level of Care Code 97757 SUB INP/OBS CARE 11/29MIN Diagnoses Hospice care patient Z51.5 Intractable pain R52 Comfort measures only status Z51.5 Palliative care status Z51.5 Chronic systolic CHF (congestive heart failure) I50.22 Aortic stenosis I35.0 Non-ST elevation (NSTEMI) myocardial infarction I21.4 Syncope R55 Syncope type: unspecified Diabetes E11.9 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 Chronic kidney disease stage 3 subtype: stage 3b (GFR 30-44) CAD in [place] I25.10 COPD with emphysema J43.9 Gastroesophageal reflux disease without esophagitis K21.9 Esophagitis presence: without esophagitis Hypercholesterolemia E78.00 Acquired hypothyroidism E03.9 Hypothyroidism type: acquired PAD (peripheral artery disease) I73.9 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 (8) Syncope Syncope type: unspecified Qualified Code(s): R55 - Syncope and collapse (10) Chronic kidney disease, stage III (moderate) Chronic kidney disease stage 3 subtype: stage 3b (GFR 30-44) Qualified Code(s): N18.32 - Chronic kidney disease, stage 3b (13) GERD (gastroesophageal reflux disease) Esophagitis presence: without esophagitis Qualified Code(s): K21.9 - Gastro- esophageal reflux disease without esophagitis (15) Hypothyroidism Hypothyroidism type: acquired Qualified Code(s): E03.9 - Hypothyroidism, unspecified (17) Vascular dementia Dementia severity: mild Dementia behavioral or psychological symptom: with other behavioral disturbance Qualified Code(s): F01.A18 - Vascular dementia, mild, with other behavioral disturbance (18) Anemia Anemia type: unspecified type Qualified Code(s): D64.9 - Anemia, unspecified (21) HTN (hypertension) Hypertension type: renovascular hypertension Qualified Code(s): I15.0 - Renovascular hypertension
[2024-07-23] MEDS: HYDROmorphone BOLUS from BAG IV PRN (17:48)
--- NOTE | 2024-07-23 19:06 | Hospitalist Progress Note ---
Date of Service July 23, 2024 Assessment & Plan (1) Hospice care patient: Plan: Remains on comfort care pathway/inpatient hospice status. Cont IV dilaudid - continuous infusion 0.5 mg/h. continue same dose Remains on fentanyl patch. Ativan prn. Atropine drops prn. Other comfort care pathway meds. extremities remain warm with 200 mL urine output, but nonresponsive and with nataly-wakefield breathing and more prolonged apneas (2) Intractable pain: Plan: LLE 2nd to ischemia & arterial ulcer overlying the left achilles region Continue fentanyl patch + dilaudid IV (3) Comfort measures only status: Plan: as above (4) Palliative care status: Plan: as above (5) Chronic systolic CHF (congestive heart failure): Plan: EF 20% (6) Aortic stenosis: Plan: severe (7) Non-ST elevation (NSTEMI) myocardial infarction: Plan: 07/02/24 (8) Syncope: Plan: 07/02/24 (9) Diabetes: (10) Chronic kidney disease, stage III (moderate): (11) CAD in [place] artery: Plan: with remote h/o CABG 20-30 years ago in [place] (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: (13) GERD (gastroesophageal reflux disease): (14) Hypercholesterolemia: (15) Hypothyroidism: (16) PAD (peripheral artery disease): Plan: inoperable LLE PAD last study of the vasculature showed multiple critical stenoses (17) Vascular dementia: (18) Anemia: (19) Benign prostate hyperplasia: Plan: hanna (20) Cardiomyopathy: Plan: ischemic in nature (21) HTN (hypertension): (22) Acute encephalopathy: Plan: metabolic (possible infected ulcer, LLE), toxic (pain meds, etc) Plan discussed with his 3 children 07/22 anticipate him passing in the next 1-3 days Admission and Anticipated Discharge Date Admission Date: July 17, 2024 Subjective not awake appears comfortable [place] breathing pattern with long apneas Family not in room presently Physical Exam Physical Exam: PHYSICAL EXAMINATION Last 24h vital signs reviewed, see documentation in flowsheet General: comfortable appearing, no distress HEENT: eyes closed, dry mucous membranes Lungs: having frequent apneas, Nataly-[place]ake[place] breathing pattern, clear to auscultation anteriorly Heart: Regular rate and rhythm, systolic murmur Abdomen: Soft, nontender, nondistended. Bowel sounds present. : 200 mL dark yellow urine in bag Extremities: LE remain warm. No extremity edema. left lower extremity wound is dressed Neuro: again did not arouse to physical examination or voice Psych: no agitation or distress Results & Data Results & Data Vital Signs (Past 12 Hours) Vital Signs O2 Del Method 07/23/24 07:35 Room Air PG Care Time/CCT Total # of Minutes Spent Total Time Spent with Patient: Total time spent is greater than 50% in coordination of care (as documented) at patient's floor/unit and/or counseling patient: Coding Level of Care Code 70320 SUB INP/OBS CARE 11/29MIN Diagnoses Hospice care patient Z51.5 Intractable pain R52 Comfort measures only status Z51.5 Palliative care status Z51.5 Chronic systolic CHF (congestive heart failure) I50.22 Aortic stenosis I35.0 Non-ST elevation (NSTEMI) myocardial infarction I21.4 Syncope R55 Syncope type: unspecified Diabetes E11.9 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 Chronic kidney disease stage 3 subtype: stage 3b (GFR 30-44) CAD in [place] artery I25.10 COPD with emphysema J43.9 Gastroesophageal reflux disease without esophagitis K21.9 Esophagitis presence: without esophagitis Hypercholesterolemia E78.00 Acquired hypothyroidism E03.9 Hypothyroidism type: acquired PAD (peripheral artery disease) I73.9 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 (8) Syncope Syncope type: unspecified Qualified Code(s): R55 - Syncope and collapse (10) Chronic kidney disease, stage III (moderate) Chronic kidney disease stage 3 subtype: stage 3b (GFR 30-44) Qualified Code(s): N18.32 - Chronic kidney disease, stage 3b (13) GERD (gastroesophageal reflux disease) Esophagitis presence: without esophagitis Qualified Code(s): K21.9 - Gastro- esophageal reflux disease without esophagitis (15) Hypothyroidism Hypothyroidism type: acquired Qualified Code(s): E03.9 - Hypothyroidism, unspecified (17) Vascular dementia Dementia severity: mild Dementia behavioral or psychological symptom: with other behavioral disturbance Qualified Code(s): F01.A18 - Vascular dementia, mild, with other behavioral disturbance (18) Anemia Anemia type: unspecified type Qualified Code(s): D64.9 - Anemia, unspecified (21) HTN (hypertension) Hypertension type: renovascular hypertension Qualified Code(s): I15.0 - Renovascular hypertension
--- NOTE | 2024-07-24 17:32 | Hospitalist Progress Note ---
Date of Service July 24, 2024 Assessment & Plan (1) Hospice care patient: Plan: Remains on comfort care pathway/inpatient hospice status. Cont IV dilaudid - continuous infusion 0.5 mg/h. continue same dose Remains on fentanyl patch. Ativan prn. Atropine drops prn. Other comfort care pathway meds. not alert last several days (2) Intractable pain: Plan: LLE 2nd to ischemia & arterial ulcer overlying the left achilles region Continue fentanyl patch + dilaudid IV (3) Comfort measures only status: Plan: as above (4) Palliative care status: Plan: as above (5) Chronic systolic CHF (congestive heart failure): Plan: EF 20% (6) Aortic stenosis: Plan: severe (7) Non-ST elevation (NSTEMI) myocardial infarction: Plan: 07/02/24 (8) Syncope: Plan: 07/02/24 (9) Diabetes: (10) Chronic kidney disease, stage III (moderate): (11) CAD in [place] artery: Plan: with remote h/o CABG 20-30 years ago in [place] (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: (13) GERD (gastroesophageal reflux disease): (14) Hypercholesterolemia: (15) Hypothyroidism: (16) PAD (peripheral artery disease): Plan: inoperable LLE PAD last study of the vasculature showed multiple critical stenoses (17) Vascular dementia: (18) Anemia: (19) Benign prostate hyperplasia: Plan: hanna (20) Cardiomyopathy: Plan: ischemic in nature (21) HTN (hypertension): (22) Acute encephalopathy: Plan: metabolic (possible infected ulcer, LLE), toxic (pain meds, etc) Plan discussed with his daughters at bedside today anticipate him passing in the next 1-3 days Admission and Anticipated Discharge Date Admission Date: July 17, 2024 Subjective no longer alert last several days, continues with neurologic breathing pattern Physical Exam Physical Exam: PHYSICAL EXAMINATION Last 24h vital signs reviewed, see documentation in flowsheet General: comfortable appearing, no distress HEENT: eyes closed, dry mucous membranes Lungs: no apneas right [place] type breathing, clear to auscultation ante riorly Heart: Regular rate and rhythm, systolic murmur Abdomen: Soft, nontender, nondistended. Bowel sounds present. : dark yellow urine in bag Extremities: LE remain warm. No extremity edema. left lower extremity wound is dressed Neuro: again did not arouse to physical examination or voice Psych: no agitation or distress Results & Data Results & Data Vital Signs (Past 12 Hours) Vital Signs O2 Del Method 07/24/24 13:00 Room Air PG Care Time/CCT Total # of Minutes Spent Total Time Spent with Patient: Total time spent is greater than 50% in coordination of care (as documented) at patient's floor/unit and/or counseling patient: Coding Level of Care Code 99255 SUB INP/OBS CARE 11/29MIN Diagnoses Hospice care patient Z51.5 Intractable pain R52 Comfort measures only status Z51.5 Palliative care status Z51.5 Chronic systolic CHF (congestive heart failure) I50.22 Aortic stenosis I35.0 Non-ST elevation (NSTEMI) myocardial infarction I21.4 Syncope R55 Syncope type: unspecified Diabetes E11.9 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 Chronic kidney disease stage 3 subtype: stage 3b (GFR 30-44) CAD in [place] artery I25.10 COPD with emphysema J43.9 Gastroesophageal reflux disease without esophagitis K21.9 Esophagitis presence: without esophagitis Hypercholesterolemia E78.00 Acquired hypothyroidism E03.9 Hypothyroidism type: acquired PAD (peripheral artery disease) I73.9 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 (8) Syncope Syncope type: unspecified Qualified Code(s): R55 - Syncope and collapse (10) Chronic kidney disease, stage III (moderate) Chronic kidney disease stage 3 subtype: stage 3b (GFR 30-44) Qualified Code(s): N18.32 - Chronic kidney disease, stage 3b (13) GERD (gastroesophageal reflux disease) Esophagitis presence: without esophagitis Qualified Code(s): K21.9 - Gastro- esophageal reflux disease without esophagitis (15) Hypothyroidism Hypothyroidism type: acquired Qualified Code(s): E03.9 - Hypothyroidism, unspecified (17) Vascular dementia Dementia severity: mild Dementia behavioral or psychological symptom: with other behavioral disturbance Qualified Code(s): F01.A18 - Vascular dementia, mild, with other behavioral disturbance (18) Anemia Anemia type: unspecified type Qualified Code(s): D64.9 - Anemia, unspecified (21) HTN (hypertension) Hypertension type: renovascular hypertension Qualified Code(s): I15.0 - Renovascular hypertension
--- NOTE | 2024-07-25 17:37 | Death Pronouncement Note ---
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 When I examined him he was nonresponsive with prolonged absence of respiratory effort and heart sounds and pupils were fixed. Additional Data Attending physician: Bernadette Alberto MD
--- NOTE | 2024-07-25 17:44 | Discharge Summary ---
Discharge Summary Date of Service July 25, 2024 Principal Dx & Hospital Course #1 = Principal Diagnosis (1) Hospice care patient: 88 y/o with multiple medical problems admitted for NSTEMI with underlying severe inoperable CAD and severe inoperable PAD complicated by infected deep wound of left ankle. He also had underlying severe aortic stenosis and HFrEF. He had ongoing severe LE pain at rest from PAD and pain from left ankle wound. Despite treatment of acute conditions including medical treatment for SC and antibiotics for his wound infection he did not improve with respect to his functional status and had progressive failure to thrive. He transitioned to inpatient hospice and comfort measures. He peacefully on 07/25/24. 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: (13) GERD (gastroesophageal reflux disease): (14) Hypercholesterolemia: (15) Hypothyroidism: (16) PAD (peripheral artery disease): inoperable LLE PAD last study of the vasculature showed multiple critical stenoses (17) Vascular dementia: (18) Anemia: (19) Benign prostate hyperplasia: hanna (20) Cardiomyopathy: ischemic in nature (21) HTN (hypertension): (22) Acute encephalopathy: metabolic (possible infected ulcer, LLE), toxic (pain meds, etc) Admission HPI Per Admitting Provider 88yo male with severe systolic CHF, EF 20%, 2nd to ischemic CM; severe ; severe inoperable PAD of the legs; vascular dementia; CAD with prior CABG; recent NSTEMI; nonhealing wound of the left achilles region; COPD; anemia. Hospitalized from 07/02/24 to 07/17/24 for syncope (likely multifactorial), NSTEMI, worsening systolic CHF, intractable pain of the distal left leg, ?stroke with visual disturbance & diplopia. Was having severe failure to thrive during the prior admission along with intractable left leg pain due to ischemia & his ischemic/arterial ulcer overlying the left achilles region. Despite addition of fentanyl patch and using oxycodone in [place] of chronic tramadol his pain never improved appreciably and in fact worsened over the last several days. His deconditioning worsened as well as his ability to eat/drink, be out of bed, etc. Discussions were held on 07/15 and 07/16 with both he & his daughter Denise about goals of care. In light of his rapidly declining status and intractable pain I recommended that he remain hospitalized and to forego transfer to SNF for rehab trial. Instead, I recommended hospice consultation with transition to a comfort care pathway. [facility] met with the patient & his family this am and he has been approved for inpatient hospice status for pain control and other symptom management. Today he has had ongoing 10/10 pain in his LLE necessitating IV dilaudid. Discharge Exam This morning was unarousable to voice or exam, shallow respirations with apneas, L foot cool, R foot warm. Updated his sister in room. See note also dated today. Discharge Plan Discharge Items Reason For Visit: INTRACTABLE LLE PAIN; INPATIENT HOSPICE STATUS Follow-up/Referrals: Sanjeev Coronado MD [Primary Care Provider] - Medications and DC Order Prescriptions: No Action nitroglycerin 0.4 mg tablet, sublingual See Rx Instructions .ROUTE .COMPLEX Qty: 25 5RF Dose Instruction: DISSOLVE ONE TABLET UNDER THE TONGUE EVERY 5 MINUTES NEEDED FOR CHEST PAIN. DO NOT EXCEED A TOTAL OF 3 DOSES IN 15 MINUTES Rx Instructions: DISSOLVE ONE TABLET UNDER THE TONGUE EVERY 5 MINUTES NEEDED FOR CHEST PAIN. DO NOT EXCEED A TOTAL OF 3 DOSES IN 15 MINUTES fentanyl 12 mcg/hr Patch 72 Hour 1 patch transdermal Q3D@1730 Qty: 1 0RF Admission Data Admit Date/Time: 07/17/24 10:31 Attending Provider: Bernadette Alberto Admit Provider: Bernabe Lui Primary Care Provider: Sanjeev Coronado Total Time Total Time Spent Total Time Spent (In Minutes): I personally spent: 40 minutes today on clinical care activities including: reviewing chart notes and vital signs examining the patient counseling the patient's family writing orders documentation, certificate Coding Level of Care Code 42131 INP/OBS DISCH >30 MIN Diagnoses Hospice care patient Z51.5 Intractable pain R52 Comfort measures only status Z51.5 Palliative care status Z51.5 Chronic systolic CHF (congestive heart failure) I50.22 Aortic stenosis I35.0 Non-ST elevation (NSTEMI) myocardial infarction I21.4 Syncope R55 Syncope type: unspecified Diabetes E11.9 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 Chronic kidney disease stage 3 subtype: stage 3b (GFR 30-44) CAD in [place] I25.10 COPD with emphysema J43.9 Gastroesophageal reflux disease without esophagitis K21.9 Esophagitis presence: without esophagitis Hypercholesterolemia E78.00 Acquired hypothyroidism E03.9 Hypothyroidism type: acquired PAD (peripheral artery disease) I73.9 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
== END 2024-07-25 18:48 | disposition expired | DRG 951 ==
LOC: 3W 10:31 → SUATTDRO 10:31